=== PATIENT | female | born 1980 | race Two or more races ===

== ENCOUNTER 2023-04-28 07:24 | Outpatient (OUT) | payer OTHER, SELFPAY ==
--- NOTE | 2023-04-28 07:26 | MM_ITS ---
Patient Name: MAX DE LEÓN MR#: [id number] : 1980 Exam Date: 04/28/2023 Ordering Doctor: DR William Coelho . RADIOLOGY REPORT PROCEDURE: MM TOMOSYNTHESIS SCREENING BI COMPARISON: MG MAMM SCREEN 3D DARYL CAD, 01/21/2021. MG MAMM SCREEN 3D DARYL CAD, 02/01/2022. INDICATIONS: Screening Calculator Name NCI Breast Cancer Risk Assessment Tool 5 Year Breast Cancer Risk 0.50% Lifetime Breast Cancer Risk 6.80% Personal Breast Cancer No Personal Ovarian Cancer No Treatments None Family Cancers None LOCATION: [facility] BREAST COMPOSITION: Scattered areas fibroglandular density. FINDINGS: DIAGNOSTIC CATEGORY 2--BENIGN FINDING. NO CHANGE FROM COMPARISON. Scattered benign-appearing calcifications are present. Scattered benign-appearing lymph nodes are present. RIGHT BREAST: No significant suspicious finding. LEFT BREAST: No significant suspicious finding. RECOMMENDATIONS: ROUTINE MAMMOGRAM AND CLINICAL EVALUATION IN 12 MONTHS. PLEASE NOTE: A NORMAL MAMMOGRAM DOES NOT EXCLUDE THE POSSIBILITY OF BREAST CANCER. A CLINICALLY SUSPICIOUS PALPABLE LUMP SHOULD BE BIOPSIED. Dictated by: Manoj Rojo MD on 04/28/2023 at 11:12 Approved by: Manoj Rojo MD on 04/28/2023 at 11:13
== END 2023-04-28 07:25 | disposition home or self-care (01) ==
LOC: MAMMO 07:24
PROVIDERS: PCP Family Medicine; Visit Provider Obstetrics & Gynecology
DX: Z12.31 Encounter for screening mammogram for malignant neoplasm of breast (principal)
CPT/HCPCS: 77063; 77067

== ENCOUNTER 2023-07-27 20:13 | Outpatient (REF) | payer OTHER, SELFPAY ==
--- OUTSIDE RECORDS SUMMARY | 2023-07-27 20:20 | XMS_ITS | CCD ---
Author Organization [facility] Care Team Providers Care Signal Timer Name Role Phone BRIAN HERNANDEZ Primary Care Physician [phone] JASPER, DR OCHOA Admitting Unavailable JASPER, DR OCHOA Attending Unavailable DAVID, DR ENRIQUEZ Primary Care Unavailable JASPER, DR OCHOA Admitting Unavailable JASPER, DR OCHOA Attending Unavailable DAVID, DR ENRIQUEZ Primary Care Unavailable JASPER, DR OCHOA Consulting Unavailable DAVID, DR ENRIQUEZ Admitting Unavailable DAVID, DR ENRIQUEZ Attending Unavailable DAVID, DR ENRIQUEZ Primary Care Unavailable DAVID, DR ENRIQUEZ Consulting Unavailable JASPER, DR OCHOA Admitting Unavailable JASPER, DR OCHOA Attending Unavailable DAVID, DR ENRIQUEZ Primary Care Unavailable JASPER, DR OCHOA Consulting Unavailable JASPER, DR OCHOA Admitting Unavailable JASPER, DR OCHOA Attending Unavailable DAVID, DR ENRIQUEZ Primary Care Unavailable [facility], DR MARGIE Mcgee Consulting Unavailable JASPER, DR OCHOA Consulting Unavailable JASPER, DR OCHOA Admitting Unavailable JASPER, DR OCHOA Attending Unavailable DAVID, DR ENRIQUEZ Primary Care Unavailable JASPER, DR OCHOA Consulting Unavailable JASPER, DR OCHOA Admitting Unavailable JASPER, DR OCHOA Attending Unavailable DAVID, DR ENRIQUEZ Primary Care Unavailable JASPER, DR OCHOA Admitting Unavailable JASPER, DR OCHOA Attending Unavailable DAVID, DR ENRIQUEZ Primary Care Unavailable JASPER, DR OCHOA Consulting Unavailable MICHEAL QUEEN Consulting Unavailable KINDRA LORENZO Consulting Unavailable JASVIR De Leon Attending Provider Ifrah De Leon Attending Unavailable Ifrah De Leon Admitting Unavailable Diana Lazaro Attending Unavailable Diana Lazaro Admitting Unavailable Brian Hernandez Primary Care Unavailable Ifrah De Leon Unavailable BRIAN HERNANDEZ Primary Care Unavailable DIANA LAZARO Attending Unavailable DIANA LAZARO Admitting Unavailable DIANA LAZARO Attending Unavailable DIANA LAZARO Admitting Unavailable DIANA LAZARO Attending Unavailable DIANA LAZARO Attending Unavailable Mian CHRISTOPHER Attending Unavailable FRANK CARRASCO Attending Unavailable ARAMIS BERMUDEZ Attending Unavailable VANNESA ST Attending Unavailable BRIAN HERNANDEZ Attending Unavailable Allergies Allergy Classification Reported Allergen(s) Allergy Type Date of Onset Reaction(s) Facility (1 source) No Known Medication Allergies; Translations: [No Known Medication Allergies] Propensity to adverse reactions (disorder) [facility] Repository Medications Current Medications Medication Drug Class(es) Dates Sig (Normalized) Sig (Original) Albuterol (2 sources) beta2-Adrenergic Agonist Start: 11-03-2022 albuterol Start Date: 11/03/22 Status: Ordered cephalexin 500 mg oral capsule (3 sources) Cephalosporin Antibacterial Start: 11-03-2022 End: 11-10-2022 take 1 capsule by mouth twice daily Keflex 500 mg Cap 500 mg = 1 cap(s), Oral, BID, X 7 day(s), # 14 cap(s), Refills(s) 0, Pharmacy: [facility] #[id number], 163, cm, 11/03/22 15:33:00 EDT, Height/Length Dosing, 101.2, kg, 11/03/22 15:33:00 EDT, Weight Dosing Start Date: 11/03/22 Stop Date: 11/10/22 Status: Ordered take 1 capsule by [facility] every eight hours Cephalexin 500 MG 1 capsule Orally three times a day 03/24/2022 Active ciprofloxacin 250 mg oral tablet (2 sources) Quinolone Antimicrobial Start: 01-20-2022 End: 01-27-2022 take 1 tablet by mouth twice daily Cipro 250 mg Tab 250 mg = 1 tab(s), Oral, BID, X 7 day(s), # 14 tab(s), Refills(s) 0, Pharmacy: [facility] #[id number], 163, cm, 01/20/22 13:31:00 EDT, Height/Length Dosing, 100.3, kg, 01/20/22 13:31:00 EDT, Weight Dosing Start Date: 01/20/22 Stop Date: 01/27/22 Status: Ordered Cranberry preparation (2 sources) Non-Standardized Food Allergenic Extract, Non-Standardized Plant Allergenic Extract Start: 11-03-2022 Azo cranberry Start Date: 11/03/22 Status: Ordered Nexium (9 sources) Proton Pump Inhibitor Start: 08-17-2021 Nexium Oral, Daily, Refills(s) 0 Start Date: 08/17/21 Status: Ordered 30 actuat fluticasone furoate 0.1 mg/actuat / umeclidinium 0.0625 mg/actuat / vilanterol 0.025 mg/actuat dry powder inhaler (2 sources) Anticholinergic, Corticosteroid, beta2-Adrenergic Agonist Trelegy Ellipta 100-62.5-25 MCG/ACT Inhalation for 90 Days Active Folic Acid (2 sources) Start: 11-03-2022 folic acid Daily Start Date: 11/03/22 Status: Ordered Claritin (9 sources) Start: 08-17-2021 Claritin Daily, Refills(s) 0 Start Date: 08/17/21 Status: Ordered Singulair (11 sources) Leukotriene Receptor Antagonist Start: 08-17-2021 Singulair Daily, Refills(s) 0 Start Date: 08/17/21 Status: Ordered Montelukast Sodi um 10 MG Oral for 90 Days Active 24 hr oxybutynin chloride 10 mg extended release oral tablet (13 sources) Cholinergic Muscarinic Antagonist Start: 10-25-2021 End: 10-20-2022 take 1 tablet by mouth once daily oxybutynin 10 mg ER Tab 10 mg = 1 tab(s), Oral, Daily, X 90 day(s), # 90 tab(s), Refills(s) 3, Pharmacy: [facility], 163, cm, 08/17/21 10:59:00 EDT, Height/Length Dosing, 100.3, kg, 08/17/21 10:59:00 EDT, Weight Dosing Start Date: 10/25/21 Stop Date: 10/20/22 Status: Ordered Start: 09-16-2021 take 1 tablet by ángela th once daily oxybutynin 10 mg ER Tab 10 mg = 1 tab(s), Oral, Daily, # 30 tab(s), Refills(s) 0, Pharmacy: [address], 163, cm, 08/17/21 10:59:00 EDT, Height/Length Dosing, 100.3, kg, 08/17/21 10:59:00 EDT, Weight Dosing Start Date: 09/16/21 Status: Ordered Start: 08-17-2021 End: 09-16-2021 take 1 tablet by mouth once daily oxybutynin 5 mg ER Tab 5 mg = 1 tab(s), Oral, Daily, X 30 day(s), # 30 tab(s), Refills(s) 0, Pharmacy: [address], 163, cm, 08/17/21 10:59:00 EDT, Height/Length Dosing, 100.3, kg, 08/17/21 10:59:00 EDT, Weight Dosing Start Date: 08/17/21 Stop Date: 09/16/21 Status: Ordered Oxybutynin Chlor lizzie ER 10 MG Oral for 90 Days Active Probiotic + Colostrum (2 sources) Start: 11-03-2022 Probiotic + Co lostrum Oral, Daily Start Date: 11/03/22 Status: Ordered Trelegy Ellipta (9 sources) Start: 08-17-2021 Trelegy Ellipt a Inhalation, Daily, Refills(s) 0 Start Date: 08/17/21 Status: Ordered vitamin B12 (2 sources) Vitamin B12 Start: 11-03-[address] art Date: 11/03/22 Status: Ordered Completed/Discontinued Medications Medication Drug Class(es) Dates Sig (Normalized) Sig (Original) sulfamethoxazole 400 mg / trimethoprim 80 mg oral tablet (2 sources) Dihydrofolate Reductase Inhibitor Antibacterial, Sulfonamide Antimicrobial Start: 11-03-2022 Bactrim 400 mg-80 mg Tab 80 mg, Oral, As Directed, 30 tab(s), Refill(s) 3, Take 1 tab after sexual intercourse to prevent infections., [facility] #[id number], 163, cm, 11/03/22 15:33:00 EDT, Height/Length Dosing, 101.2, kg, 11/03/22 15:33:00 EDT, Weight Dosing Start Date: 11/03/22 Status: Ordered Problems Active Problems Problem Classification Problem Date Documented Date Episodic/Chronic Abdominal pain (5 sources) Pelvic and perineal pain; Translations: [PELVIC AND PERINEAL PAIN] Onset: 03-16-2021 Episodic Asthma (10 sources) Asthma; Translations: [Unspecified asthma, uncomplicated] Onset: 03-16-2021 08-17-2021 Chronic Deficiency and other anemia (1 source) Iron deficiency anemia secondary to blood loss (chronic); Translations: [IRON DEFIC ANEMIA SEC BLD LOSS CHRN] Onset: 03-16-2021 Chronic Deficiency and other anemia (9 sources) Anemia 08-17-2021 Episodic Genitourinary symptoms and ill-defined conditions (14 sources) Mixed incontinence; Translations: [Incontinence] Onset: 08-17-2021 Chronic Genitourinary symptoms and ill-defined conditions (16 sources) Sensation as if bladder still full; Translations: [Feeling of incomplete bladder emptying] Onset: 01-20-2022 Episodic Immunizations and screening for infectious disease (1 source) Encounter for screening for human papillomavirus (HPV); Translations: [ENC SCREENING HUMAN PAPILLOMAVIRUS] Onset: 01-16-2022 Episodic Menstrual disorders (5 sources) Excessive and frequent menstruation with regular cycle; Translations: [Dysmenorrhea, unspecified] Onset: 03-08-2021 Chronic Other diseases of bladder and urethra (5 sources) Detrusor overactivity; Translations: [Overactive bladder] Onset: 08-17-2021 Chronic Other diseases of bladder and urethra (9 sources) Overactive bladder 08-17-2021 Chronic Other screening for suspected conditions (not mental disorders or infectious disease) (5 sources) Encounter for screening mammogram for malignant neoplasm of breast; Translations: [Encounter for screening for malignant neoplasm of cervix] Onset: 01-13-2022 Episodic Skin and subcutaneous tissue infections (1 source) Cellulitis of right finger Episodic Unclassified (7 sources) Finding of sensation of bladder 01-20-2022 Unclassified (1 source) CONTACT W/AND (SUSP) EXPOS COVID-19; Translations: [CONTACT W/AND (SUSP) EXPOS COVID-19] Onset: 03-09-2021 Urinary tract infections (12 sources) Urinary tract infectious disease; Translations: [Urinary tract infection, site not specified] Onset: 08-17-2021 Episodic Urinary tract infections (1 source) Urinary tract infections; Translations: [N39.0 - Urinary tract infection, site not specified] Onset: 08-19-2021 Past or Other Problems Problem Classification Problem Date Documented Da te Episodic/Chronic Deficiency and other anemia (4 sources) Iron deficiency anemia, unspecified; Translations: [IRON DEFICIENCY ANEMIA UNSPECIFIED] Onset: 08-13-2021 Episodic Other female genital disorders (1 source) Hypertrophy of uterus; Translations: [HYPERTROPHY OF UTERUS] Onset: 03-16-2021 Episodic Results Test Name Value Interpretation Reference Range Facility Ambulatory Visit Summaryon 0 06-07-2023 Ambulatory Visit Summary CANDICE DE LEÓN :1980 Visit Date:06/07/2023 Ambulatory Visit Instructions Your Diagnosis UTI symptoms Your Care Team Attending Physician - DIANA LAZARO PA-C Primary Care Physician - DAVID MURPHY, BRIAN Anderson This Is Your Medications List albuterol bifidobacterium-lacto bacillus (Probiotic + Colostrum) cranberry (Azo cranberry) cyanocobalamin (Vitamin B12) esomeprazole (Nexium) fluticasone/umeclidin ium/vilanterol (Trelegy Ellipta) folic acid loratadine (Claritin) montelukast (Singulair) sulfamethoxazole-trim ethoprim (Bactrim 400 mg-80 mg Tab) Procedures Performed Cholecystectomy, Colonoscopy, Partial hysterectomy. Medications What How Much When Instructions Unchanged albuterol Unchanged bifidobacterium-lacto bacillus (Probiotic + Colostrum) By Mouth Every day Unchanged cranberry (Azo cranberry) Unchanged cyanocobalamin (Vitamin B12) Unchanged esomeprazole (Nexium) By Mouth Every day Unchanged fluticasone/ umeclidinium/ vilanterol (Trelegy Ellipta) Inhalation Every day Unchanged folic acid Every day Unchanged loratadine (Claritin) Every day Unchanged montelukast (Singulair) Every day Unchanged sulfamethoxazole-trim ethoprim (Bactrim 400 mg-80 mg Tab) 80 Milligram By Mouth As Directed Take 1 tab after sexual intercourse to prevent infections. Allergies No Known Medication Allergies Problems Ongoing - Any problem that you are currently receiving treatment for. Anemia Asthma Feeling of incomplete bladder emptying Mixed incontinence OAB (overactive bladder) Recurrent UTI UTI symptoms Patient Survey You may receive a survey via text or e-mail asking about your office visit. Please share your experience with us by completing your survey. We appreciate your feedback and thank you for choosing us for your care. [facility] C Urineon 11-07-2022 Bacteria identified Cx Nom (U) Microbiology PROCEDURE: Urine Culture [R1] SOURCE: U Random BODY SITE: COLLECTED DATE/TIME: 11/03/2022 16:03 EDT RECEIVED DATE/TIME: 11/04/2022 12:12 EDT START DATE/TIME: 11/04/2022 12:12 EDT FREE TEXT SOURCE: DIANA LAZARO PA-C, PA-C, DIANA Aleman FINAL REPORTS Final Report [] Verified Date/Time: 11/07/2022 11:23 EDT 10,000 cfu/ml Morganella morganii 5,000 cfu/ml Mixed skin contaminants SUSCEPTIBILITY RESULTS LEGEND: S=Susceptible, N/R=Not Reported, Blank=Data not available, or drug not advisable or tested, I=Intermediate, ESBL=Extended spectrum beta-lactamase, R=Resistant, TFG=Thymidine-depende nt strain, AMBROSE=Beta-lactamase positive, SARAH=mcg/m;(mg/L), S*=Predicted susceptible interp, R*=Predicted resistant interp Mormor Antibiotic SARAH Dilutn SARAH Interp Amikacin <=16 S Ampicillin >16 R Ampicillin/ >16/8 R Sulbactam Aztreonam <=4 S Cefazolin >16 R Cefepime <=2 S Cefoxitin <=8 S Ceftazidime 8 S Ceftazidime/ <=8 S Avibactam Ceftriaxone <=1 S Ciprofloxacin <=1 S Ertapenem <=0.5 S Gentamicin <=4 S Levofloxacin <=2 S Meropenem <=1 S Nitrofurantoin 64 R* Piperacillin/ <=16 S Tazobactam Tetracycline >8 R Tigecycline <=2 R* Tobramycin <=4 S Trimethoprim/ <=2/38 S Sulfa Performing Locations R1: This test was performed at: [facility], [address] [place] [address], [phone] , , Normal [facility] Comment on above: Performed By: #### [id number] #### [facility] [address] [place] [id number] Ambulatory Visit Summaryon 0 11-03-2022 Ambulatory Visit Summary CANDICE DE LEÓN :1980 Visit Date:11/03/2022 Ambulatory Visit Instructions Your Diagnosis Recurrent UTI UTI symptoms OAB (overactive bladder) Mixed incontinence Feeling of incomplete bladder emptying Tests Performed Urnls Dip Stick Auto w/o Microscopy POC 67512 Your Care Team Attending Physician - DIANA LAZARO PA-C Primary Care Physician - BRIAN HERNANDEZ MD This Is Your Medications List albuterol bifidobacterium-lacto bacillus (Probiotic + Colostrum) cranberry (Azo cranberry) cyanocobalamin (Vitamin B12) esomeprazole (Nexium) fluticasone/umeclidin ium/vilanterol (Trelegy Ellipta) folic acid loratadine (Claritin) montelukast (Singulair) Procedures Performed Cholecystectomy, Colonoscopy, Partial hysterectomy. Discharge Vitals Heart Rate (Peripheral) 65 Blood Pressure 142/87 Height 163 cm Height 64 in Weight 101.2 kg Weight 222.64 lb BMI 38.09 What to do next You Need to Schedule the Following Appointments Follow Up with DIANA LAZARO PA-C, URL When: Where: [address] [place] [address] You Need to Complete the Following Urine Culture, Urine Random, Routine collect, Collected, 11/03/22, Order for future visit, Nurse collect, Recurrent UTI Invalid Interpretation Code OAB (overactive bladder) [facility] Patient Educationon 11-04-19 Patient Education Obstetrics and Gynecology Urinary Tract Infection, Adult A urinary tract infection (UTI) is an infection of any part of the urinary tract. The urinary tract includes: ? The kidneys. ? The ureters. ? The bladder. ? The urethra. These organs make, store, and get rid of pee (urine) in the body. What are the causes? This infection is caused by germs (bacteria) in your genital area. These germs grow and cause swelling (inflammation) of your urinary tract. What increases the risk? The following factors may make you more likely to develop this condition: ? Using a small, thin tube (catheter) to drain pee. ? Not being able to control when you pee or poop (incontinence). ? Being female. If you are female, these things can increase the risk: ? Using these methods to prevent : ? A medicine that kills sperm (spermicide). ? A device that blocks sperm (diaphragm). ? Having low levels of a female hormone (estrogen). ? Being . You are more likely to develop this condition if: ? You have genes that add to your risk. ? You are sexually active. ? You take antibiotic medicines. ? You have trouble peeing because of: ? A prostate that is bigger than normal, if you are male. ? A blockage in the part of your body that drains pee from the bladder. ? A kidney stone. ? A nerve condition that affects your bladder. ? Not getting enough to drink. ? Not peeing often enough. ? You have other conditions, such as: ? Diabetes. ? A weak disease-fighting system (immune system). ? Sickle cell disease. ? Gout. ? Injury of the spine. What are the signs or symptoms? Symptoms of this condition include: ? Needing to pee right away. ? Peeing small amounts often. ? Pain or burning when peeing. ? Blood in the pee. ? Pee that smells bad or not like normal. ? Trouble peeing. ? Pee that is cloudy. ? Fluid coming from the vagina, if you are female. ? Pain in the belly or lower back. Other symptoms include: ? Vomiting. ? Not feeling hungry. ? Feeling mixed up (confused). This may be the first symptom in older adults. ? Being tired and grouchy (irritable). ? A fever. ? Watery poop (diarrhea). How is this treated? ? Taking antibiotic medicine. ? Taking other medicines. ? Drinking enough water. In some cases, you may need to see a specialist. Follow these instructions at home: Medicines ? Take grew-ofo-aczytvo and prescription medicines only as told by your doctor. ? If you were prescribed an antibiotic medicine, take it as told by your doctor. Do not stop taking it even if you start to feel better. General instructions ? Make sure you: ? Pee until your bladder is empty. ? Do not hold pee for a long time. ? Empty your bladder after sex. ? Wipe from front to back after peeing or pooping if you are a female. Use each tissue one time when you wipe. ? Drink enough fluid to keep your pee pale yellow. ? Keep all follow-up visits. Contact a doctor if: ? You do not get better after 1?2 days. ? Your symptoms go away and then come back. Get help right away if: ? You have very bad back pain. ? You have very bad pain in your lower belly. ? You have a fever. ? You have chills. ? You feeling like you will vomit or you vomit. Summary ? A urinary tract infection (UTI) is an infection of any part of the urinary tract. ? This condition is caused by germs in your genital area. ? There are many risk factors for a UTI. ? Treatment includes antibiotic medicines. ? Drink enough fluid to keep your pee pale yellow. This information is not intended to replace advice given to you by your health care provider. Make sure you discuss any questions you have with your health care provider. Document Revised: 10/16/2020 Document Reviewed: 10/16/2020 [employer] Patient Education ? 2022 [employer] [facility]y [facility] Urology Office/Clinic Noteon 11-03-2022 Urology Office/Clinic Note Chief Complaint 6 month follow up [facility] Staff Candice is a 42 y.o. female here for 6 month follow up. Previous Dx: feeling of incomplete bladder emptying, mixed incontinence, OAB, recurrent UTI, UTI symptoms. No urological procedures. Pt is currently taking Oxybutynin 10mg ER QD. Previous PVR 05/04/22 was 29cc. Pt states she started AZO tablets 10/31/22. Pt states she stopped taking Oxybutynin because nocturia improvement, then she started taking Oxybutynin again due to nocturia increase. Pt states she takes Oxybutynin when she remembers to take it. PVR today 0ml. Dysuria: discomfort Incomplete bladder emptying: Pt states she sits for 10 minutes to make sure she empties her bladder Hematuria: denies visible blood Frequency: 10x a day Urgency: denies Nocturia: 1-2x a night Stream: denies hesitancy, strong stream Leaking: yes Post void dripping: yes Wearing pads/ Depends: wears pad daily, changes 2x a day Urge incontinence: yes Stress incontinence: yes Incontinence without Sensory Awareness: denies Abdominal pain: denies Flank pain: only when she feels she has a UTI Sexual complaints: Pt states she feels irritation and her bladder feels uncomfortable after sex History of Present Illness staff HPI reviewed and agree. Review of Systems PHQ Score Initial Depression Screen Score: 0 no fever, chills, malaise, myalgia. no rash/lesions. no chest pain, palpitations, or SOB. no abdominal pain, nausea, vomiting. no unilateral calf swelling, redness, pain Physical Exam Vitals & Measurements HR: 65(Peripheral) BP: 142/87 HT: 64 in HT: 163 cm WT: 101.2 kg WT: 222.64 lb BMI: 38.09 General: nontoxic, NAD Mouth: moist mucosa Lungs: normal respiratory effort Cardio: regular rate, good distal perfusion Abdomen: nondistended, no suprapubic distention or tenderness, no CVA tenderness Neurologic: Grossly normal Skin: No rashes or suspicious lesions Assessment/Plan 1. Recurrent UTI (N39.0: Urinary tract infection, site not specified) Has had UTIs increasing in frequency over the past few years. Now every few months. Seems to happen more frequently after having intercourse. Discussed starting post-coital abx. Risks/benefits discussed. Pt would like to try this. -Bactrim 400mg-80mg PRN 2. UTI symptoms (R39.9: Unspecified symptoms and signs involving the genitourinary system) UA today shows trace-intact blood and pos nitrates. Pt c/o dysuria, frequency, burning for about a week. Pt states she started AZO tablets 10/31/22. -Will send Keflex 500mg BID x7days. call if sx don't resolve or if they do but then return. 3. OAB (overactive bladder) (N32.81: Overactive bladder) Pt continues taking Oxybutynin 10 mg ER QD. [place] med was working well. Stopped for over a week, had nocturia 1-2x/night, then restarted. Has now been back on Oxybutynin, takes when she remembers. Advised to take Oxybuynin regularly. -cont Oxybutynin 4. Mixed incontinence (N39.46: Mixed incontinence) -cont Oxybutynin 5. Feeling of incomplete bladder emptying (R39.14: Feeling of incomplete bladder emptying) PVR 0(29)cc prefers PRN f/u. understands that will need to see her at least once per year since we are prescribing medications. she said if she doesn't have a UTI by then she will call to schedule a regular follow-up. All questions/concerns were discussed. Pt to call the office if she encounters any issues prior. Pt acknowledges understanding. Follow-up With When Contact Information TEJAS ZUNIGA, DIANA Aleman, URL [address] [place] [address] Additional Instructions: PRN Patient Education Urinary Tract Infection, Adult, Vzro-dx-Dzoc Winnie Schofield, personally scribed for Diana Lazaro PA-C on 11/03/2022 16:08:18. . Documentation recorded by the marilee Barragan accurately reflects the services(s) I performed and decisions made by me. Authenticated by Diana Lazaro PA-C on 11/03/2022 16:22:03. Problem List/Past Medical History Ongoing Anemia Asthma Feeling of incomplete bladder emptying Mixed incontinence OAB (overactive bladder) Recurrent UTI UTI symptoms Historical No qualifying data Procedure/Surgical History Cholecystectomy, Colonoscopy, Partial hysterectomy. Medications albuterol Azo cranberry Claritin, Daily folic acid, Daily Nexium, Oral, Daily Probiotic + Colostrum, Oral, Daily Singulair, Daily Trelegy Ellipta, Inhalation, Daily Vitamin B12 Allergies No Known Medication Allergies Social History Tobacco Never (less than 100 in lifetime) Tobacco Use:. Never Smokeless Tobacco Use:., 11/03/2022 Family History Diabetes: Mother. Immunizations Vaccine Date Status Comments influenza virus vaccine, inactivated 01/20/2022 Recorded SARS-CoV-2 (COVID-19) mRNA-1273 vaccine 02/08/2021 Recorded SARS-CoV-2 (COVID-19) mRNA-1273 vaccine 01/2021 Recorded influenza virus vaccine, inactivated 1 (more content not included)... [facility] Comment on above: Result Comment: Elec tronically Signed By: DIANA LAZARO PA-C\.br\Date and Time Signed: 11/03/22 16:22 EDT\.br\Electronically Co-Signed By: Winnie Barragan\.br\Date and Time Co-Signed: 11/03/22 16:08 EDT C Urineon 10-06-2022 Bacteria identified Cx Nom (U) Microbiology PROCEDURE: Urine Culture [R1] SOURCE: U Random BODY SITE: COLLECTED DATE/TIME: 10/04/2022 08:41 EDT RECEIVED DATE/TIME: 10/04/2022 14:39 EDT START DATE/TIME: 10/04/2022 14:39 EDT FREE TEXT SOURCE: DIANA LAZARO PA-C, PA-C, JENNIFER E FINAL REPORTS Final Report [] Verified Date/Time: 10/06/2022 09:18 EDT 2,000 cfu/ml Mixed skin contaminants Performing Locations R1: This test was performed at: [facility], [address] [place] [address], [id number] , [place], [facility] Comment on above: Performed By: #### [id number] #### [facility] [address] [place] [id number] Ambulatory Visit Summaryon 0 10-03-2022 Ambulatory Visit Summary CANDICE DE LEÓN :1980 Visit Date:10/03/2022 Ambulatory Visit Instructions Your Care Team Attending Physician - ASHWIN MURPHY, Mian Darnell Primary Care Physician - DAVID MURPHY, BRIAN Anderson This Is Your Medications List esomeprazole (Nexium) fluticasone/umeclidin ium/vilanterol (Trelegy Ellipta) loratadine (Claritin) montelukast (Singulair) oxybutynin (oxybutynin 10 mg ER Tab) Procedures Performed Cholecystectomy, Colonoscopy, Partial hysterectomy. What to do next Scheduled Follow-Up Appointments 2022 3:15 PM EDT With: TEJAS ZUNIGA, DIANA Aleman Where: [facility] Urinalysis - AUTOMATEDon Appearance (U) cloudy [employer] Other Bilirubin Ql (U) Negative [employer] Other Color (U) yellow [employer] Other Glucose Ql (U) Negative [employer] Other Hemoglobin Ql (U) trace-intact [employer] Other Ketones Ql (U) Negative [employer] Other Leukocyte esterase Test strip Ql (U) Negative [employer] Other Nitrite Ql (U) Negative [employer] Other pH (U) 5.5 [pH] [employer] Other Protein Ql (U) Negative [employer] Other Specific gravity (U) [Rel density] >1.030 [employer] Other Urobilinogen (U) [Mass/Vol] 0.2 mg/dL [employer] Other Urinalysis - AUTOMATED [employer] [facility] [employer] Other Urine Cultureon 03-07-2022 Bacteria identified Cx Nom (U) Reason for Exam Dysuria Urine <9,000 colonies/ml mixed bacterial skin contaminants 2 Days PERFORMED BY: [place] [address] PATHOLOGIST COMMISSARY HELPER WILLAM HERNANDEZ M.D. [facility] Comment on above: Performed By: #### C UU #### [address] Bacteria identified Cx Nom (U) [employer] Other MG MAMM SCREEN 3D DARYL CADon 02-01-2022 MG MAMM SCREEN 3D DARYL CAD Patient: CANDICE DE LEÓN Exam Date: 02/01/2022 : 1980 Gender:F Ordering : DR GABRIELA COELHO . Admission #: [id number] Family : Order #: [id number] CLICK HERE TO VIEW EXAM RADIOLOGY REPORT PROCEDURE: MAMMOGRAM SCREENING 3D BILATERAL CAD COMPARISON: MG MAMM SCREEN 3D DARYL CAD, 01/21/2021. INDICATIONS: Screening mammography Calculator Name NCI Breast Cancer Risk Assessment Tool 5 Year Breast Cancer Risk 0.40% Lifetime Breast Cancer Risk 6.90% Personal Breast Cancer No Personal Ovarian Cancer No Treatments None Family Cancers None LOCATION: [facility] BREAST COMPOSITION: Scattered areas fibroglandular density. FINDINGS: DIAGNOSTIC CATEGORY 2--BENIGN FINDING. NO CHANGE FROM COMPARISON. Scattered benign-appearing nodules are present. Scattered benign-appearing calcifications are present. Scattered benign-appearing lymph nodes are present. RIGHT BREAST: No significant suspicious finding. LEFT BREAST: No significant suspicious finding. RECOMMENDATIONS: ROUTINE MAMMOGRAM AND CLINICAL EVALUATION IN 12 MONTHS. PLEASE NOTE: A NORMAL MAMMOGRAM DOES NOT EXCLUDE THE POSSIBILITY OF BREAST CANCER. A CLINICALLY SUSPICIOUS PALPABLE LUMP SHOULD BE BIOPSIED. Dictated by: Margie Deluna MD on 02/01/2022 at 13:53 Approved by: Margie Deluna MD on 02/01/2022 at 13:54 Normal [facility] US PELVIS AND TRANSVAGon US PELVIS AND TRANSVAG EXAMINATION: US PELVIS AND TRANSVAG HISTORY: Pelvic and perineal pain COMPARISON: 01/21/2021 FINDINGS: Transabdominal and transvaginal images The uterus is normal in size, contour and myometrial echotexture measuring 7.9 x 5.0 x 3.8 cm. Anteflexed. The endometrium measures 4 mm, normal. Areas of anechoic echogenicity in the cervix, nabothian cysts. The right ovary is normal in appearance measuring 2.3 x 1.6 x 1.5 cm. Normal color and Doppler flow The left ovary is normal in appearance measuring 2.2 x 1.4 x 1.4 cm. Normal color and Doppler flow IMPRESSION: Normal exam Electronically authenticated by: MARGIE DELUNA Date: 2022-02-01 11:27 Normal [facility] PAP ACOG PANEL 2: 30 to 65on 01-21-2022 . . Normal [facility] Comment on above: Result Comment: Perf ormed at: WB Performed By: #### 4 [id number] #### [facility] [address] [place] [address] Dr. Raul Cullen Age Gdln ACOG Testing 30-65 Normal [facility] Comment on above: Performed By: #### 4 [id number] #### [facility] [address] [place] [address] Dr. Raul Cullen DIAGNOSIS: Comment Normal [facility] Comment on above: Result Comment: NEGA TIVE FOR INTRAEPITHELIAL LESION OR MALIGNANCY. Performed at: WB Performed By: #### 4 [id number] #### [facility] [address] [place] [address] Dr. Raul Cullen HPV Aptima Negative Normal Negative [facility] Comment on above: Result Comment: This nucleic acid amplification test detects fourteen high-risk HPV types (16,18,31,33,35,39,45,51,52,56,58,59,66,68) without differentiation. Performed at: =G Performed By: #### 4 [id number] #### [facility] [address] [place] [address] Dr. Raul Cullen HPV Genotype Reflex Comment Normal [facility] Comment on above: Result Comment: Crit eria not met, HPV Genotype not performed. Performed at: WB Performed By: #### 4 [id number] #### [facility] [address] [place] [address] Dr. Raul Cullen Methodology: Comment Normal [facility] Comment on above: Result Comment: This liquid based ThinPrep(R) pap test was screened with the use of an image guided system. Performed at: WB Performed By: #### 4 [id number] #### [facility] [address] [place] [address] Dr. Raul Cullen Note: Comment Normal [facility] Comment on above: Result Comment: The Pap smear is a screening test designed to aid in the detection of premalignant and malignant conditions of the uterine cervix. It is not a diagnostic procedure and should not be used as the sole means of detecting cervical cancer. Both false-positive and false-negative reports do occur. . Performed at: WB Performed By: #### 4 [id number] #### [facility] [address] [place] [address] Dr. Raul Cullen Performed by: Comment Normal [facility] Comment on above: Result Comment: Cecy Terry, Bilingual Kindergarten Teacher Performed at: WB Performed By: #### 4 [id number] #### [facility] [address] [place] [address] Dr. Raul Cullen Specimen adequacy: Comment Normal [facility] Comment on above: Result Comment: Sati sfactory for evaluation. Endocervical and/or squamous metaplastic cells (endocervical component) are present. Performed at: WB Performed By: #### 4 [id number] #### [facility] [address] [place] [address] Dr. Raul Cullen [facility] Standardon 12-23-2021 eGFR Non AA >60 Invalid Interpretation Code [facility] Comment on above: Performed By: #### 1 [id number], [id number], [id number], 3643299, 3346664, 2657987, 6432627 #### [facility] (DEFAULT) [address] [place] [address] eGFR AA >60 Invalid Interpretation Code [facility] Comment on above: Result Comment: Manager Sports girish Kidney disease could be indicated at eGFRs of less than 60 ml/min/1.73m2. Kidney Failure is indicated at less than 15 ml/min/1.73m2 Performed By: #### 1 [id number], 1579675, [id number], 8803641, 7129510, 4339980, 1600864 #### [facility] (DEFAULT) [address] [place] [address] 94629 Albumin [Mass/Vol] 4.4 g/dL Normal 3.5-5.0 [facility] Comment on above: Performed By: #### 1 [id number], 0722722, [id number], 3566208, 7212265, 4041649, 1506152 #### [facility] (DEFAULT) [address] [place] [address] 44278 Albumin/Globulin [Mass ratio] 1.2 {ratio} Low 1.4-2.6 [facility] Comment on above: Performed By: #### 1 [id number], 6741298, [id number], 7854825, 0848712, 9416811, 3357422 #### [facility] (DEFAULT) [address] [place] [address] 59236 Alk Phos 69 IU/L Normal 32-91 [facility] Comment on above: Performed By: #### 1 [id number], 9381768, 5016744110, 8084522, 1164989, 3895866, 4912223 #### [facility] (DEFAULT) [address] [place] [address] 42014 ALT [Catalytic activity/Vol] 72.0 U/L High 14.0-54.0 [facility] Comment on above: Performed By: #### 1 [id number], 5841962, 2586207700, 7837341, 6678439, 8098733, 0702186 #### [facility] (DEFAULT) [address] [place] [address] 46536 Anion gap [Moles/Vol] 12.0 mmol/L Normal 5.0-19.0 [facility] Comment on above: Performed By: #### 1 [id number], 0736046, 3762095920, 6416545, 6229713, 2898044, 0708962 #### [facility] (DEFAULT) [address] [place] [address] 92524 AST [Catalytic activity/Vol] 50 U/L High 15-41 [facility] Comment on above: Performed By: #### 1 [id number], 8353445, 2350818646, 0692197, 5500742, 0764138, 4843737 #### [facility] (DEFAULT) [address] [place] [address] 14845 Bili Total 0.8 mg/dL Normal 0.3-1.2 [facility] Comment on above: Performed By: #### 1 [id number], 8523546, 0404353837, 4563823, 3573913, 4163179, 1347319 #### [facility] (DEFAULT) [address] [place] [address] 22154 Calcium [Mass/Vol] 9.7 mg/dL Normal 8.9-10.3 [facility] Comment on above: Performed By: #### 1 [id number], 0591178, 1235901862, 2872205, 9269802, 0119260, 3002878 #### [facility] (DEFAULT) [address] [place] [address] 65914 Chloride [Moles/Vol] 98 mmol/L Low 101-111 [facility] Comment on above: Performed By: #### 1 [id number], 0070223, 3381609248, 8790331, 6726144, 1260064, 6974011 #### [facility] (DEFAULT) [address] [place] [address] 25161 CO2 [Moles/Vol] 29 mmol/L Normal 21-32 [facility] Comment on above: Performed By: #### 1 [id number], 2866803, 0408198141, 1770797, 8683531, 8768189, 7602545 #### [facility] (DEFAULT) [address] [place] [address] 46020 Creatinine [Mass/Vol] 0.87 mg/dL Normal 0.60-1.30 [facility] Comment on above: Performed By: #### 1 [id number], 6548681, 4899119052, 1992340, 5865206, 2141996, 0092290 #### [facility] (DEFAULT) [address] [place] [address] 03697 Globulin (S) [Mass/Vol] 3.6 g/dL Normal 1.5-4.3 [facility] Comment on above: Performed By: #### 1 [id number], 7453692, 8460127267, 6298349, 1174910, 3616709, 1187495 #### [facility] (DEFAULT) [address] [place] [address] 64239 Glucose [Mass/Vol] 94.0 mg/dL Normal 74.0-118.0 [facility] Comment on above: Performed By: #### 1 379850504, 9026736, 4584209257, 3644704, 7537117, 1843776, 2151564 #### [facility] (DEFAULT) [address] [place] [address] 30256 Osmolality 270 mOsm/L Invalid Interpretation Code [facility] Comment on above: Performed By: #### 1 [id number], 5190171, 8150346468, 8707247, 6967075, 7539585, 9878500 #### [facility] (DEFAULT) [address] [place] [address] 00437 Potassium [Moles/Vol] 4.1 mmol/L Normal 3.6-5.1 [facility] Comment on above: Performed By: #### 1 327561813, 5085242, 7596358686, 5947370, 1829603, 4924364, 6183076 #### [facility] (DEFAULT) [address] [place] [address] 73701 Protein [Mass/Vol] 8.0 g/dL Normal 6.5-8.1 [facility] Comment on above: Performed By: #### 1 [id number], 0637152, 6944564089, 9388714, 5056467, 0129728, 2843479 #### [facility] (DEFAULT) [address] [place] [address] 66534 Sodium [Moles/Vol] 135.0 mmol/L Low 136.0-144.0 [facility] Comment on above: Performed By: #### 1 624337572, 5260457, 4065587300, 9573397, 2057431, 4044997, 1409072 #### [facility] (DEFAULT) [address] [place] [address] Urea nitrogen [Mass/Vol] 13 mg/dL Normal 8-26 [facility] Comment on above: Performed By: #### 1 591263685, 0334086, 9507625152, 3599997, 4754784, 0345115, 0408692 #### [facility] (DEFAULT) [address] [place] [address] Urea nitrogen/Creatini ne [Mass ratio] 15.0 mg/mg Normal 4.6-16.2 [facility] Comment on above: Performed By: #### 1 [id number], 2054813, 0657601054, 8683929, 6639290, 1329890, 5012484 #### [facility] (DEFAULT) [address] [place] [address] GGTon 12-23-2021 Gamma glutamyl transferase [Catalytic activity/Vol] 29.0 U/L Normal 7.0-50.0 [facility] Comment on above: Performed By: #### 1 090097087, 5335909, 4249662625, 0902629, 2304678, 6971168, 2313064 #### [facility] (DEFAULT) [address] [place] [address] 33676 Iron Levelon 12-23-2021 Iron [Mass/Vol] 124.0 ug/dL Normal 28.0-170.0 [facility] Comment on above: Performed By: #### 1 559357675, 9005759, 0738127946, 6380872, 7787769, 8473902, 5900372 #### [facility] (DEFAULT) [address] [place] [address] 70741 LDHon 12-23-2021 LDH 173.0 IU/L Normal 98.0-192.0 [facility] Comment on above: Performed By: #### 1 136356247, 7005414, 1389097468, 4975202, 5328740, 9395876, 2660440 #### [facility] (DEFAULT) [address] [place] [address] 24128 Lipid Panel Standardon 12-23 Cholesterol [Mass/Vol] 202.0 mg/dL High 66.0-200.0 [facility] Comment on above: Result Comment: Eva rable - Less than 200 mg/dL Borderline high risk - 200-239 mg/dL High risk - 240 mg/dL and over. Performed By: #### 1 691975896, 1014111, 4580684343, 1009646, 1082528, 8990078, 6236982 #### [facility] (DEFAULT) [address] [place] [address] 80785 Cholesterol in HDL [Mass/Vol] 40 mg/dL Normal 40-71 [facility] Comment on above: Result Comment: High risk - <40 mg/dL. Performed By: #### 1 [id number], 4574655, 0601228752, 6212458, 0704913, 1336599, 1901710 #### [facility] (DEFAULT) [address] [place] [address] 16621 Cholesterol in LDL [Mass/Vol] 131 mg/dL High 1-100 [facility] Comment on above: Result Comment: Opti mal - Less than 100 mg/dL Borderline high risk - 130-159 mg/dL High risk - 160-189 mg/dL. Performed By: #### 1 119198796, 7036415, 6231315658, 6604307, 6769892, 1667674, 4617031 #### [facility] (DEFAULT) [address] [place] [address] 35626 Cholesterol.total /Cholesterol in HDL [Mass ratio] 5.1 {ratio} High 0.0-4.5 [facility] Comment on above: Performed By: #### 1 [id number], 9804577, 9146141958, 7768367, 7375984, 4593962, 6618508 #### [facility] (DEFAULT) [address] [place] [address] 59658 Triglyceride [Mass/Vol] 156.0 mg/dL High 0.0-150.0 [facility] Comment on above: Performed By: #### 1 [id number], 6765142, 1493881288, 7072563, 5969521, 7868009, 7600855 #### [facility] (DEFAULT) [address] [place] [address] VLDL. 31 mg/dL Normal 5-40 [facility] Comment on above: Performed By: #### 1 [id number], 6237496, 4797229564, 8543764, 7841254, 0375052, 9574938 #### [facility] (DEFAULT) [address] [place] [address] 24978 Phoson 12-23-2021 Phosphate [Mass/Vol] 4.0 mg/dL Normal 2.5-4.6 [facility] Comment on above: Performed By: #### 1 425777101, 8407782, 1330771744, 2140122, 9702518, 3460698, 1068780 #### [facility] (DEFAULT) [address] [place] [address] 06327 Uric Acidon 12-23-2021 Urate [Mass/Vol] 6.5 mg/dL Normal 2.6-8.0 [facility] Comment on above: Performed By: #### 1 [id number], 9699840, 9804027640, 1970234, 3394975, 9680865, 9978825 #### [facility] (DEFAULT) [address] [place] [address] 62044 US renal BIon 08-19-2021 US renal BI [facility] [place] [address] Ultrasound Report Signed Patient: Candice De León MR#: [id number] 5 : 1980 Acct:[id number] Age/Sex: 41 / F ADM Date: 08/19/21 Loc: Room: Type: [facility] Attending Dr: Diana Lazaro PA-C Ordering Provider: Diana Lazaro PA-C Date of Service: 08/19/21 US/US renal BI: RECURRING UTI Copies to: Diana Lazaro PA-C Bilateral renal ultrasound HISTORY: Recurrent UTIs. COMPARISON:None RIGHT kidney measures 10.9 x 4.7 x 5.6 cm. LEFT kidney measures 10.5 x 5.7 x 5.2 cm. No hydronephrosis identified. No shadowing renal calculus is seen. No renal lesion identified. The urinary bladder prevoid volume is 134 cc and the postvoid volume is 9 cc. Patent ureters noted. US/US renal BI IMPRESSION: No hydronephrosis. Impression dictated by: Xu Abdul M.D.08/19/2021 10:35 AM Dictation Location: RADIO-PC-11 Tech: Lisa Cisse Transcribed By: PAWEL 08/19/21 1035 Dictated By: Xu Abdul DO 08/19/21 1034 Signed By: 08/19/21 1035 [facility] XR KUBon 08-19-2021 XR KUB [facility] [place] [address] XRay Report Signed Patient: Candice De León MR#: [id number] 5 : 1980 Acct:[id number] Age/Sex: 41 / F ADM Date: 08/19/21 Loc: Room: Type: [facility] Attending Dr: Diana Lazaro PA-C Ordering Provider: Diana Lazaro PA-C Date of Service: 08/19/21 XR/XR KUB: RECURRING UTI Copies to: Diana Lazaro PA-C Single view of abdomen COMPARISON: None HISTORY: Recurrent UTI Nondistended air-filled small bowel loops identified. The pelvic vascular calcifications identified. No abdominal calcification identified. No soft tissue mass seen. Bony structures are intact. XR/XR KUB IMPRESSION: No significant findings. Impression dictated by: Xu Abdul M.D.08/19/2021 10:42 AM Dictation Location: [facility]IO-PC-11 Transcribed By: [facility] 08/19/21 1042 Dictated By: Xu Abdul DO 08/19/21 104 Signed By: 08/19/21 104 [facility] CBC AUTO DIFFon 08-13-2021 BASO # 0.1 103/ul Normal 0.0-0.1 [facility] Comment on above: Performed By: #### C BC #### [facility] [address] [address] [address] Raul Cullen Basophils/100 WBC (Bld) 0.6 % Normal 0.2-2.0 [facility] Comment on above: Performed By: #### C BC #### [facility] [address] [address] [address] Raul Cullen EO # 0.2 103/ul Normal 0.0-0.7 [facility] Comment on above: Performed By: #### C BC #### [facility] [address] [address] [address] Raul Cullen Eosinophils/100 WBC (Bld) 1.8 % Normal 0.9-7.0 [facility] Comment on above: Performed By: #### C BC #### [facility] [address] [place] [address] Dr. Raul Cullen Erythrocyte distribution width (RBC) [Ratio] 14.9 % Normal 11.0-15.0 [facility] Comment on above: Performed By: #### C BC #### [facility] [address] [place] [address] Dr. Raul Cullen Hematocrit (Bld) [Volume fraction] 45.6 % Normal 36.0-48.0 [facility] Comment on above: Performed By: #### C BC #### [facility] [address] [address] [address] Raul Cullen Hemoglobin (Bld) [Mass/Vol] 14.2 g/dL Normal 12.0-16.0 [facility] Comment on above: Performed By: #### C BC #### [facility] [address] [address] [address] Raul Cullen IG # 0.04 10e3/ul Critically high 0.00-0.03 [facility] Comment on above: Performed By: #### C BC #### [facility] [address] [address] [address] Raul Cullen IG % 0.4 % Normal 0.0-0.5 [facility] Comment on above: Performed By: #### C BC #### [facility] [address] [place] [address] Dr. Raul Cullen LYMPH # 3.1 103/ul Normal 1.2-3.8 [facility] Comment on above: Performed By: #### C BC #### [facility] [address] [place] [address] Dr. Raul Cullen Lymphocytes/100 WBC (Bld) 33.4 % Normal 20.5-60.0 [facility] Comment on above: Performed By: #### C BC #### [facility] [address] [place] [address] Dr. Raul Cullen MANUAL DIFF REQ NO Normal [facility] Comment on above: Performed By: #### C BC #### [facility] [address] [place] [address] Dr. Raul Cullen MCH (RBC) [Entitic mass] 31.1 pg Normal 26.7-34.0 [facility] Comment on above: Performed By: #### C BC #### [facility] [address] [place] [address] Dr. Raul Cullen MCHC (RBC) [Mass/Vol] 31.1 g/dL Normal 29.9-35.2 [facility] Comment on above: Performed By: #### C BC #### [facility] [address] [place] [address] Dr. Raul Cullen MCV (RBC) [Entitic vol] 99.8 fL Critically high 81.0-99.0 [facility] Comment on above: Performed By: #### C BC #### [facility] [address] [place] [address] Dr. Raul Cullen MONO # 0.5 103/ul Normal 0.3-0.8 [facility] Comment on above: Performed By: #### C BC #### [facility] [address] [place] [address] Dr. Raul Cullen Monocytes/100 WBC (Bld) 5.5 % Normal 1.7-12.0 [facility] Comment on above: Performed By: #### C BC #### [facility] [address] [place] [address] Dr. Raul Cullen NEUT # 5.4 103/ul Normal 1.4-6.5 [facility] Comment on above: Performed By: #### C BC #### [facility] [address] [place] [address] Dr. Raul Cullen Neutrophils/100 WBC (Bld) 58.3 % Normal 43.0-75.0 [facility] Comment on above: Performed By: #### C BC #### [facility] [address] [place] [address] Dr. Raul Cullen Platelet mean volume (Bld) [Entitic vol] 8.7 fL Critically low 9.5-13.5 [facility] Comment on above: Performed By: #### C BC #### [facility] [address] [place] [address] Dr. Raul Cullen PLT 316 103/ul Normal 150-450 [facility] Comment on above: Performed By: #### C BC #### [facility] [address] [place] [address] Dr. Raul Cullen RBC 4.57 106/ul Normal 4.20-5.40 [facility] Comment on above: Performed By: #### C BC #### [facility] [address] [place] [address] Dr. Raul Cullen WBC 9.3 103/ul Normal 4.0-11.0 [facility] Comment on above: Performed By: #### C BC #### [facility] [address] [place] [address] Dr. Raul Cullen IRON AND TIBCon 08-13-2021 % SATURATION 26.0 % Normal [facility] Comment on above: Performed By: #### F ETIBC #### [facility] [address] [place] [address] Dr. Raul Cullen Iron [Mass/Vol] 82.0 ug/dL Normal 50.0-170.0 [facility] Comment on above: Performed By: #### F ETIBC #### [facility] [address] [place] [address] Dr. Raul Cullen TIBC DIRECT 315.0 ug/dL Normal 250.0-450.0 [facility] Comment on above: Performed By: #### F ETIBC #### [facility] [address] [place] [address] Dr. Raul Cullen Q - CULTURE,URINE,ROUTINEon 07-13-2021 CULTURE, URINE, ROUTINE SEE NOTE Normal [facility] Home Visit Field Care Manager Comment on above: Order Comment: [facility] Testing performed at: [employer], Press About Us [facility], [address] [facility], [address] [place], [address], Ore Miner: Hermilo Choudhury MD [facility] Collection Date/Time: [id number] [facility] Results Received Date/Time: [id number] [facility] Reported Date/Time: [id number] Result Comment: CULT URE, URINE, ROUTINE Micro Number: [id number] Test Status: Final Specimen Source: Urine Specimen Quality: Adequate Result: Mixed genital naomi isolated. These superficial bacteria are not indicative of a urinary tract infection. No further organism identification is warranted on this specimen. If clinically indicated, recollect clean-catch, mid-stream urine and transfer immediately to Urine Culture Transport Tube. Performed By: #### 6 [id number] #### [facility] Default [address] [place] [id number] CBC AUTO DIFFon 04-26-2021 BASO # 0.0 103/ul Normal 0.0-0.1 [facility] Comment on above: Performed By: #### C BC #### [facility] [address] [place] [address] Dr. Raul Cullen Basophils/100 WBC (Bld) 0.4 % Normal 0.2-2.0 [facility] Comment on above: Performed By: #### C BC #### [facility] [address] [place] [address] Dr. Raul Cullen EO # 0.3 103/ul Normal 0.0-0.7 [facility] Comment on above: Performed By: #### C BC #### [facility] [address] [place] [address] Dr. Raul Cullen Eosinophils/100 WBC (Bld) 2.4 % Normal 0.9-7.0 [facility] Comment on above: Performed By: #### C BC #### [facility] [address] [place] [address] Dr. Raul Cullen Erythrocyte distribution width (RBC) [Ratio] 20.3 % Critically high 11.0-15.0 [facility] Comment on above: Result Comment: anis o 3+ Performed By: #### C BC #### [facility] [address] [place] [address] Dr. Raul Cullen Hematocrit (Bld) [Volume fraction] 31.4 % Critically low 36.0-48.0 [facility] Comment on above: Performed By: #### C BC #### [facility] [address] [place] [address] Dr. Raul Cullen Hemoglobin (Bld) [Mass/Vol] 8.3 g/dL Critically low 12.0-16.0 [facility] Comment on above: Performed By: #### C BC #### [facility] [address] [place] [address] Dr. Raul Cullen IG # 0.05 10e3/ul Critically high 0.00-0.03 [facility] Comment on above: Performed By: #### C BC #### [facility] [address] [place] [address] Dr. Raul Cullen IG % 0.5 % Normal 0.0-0.5 [facility] Comment on above: Performed By: #### C BC #### [facility] [address] [place] [address] Dr. Raul Cullen LYMPH # 3.4 103/ul Normal 1.2-3.8 [facility] Comment on above: Performed By: #### C BC #### [facility] [address] [place] [address] Dr. Raul Cullen Lymphocytes/100 WBC (Bld) 32.8 % Normal 20.5-60.0 [facility] Comment on above: Performed By: #### C BC #### [facility] [address] [place] [address] Dr. Raul Cullen MANUAL DIFF REQ NO Normal [facility] Comment on above: Performed By: #### C BC #### [facility] [address] [place] [address] Dr. Raul Cullen MCH (RBC) [Entitic mass] 19.4 pg Critically low 26.7-34.0 [facility] Comment on above: Performed By: #### C BC #### [facility] [address] [place] [address] Dr. Raul Cullen MCHC (RBC) [Mass/Vol] 26.4 g/dL Critically low 29.9-35.2 [facility] Comment on above: Result Comment: hypo chromia 3+ Performed By: #### C BC #### [facility] [address] [place] [address] Dr. Raul Cullen MCV (RBC) [Entitic vol] 73.5 fL Critically low 81.0-99.0 [facility] Comment on above: Performed By: #### C BC #### [facility] [address] [place] [address] Dr. Raul Cullen MONO # 0.7 103/ul Normal 0.3-0.8 [facility] Comment on above: Performed By: #### C BC #### [facility] [address] [place] [address] Dr. Raul Cullen Monocytes/100 WBC (Bld) 7.0 % Normal 1.7-12.0 [facility] Comment on above: Performed By: #### C BC #### [facility] [address] [place] [address] Dr. Raul Cullen NEUT # 6.0 103/ul Normal 1.4-6.5 [facility] Comment on above: Performed By: #### C BC #### [facility] [address] [place] [address] Dr. Raul Cullen Neutrophils/100 WBC (Bld) 56.9 % Normal 43.0-75.0 [facility] Comment on above: Performed By: #### C BC #### [facility] [address] [place] [address] Dr. Raul Cullen Platelet mean volume (Bld) [Entitic vol] 8.3 fL Critically low 9.5-13.5 [facility] Comment on above: Performed By: #### C BC #### [facility] [address] [place] [address] Dr. Raul Cullen PLT 452 103/ul Critically high 150-450 [facility] Comment on above: Performed By: #### C BC #### [facility] [address] [place] [address] Dr. Raul Cullen RBC 4.27 106/ul Normal 4.20-5.40 [facility] Comment on above: Performed By: #### C BC #### [facility] [address] [place] [address] Dr. Raul Cullen WBC 10.5 103/ul Normal 4.0-11.0 [facility] Comment on above: Performed By: #### C BC #### [facility] [address] [place] [address] Dr. Raul Cullen CBC AUTO DIFFon 03-08-2021 BASO # 0.1 103/ul Normal 0.0-0.1 [facility] Comment on above: Performed By: #### C BC #### [facility] [address] [place] [address] Dr. Raul Cullen Basophils/100 WBC (Bld) 0.6 % Normal 0.2-2.0 [facility] Comment on above: Performed By: #### C BC #### [facility] [address] [place] [address] Dr. Raul Cullen EO # 0.2 103/ul Normal 0.0-0.7 [facility] Comment on above: Performed By: #### C BC #### [facility] [address] [place] [address] Dr. Raul Cullen Eosinophils/100 WBC (Bld) 2.6 % Normal 0.9-7.0 [facility] Comment on above: Performed By: #### C BC #### [facility] [address] [place] [address] Dr. Raul Cullen Erythrocyte distribution width (RBC) [Ratio] 18.9 % Critically high 11.0-15.0 [facility] Comment on above: Performed By: #### C BC #### [facility] [address] [place] [address] Dr. Raul Cullen Hematocrit (Bld) [Volume fraction] 29.4 % Critically low 36.0-48.0 [facility] Comment on above: Performed By: #### C BC #### [facility] [address] [place] [address] Dr. Raul Cullen Hemoglobin (Bld) [Mass/Vol] 7.5 g/dL Critically low 12.0-16.0 [facility] Comment on above: Performed By: #### C BC #### [facility] [address] [place] [address] Dr. Raul Cullen IG # 0.06 10e3/ul Critically high 0.00-0.03 [facility] Comment on above: Performed By: #### C BC #### [facility] [address] [place] [address] Dr. Raul Cullen IG % 0.7 % Critically high 0.0-0.5 [facility] Comment on above: Performed By: #### C BC #### [facility] [address] [place] [address] Dr. Raul Cullen LYMPH # 2.8 103/ul Normal 1.2-3.8 [facility] Comment on above: Performed By: #### C BC #### [facility] [address] [place] [address] Dr. Raul Cullen Lymphocytes/100 WBC (Bld) 31.9 % Normal 20.5-60.0 [facility] Comment on above: Performed By: #### C BC #### [facility] [address] [place] [address] Dr. Raul Cullen MANUAL DIFF REQ NO Normal [facility] Comment on above: Performed By: #### C BC #### [facility] [address] [place] [address] Dr. Raul Cullen MCH (RBC) [Entitic mass] 18.3 pg Critically low 26.7-34.0 [facility] Comment on above: Result Comment: 3+ H ypochromia 1+ Microcytosis 1+ Anisocytosis Performed By: #### C BC #### [facility] [address] [place] [address] Dr. Raul Cullen MCHC (RBC) [Mass/Vol] 25.5 g/dL Critically low 29.9-35.2 [facility] Comment on above: Performed By: #### C BC #### [facility] [address] [address] [address] Raul Cullen MCV (RBC) [Entitic vol] 71.7 fL Critically low 81.0-99.0 [facility] Comment on above: Performed By: #### C BC #### [facility] [address] [place] [address] Dr. Raul Cullen MONO # 0.7 103/ul Normal 0.3-0.8 [facility] Comment on above: Performed By: #### C BC #### [facility] [address] [place] [address] Dr. Raul Cullen Monocytes/100 WBC (Bld) 8.4 % Normal 1.7-12.0 [facility] Comment on above: Performed By: #### C BC #### [facility] [address] [place] [address] Dr. Raul Cullen NEUT # 4.9 103/ul Normal 1.4-6.5 [facility] Comment on above: Performed By: #### C BC #### [facility] [address] [place] [address] Dr. Raul Cullen Neutrophils/100 WBC (Bld) 55.8 % Normal 43.0-75.0 [facility] Comment on above: Performed By: #### C BC #### [facility] [address] [place] [address] Dr. Raul Cullen Platelet mean volume (Bld) [Entitic vol] 7.9 fL Critically low 9.5-13.5 [facility] Comment on above: Performed By: #### C BC #### [facility] [address] [address] [address] Raul Cullen PLT 501 103/ul Critically high 150-450 [facility] Comment on above: Performed By: #### C BC #### [facility] [address] [address] [address] Raul Cullen RBC 4.10 106/ul Critically low 4.20-5.40 [facility] Comment on above: Performed By: #### C BC #### [facility] [address] [address] [address] Raul Cullen WBC 8.8 103/ul Normal 4.0-11.0 [facility] Comment on above: Performed By: #### C BC #### [facility] [address] [place] [address] Dr. Raul Cullen PREG QUANT HCGon 03-08-2021 HCG QUANT <1 Normal [facility] Comment on above: Performed By: #### P REGQNT #### [facility] [address] [place] [address] Dr. Raul Cullen HCG RANGE SEE BELOW Normal [facility] Comment on above: Result Comment: 5-50 0-1 WEEK 40-300 1-2 WEEKS 100-1,000 2-3 WEEKS 500-6,000 3-4 WEEKS 5,000-200,000 1-2 MONTHS 10,000-100,000 2-3 MONTHS 3,000-50,000 2ND TRIMESTER 1,000-50,000 3RD TRIMESTER Performed By: #### P REGQNT #### [facility] [address] [place] [address] Dr. Raul Cullen Covid-19 PCR (CVDTBH)on 02-17 SARS-CoV-2 (COVID-19) RNA NIDIA+probe Ql (Unsp spec) Not detected Normal NOT DETECTED [facility] Comment on above: Result Comment: This test is not yet approved or cleared by the [place] FDA. When there are no FDA-approved or cleared tests available, and other criteria are met, FDA can make tests available under an emergency access mechanism called an Emergency Use Authorization (EUA). The EUA for this test is supported by the Rate Clerk of Health and Human Service's (HHS's) declaration that circumstances exist to justify the emergency use of in vitro diagnostics for the detection and/or diagnosis of the virus that causes COVID-19. This EUA will remain in effect (meaning this test can be used) for the duration of the COVID-19 declaration justifying emergency of IVDs, unless it is terminated or revoked by FDA (after which the test may no longer be used). When diagnostic testing is negative, the possibility of a false negative should be considered in the context of a patient's recent exposures and the presence of clinical signs and symptoms consistent with SARS-CoV-2. Performed By: #### C [facility] #### [facility] [address] [place] [address] Dr. Raul Cullen Vital Signs Date Time Vital Sign Value Performing Clinician Facility 11-03-2022 15:27-0400 Diastolic blood pressure 87 mm[Hg] DIANA TEJAS [facility] 11-03-2022 15:27-0400 Heart rate 65 /min DIANA TEJAS [facility] 11-03-2022 15:27-0400 Systolic blood pressure 142 mm[Hg] DIANA TEJAS [facility] 05-04-2022 14:12-0500 Blood Pressure Location DIANA TEJAS [facility] 05-04-2022 14:12-0500 Diastolic blood pressure 72 mm[Hg] DIANA TEJAS [facility] 05-04-2022 14:12-0500 Heart rate 68 /min DIANA TEJAS [facility] 05-04-2022 14:12-0500 Respiratory rate 16 /min DIANA TEJAS [facility] 05-04-2022 14:12-0500 Systolic blood pressure 134 mm[Hg] DIANA LAZARO [facility] 03-27-2022 10:15-0500 Body height 162.56 cm Ifrah Haley Other [employer] Other 03-27-2022 10:15-0500 Body mass index (BMI) [Ratio] 36.73 kg/m2 Ifrah Haley Other [employer] Other 03-27-2022 10:15-0500 Body temperature 98.4 [degF] Ifrah Haley Other [employer] Other 03-27-2022 10:15-0500 Body weight 97.07 kg Ifrah Haley Other [employer] Other 03-27-2022 10:15-0500 Diastolic blood pressure 86 mm[Hg] Ifrah Haley Other [employer] Other 03-27-2022 10:15-0500 Respiratory rate 16 /min Ifrah Haley Other [employer] Other 03-27-2022 10:15-0500 SaO2% (BldA) [Mass fraction] 97 % Ifrah Haley Other [employer] Other 03-27-2022 10:15-0500 Systolic blood pressure 134 mm[Hg] Ifrah Haley Other [employer] Other 03-07-2022 14:35-0500 Body height 162.56 cm Ifrah Haley Other [employer] Other 03-07-2022 14:35-0500 Body mass index (BMI) [Ratio] 36.39 kg/m2 Ifrah De Leon Other [employer] Other 03-07-2022 14:35-0500 Body temperature 98 [degF] Ifrah De Leon Other [employer] Other 03-07-2022 14:35-0500 Body weight 96.16 kg Ifrah De Leon Other [employer] Other 03-07-2022 14:35-0500 Diastolic blood pressure 79 mm[Hg] Ifrah De Leon Other [employer] Other 03-07-2022 14:35-0500 Respiratory rate 16 /min Ifrah De Leon Other [employer] Other 03-07-2022 14:35-0500 SaO2% (BldA) [Mass fraction] 100 % Ifrah De Leon Other [employer] Other 03-07-2022 14:35-0500 Systolic blood pressure 125 mm[Hg] Ifrah De Leon Other [employer] Other 01-20-2022 13:29-0400 Blood Pressure Location DIANA MASONRY [facility] 01-20-2022 13:29-0400 Diastolic blood pressure 67 mm[Hg] DIANA TEJAS [facility] 01-20-2022 13:29-0400 Heart rate 78 /min DIANA TEJAS [facility] 01-20-2022 13:29-0400 Respiratory rate 16 /min DIANA TEJAS [facility] 01-20-2022 13:29-0400 Systolic blood pressure 131 mm[Hg] DIANA TEJAS [facility] 11-04-2021 13:22-0400 Blood Pressure Location DIANA TEJAS [facility] 11-04-2021 13:22-0400 Diastolic blood pressure 89 mm[Hg] DIANA TEJAS [facility] 11-04-2021 13:22-0400 Heart rate 81 /min DIANA TEJAS [facility] 11-04-2021 13:22-0400 Respiratory rate 16 /min DIANA TEJAS [facility] 11-04-2021 13:22-0400 Systolic blood pressure 137 mm[Hg] DIANA TEJAS [facility] 08-17-2021 10:57-0400 Blood Pressure Location DIANA TEJAS [facility] 08-17-2021 10:57-0400 Diastolic blood pressure 100 mm[Hg] DIANA TEJAS [facility] 08-17-2021 10:57-0400 Heart rate 83 /min DIANA TEJAS [facility] 08-17-2021 10:57-0400 Systolic blood pressure 149 mm[Hg] DIANA LAZARO [facility] [employer] Encounters Encounter Date Encounter Type Care Provider Facility Start: 07-20-2023 End: 07-20-2023 ambulatory BRIAN HERNANDEZ Not Available Start: 06-08-2023 End: 06-08-2023 ambulatory ARAMIS AIDAN Not Available Start: 06-07-2023 End: 06-08-2023 ambulatory DIANA LAZARO Facility:[facility] Start: 06-07-2023 End: 06-07-2023 Patient encounter procedure DIANA Aleman TEJAS [facility] [place] Start: 04-14-2023 End: 04-14-2023 ambulatory FRANK CARRASCO Not Available Start: 02-22-2023 End: 02-22-2023 ambulatory VANNESA TS Not Available Start: 11-03-2022 End: 11-04-2022 ambulatory DIANA Love LAZARO Facility:[facility] Start: 11-03-2022 End: 11-03-2022 Patient encounter procedure DIANA MASONRY [facility] Start: 10-04-2022 End: 10-05-2022 ambulatory DIANA E TEJAS Facility:[facility] Start: 10-03-2022 End: 10-04-2022 ambulatory Mian CHRISTOPHER Facility:[facility] Start: 10-03-2022 End: 10-03-2022 Patient encounter procedure Mian CHRISTOPHER [facility] [employer] Start: 05-04-2022 End: 05-04-2022 Lab Drop off DIANA Love LAZARO [facility] Start: 05-04-2022 End: 05-04-2022 Patient encounter procedure DIANA Aleman TEJAS [facility] Anna Start: 03-27-2022 End: 03-27-2022 ambulatory Ifrah Haley Other [employer] Other Start: 03-27-2022 Office outpatient vi sit 15 minutes Ifrah Haley [facility] Start: 03-07-2022 End: 03-07-2022 ambulatory Ifrah Haley Facility:[facility] Start: 03-07-2022 Office outpatient ne w 30 minutes Ifrah Haley [facility] Start: 03-07-2022 End: 03-07-2022 ambulatory 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 Ifrah Haley Work Phone: [facility] Work Phone: Start: 03-07-2022 End: 03-07-2022 Departed Referred 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 Ifrah Haley Work Phone: [facility] [place] Start: 02-01-2022 End: 02-02-[address] GABRIELA COELHO Facility:[facility] Start: 01-20-2022 End: 01-20-2022 Lab Drop off DIANA E TEJAS [facility] Start: 01-20-2022 End: 01-20-2022 Patient encounter procedure DIANA LAZARO [facility] Start: 01-13-2022 End: 01-13-[address] GABRIELA COELHO Facility:[facility] Start: 12-23-2021 End: 12-24-2021 ambulatory BRIAN HERNANDEZ Facility:[facility] Start: 11-04-2021 End: 11-04-2021 Patient encounter procedure DIANA LAZARO [facility] Start: 08-19-2021 End: 08-19-2021 ambulatory Diana Lazaro Facility:[facility] Start: 08-17-2021 End: 08-17-2021 Patient encounter procedure DIANA LAZARO [facility] Start: 08-13-2021 End: 08-14-[address] BRIAN HERNANDEZ Facility:[facility] Start: 04-26-2021 End: 04-27-[address] GABRIELA COELHO Facility:[facility] Start: 03-19-[address] GABRIELA COELHO Facility :[facility] Start: 03-09-2021 Encounter for preprocedural laboratory examination DR GABRIELA COELHO [facility] Start: 03-08-2021 End: 03-08-[address] GABRIELA COELHO Facility:[facility] Start: 03-04-2021 End: 03-05-[address] GABRIELA COELHO Facility:[facility] Start: 03-04-2021 End: 03-05-2021 Encounter for preprocedural laboratory examination DR GABRILEA COELHO Facility:[facility] Start: 03-01-2021 Encounter for other preprocedural examination DR GABRIELA COELHO [facility] Start: 02-24-2021 End: 02-25-[address] GABRIELA COELHO Facility:[facility] Start: 02-24-2021 End: 02-25-2021 Encounter for other preprocedural examination DR GABRIELA COELHO Facility:[facility] Procedures Date Procedure Procedure Detail Performing Clinician Cholecystectomy DIANA LYNN Colonoscopy DIANA LAZARO Partial hysterectomy SIOBHAN LAZARO Plan of Treatment Date Care Activity Detail Author Bacteria identified in Urine by Culture [facility] Immunizations Immunization Date Immunization Notes Care Provider L[place] messina 01-20-2022 influenza virus vaccine, unspecified formulation DIANA TEJAS [facility] 02-08-2021 SARS-CoV-2 (COVID-19 ) mRNA-1273 vaccine DIANA TEJAS [facility] 01-18-2021 SARS-CoV-2 (COVID-19 ) mRNA-1273 vaccine DIANA TEJAS [facility] 01-14-2021 influenza virus vaccine, unspecified formulation DIANA TEJAS [facility] 06-12-2020 SARS-CoV-2 (COVID-19 ) mRNA-1273 vaccine DIANA TEJAS [facility] Comment on above: Result Comment: 2022: [id number] 05-18-2020 SARS-CoV-2 (COVID-19 ) mRNA-1273 vaccine DIAAN TEJAS [facility] 05-15-2020 SARS-CoV-2 (COVID-19 ) mRNA-1273 vaccine DIANA TEJAS [facility] Comment on above: Result Comment: 2022: [id number] 04-20-2020 SARS-CoV-2 (COVID-19 ) mRNA-1273 vaccine DIANA TEJAS [facility] 04-15-2019 influenza virus vaccine, unspecified formulation DIANA TEJAS [facility] 01-30-2018 influenza virus vaccine, unspecified formulation DIANA TEJAS [facility] 12-15-2016 influenza virus vaccine, unspecified formulation DIANA TEJAS [facility] 12-06-2016 influenza virus vaccine, unspecified formulation DIANA TEJAS [facility] 12-28-2015 influenza virus vaccine, unspecified formulation DIANA TEJAS [facility] 02-18-2015 influenza virus vaccine, unspecified formulation DIANA TEJAS [facility] Payers Date Payer Category Payer Unknown [id number] 1980 Unknown [id number] [id number] 1980 Unknown [id number] 0.1.566310.3.579.2.593 1980 Unknown [id number] 2.16.84 0.1.896457.3.579.2.593 1980 Unknown [id number] 2.16.84 0.1.832713.3.579.2.593 1980 Unknown [id number] 2.16.84 0.1.373410.3.579.2.593 1980 Unknown [id number] 2.16.84 0.1.855404.3.579.2.593 1980 Unknown [id number] 2.16.84 0.1.958151.3.579.2.593 1980 Unknown [id number] 2.16.84 0.1.438547.3.579.2.593 1980 Unknown [id number] 2.16.8 40.1.366420.3.579.2.727 1980 Unknown [id number] 2.16.8 40.1.672769.3.579.2.727 1980 Unknown [id number] 2.16.8 40.1.894871.3.579.2.727 1980 Unknown [id number] 2.16.8 40.1.175396.3.579.2.727 1980 Unknown [id number] 2.16.8 40.1.719280.3.579.2.727 1980 Unknown [id number] 2.16.84 0.1.123538.3.579.2.1259 1980 Unknown [id number] 2.16.84 0.1.305868.3.579.2.1259 1980 Unknown [id number] 2.16.84 0.1.612138.3.579.2.1259 1980 Unknown [id number] 2.16.840 .1.066473.3.579.2.1259 1959 Self-pay 1959 Unknown [id number] Unknown [id number] 2.16.8 40.1.986727.3.579.2.531 Unknown [id number] 2.16.8 40.1.849840.3.579.2.531 Social History Date Type Detail Facility Start: 08-17-2021 End: 11-03-2022 Tobacco smoking status Never smoked tobacco (finding) [facility] Tobacco smoking status Never [facility] [place] [facility] Sex Assigned At Female [facility] [place] [facility] Start: 1980 Sex [facility] At [facility] Functional Status Date Assessment Result Facility 11-03-2022 Functional Status N/A [facility] [place] [facility] 05-04-2022 Functional Status N/A [facility] [place] 01-20-2022 Functional Status N/A [facility] 11-04-2021 N/A [facility] Clinical Notes 03-08-2021 to 11-03-2022 Note Date & Type Note Facility 11-03-2022 Hospital Discharg e instructions Patient Education 11/03/2022 16:03:08 Urinary Tract Infection, Adult, Wocn-gx-Ltmx Urinary Tract Infection, Adult A urinary tract infection (UTI) is an infection of any part of the urinary tract. The urinary tract includes: The kidneys. The ureters. The bladder. The urethra. These organs make, store, and get rid of pee (urine) in the body. What are the causes? This infection is caused by germs (bacteria) in your genital area. These germs grow and cause swelling (inflammation) of your urinary tract. What increases the risk? The following factors may make you more likely to develop this condition: Using a small, thin tube (catheter) to drain pee. Not being able to control when you pee or poop (incontinence). Being female. If you are female, these things can increase the risk: ?Using these methods to prevent : ?A medicine that kills sperm (spermicide). ?A device that blocks sperm (diaphragm). ?Having low levels of a female hormone (estrogen). ?Being . You are more likely to develop this condition if: You have genes that add to your risk. You are sexually active. You take antibiotic medicines. You have trouble peeing because of: ?A prostate that is bigger than normal, if you are male. ?A blockage in the part of your body that drains pee from the bladder. ?A kidney stone. ?A nerve condition that affects your bladder. ?Not getting enough to drink. ?Not peeing often enough. You have other conditions, such as: ?Diabetes. ?A weak disease-fighting system (immune system). ?Sickle cell disease. ?Gout. ?Injury of the spine. What are the signs or symptoms? Symptoms of this condition include: Needing to pee right away. Peeing small amounts often. Pain or burning when peeing. Blood in the pee. Pee that smells bad or not like normal. Trouble peeing. Pee that is cloudy. Fluid coming from the vagina, if you are female. Pain in the belly or lower back. Other symptoms include: Vomiting. Not feeling hungry. Feeling mixed up (confused). This may be the first symptom in older adults. Being tired and grouchy (irritable). A fever. Watery poop (diarrhea). How is this treated? Taking antibiotic medicine. Taking other medicines. Drinking enough water. In some cases, you may need to see a specialist. Follow these instructions at home: Medicines Take ubdx-zqp-xvhevgg and prescription medicines only as told by your doctor. If you were prescribed an antibiotic medicine, take it as told by your doctor. Do not stop taking it even if you start to feel better. General instructions Make sure you: ?Pee until your bladder is empty. ?Do not hold pee for a long time. ?Empty your bladder after sex. ?Wipe from front to back after peeing or pooping if you are a female. Use each tissue one time when you wipe. Drink enough fluid to keep your pee pale yellow. Keep all follow-up visits. Contact a doctor if: You do not get better after 1 2 days. Your symptoms go away and then come back. Get help right away if: You have very bad back pain. You have very bad pain in your lower belly. You have a fever. You have chills. You feeling like you will vomit or you vomit. Summary A urinary tract infection (UTI) is an infection of any part of the urinary tract. This condition is caused by germs in your genital area. There are many risk factors for a UTI. Treatment includes antibiotic medicines. Drink enough fluid to keep your pee pale yellow. This information is not intended to replace advice given to you by your health care provider. Make sure you discuss any questions you have with your health care provider. Document Revised: 10/16/2020 Document Reviewed: 10/16/2020 [employer] Patient Education 2022 [employer]. Follow Up Care 11/04/2021 13:30:04 With:TEJAS ZUNIGA, DIANA Aleman, URL Address: [address] [place] [address] When: Unknown Comments:JOY [facility] 05-04-2022 Hospital Discharg e instructions Patient Education 05/04/2022 12:39:32 Overactive Bladder, Adult Overactive Bladder, Adult Overactive bladder refers to a condition in which a person has a sudden need to pass urine. The person may leak urine if he or she cannot get to the bathroom fast enough (urinary incontinence). A person with this condition may also wake up several times in the night to go to the bathroom. Overactive bladder is associated with poor nerve signals between your bladder and your brain. Your bladder may get the signal to empty before it is full. You may also have very sensitive muscles that make your bladder squeeze too soon. These symptoms might interfere with daily work or social activities. What are the causes? This condition may be associated with or caused by: Urinary tract infection. Infection of nearby tissues, such as the prostate. Prostate enlargement. Surgery on the uterus or urethra. Bladder stones, inflammation, or tumors. Drinking too much caffeine or alcohol. Certain medicines, especially medicines that get rid of extra fluid in the body (diuretics). Muscle or nerve weakness, especially from: ?A spinal cord injury. ?Stroke. ?Multiple sclerosis. ?Parkinson's disease. Diabetes. Constipation. What increases the risk? You may be at greater risk for overactive bladder if you: Are an older adult. Smoke. Are going through menopause. Have prostate problems. Have a neurological disease, such as stroke, dementia, Parkinson's disease, or multiple sclerosis (MS). Eat or drink things that irritate the bladder. These include alcohol, spicy food, and caffeine. Are overweight or obese. What are the signs or symptoms? Symptoms of this condition include: Sudden, strong urge to urinate. Leaking urine. Urinating 8 or more times a day. Waking up to urinate 2 or more times a night. How is this diagnosed? Your health care provider may suspect overactive bladder based on your symptoms. He or she will diagnose this condition by: A physical exam and medical history. Blood or urine tests. You might need bladder or urine tests to help determine what is causing your overactive bladder. You might also need to see a health care provider who specializes in urinary tract problems (urologist). How is this treated? Treatment for overactive bladder depends on the cause of your condition and whether it is mild or severe. You can also make lifestyle changes at home. Options include: Bladder training. This may include: ?Learning to control the urge to urinate by following a schedule that directs you to urinate at regular intervals (timed voiding). ?Doing Kegel exercises to strengthen your pelvic floor muscles, which support your bladder. Toning these muscles can help you control urination, even if your bladder muscles are overactive. Special devices. This may include: ?Biofeedback, which uses sensors to help you become aware of your body's signals. ?Electrical stimulation, which uses electrodes placed inside the body (implanted) or outside the body. These electrodes send gentle pulses of electricity to strengthen the nerves or muscles that control the bladder. ?Women may use a plastic device that fits into the vagina and supports the bladder (pessary). Medicines. ?Antibiotics to treat bladder infection. ?Antispasmodics to stop the bladder from releasing urine at the wrong time. ?Tricyclic antidepressants to relax bladder muscles. ?Injections of botulinum toxin type A directly into the bladder tissue to relax bladder muscles. Lifestyle changes. This may include: ?Weight loss. Talk to your health care provider about weight loss methods that would work best for you. ?Diet changes. This may include reducing how much alcohol and caffeine you consume, or drinking fluids at different times of the day. ?Not smoking. Do not use any products that contain nicotine or tobacco, such as cigarettes and e-cigarettes. If you need help quitting, ask your health care provider. Surgery. ?A device may be implanted to help manage the nerve signals that control urination. ?An electrode may be implanted to stimulate electrical signals in the bladder. ?A procedure may be done to change the shape of the bladder. This is done only in very severe cases. Follow these instructions at home: Lifestyle Make any diet or lifestyle changes that are recommended by your health care provider. These may include: ?Drinking less fluid or drinking fluids at different times of the day. ?Cutting down on caffeine or alcohol. ?Doing Kegel exercises. ?Losing weight if needed. ?Eating a healthy and balanced diet to prevent constipation. This may include: ?Eating foods that are high in fiber, such as fresh fruits and vegetables, whole grains, and beans. ?Limiting foods that are high in fat and processed sugars, such as fried and sweet foods. General instructions Take qxut-tty-zqacran and prescription medicines only as told by your health care provider. If you were prescribed an antibiotic medicine, take it as told by your health care provider. Do not stop taking the antibiotic even if you start to feel better. Use any implants or pessary as told by your health care provider. If needed, wear pads to absorb urine leakage. Keep a journal or log to track how much and when you drink and when you feel the need to urinate. This will help your health care provider monitor your condition. Keep all follow-up visits as told by your health care provider. This is important. Contact a health care provider if: You have a fever. Your symptoms do not get better with treatment. Your pain and discomfort get worse. You have more frequent urges to urinate. Get help right away if: You are not able to control your bladder. Summary Overactive bladder refers to a condition in which a person has a sudden need to pass urine. Several conditions may lead to an overactive bladder. Treatment for overactive bladder depends on the cause and severity of your condition. Follow your health care provider's instructions about lifestyle changes, doing Kegel exercises, keeping a journal, and taking medicines. This information is not intended to replace advice given to you by your health care provider. Make sure you discuss any questions you have with your health care provider. Document Released: 12/31/2009 Document Revised: 06/27/2019 Document Reviewed: 03/22/2018 [employer] Patient Education 2020 [employer]. Follow Up Care 05/03/2022 13:11:10 With:TEJAS ZUNIGA, DIANA Aleman, URL Address: [address] [address] When: Unknown [facility] 03-27-2022 Evaluation note Encounter Date Diagnosis Assessment Notes Mar, Paronychia of finger of right hand (ICD-10 - L03.011) Paronychia home care material was printed Continue the antibiotic as prescribed. Soak your finger in warm soapy water 2-3 times a day. Apply antibiotic ointment and a Band-Aid to the finger daily. Take Tylenol or Motrin as needed for pain. Follow-up with your family physician if no improvement in 2 to 3 days. [facility] Other 12-19-2022 Evaluation note* Encounter Date Diagnosis Assessment Notes Treatment Notes Treatment Clinical Notes Feb, Dysuria (ICD-10 - R30.0) Dysuria: adult home care material was printed Drink plenty fluids, get plenty of rest. Stop the Bactrim antibiotic. Take the Macrobid and Pyridium as prescribed until gone. Follow-up with your family physician if no improvement in 2 to 3 days. [facility] Other 11-03-2022 Hospital Discharge instructions Patient Education 01/20/2022 14:06:18 Kegel Exercises Kegel Exercises Kegel exercises can help strengthen your pelvic floor muscles. The pelvic floor is a group of muscles that support your rectum, small intestine, and bladder. In females, pelvic floor muscles also help support the womb (uterus). These muscles help you control the flow of urine and stool. Kegel exercises are painless and simple, and they do not require any equipment. Your provider may suggest Kegel exercises to: Improve bladder and bowel control. Improve sexual response. Improve weak pelvic floor muscles after surgery to remove the uterus (hysterectomy) or (females). Improve weak pelvic floor muscles after prostate gland removal or surgery (males). Kegel exercises involve squeezing your pelvic floor muscles, which are the same muscles you squeezewhen you try to stop the flow of urine or keep from passing gas. The exercises can be done while sitting, standing, or lying down, but it is best to vary your position. Exercises How to do Kegel exercises: 1.Squeeze your pelvic floor muscles tight. You should feel a tight lift in your rectal area. If youare a female, you should also feel a tightness in your vaginal area. Keep your stomach, buttocks, and legs relaxed. 2.Hold the muscles tight for up to 10 seconds. 3.Breathe normally. 4.Relax your muscles. 5.Repeat as told by your health care provider. Repeat this exercise daily as told by your health care provider. Continue to do this exercise for at least 4 6 weeks, or for as long as told by your health care provider. You may be referred to a physical therapist who can help you learn more about how to do Kegel exercises. Depending on your condition, your health care provider may recommend: Varying how long you squeeze your muscles. Doing several sets of exercises every day. Doing exercises for several weeks. Making Kegel exercises a part of your regular exercise routine. This information is not intended to replace advice given to you by your health care provider. Make sure you discuss any questions you have with your health care provider. Document Released: 02/20/2013 Document Revised: 10/24/2018 Document Reviewed: 10/24/2018 [employer] Patient Education 2020 [employer]. Follow Up Care 01/20/2022 10:45:04 With:TEJAS ZUNIGA, DIANA Aleman, URL Address: [address] [place] [address] When: Unknown [facility] 08-18-2022 Hospital Discharge instructions Patient Education 11/04/2021 13:32:41 Overactive Bladder, Adult Overactive Bladder, Adult Overactive bladder refers to a condition in which a person has a sudden need to pass urine. The person may leak urine if he or she cannot get to the bathroom fast enough (urinary incontinence). A person with this condition may also wake up several times in the night to go to the bathroom. Overactive bladder is associated with poor nerve signals between your bladder and your brain. Your bladder may get the signal to empty before it is full. You may also have very sensitive muscles thatmake your bladder squeeze too soon. These symptoms might interfere with daily work or social activities. What are the causes? This condition may be associated with or caused by: Urinary tract infection. Infection of nearby tissues, such as the prostate. Prostate enlargement. Surgery on the uterus or urethra. Bladder stones, inflammation, or tumors. Drinking too much caffeine or alcohol. Certain medicines, especially medicines that get rid of extra fluid in the body (diuretics). Muscle or nerve weakness, especially from: ?A spinal cord injury. ?Stroke. ?Multiple sclerosis. ?Parkinson's disease. Diabetes. Constipation. What increases the risk? You may be at greater risk for overactive bladder if you: Are an older adult. Smoke. Are going through menopause. Have prostate problems. Have a neurological disease, such as stroke, dementia, Parkinson's disease, or multiple sclerosis (MS). Eat or drink things that irritate the bladder. These include alcohol, spicy food, and caffeine. Are overweight or obese. What are the signs or symptoms? Symptoms of this condition include: Sudden, strong urge to urinate. Leaking urine. Urinating 8 or more times a day. Waking up to urinate 2 or more times a night. How is this diagnosed? Your health care provider may suspect overactive bladder based on your symptoms. He or she will diagnose this condition by: A physical exam and medical history. Blood or urine tests. You might need bladder or urine tests to help determine what is causing your overactive bladder. You might also need to see a health care provider who specializes in urinary tract problems (urologist). How is this treated? Treatment for overactive bladder depends on the cause of your condition and whether it is mild or severe. You can also make lifestyle changes at home. Options include: Bladder training. This may include: ?Learning to control the urge to urinate by following a schedule that directs you to urinate at regular intervals (timed voiding). ?Doing Kegel exercises to strengthen your pelvic floor muscles, which support your bladder. Toning these muscles can help you control urination, even if your bladder muscles are overactive. Special devices. This may include: ?Biofeedback, which uses sensors to help you become aware of your body's signals. ?Electrical stimulation, which uses electrodes placed inside the body (implanted) or outside the body. These electrodes send gentle pulses of electricity to strengthen the nerves or muscles that control the bladder. ?Women may use a plastic device that fits into the vagina and supports the bladder (pessary). Medicines. ?Antibiotics to treat bladder infection. ?Antispasmodics to stop the bladder from releasing urine at the wrong time. ?Tricyclic antidepressants to relax bladder muscles. ?Injections of botulinum toxin type A directly into the bladder tissue to relax bladder muscles. Lifestyle changes. This may include: ?Weight loss. Talk to your health care provider about weight loss methods that would work best for you. ?Diet changes. This may include reducing how much alcohol and caffeine you consume, or drinking fluids at different times of the day. ?Not smoking. Do not use any products that contain nicotine or tobacco, such as cigarettes and e-cigarettes. If you need help quitting, ask your health care provider. Surgery. ?A device may be implanted to help manage the nerve signals that control urination. ?An electrode may be implanted to stimulate electrical signals in the bladder. ?A procedure may be done to change the shape of the bladder. This is done only in very severe cases. Follow these instructions at home: Lifestyle Make any diet or lifestyle changes that are recommended by your health care provider. These may include: ?Drinking less fluid or drinking fluids at different times of the day. ?Cutting down on caffeine or alcohol. ?Doing Kegel exercises. ?Losing weight if needed. ?Eating a healthy and balanced diet to prevent constipation. This may include: ?Eating foods that are high in fiber, such as fresh fruits and vegetables, whole grains, and beans. ?Limiting foods that are high in fat and processed sugars, such as fried and sweet foods. General instructions Take iusk-tlv-llpiqsc and prescription medicines only as told by your health care provider. If you were prescribed an antibiotic medicine, take it as told by your health care provider. Do notstop taking the antibiotic even if you start to feel better. Use any implants or pessary as told by your health care provider. If needed, wear pads to absorb urine leakage. Keep a journal or log to track how much and when you drink and when you feel the need to urinate. This will help your health care provider monitor your condition. Keep all follow-up visits as told by your health care provider. This is important. Contact a health care provider if: You have a fever. Your symptoms do not get better with treatment. Your pain and discomfort get worse. You have more frequent urges to urinate. Get help right away if: You are not able to control your bladder. Summary Overactive bladder refers to a condition in which a person has a sudden need to pass urine. Several conditions may lead to an overactive bladder. Treatment for overactive bladder depends on the cause and severity of your condition. Follow your health care provider's instructions about lifestyle changes, doing Kegel exercises, keeping a journal, and taking medicines. This information is not intended to replace advice given to you by your health care provider. Make sure you discuss any questions you have with your health care provider. Document Released: 12/31/2009 Document Revised: 06/27/2019 Document Reviewed: 03/22/2018 [employer] Patient Education 2020 [employer] Follow Up Care 08/17/2021 11:39:26 With:TEJAS ZUNIGA DIANA Love, URL Address: [address] [place] [address] When:1 year [facility] [place] 05-31-2022 Hospital Discharge instructions Patient Education 08/17/2021 12:47:04 Overactive Bladder, Adult Overactive Bladder, Adult Overactive bladder refers to a condition in which a person has a sudden need to pass urine. The person may leak urine if he or she cannot get to the bathroom fast enough (urinary incontinence). A person with this condition may also wake up several times in the night to go to the bathroom. Overactive bladder is associated with poor nerve signals between your bladder and your brain. Your bladder may get the signal to empty before it is full. You may also have very sensitive muscles thatmake your bladder squeeze too soon. These symptoms might interfere with daily work or social activities. What are the causes? This condition may be associated with or caused by: Urinary tract infection. Infection of nearby tissues, such as the prostate. Prostate enlargement. Surgery on the uterus or urethra. Bladder stones, inflammation, or tumors. Drinking too much caffeine or alcohol. Certain medicines, especially medicines that get rid of extra fluid in the body (diuretics). Muscle or nerve weakness, especially from: ?A spinal cord injury. ?Stroke. ?Multiple sclerosis. ?Parkinson's disease. Diabetes. Constipation. What increases the risk? You may be at greater risk for overactive bladder if you: Are an older adult. Smoke. Are going through menopause. Have prostate problems. Have a neurological disease, such as stroke, dementia, Parkinson's disease, or multiple sclerosis (MS). Eat or drink things that irritate the bladder. These include alcohol, spicy food, and caffeine. Are overweight or obese. What are the signs or symptoms? Symptoms of this condition include: Sudden, strong urge to urinate. Leaking urine. Urinating 8 or more times a day. Waking up to urinate 2 or more times a night. How is this diagnosed? Your health care provider may suspect overactive bladder based on your symptoms. He or she will diagnose this condition by: A physical exam and medical history. Blood or urine tests. You might need bladder or urine tests to help determine what is causing your overactive bladder. You might also need to see a health care provider who specializes in urinary tract problems (urologist). How is this treated? Treatment for overactive bladder depends on the cause of your condition and whether it is mild or severe. You can also make lifestyle changes at home. Options include: Bladder training. This may include: ?Learning to control the urge to urinate by following a schedule that directs you to urinate at regular intervals (timed voiding). ?Doing Kegel exercises to strengthen your pelvic floor muscles, which support your bladder. Toning these muscles can help you control urination, even if your bladder muscles are overactive. Special devices. This may include: ?Biofeedback, which uses sensors to help you become aware of your body's signals. ?Electrical stimulation, which uses electrodes placed inside the body (implanted) or outside the body. These electrodes send gentle pulses of electricity to strengthen the nerves or muscles that control the bladder. ?Women may use a plastic device that fits into the vagina and supports the bladder (pessary). Medicines. ?Antibiotics to treat bladder infection. ?Antispasmodics to stop the bladder from releasing urine at the wrong time. ?Tricyclic antidepressants to relax bladder muscles. ?Injections of botulinum toxin type A directly into the bladder tissue to relax bladder muscles. Lifestyle changes. This may include: ?Weight loss. Talk to your health care provider about weight loss methods that would work best for you. ?Diet changes. This may include reducing how much alcohol and caffeine you consume, or drinking fluids at different times of the day. ?Not smoking. Do not use any products that contain nicotine or tobacco, such as cigarettes and e-cigarettes. If you need help quitting, ask your health care provider. Surgery. ?A device may be implanted to help manage the nerve signals that control urination. ?An electrode may be implanted to stimulate electrical signals in the bladder. ?A procedure may be done to change the shape of the bladder. This is done only in very severe cases. Follow these instructions at home: Lifestyle Make any diet or lifestyle changes that are recommended by your health care provider. These may include: ?Drinking less fluid or drinking fluids at different times of the day. ?Cutting down on caffeine or alcohol. ?Doing Kegel exercises. ?Losing weight if needed. ?Eating a healthy and balanced diet to prevent constipation. This may include: ?Eating foods that are high in fiber, such as fresh fruits and vegetables, whole grains, and beans. ?Limiting foods that are high in fat and processed sugars, such as fried and sweet foods. General instructions Take [id number] and prescription medicines only as told by your health care provider. If you were prescribed an antibiotic medicine, take it as told by your health care provider. Do notstop taking the antibiotic even if you start to feel better. Use any implants or pessary as told by your health care provider. If needed, wear pads to absorb urine leakage. Keep a journal or log to track how much and when you drink and when you feel the need to urinate. This will help your health care provider monitor your condition. Keep all follow-up visits as told by your health care provider. This is important. Contact a health care provider if: You have a fever. Your symptoms do not get better with treatment. Your pain and discomfort get worse. You have more frequent urges to urinate. Get help right away if: You are not able to control your bladder. Summary Overactive bladder refers to a condition in which a person has a sudden need to pass urine. Several conditions may lead to an overactive bladder. Treatment for overactive bladder depends on the cause and severity of your condition. Follow your health care provider's instructions about lifestyle changes, doing Kegel exercises, keeping a journal, and taking medicines. This information is not intended to replace advice given to you by your health care provider. Make sure you discuss any questions you have with your health care provider. Document Released: 12/31/2009 Document Revised: 06/27/2019 Document Reviewed: 03/22/2018 Elsevier Patient Education 2020 [employer] [facility] Roddy 12-20-2021 NoteThe [place], [place] NAME: CANDICE DE LEÓN Love DATE OF : MEDICAL REC#: [id number] STARTER MECHANIC: [id number] RAI ADMIT DATE: 03/08/2021 09:26:00 FELT CEMENTER DATE: 03/08/2021 11:00 DICTATING PHYSICIAN: GABRIELA COELHO DICTATION DATE: 03/08/2021 11:00 OPERATIVE NOTE OPERATION DATE: 03-08-21 ANESTHETIC:General. EDGER FEEDER: BARBARA Darby PREOPERATIVE DIAGNOSIS: 1. Menorrhagia. 2. Chronic blood loss anemia. 3. Slightly enlarged uterus. POSTOPERATIVE DIAGNOSIS:Same. PROCEDURE NAME:Loly endometrial ablation, laparoscopic bilateral salpingectomy. URINE OUTPUT:Yellow and clear. BLOOD LOSS:5 mL. FINDINGS: Both ostia seen, normal appearing ovaries, uterus and tubes. SPECIMEN:Bilateral tubes were sent out to Pathology. PROCEDURE: The patient was taken back to the OR where she was prepped and draped in the normal sterile fashion after being placed in the dorsal lithotomy position, after being placed under general anesthesia without difficulty. The anterior lip was grasped with a single tooth tenaculum. The patient was then gently sounds. The patient was gently sounded using Hegar dilators and the hysteroscope was passed through the cervix into the uterus where both ostia were seen. No gross evidence of polyps, fibroids or malignancy. A weighted speculum was placed in the patient's vagina, the anterior tip of the cervix was identified and grasped with a single tooth tenaculum. The patient was gently sounded to roughly 10 cm. The cervical length was noted to be 5 cm. The Loly ablation apparatus was set to approximately 5 in length. This was placed in through the cervix and into the uterus. After the seal was tested, at that time the total ablation of 120 seconds was performed with the Loly without difficulty. A wet sponge stick was placed into the patient's vagina. Attention was then turned to the patient's abdomen, where a scalpel was used to make a small infraumbilical incision. The S retractors were then used to dissect the underlying layers until the fascia could be seen. The fascia was then grasped with Alyce clamps and tented up. A knife was then used to make a small incision to the fascia. The muscle was identified, at that time two sutures of #0 Vicryl on a GI needle was then used and placed through the fascia. The peritoneum was then identified and entered bluntly. The 10-4 Suzanne was then placed into the patient's abdomen. This was confirmed with direct visualization of the bowel, using the laparoscope. The patient's abdomen was then insufflated using approximately 4 liters of CO2 gas. Survey of the patient's abdomen demonstrated ovaries were normal in appearance as well as both tubes and uterus. A second left lateral port, which was 7-8 and 5mm in size, was then placed laterally after incision was made in the skin under direct visualization. The patient's tube on the patient's right side was identified. Instead of using Filshie clips the LigaSure apparatus was used to come across the uteroovarian ligament and the mesosalpinx and this was done on the contralateral side. The tubes were removed in in their entirety. The lateral ports were then moved under direct visualization with excellent hemostasis. All instruments were removed from the patient's abdomen. The fascia was closed using the #0 Vicryl on GI needle. The skin was closed using 4-0 Vicryl subcuticularly. All instruments were removed from the patient's vagina as well. The patient was taken out of the dorsal lithotomy position and placed in the supine position and taken to recovery in stable condition. Sponge, lap and needle counts were correct x2. Electronically Authenticated and Edited by: Gabriela Coelho DO on 03/08/2021 12:16 PM [facility] Signed and Approved by: DR GABRIELA COELHO . 03[facility]08[facility]:16[facility]ments Appointment Date:10/14/2021 08:30:00 AM Scheduled Provider:DIANA LAZARO PA-C Location:[facility] Appointment Type:URO Office Visit [facility] Evaluation + Plan note Future Appointments Appointment Date:11/03/2022 01:00:00 PM Scheduled Provider:DIANA LAZARO PA-C Location:[facility] Appointment Type:URO Office Visit [facility] Evaluation + Plan note Future Appointments Appointment Date:11/03/2022 01:00:00 PM Scheduled Provider:DIANA LAZARO PA-C Location:[facility] Appointment Type:URO Office Visit Diagnostic Tests Pending * [facility] Future Appointments Appointment Date:11/03/2022 01:00:00 PM Scheduled Provider:DIANA LAZARO PA-C Location:[facility] Appointment Type:URO Office Visit Diagnostic Tests Pending * Urine Culture [facility] Future Appointments Appointment Date:11/03/2022 03:15:00 PM Scheduled Provider:DIANA LAZARO PA-C Location:[facility] Appointment Type:URO Office Visit [facility] Evaluation noteNo assessment information available [facility] Work Phone: History general Narrative - Reported* Type Description Date Medical History asthma Surgical History cholecystectomy Surgical History ablasion Surgical History salpingectomy Hospitalization History see above [employer] Other Hospital course Narrative No data available for this section [facility] Hospital Discharge instructions No data available for this section [facility] No data available for this section [facility] Summary Purpose Family History No Family History Records FoundNo Family History Records FoundNo Family History Records FoundNo Family History Records Found No data available for this section No Family History Records FoundNo Family History Records Found Advance Directives No Advanced Directives Records Found Advance Directive Response Recorded Date/ Time Advance Directives No August 17 3:50pm Chief Complaint and Reason for Visit Chief Complaint Dysuria Additional Source Comments INFORMATION SOURCE (unrecogn ized section and content) DATE CREATED AUTHOR 07/18/2021 [facility] Specialist DATE CREATED AUTHOR AUTHOR'S ORGANIZ ATION 02/23/2022 [facility] DATE CREATED AUTHOR AUTHOR'S ORGANIZ ATION 03/11/2022 [facility] DATE CREATED AUTHOR AUTHOR'S ORGANIZ ATION 06/25/2022 [facility] DATE CREATED AUTHOR AUTHOR'S ORGANIZ ATION 06/08/2023 [facility] DATE CREATED AUTHOR AUTHOR'S ORGANIZ ATION 07/22/2023 [facility] Specialists EPIC Care Team (unrecognized sect ion and content) Team Status: Inactive Member Role Status Dates JASVIR Rivera Attending Provider Active Goals (unrecognized section and content) Goals may be documented in a n alternate section REASON FOR VISIT (unrecogniz ed section and content) DYSURIARIGHT HAND 3RD DIGIT POSS NAIL INFECTION FOR RECORDS PERTAINING TO PATIENTS WHO ARE OR HAVE BEEN ENROLLED IN A CHEMICAL DEPENDENCY/SUBSTANCEABUSE PROGRAM, SOME INFORMATION MAY BE OMITTED. This clinical summary was aggregated from multiple sources. Caution should be exercised in using it in the provision of clinical care. This summary normalizes information from multiple sources, and as a consequence, information in this document may materially change the coding, format and clinical context of patient data. In addition, data may be omitted in some cases. CLINICAL DECISIONS SHOULD BE BASED ON THE PRIMARY CLINICAL RECORDS. [facility]. provides no warranty or guarantee of the accuracy or completeness of information in this document.
[2023-08-02 11:10] LABS: Age Gdln ACOG Testing Note (.); HPV Aptima Negative (Negative); IGP, Aptima HPV, rfx 16/18,45 Note (.)
== END 2023-07-27 20:14 | disposition home or self-care (01) ==
LOC: LAB 20:13
PROVIDERS: PCP Family Medicine; Visit Provider Obstetrics & Gynecology
DX: Z01.419 Encounter for gynecological examination (general) (routine) without abnormal findings (principal)
CPT/HCPCS: 87624; G0145

== ENCOUNTER 2023-11-21 10:35 | Outpatient (OUT) | payer OTHER, SELFPAY ==
[2023-11-21 10:53] LABS: Basophils Absolute Auto 0.1 10^3/uL (0.0-0.1); Basophils Percent Auto 0.9 % (0.2-2.0); Eosinophils Absolute Auto 0.3 10^3/uL (0.0-0.7); Eosinophils Percent Auto 4.3 % (0.9-7.0); Hematocrit 43.1 % (36.0-48.0); Hemoglobin 14.1 g/dL (12.0-16.0); Immature Granulocytes Abs Auto 0.03 10^3/uL (0.00-0.03); Immature Granulocytes Pct Auto 0.4 % (0.0-0.5); Lymphocytes Absolute Auto 2.8 10^3/uL (1.2-3.8); Mean Corpuscular HGB Conc 32.7 g/dL (29.9-35.2); Mean Corpuscular Hemoglobin 32.8 pg (26.7-34.0); Mean Corpuscular Volume 100.2 fL (81.0-99.0); Monocytes Absolute Auto 0.5 10^3/uL (0.3-0.8); Monocytes Percent Auto 7.1 % (1.7-12.0); Neutrophils Absolute Auto 3.8 10^3/uL (1.4-6.5); Neutrophils Percent Auto 50.3 % (43.0-75.0); Platelet Count 266 10^3/uL (150-450); Red Cell Distribution Width 12.3 % (11.0-15.0); White Blood Count 7.5 10^3/uL (4.0-11.0)
--- OUTSIDE RECORDS SUMMARY | 2023-11-21 10:53 | XMS_ITS | CCD ---
Author Organization [facility]iniSys[facility] Care Team Providers Care Supervisor Speech Name Role Phone BRIAN HERNANDEZ Primary Care Physician JASPER, DR OCHOA Admitting Unavailable JASPER, DR [...] Unavailable DAVID, DR ENRIQUEZ Primary Care Unavailable BRADY, DR MARGIE Mcgee Consulting Unavailable JASPER, DR [...] CARRASCO Attending Unavailable ARAMIS BERMUDEZ Attending Unavailable BRIAN HERNANDEZ Attending Unavailable GABRIELA COELHO Attending Unavailable BRIAN HERNANDEZ Referring Unavailable BRIAN HERNANDEZ Attending Unavailable VANNESA ST Attending Unavailable BRIAN HERNANDEZ Attending Unavailable Allergies Allergy Classification Reported Allergen(s) Allergy Type Date of Onset Reaction(s) Facility (1 source) No Known Medication Allergies; Translations: [No Known Medication Allergies] Propensity to adverse reactions (disorder) [facility] Repository Medications Current Medications Medication Drug Class(es) [...] day(s), # 14 cap(s), Refills(s) 0, Pharmacy: [facility] #[id number], 163, cm, 11/03/22 15:33:00 EDT, Height/Length Dosing, 101.2, kg, 11/03/22 15:33:00 EDT, Weight Dosing Start Date: 11/03/22 Stop Date: 11/10/22 Status: Ordered take 1 capsule by [facility] every eight hours Cephalexin 500 MG 1 capsule Orally three times a day 03/24/2022 Active ciprofloxacin 250 mg oral tablet (2 sources) Quinolone Antimicrobial Start: 01-20-2022 End: 01-27-2022 take 1 tablet by mouth twice daily Cipro 250 mg Tab 250 mg = 1 tab(s), Oral, BID, X 7 day(s), # 14 tab(s), Refills(s) 0, Pharmacy: [facility] #[id number], 163, cm, 01/20/22 13:31:00 EDT, Height/Length Dosing, [...] day(s), # 90 tab(s), Refills(s) 3, Pharmacy: [facility], 163, cm, 08/17/21 10:59:00 EDT, Height/Length Dosing, 100.3, kg, 08/17/21 10:59:00 EDT, Weight Dosing Start Date: 10/25/21 Stop Date: 10/20/22 Status: Ordered Start: 09-16-2021 take 1 tablet by ángela th once daily oxybutynin 10 mg ER Tab 10 mg = 1 tab(s), Oral, Daily, # 30 tab(s), Refills(s) 0, Pharmacy: [address], 163, cm, 08/17/21 10:59:00 EDT, Height/Length Dosing, 100.3, kg, 08/17/21 10:59:00 EDT, Weight Dosing Start Date: 09/16/21 Status: Ordered Start: 08-17-2021 End: 09-16-2021 take 1 tablet by mouth once daily oxybutynin 5 mg ER Tab 5 mg = 1 tab(s), Oral, Daily, X 30 day(s), # 30 tab(s), Refills(s) 0, Pharmacy: [address], 163, cm, 08/17/21 10:59:00 EDT, Height/Length [...] tab after sexual intercourse to prevent infections., [facility] #[id number], 163, cm, 11/03/22 15:33:00 EDT, Height/Length Dosing, [...] Test Name Value Interpretation Reference Range Facility CT ABDOMEN PELVIS W AND WO I V CONTRASTon 08-03-2023 CT ABDOMEN PELVIS W AND WO IV CONTRAST Examination: CT ABDOMEN PELVIS W AND WO IV CONTRAST Indication: LLQ pain suspect diverticulitis, known Diverticulosis Technique: Multiple serial axial images from the base and through the pelvis with post sagittal coronal reconstruction both without and subsequently following intravenous ministration 100 cc of Isovue-300 was performed Comparison: No comparison is available. Findings: On the noncontrast study the right kidney shows no significant perinephric stranding. No nephrolithiasis. No hydronephrosis. The left kidney shows no significant perinephric stranding. No nephrolithiasis or hydronephrosis. Subsequent following intravenous administration of contrast there are prompt bilateral symmetric nephrograms. The kidneys are of normal position and contour. No focal parenchymal abnormalities. The visualized base of the lungs show no focal parenchymal abnormalities no pleural effusions.. Liver shows no focal parenchymal abnormality no intrahepatic biliary dilatation. The gallbladder is surgically absent. The spleen there is a few scattered calcified granulomas suggesting prior granulomatous disease. The spleen is otherwise unremarkable. The pancreas, adrenals, are unremarkable Large and small bowel show no sign of obstruction. The appendix is visualized. No periappendiceal stranding. There is diverticulosis but no diverticulitis. Small umbilical hernia containing mesenteric fat The bladder is decompressed. The wall does not appear thickened. No bladder calculi. Small left cystic adnexal mass measuring 1.5 cm. Likely ovarian. No free air. No free fluid. The visualized abdominal aorta is of normal size and caliber. No significant retroperitoneal adenopathy. Visualized osseous structures are grossly unremarkable. IMPRESSION: UNREMARKABLE CT SCAN OF THE ABDOMEN AND PELVIS DESCRIBED ABOVE All CT scans at this facility use dose modulation, iterative reconstruction, and/or weight based dosing when appropriate to reduce radiation dose to as low as reasonably achievable. ELECTRONICALLY SIGNED BY: Xu Gauthier MD Normal Not Available Ambulatory Visit Summaryon 0 06-07-2023 Ambulatory Visit Summary CANDICE DE LEÓN :1980 Visit Date:06/07/2023 Ambulatory Visit Instructions Your Diagnosis UTI symptoms Your Care Team Attending Physician - TEJAS ZUNIGA, DIANA Aleman Primary Care Physician - BRIAN HERNANDEZ MD [...] you for choosing us for your care. Normal [facility] C Urineon 11-07-2022 Bacteria identified Cx Nom (U) Microbiology PROCEDURE: Urine Culture [R1] SOURCE: U Random BODY SITE: COLLECTED DATE/TIME: 11/03/2022 16:03 EDT RECEIVED DATE/TIME: 11/04/2022 12:12 EDT START DATE/TIME: 11/04/2022 12:12 EDT FREE TEXT SOURCE: TEJAS ZUNIGA, DIANA LAZARO PA-C, DIANA Aleman FINAL REPORTS Final Report [...] Locations R1: This test was performed at: [facility], [address] [place] [address], [phone]- , , Normal [facility] Comment on above: Performed By: #### 2 [id number] #### [facility] [address] [place] [address] Ambulatory Visit Summaryon 0 11-03-2022 Ambulatory Visit Summary CANDICE DE LEÓN :1980 Visit Date:11/03/2022 Ambulatory Visit Instructions Your Diagnosis Recurrent UTI UTI symptoms OAB (overactive bladder) Mixed incontinence Feeling of incomplete bladder emptying Tests Performed Urnls Dip Stick Auto w/o Microscopy POC 86416 Your Care Team Attending Physician - DIANA [...] LAZARO PA-C, URL When: Where: [address] [place] [address] You Need to Complete the Following Urine Culture, Urine Random, Routine collect, Collected, 11/03/22, Order for future visit, Nurse collect, Recurrent UTI Invalid Interpretation Code OAB (overactive bladder) [facility] Patient Educationon 11-04-19 Patient Education Obstetrics and [...] these instructions at home: Medicines ? Take hsfm-gqk-znckinm and prescription medicines only as told by [...] provider. Document Revised: 10/16/2020 Document Reviewed: 10/16/2020 [employer] Patient Education ? 2022 [employer] [facility] Urology Office/Clinic Noteon 11-03-2022 Urology Office/Clinic Note Chief Complaint 6 month follow up HPI Staff Candice is a 42 y.o. female here for 6 month follow up. Previous Dx: feeling of incomplete bladder emptying, mixed incontinence, OAB, recurrent UTI, UTI symptoms. No urological procedures. Pt is currently taking Oxybutynin 10mg ER QD. Previous PVR 02/15/23 was 29cc. Pt states she started AZO [...] continues taking Oxybutynin 10 mg ER QD. [place] med was working well. Stopped for over [...] acknowledges understanding. Follow-up With When Contact Information DIANA LAZARO PA-C, URL [address] [place] [address] Additional Instructions: PRN Patient Education Urinary Tract Infection, Adult, [id number] Winnie Schofield, personally scribed for Diana Lazaro [...] vaccine, inactivated 1 (more content not included)... [facility] Comment on above: Result Comment: Elec tronically [...] Locations R1: This test was performed at: [facility], [address] [place] [address], [phone]- , , [facility] Comment on above: Performed By: #### 2 [id number] #### [facility] [address] [place] [address] Ambulatory Visit Summaryon 0 10-03-2022 Ambulatory Visit Summary SARTHAKCANDICE :1980 Visit Date:10/03/2022 Ambulatory Visit Instructions Your Care Team Attending Physician - ASHWIN MURPHY, Mian Darnell Primary Care Physician - DAVID MURPHY, BRIAN Anderson This Is Your Medications List esomeprazole (Nexium) fluticasone/umeclidin ium/vilanterol (Trelegy Ellipta) loratadine (Claritin) montelukast (Singulair) oxybutynin (oxybutynin 10 mg ER Tab) Procedures Performed Cholecystectomy, Colonoscopy, Partial hysterectomy. What to do next Scheduled Follow-Up Appointments 2022 3:15 PM EDT With: DIANA LAZARO PA-C Where: [facility] Urinalysis - AUTOMATEDon Appearance (U) cloudy [facility] Other Bilirubin Ql (U) Negative [employer] Other Color (U) yellow [employer] Other Glucose Ql (U) Negative [facility] Other Hemoglobin Ql (U) trace-intact [employer] Other Ketones Ql (U) Negative [facility] Other Leukocyte esterase Test strip Ql (U) Negative [employer] Other Nitrite Ql (U) Negative [facility] Other pH (U) 5.5 [pH] [employer] Other Protein Ql (U) Negative [facility] Other Specific gravity (U) [Rel density] >1.030 [employer] Other Urobilinogen (U) [Mass/Vol] 0.2 mg/dL [employer] Other Urinalysis - AUTOMATED [employer] Other Urine Cultureon 03-07-2022 Bacteria identified Cx Nom (U) Reason for Exam Dysuria Urine <9,000 colonies/ml mixed bacterial skin contaminants 2 Days PERFORMED BY: [place] [address] PATHOLOGIST SUPERVISOR PAPER COATING WILLAM HERNANDEZ M.D. Normal [facility] Comment on above: Performed By: #### C UU #### [address] Bacteria identified Cx Nom (U) [employer] Other MG MAMM SCREEN 3D DARYL CADon 02-01-2022 MG MAMM SCREEN 3D DARYL CAD Patient: CANDICE DE LEÓN Exam Date: 02/01/2022 : 1980 Gender:F Ordering : DR GABRIELA COELHO . Admission #: [id number] Family : Order #: [id number] CLICK HERE TO VIEW EXAM RADIOLOGY REPORT PROCEDURE: MAMMOGRAM SCREENING 3D BILATERAL CAD COMPARISON: MG MAMM SCREEN 3D DARYL CAD, 01/21/2021. INDICATIONS: Screening mammography Calculator Name NCI Breast Cancer Risk Assessment Tool 5 Year Breast Cancer Risk 0.40% Lifetime Breast Cancer Risk 6.90% Personal Breast Cancer No Personal Ovarian Cancer No Treatments None Family Cancers None LOCATION: [facility] BREAST COMPOSITION: Scattered areas fibroglandular density. FINDINGS: [...] MD on 02/01/2022 at 13:54 Normal [facility] US PELVIS AND TRANSVAGon US PELVIS [...] by: MARGIE DELUNA Date: 2022-02-01 11:[address] [facility] PAP ACOG PANEL 2: 30 to 65on 01-21-[address] [facility] Comment on above: Result Comment: Perf ormed at: WB Performed By: #### 4 [id number] #### [facility] [address] [address] [address] Raul Cullen Age Gdln ACOG Testing 30-65 [facility] Comment on above: Performed By: #### 4 [id number] #### [facility] [address] [address] [address] Raul Cullen DIAGNOSIS: Comment Normal [facility] Comment on above: Result Comment: NEGA TIVE FOR INTRAEPITHELIAL LESION OR MALIGNANCY. Performed at: WB Performed By: #### 4 [id number] #### [facility] [address] [address] [address] Raul Cullen HPV Aptima Negative Normal Negative [facility] Comment on above: Result Comment: This nucleic acid amplification test detects fourteen high-risk HPV types (16,18,31,33,35,39,45,51,52,56,58,59,66,68) without differentiation. Performed at: =G Performed By: #### 4 [id number] #### [facility] [address] [address] [address] Raul Cullen HPV Genotype Reflex Comment Normal [facility] Comment on above: Result Comment: Crit eria not met, HPV Genotype not performed. Performed at: WB Performed By: #### 4 [id number] #### [facility] [address] [address] [address] Raul Cullen Methodology: Comment Normal [facility] Comment on above: Result Comment: This liquid based ThinPrep(R) pap test was screened with the use of an image guided system. Performed at: WB Performed By: #### 4 [id number] #### [facility] [address] [place] [address] Dr. Raul Cullen Note: Comment [facility] Comment on above: Result Comment: The Pap smear is a screening test designed to aid in the detection of premalignant and malignant conditions of the uterine cervix. It is not a diagnostic procedure and should not be used as the sole means of detecting cervical cancer. Both false-positive and false-negative reports do occur. . Performed at: WB Performed By: #### 4 [id number] #### [facility] [address] [place] [address] Dr. Raul Cullen Performed by: Comment Normal [facility] Comment on above: Result Comment: Cecy Terry, Engraver Apprentice Decorative Performed at: WB Performed By: #### 4 [id number] #### [facility] [address] [place] [address] Dr. Raul Cullen Specimen adequacy: Comment [facility] Comment on above: Result Comment: Sati sfactory for evaluation. Endocervical and/or squamous metaplastic cells (endocervical component) are present. Performed at: WB Performed By: #### 4 [id number] #### [facility] [address] [place] [address] Dr. Raul Cullen [facility] Standard 12-23-2021 eGFR Non AA >60 Invalid Interpretation Code [facility] Comment on above: Performed By: #### 1 [id number], [id number], [id number], 2474313, 1127934, 0134791, 2046823 #### [facility] (DEFAULT) [address] [place] [address] eGFR AA >60 Invalid Interpretation Code [facility] Comment on above: Result Comment: Program Schedule Clerk girish Kidney disease could be indicated at eGFRs of less than 60 ml/min/1.73m2. Kidney Failure is indicated at less than 15 ml/min/1.73m2 Performed By: #### 1 [id number], 0453707, [id number], 6293828, 3954581, 9463655, 5467614 #### [facility] (DEFAULT) [address] [place] [address] Albumin [Mass/Vol] 4.4 g/dL Normal 3.5-5.0 [facility] Comment on above: Performed By: #### 1 [id number], 7548738, 8734920166, 8324981, 6785585, 4146753, 9374206 #### [facility] (DEFAULT) [address] [place] [address] Albumin/Globulin [Mass ratio] 1.2 {ratio} Low 1.4-2.6 [facility] Comment on above: Performed By: #### 1 [id number], 3200407, 0550040562, 3209105, 4650161, 9143988, 7652587 #### [facility] (DEFAULT) [address] [place] [address] Alk Phos 69 IU/L Normal 32-91 [facility] Comment on above: Performed By: #### 1 [id number], 7809754, 2959025421, 7124996, 1211282, 1781404, 2907078 #### [facility] (DEFAULT) [address] [place] [address] 15598 ALT [Catalytic activity/Vol] 72.0 U/L High 14.0-54.0 [facility] Comment on above: Performed By: #### 1 [id number], 9067079, 5419056336, 2930055, 9824392, 1371791, 0382237 #### [facility] (DEFAULT) [address] [place] [address] Anion gap [Moles/Vol] 12.0 mmol/L Normal 5.0-19.0 [facility] Comment on above: Performed By: #### 1 [id number], 6600412, 7466399815, 4099759, 6979494, 0769384, 7561210 #### [facility] (DEFAULT) [address] [place] [address] AST [Catalytic activity/Vol] 50 U/L High 15-41 [facility] Comment on above: Performed By: #### 1 [id number], 9353577, 6182757324, 1851301, 3228075, 7251249, 4223684 #### [facility] (DEFAULT) [address] [place] [address] Bili Total 0.8 mg/dL Normal 0.3-1.2 [facility] Comment on above: Performed By: #### 1 184196809, 2556483, 4073863368, 4428598, 5094350, 0704883, 3081907 #### [facility] (DEFAULT) [address] [place] [address] Calcium [Mass/Vol] 9.7 mg/dL Normal 8.9-10.3 [facility] Comment on above: Performed By: #### 1 [id number], 8922078, 5854775696, 9305617, 2302388, 2577830, 5115503 #### [facility] (DEFAULT) [address] [place] [address]95 Chloride [Moles/Vol] 98 mmol/L Low 101-111 [facility] Comment on above: Performed By: #### 1 [id number], 1456430, 4152139997, 6712825, 3759870, 2557648, 5488600 #### [facility] (DEFAULT) [address] [place] [address] 79118 CO2 [Moles/Vol] 29 mmol/L Normal 21-32 [facility] Comment on above: Performed By: #### 1 [id number], 1619773, 4120544880, 2945927, 1724148, 0539479, 6280098 #### [facility] (DEFAULT) [address] [place] [address]96 Creatinine [Mass/Vol] 0.87 mg/dL Normal 0.60-1.30 [facility] Comment on above: Performed By: #### 1 080486749, 5989740, 4580517825, 3092969, 5287923, 1925262, 4236650 #### [facility] ([facility]) [address] [place] [address] Globulin (S) [Mass/Vol] 3.6 g/dL Normal 1.5-4.3 [facility] Comment on above: Performed By: #### 1 [id number], 4619806, 6040455249, 8797639, 3433567, 0622757, 8170322 #### [facility] (DEFAULT) [address] [place] [address]60 Glucose [Mass/Vol] 94.0 mg/dL Normal 74.0-118.0 [facility] Comment on above: Performed By: #### 1 117825331, 7245708, 4167036875, 5879695, 4903197, 5165643, 5682807 #### [facility] ([facility]) [address] [place] [address] Osmolality 270 mOsm/L Invalid Interpretation Code [facility] Comment on above: Performed By: #### 1 [id number], 9938983, 3818023928, 4326596, 5380951, 8225611, 5397871 #### [facility] (DEFAULT) [address] [place] [address]226 Potassium [Moles/Vol] 4.1 mmol/L Normal 3.6-5.1 [facility] Comment on above: Performed By: #### 1 512175386, 6158030, 4827397986, 5562671, 8186942, 1163365, 0459364 #### [facility] (DEFAULT) [address] [place] [address] 13524 Protein [Mass/Vol] 8.0 g/dL Normal 6.5-8.1 [facility] Comment on above: Performed By: #### 1 570994527, 9815012, 6203069177, 8920503, 0214515, 2727526, 1621735 #### [facility] (DEFAULT) [address] [place] [address] 31179 Sodium [Moles/Vol] 135.0 mmol/L Low 136.0-144.0 [facility] Comment on above: Performed By: #### 1 191886656, 2037312, 3064296754, 1784473, 9003654, 0815506, 2177465 #### [facility] (DEFAULT) [address] [place] [address] Urea nitrogen [Mass/Vol] 13 mg/dL Normal 8-26 [facility] Comment on above: Performed By: #### 1 065192095, 4712728, 9425802725, 2939350, 1792377, 9398495, 7694838 #### [facility] (DEFAULT) [address] [place] [address] Urea nitrogen/Creatini ne [Mass ratio] 15.0 mg/mg Normal 4.6-16.2 [facility] Comment on above: Performed By: #### 1 [id number], 1741511, 7865642218, 0761601, 3710812, 3950251, 9570787 #### [facility] (DEFAULT) [address] [place] [address] GGTon 12-23-2021 Gamma glutamyl transferase [Catalytic activity/Vol] 29.0 U/L Normal 7.0-50.0 [facility] Comment on above: Performed By: #### 1 [id number], 8882298, 3432275729, 1140428, 1625523, 6945491, 4907794 #### [facility] (DEFAULT) [address] [place] [address] Iron Levelon 12-23-2021 Iron [Mass/Vol] 124.0 ug/dL Normal 28.0-170.0 [facility] Comment on above: Performed By: #### 1 840425658, 3675352, 9138467829, 0155144, 6163150, 5459475, 8601242 #### [facility] (DEFAULT) [address] [place] [address] LDHon 12-23-2021 LDH 173.0 IU/L Normal 98.0-192.0 [facility] Comment on above: Performed By: #### 1 704232541, 5356506, 5349119815, 9309045, 8594883, 2080236, 2007546 #### [facility] (DEFAULT) [address] [place] [address] 47053 Lipid Panel Standardon 12-23 Cholesterol [Mass/Vol] 202.0 mg/dL High 66.0-200.0 [facility] Comment on above: Result Comment: Eva rable - Less than 200 mg/dL Borderline high risk - 200-239 mg/dL High risk - 240 mg/dL and over. Performed By: #### 1 [id number], 1052589, 5297658482, 0204956, 2081278, 4547842, 4989603 #### [facility] (DEFAULT) [address] [place] [address]4505 Cholesterol in HDL [Mass/Vol] 40 mg/dL Normal 40-71 [facility] Comment on above: Result Comment: High risk - <40 mg/dL. Performed By: #### 1 019000478, 1778396, 4946888473, 4417739, 9956752, 8004039, 0986153 #### [facility] (DEFAULT) [address] [place] [address]997 Cholesterol in LDL [Mass/Vol] 131 mg/dL High 1-100 [facility] Comment on above: Result Comment: Opti mal - Less than 100 mg/dL Borderline high risk - 130-159 mg/dL High risk - 160-189 mg/dL. Performed By: #### 1 646699076, 3886413, 5803871114, 5004214, 0685756, 7848197, 1495695 #### [facility] (DEFAULT) [address] [place] [address]646 Cholesterol.total /Cholesterol in HDL [Mass ratio] 5.1 {ratio} High 0.0-4.5 [facility] Comment on above: Performed By: #### 1 845805375, 9356816, 7229655456, 4303411, 2665732, 0593201, 9168154 #### [facility] (DEFAULT) [address] [place] [address]113 Triglyceride [Mass/Vol] 156.0 mg/dL High 0.0-150.0 [facility] Comment on above: Performed By: #### 1 394526174, 7892051, 0645362688, 0633022, 0651416, 2810952, 7812782 #### [facility] (DEFAULT) [address] [place] [address] 62121 VLDL. 31 mg/dL Normal 5-40 [facility] Comment on above: Performed By: #### 1 815449456, 5142536, 4478020490, 1670756, 7894647, 3761439, 4984952 #### [facility] (DEFAULT) [address] [place] [address]28 Phoson 12-23-2021 Phosphate [Mass/Vol] 4.0 mg/dL Normal 2.5-4.6 [facility] Comment on above: Performed By: #### 1 408977285, 1738846, 6048270398, 3018004, 2475323, 3542880, 7539488 #### [facility] (DEFAULT) [address] [place] [address] Uric Acidon 12-23-2021 Urate [Mass/Vol] 6.5 mg/dL Normal 2.6-8.0 [facility] Comment on above: Performed By: #### 1 [id number], 3480320, 3457382013, 1291745, 7244237, 3373837, 9347676 #### [facility] (DEFAULT) [address] [place] [address]0554 US renal BIon 08-19-2021 US renal BI [place] [address] Ultrasound Report Signed Patient: Candice De León MR#: [id number] 5 : 1980 Acct:[id number] Age/Sex: 41 / F ADM Date: 08/19/21 Loc: Room: Type: [facility] Attending Dr: Diana Lazaro PA-C Ordering [...] Xu Abdul M.D.08/19/2021 10:35 AM Dictation Location: [place] [address] Tech: Lisa Cisse Transcribed By: [facility] 08/19/21 1035 Dictated By: Xu Abdul DO 08/19/21 1034 Signed By: 08/19/21 1035 [facility] XR KUBon 08-19-2021 XR KUB [place] [address] XRay Report Signed Patient: Candice De León MR#: [id number] 5 : 1980 Acct:[id number] Age/Sex: 41 / F ADM Date: 08/19/21 Loc: Room: Type: [facility] Attending Dr: Diana Lazaro PA-C Ordering [...] Xu Abdul M.D.08/19/2021 10:42 AM Dictation Location: [facility]- Transcribed By: [facility] 08/19/21 1042 Dictated By: Xu Abdul DO 08/19/21 1042 Signed By: 08/19/21 1042 [facility] CBC AUTO DIFFon 08-13-2021 BASO # 0.1 103/ul Normal 0.0-0.1 [facility] Comment on above: Performed By: #### C BC #### [facility] [address] [address] [address] Raul Cullen Basophils/100 WBC (Bld) 0.6 % Normal 0.2-2.0 [facility] Comment on above: Performed By: #### C BC #### [facility] [address] [place] [address] Dr. Raul Cullen EO # 0.2 103/ul Normal 0.0-0.7 [facility] Comment on above: Performed By: #### C BC #### [facility] [address] [place] [address] Dr. Raul Cullen Eosinophils/100 WBC (Bld) 1.8 % Normal 0.9-7.0 [facility] Comment on above: Performed By: #### C BC #### [facility] [address] [place] [address] Dr. Raul Cullen Erythrocyte distribution width (RBC) [Ratio] 14.9 % Normal 11.0-15.0 [facility] Comment on above: Performed By: #### C BC #### [facility] [address] [place] [address] Dr. Raul Cullen Hematocrit (Bld) [Volume fraction] 45.6 % Normal 36.0-48.0 [facility] Comment on above: Performed By: #### C BC #### [facility] [address] [place] [address] Dr. Raul Cullen Hemoglobin (Bld) [Mass/Vol] 14.2 g/dL Normal 12.0-16.0 [facility] Comment on above: Performed By: #### C BC #### [facility] [address] [place] [address] Dr. Raul Cullen IG # 0.04 10e3/ul Critically high 0.00-0.03 [facility] Comment on above: Performed By: #### C BC #### [facility] [address] [place] [address] Dr. Raul Cullen IG % 0.4 % Normal 0.0-0.5 [facility] Comment on above: Performed By: #### C BC #### [facility] [address] [place] [address] Dr. Raul Cullen LYMPH # 3.1 103/ul Normal 1.2-3.8 [facility] Comment on above: Performed By: #### C BC #### [facility] [address] [place] [address] Dr. Raul Cullen Lymphocytes/100 WBC (Bld) 33.4 % Normal 20.5-60.0 [facility] Comment on above: Performed By: #### C BC #### [facility] [address] [place] [address] Dr. Raul Cullen MANUAL DIFF REQ NO Normal [facility] Comment on above: Performed By: #### C BC #### [facility] [address] [place] [address] Dr. Raul Cullen MCH (RBC) [Entitic mass] 31.1 pg Normal 26.7-34.0 [facility] Comment on above: Performed By: #### C BC #### [facility] [address] [place] [address] Dr. Raul Cullen MCHC (RBC) [Mass/Vol] 31.1 g/dL Normal 29.9-35.2 [facility] Comment on above: Performed By: #### C BC #### [facility] [address] [place] [address] Dr. Raul Cullen MCV (RBC) [Entitic vol] 99.8 fL Critically high 81.0-99.0 [facility] Comment on above: Performed By: #### C BC #### [facility] [address] [place] [address] Dr. Raul Cullen MONO # 0.5 103/ul Normal 0.3-0.8 [facility] Comment on above: Performed By: #### C BC #### [facility] [address] [place] [address] Dr. Raul Cullen Monocytes/100 WBC (Bld) 5.5 % Normal 1.7-12.0 [facility] Comment on above: Performed By: #### C BC #### [facility] [address] [place] [address] Dr. Raul Cullen NEUT # 5.4 103/ul Normal 1.4-6.5 [facility] Comment on above: Performed By: #### C BC #### [facility] [address] [place] [address] Dr. Raul Cullen Neutrophils/100 WBC (Bld) 58.3 % Normal 43.0-75.0 [facility] Comment on above: Performed By: #### C BC #### [facility] [address] [place] [address] Dr. Raul Cullen Platelet mean volume (Bld) [Entitic vol] 8.7 fL Critically low 9.5-13.5 [facility] Comment on above: Performed By: #### C BC #### [facility] [address] [place] [address] Dr. Raul Cullen PLT 316 103/ul Normal 150-450 [facility] Comment on above: Performed By: #### C BC #### [facility] [address] [place] [address] Dr. Raul Cullen RBC 4.57 106/ul Normal 4.20-5.40 [facility] Comment on above: Performed By: #### C BC #### [facility] [address] [place] [address] Dr. Raul Cullen WBC 9.3 103/ul Normal 4.0-11.0 [facility] Comment on above: Performed By: #### C BC #### [facility] [address] [place] [address] Dr. Raul Cullen IRON AND TIBCon 08-13-2021 % SATURATION 26.0 % Normal [facility] Comment on above: Performed By: #### F ETIBC #### [facility] [address] [place] [address] Dr. Raul Cullen Iron [Mass/Vol] 82.0 ug/dL Normal 50.0-170.0 [facility] Comment on above: Performed By: #### F ETIBC #### [facility] [address] [place] [address] Dr. Raul Cullen TIBC DIRECT 315.0 ug/dL Normal 250.0-450.[address] [facility] Comment on above: Performed By: #### F ETIBC #### [facility] [address] [place] [address] Dr. Raul Cullen Q - CULTURE,URINE,ROUTINEon 07-13-2021 CULTURE, URINE, ROUTINE SEE NOTE Normal [facility] [employer] Operator Comment on above: Order Comment: [facility] Testing performed at: QPT, [facility], [address] [facility], [address] [facility] [facility], [place], [address], Turnstile Collector: Hermilo Choudhury MD [facility] Collection Date/Time: [id number] [facility] Results Received Date/Time: [facility] Reported Date/Time: [id number] Result Comment: CULT URE, URINE, ROUTINE Micro Number: [id number] Test Status: Final Specimen Source: Urine Specimen Quality: Adequate Result: Mixed genital naomi isolated. These superficial bacteria are not indicative of a urinary tract infection. No further organism identification is warranted on this specimen. If clinically indicated, recollect clean-catch, mid-stream urine and transfer immediately to Urine Culture Transport Tube. Performed By: #### 6 [id number] #### [facility] Default [address] [place] [id number] CBC AUTO DIFFon 04-26-2021 BASO # 0.0 103/ul Normal 0.0-0.1 [facility] Comment on above: Performed By: #### C BC #### [facility] [address] [place] [address] Dr. Raul Cullen Basophils/100 WBC (Bld) 0.4 % Normal 0.2-2.0 [facility] Comment on above: Performed By: #### C BC #### [facility] [address] [place] [address] Dr. Raul Cullen EO # 0.3 103/ul Normal 0.0-0.7 [facility] Comment on above: Performed By: #### C BC #### [facility] [address] [place] [address] Dr. Raul Cullen Eosinophils/100 WBC (Bld) 2.4 % Normal 0.9-7.0 [facility] Comment on above: Performed By: #### C BC #### [facility] [address] [place] [address] Dr. Raul Cullen Erythrocyte distribution width (RBC) [Ratio] 20.3 % Critically high 11.0-15.0 [facility] Comment on above: Result Comment: anis o 3+ Performed By: #### C BC #### [facility] [address] [place] [address] Dr. Raul Cullen Hematocrit (Bld) [Volume fraction] 31.4 % Critically low 36.0-48.0 [facility] Comment on above: Performed By: #### C BC #### [facility] [address] [place] [address] Dr. Raul Cullen Hemoglobin (Bld) [Mass/Vol] 8.3 g/dL Critically low 12.0-16.0 [facility] Comment on above: Performed By: #### C BC #### [facility] [address] [place] [address] Dr. Raul Cullen IG # 0.05 10e3/ul Critically high 0.00-0.03 [facility] Comment on above: Performed By: #### C BC #### [facility] [address] [place] [address] Dr. Raul Cullen IG % 0.5 % Normal 0.0-0.5 [facility] Comment on above: Performed By: #### C BC #### [facility] [address] [place] [address] Dr. Raul Cullen LYMPH # 3.4 103/ul Normal 1.2-3.8 [facility] Comment on above: Performed By: #### C BC #### [facility] [address] [place] [address] Dr. Raul Cullen Lymphocytes/100 WBC (Bld) 32.8 % Normal 20.5-60.0 [facility] Comment on above: Performed By: #### C BC #### [facility] [address] [place] [address] Dr. Raul Cullen MANUAL DIFF REQ NO Normal [facility] Comment on above: Performed By: #### C BC #### [facility] [address] [place] [address] Dr. Raul Cullen MCH (RBC) [Entitic mass] 19.4 pg Critically low 26.7-34.0 [facility] Comment on above: Performed By: #### C BC #### [facility] [address] [place] [address] Dr. Raul Cullen MCHC (RBC) [Mass/Vol] 26.4 g/dL Critically low 29.9-35.2 [facility] Comment on above: Result Comment: hypo chromia 3+ Performed By: #### C BC #### [facility] [address] [place] [address] Dr. Raul Cullen MCV (RBC) [Entitic vol] 73.5 fL Critically low 81.0-99.0 [facility] Comment on above: Performed By: #### C BC #### [facility] [address] [place] [address] Dr. Raul Cullen MONO # 0.7 103/ul Normal 0.3-0.8 [facility] Comment on above: Performed By: #### C BC #### [facility] [address] [place] [address] Dr. Raul Cullen Monocytes/100 WBC (Bld) 7.0 % Normal 1.7-12.0 [facility] Comment on above: Performed By: #### C BC #### [facility] [address] [place] [address] Dr. Raul Cullen NEUT # 6.0 103/ul Normal 1.4-6.5 [facility] Comment on above: Performed By: #### C BC #### [facility] [address] [place] [address] Dr. Raul Cullen Neutrophils/100 WBC (Bld) 56.9 % Normal 43.0-75.0 [facility] Comment on above: Performed By: #### C BC #### [facility] [address] [place] [address] Dr. Raul Cullen Platelet mean volume (Bld) [Entitic vol] 8.3 fL Critically low 9.5-13.5 [facility] Comment on above: Performed By: #### C BC #### [facility] [address] [place] [address] Dr. Raul Cullen PLT 452 103/ul Critically high 150-450 [facility] Comment on above: Performed By: #### C BC #### [facility] [address] [place] [address] Dr. Raul Cullen RBC 4.27 106/ul Normal 4.20-5.40 [facility] Comment on above: Performed By: #### C BC #### [facility] [address] [place] [address] Dr. Raul Cullen WBC 10.5 103/ul Normal 4.0-11.0 [facility] Comment on above: Performed By: #### C BC #### [facility] [address] [place] [address] Dr. Raul Cullen CBC AUTO DIFFon 03-08-2021 BASO # 0.1 103/ul Normal 0.0-0.1 [facility] Comment on above: Performed By: #### C BC #### [facility] [address] [place] [address] Dr. Raul Cullen Basophils/100 WBC (Bld) 0.6 % Normal 0.2-2.0 [facility] Comment on above: Performed By: #### C BC #### [facility] [address] [place] [address] Dr. Raul Cullen EO # 0.2 103/ul Normal 0.0-0.7 [facility] Comment on above: Performed By: #### C BC #### [facility] [address] [place] [address] Dr. Raul Cullen Eosinophils/100 WBC (Bld) 2.6 % Normal 0.9-7.0 [facility] Comment on above: Performed By: #### C BC #### [facility] [address] [place] [address] Dr. Raul Cullen Erythrocyte distribution width (RBC) [Ratio] 18.9 % Critically high 11.0-15.0 [facility] Comment on above: Performed By: #### C BC #### [facility] [address] [place] [address] Dr. Raul Cullen Hematocrit (Bld) [Volume fraction] 29.4 % Critically low 36.0-48.0 [facility] Comment on above: Performed By: #### C BC #### [facility] [address] [place] [address] Dr. Raul Cullen Hemoglobin (Bld) [Mass/Vol] 7.5 g/dL Critically low 12.0-16.0 [facility] Comment on above: Performed By: #### C BC #### [facility] [address] [place] [address] Dr. Raul Cullen IG # 0.06 10e3/ul Critically high 0.00-0.03 [facility] Comment on above: Performed By: #### C BC #### [facility] [address] [place] [address] Dr. Raul Cullen IG % 0.7 % Critically high 0.0-0.5 [facility] Comment on above: Performed By: #### C BC #### [facility] [address] [place] [address] Dr. Raul Cullen LYMPH # 2.8 103/ul Normal 1.2-3.8 [facility] Comment on above: Performed By: #### C BC #### [facility] [address] [place] [address] Dr. Raul Cullen Lymphocytes/100 WBC (Bld) 31.9 % Normal 20.5-60.0 [facility] Comment on above: Performed By: #### C BC #### [facility] [address] [place] [address] Dr. Raul Cullen MANUAL DIFF REQ NO Normal [facility] Comment on above: Performed By: #### C BC #### [facility] [address] [place] [address] Dr. Raul Cullen MCH (RBC) [Entitic mass] 18.3 pg Critically low 26.7-34.0 [facility] Comment on above: Result Comment: 3+ H ypochromia 1+ Microcytosis 1+ Anisocytosis Performed By: #### C BC #### [facility] [address] [address] [address] Raul Cullen MCHC (RBC) [Mass/Vol] 25.5 g/dL Critically low 29.9-35.2 [facility] Comment on above: Performed By: #### C BC #### [facility] [address] [address] [address] Raul Cullen MCV (RBC) [Entitic vol] 71.7 fL Critically low 81.0-99.0 [facility] Comment on above: Performed By: #### C BC #### [facility] [address] [address] [address] Raul Cullen MONO # 0.7 103/ul Normal 0.3-0.8 [facility] Comment on above: Performed By: #### C BC #### [facility] [address] [address] [address] aRul Cullen Monocytes/100 WBC (Bld) 8.4 % Normal 1.7-12.0 [facility] Comment on above: Performed By: #### C BC #### [facility] [address] [address] [address] Raul Cullen NEUT # 4.9 103/ul Normal 1.4-6.5 [facility] Comment on above: Performed By: #### C BC #### [facility] [address] [address] [address] Raul Cullen Neutrophils/100 WBC (Bld) 55.8 % Normal 43.0-75.0 [facility] Comment on above: Performed By: #### C BC #### [facility] [address] [address] [address] Raul Cullen Platelet mean volume (Bld) [Entitic vol] 7.9 fL Critically low 9.5-13.5 [facility] Comment on above: Performed By: #### C BC #### [facility] [address] [address] [address] Raul Cullen PLT 501 103/ul Critically high 150-450 [facility] Comment on above: Performed By: #### C BC #### [facility] [address] [address] [address] Raul Cullen RBC 4.10 106/ul Critically low 4.20-5.40 [facility] Comment on above: Performed By: #### C BC #### [facility] [address] [address] [address] Raul Cullen WBC 8.8 103/ul Normal 4.0-11.0 [facility] Comment on above: Performed By: #### C BC #### [facility] [address] [address] [address] Raul Cullen PREG QUANT HCGon 03-08-2021 HCG QUANT <1 Normal [facility] Comment on above: Performed By: #### P REGQNT #### [facility] [address] [place] [address] Dr. Raul Cullen HCG RANGE SEE BELOW Normal [facility] Comment on above: Result Comment: 5-50 0-1 WEEK 40-300 1-2 WEEKS 100-1,000 2-3 WEEKS 500-6,000 3-4 WEEKS 5,000-200,000 1-2 MONTHS 10,000-100,000 2-3 MONTHS 3,000-50,000 2ND TRIMESTER 1,000-50,000 3RD TRIMESTER Performed By: #### P REGQNT #### [facility] [address] [place] [address] Dr. Raul Cullen [facility]on 02-17 SARS-CoV-2 (COVID-19) RNA NIDIA+probe Ql (Unsp spec) Not detected Normal NOT DETECTED [facility] Comment on above: Result Comment: This test is not yet approved or cleared by the [place] FDA. When there are no FDA-approved or cleared tests available, and other criteria are met, FDA can make tests available under an emergency access mechanism called an Emergency Use Authorization (EUA). The EUA for this test is supported by the [place] of Health and Human Service's (HHS's) declaration [...] consistent with SARS-CoV-2. Performed By: #### C [facility] #### [facility] [address] [place] [address] Dr. Raul Cullen Vital Signs Date Time Vital Sign Value Performing Clinician Facility 11-03-2022 15:27-0400 Diastolic blood pressure 87 mm[Hg] DIANA TEJAS [facility] 11-03-2022 15:27-0400 Heart rate 65 /min DIANA TEJAS [facility] 11-03-2022 15:27-0400 Systolic blood pressure 142 mm[Hg] DIANA TEJAS [facility] 05-04-2022 14:12-0500 Blood Pressure Location DIANA TEJAS [facility] 05-04-2022 14:12-0500 Diastolic blood pressure 72 mm[Hg] DIANA TEJAS [facility] 05-04-2022 14:12-0500 Heart rate 68 /min DIANA TEJAS [facility] 05-04-2022 14:12-0500 Respiratory rate 16 /min DIANA TEJAS [facility] 05-04-2022 14:12-0500 Systolic blood pressure 134 mm[Hg] DIANA TEJAS [facility] 03-27-2022 10:15-0500 Body height 162.56 cm Ifrah Haley Other [facility] Other 03-27-2022 10:15-0500 Body mass index (BMI) [Ratio] 36.73 kg/m2 Ifrah Haley Other [facility] Other 03-27-2022 10:15-0500 Body temperature 98.4 [degF] Ifrah Haley Other [facility] Other 03-27-2022 10:15-0500 Body weight 97.07 kg Ifrah Haley Other [facility] Other 03-27-2022 10:15-0500 Diastolic blood pressure 86 mm[Hg] Ifrah Haley Other [facility] Other 03-27-2022 10:15-0500 Respiratory rate 16 /min Ifrah Haley Other [facility] Other 03-27-2022 10:15-0500 SaO2% (BldA) [Mass fraction] 97 % Ifrah Haley Other [facility] Other 03-27-2022 10:15-0500 Systolic blood pressure 134 mm[Hg] Ifrah Haley Other [facility] Other 03-07-2022 14:35-0500 Body height 162.56 cm Ifrah Haley Other [facility] Other 03-07-2022 14:35-0500 Body mass index (BMI) [Ratio] 36.39 kg/m2 Ifrah Haley Other [facility] Other 03-07-2022 14:35-0500 Body temperature 98 [degF] Ifrah De Leon Other [facility] Other 03-07-2022 14:35-0500 Body weight 96.16 kg Ifrah De Leon Other [facility] Other 03-07-2022 14:35-0500 Diastolic blood pressure 79 mm[Hg] Ifrah De Leon Other [facility] Other 03-07-2022 14:35-0500 Respiratory rate 16 /min Ifrah De Leon Other [facility] Other 03-07-2022 14:35-0500 SaO2% (BldA) [Mass fraction] 100 % Ifrah De Leon Other [facility] Other 03-07-2022 14:35-0500 Systolic blood pressure 125 mm[Hg] Ifrah De Leon Other [facility] Other 01-20-2022 13:29-0400 Blood Pressure Location DIANA LAZARO [facility] 01-20-2022 13:29-0400 Diastolic blood pressure 67 mm[Hg] DIANA TEJAS [facility] 01-20-2022 13:29-0400 Heart rate 78 /min DIANA TEJAS [facility] 01-20-2022 13:29-0400 Respiratory rate 16 /min DIANA TEJAS [facility] 01-20-2022 13:29-0400 Systolic blood pressure 131 mm[Hg] DIANA TEJAS [facility] 11-04-2021 13:22-0400 Blood Pressure Location DIANA TEJAS [facility] [place] 11-04-2021 13:22-0400 Diastolic blood pressure 89 mm[Hg] DIANA TEJAS [facility] [place] 11-04-2021 13:22-0400 Heart rate 81 /min DIANA TEJAS [facility] [place] 11-04-2021 13:22-0400 Respiratory rate 16 /min DIANA TEJAS [facility] 11-04-2021 13:22-0400 Systolic blood pressure 137 mm[Hg] DIANA TEJAS [facility] [place] 08-17-2021 10:57-0400 Blood Pressure Location DIANA TEJAS [facility] [place] 08-17-2021 10:57-0400 Diastolic blood pressure 100 mm[Hg] DIANA TEJAS [facility] [place] 08-17-2021 10:57-0400 Heart rate 83 /min DIANA TEJAS [facility] [place] 08-17-2021 10:57-0400 Systolic blood pressure 149 mm[Hg] DIANA TEJAS [facility] Encounters Encounter Date Encounter Type Care Provider Facility Start: 11-13-2023 End: 11-13-2023 ambulatory RUGEN M DAVID Not Available Start: 08-07-2023 End: 08-07-2023 ambulatory RUGEN M DAVID Not Available Start: 08-03-2023 End: 08-03-2023 ambulatory RUGEN M DAVID Not Available Start: 07-27-2023 End: 07-27-2023 ambulatory GABRIELA JASPER Not Available Start: 07-20-2023 End: 07-20-2023 ambulatory RUGEN M DAVID Not Available Start: 06-08-2023 End: 06-08-2023 ambulatory ARAMIS BERMUDEZ Not Available Start: 06-07-2023 End: 06-08-2023 ambulatory DIANA LAZARO Facility:[facility] Start: 06-07-2023 End: 06-07-2023 Patient encounter procedure DIANA LAZARO [facility] [place] Start: 04-14-2023 End: 04-14-2023 ambulatory FRANK Garza CARRASCO Not Available Start: 02-22-2023 End: 02-22-2023 ambulatory VANNESA DICKSONKECIA Not Available Start: 11-03-2022 End: 11-04-2022 ambulatory DIANA LAZARO [place] [place]: 11-03-2022 End: 11-03-2022 Patient encounter procedure DIANA LAZARO [facility] [place] Start: 10-04-2022 End: 10-05-2022 ambulatory DIANA LAZARO [place] Start: 10-03-2022 End: 10-04-2022 ambulatory Mian CHRISTOPHER Facility:[facility] Start: 10-03-2022 End: 10-03-2022 Patient encounter procedure Mian CHRISTOPHER [facility] [place] Start: 05-04-2022 End: 05-04-2022 Lab Drop off DIANA LAZARO [facility] Start: 05-04-2022 End: 05-04-2022 Patient encounter procedure DIANA MASONRY [facility] [place] Start: 03-27-2022 End: 03-27-2022 ambulatory Ifrah Haley Other [employer] Other Start: 03-27-2022 Office outpatient vi sit 15 minutes Ifrah Haley [facility] Start: 03-07-2022 End: 03-07-2022 ambulatory Ifrah Haley Facility:[facility] Start: 03-07-2022 Office outpatient ne w 30 minutes Ifrah Haley [facility] Start: 03-07-2022 End: 03-07-2022 ambulatory ECOLOGICAL RISK ASSESSOR-C Ifrah Haley Work Phone: [facility] Work Phone: Start: 03-07-2022 End: 03-07-2022 Departed Referred ECOLOGICAL RISK ASSESSOR-C Ifrah Haley Work Phone: [facility] [place] Start: 02-01-2022 End: 02-02-[address] GABRIELA COELHO Facility: Start: 01-20-2022 End: 01-20-2022 Lab Drop off DIANA MASONRY [facility] Start: 01-20-2022 End: 01-20-2022 Patient encounter procedure DIANA LAZARO [facility] Start: 01-13-2022 End: 01-13-[address] GABRIELA COELHO Facility:[facility] Start: 12-23-2021 End: 12-24-2021 ambulatory BRIAN HERNANDEZ Facility:[facility] Start: 11-04-2021 End: 11-04-2021 Patient encounter procedure DIANA LAZARO [facility] Start: 08-19-2021 End: 08-19-2021 ambulatory Diana Lazaro Facility:[facility] Start: 08-17-2021 End: 08-17-2021 Patient encounter procedure DIANA LAZARO [facility] Start: 08-13-2021 End: 08-14-[address] BRIAN HERNANDEZ Facility:[facility] Start: 04-26-2021 End: 04-27-[address] GABRIELA COELHO Facility:[facility] Start: 03-19-[address] GABRIELA COELHO Facility :[facility] Start: 03-09-2021 Encounter for preprocedural laboratory examination DR GABRIELA COELHO [facility] Start: 03-08-2021 End: 03-08-[address] GABRIELA COELHO Facility:[facility] Start: 03-04-2021 End: 03-05-[address] GABRIELA COELHO Facility:[facility] Start: 03-04-2021 End: 03-05-2021 Encounter for preprocedural laboratory examination DR GABRIELA COELHO Facility:[facility] Start: 03-01-2021 Encounter for other preprocedural examination DR GABRIELA COELHO [facility] Start: 02-24-2021 End: 02-25-[address] GABRIELA COELHO Facility:[facility] Start: 02-24-2021 End: 02-25-2021 Encounter for other preprocedural examination DR GABRIELA COELHO Facility:[facility] Procedures Date Procedure Procedure Detail Performing Clinician Cholecystectomy DIANA LYNN Colonoscopy DIANA LAZRAO Partial hysterectomy SIOBHAN LAZARO Plan of Treatment Date Care Activity Detail Author Bacteria identified in Urine by Culture [facility] Immunizations Immunization Date Immunization Notes Care Provider Lima messina 01-20-2022 influenza virus vaccine, unspecified formulation DIANA TEJAS [facility] 02-08-2021 SARS-CoV-2 (COVID-19 ) mRNA-1273 vaccine DIANA TEJAS [facility] 01-18-2021 SARS-CoV-2 (COVID-19 ) mRNA-1273 vaccine DIANA TJEAS [facility] 01-14-2021 influenza virus vaccine, unspecified formulation DIANA TEJAS [facility] 06-12-2020 SARS-CoV-2 (COVID-19 ) mRNA-1273 vaccine DIANA TEJAS [facility] Comment on above: Result Comment: 2022: [id number] 05-18-2020 SARS-CoV-2 (COVID-19 ) mRNA-1273 vaccine DIANA TEJAS [facility] 05-15-2020 SARS-CoV-2 (COVID-19 ) mRNA-1273 vaccine DIANA TEJAS [facility] Comment on above: Result Comment: 2022: [id number] 04-20-2020 SARS-CoV-2 (COVID-19 ) mRNA-1273 vaccine DIANA TEJAS [facility] 04-15-2019 influenza virus vaccine, unspecified formulation DIANA TEJAS [facility] 01-30-2018 influenza virus vaccine, unspecified formulation DIANA TEJAS [facility] 12-15-2016 influenza virus vaccine, unspecified formulation DIANA TEJAS [facility] 12-06-2016 influenza virus vaccine, unspecified formulation DIANA TEJAS [facility] 12-28-2015 influenza virus vaccine, unspecified formulation DIANA TEJAS [facility] 02-18-2015 influenza virus vaccine, unspecified formulation DIANA TEJAS [facility] Payers Date Payer Category Payer Unknown [id number] 1980 Unknown [id number] 2.16.84 0.1.482133.3.579.2.593 1980 Unknown [id number] 2.16.84 0.1.569460.3.579.2.593 1980 Unknown [id number] 2.16.84 0.1.757673.3.579.2.593 1980 Unknown [id number] 2.16.84 0.1.362446.3.579.2.593 1980 Unknown [id number] 2.16.84 0.1.713835.3.579.2.593 1980 Unknown [id number] 2.16.84 0.1.178821.3.579.2.593 1980 Unknown [id number] 2.16.84 0.1.328005.3.579.2.593 1980 Unknown [id number] 2.16.84 0.1.687911.3.579.2.593 1980 Unknown [id number] 2.16.8 40.1.171343.3.579.2.727 1980 Unknown [id number] 2.16.8 40.1.897093.3.579.2.727 1980 Unknown [id number] 2.16.8 40.1.259851.3.579.2.727 1980 Unknown [id number] 2.16.8 40.1.557409.3.579.2.727 1980 Unknown [id number] 2.16.8 40.1.115003.3.579.2.727 1980 Unknown [id number] 2.16.84 0.1.121762.3.579.2.9 1980 Unknown [id number] 2.16.84 0.1.085592.3.579.2.9 1980 Unknown [id number] 2.16.84 0.1.492004.3.579.2.1259 1980 Unknown [id number] 2.16.84 0.1.453531.3.579.2.9 1980 Unknown [id number] 2.16.84 0.1.180464.3.579.2.9 1980 Unknown [id number] 2.16.84 0.1.451867.3.579.2.1258 1980 Unknown [id number] 2.16.84 0.1.780178.3.579.2.9 1980 Unknown [id number] 2.16.840 .1.168734.3.579.2.9 1959 Self-pay 1959 Unknown [id number] Unknown [id number] 2.16.8 40.1.889569.3.579.2.531 Unknown [id number] 2.16.8 40.1.898844.3.579.2.531 Social History Date Type Detail Facility Start: 08-17-2021 End: 11-03-2022 Tobacco smoking status Never smoked tobacco (finding) [facility] [employer] Tobacco smoking status Never [facility] [employer] Sex Assigned At Female [facility] [employer] Start: 1980 Sex Assigned At Female F [facility] Functional Status Date Assessment Result Facility 11-03-2022 Functional Status N/A [facility] 05-04-2022 Functional Status N/A [facility] 01-20-2022 Functional Status N/A [facility] 11-04-2021 N/A [facility] [employer] Clinical Notes 03-08-2021 to 11-03-2022 Note Date & Type Note Facility 11-03-2022 Hospital Discharg e instructions Patient Education 11/03/2022 16:03:08 Urinary Tract Infection, Adult, Nfgc-vg-Jyzj Urinary Tract Infection, Adult A urinary tract [...] Follow these instructions at home: Medicines Take xpec-iya-soelkzb and prescription medicines only as told by [...] provider. Document Revised: 10/16/2020 Document Reviewed: 10/16/2020 [employer] Patient Education 2022 [employer] Follow Up Care 11/04/2021 13:30:04 With:DIANA LAZARO PA-C, URL Address: [address] [facility] [address] When: Unknown Comments:YOSSIN [facility] 05-04-2022 Hospital Discharg e instructions [...] fried and sweet foods. General instructions Take ktzq-ryv-nfhikbq and prescription medicines only as told by [...] 12/31/2009 Document Revised: 06/27/2019 Document Reviewed: 03/22/2018 [employer] Patient Education 2020 [employer] Follow Up Care 05/03/2022 13:11:10 With:TEJAS ZUNIGA DIANA Love, URL Address: [address] [address] When: Unknown [facility] 03-27-2022 Evaluation note Encounter Date Diagnosis Assessment [...] no improvement in 2 to 3 days. [employer] Other 12-19-2022 Evaluation note* Encounter Date Diagnosis Assessment Notes Treatment Notes Treatment Clinical Notes Feb, Dysuria (ICD-10 - R30.0) Dysuria: adult home care material was printed Drink plenty fluids, get plenty of rest. Stop the Bactrim antibiotic. Take the Macrobid and Pyridium as prescribed until gone. Follow-up with your family physician if no improvement in 2 to 3 days. [employer] Other 11-03-2022 Hospital Discharge instructions Patient Education [...] 02/20/2013 Document Revised: 10/24/2018 Document Reviewed: 10/24/2018 [employer] Patient Education 2020 [employer] Follow Up Care 01/20/2022 10:45:04 With:DIANA LAZARO PA-C, URL Address: [address] [place] [address] When: Unknown [facility] 08-18-2022 Hospital Discharge instructions Patient Education 11/04/2021 [...] fried and sweet foods. General instructions Take gusn-rfn-cahutrx and prescription medicines only as told by [...] 12/31/2009 Document Revised: 06/27/2019 Document Reviewed: 03/22/2018 [employer] Patient Education 2020 [employer] Follow Up Care 08/17/2021 11:39:26 With:DIANA LAZARO PA-C, URL Address: [address] [place] [address] When:1 year [facility] 05-31-2022 Hospital Discharge instructions Patient [...] fried and sweet foods. General instructions Take hxrx-zgk-cykezfi and prescription medicines only as told by [...] 12/31/2009 Document Revised: 06/27/2019 Document Reviewed: 03/22/2018 [employer] Patient Education 2019 [employer] [facility] 12-20-2021 NoteThe [place], [place] NAME: CANDICE DE LEÓN DATE OF : MEDICAL REC#: [id number] GELATIN DYNAMITE PACKING OPERATOR: [id number] ADMIT DATE: 03/08/2021 09:26:00 TELEPHONE OPERATOR DATE: 03/08/2021 11:00 DICTATING PHYSICIAN: GABRIELA COELHO DICTATION DATE: 03/08/2021 11:00 OPERATIVE NOTE OPERATION DATE: 03-08-21 ANESTHETIC:General. PULLING UNIT FLOORHAND: BARBARA Darby PREOPERATIVE DIAGNOSIS: 1. Menorrhagia. 2. [...] Gabriela Coelho DO on 03/08/2021 12:16 PM [facility] Signed and Approved by: DR GABRIELA COELHO . [facility] App[facility]ments Appointment Date:10/14/2021 08:30:00 AM Scheduled Provider:DIANA LAZARO PA-C Location:[facility] Appointment Type:URO Office Visit [facility] Evaluation + Plan note Future Appointments Appointment Date:11/03/2022 01:00:00 PM Scheduled Provider:DIANA LAZARO PA-C Location:[facility] Appointment Type:URO Office Visit [facility] Evaluation + Plan note Future Appointments Appointment Date:11/03/2022 01:00:00 PM Scheduled Provider:DIANA LAZARO PA-C Location:[facility] Appointment Type:URO Office Visit Diagnostic Tests Pending * [facility] Future Appointments Appointment Date:11/03/2022 01:00:00 PM Scheduled Provider:DIANA LAZARO PA-C Location:[facility] Appointment Type:URO Office Visit Diagnostic Tests Pending * [facility] Future Appointments Appointment Date:11/03/2022 03:15:00 PM Scheduled Provider:DIANA LAZARO PA-C Location:[facility] Appointment Type:URO Office Visit [facility] Evaluation noteNo assessment information available [facility] Work Phone: History general Narrative - Reported* Type Description Date Medical History asthma Surgical History cholecystectomy Surgical History ablasion Surgical History salpingectomy Hospitalization History see above [employer] Other Hospital course Narrative No data available for this section [facility] Hospital Discharge instructions No data available for this section [facility] No data available for this section [facility] Summary Purpose Family History No Family [...] section and content) DATE CREATED AUTHOR 07/18/2021 [facility] dical Specialist DATE CREATED AUTHOR AUTHOR'S ORGANIZ ATION 02/23/2022 [facility] DATE CREATED AUTHOR AUTHOR'S ORGANIZ ATION 03/11/2022 [facility] DATE CREATED AUTHOR AUTHOR'S ORGANIZ ATION 06/25/2022 [facility] DATE CREATED AUTHOR AUTHOR'S ORGANIZ ATION 06/08/2023 [facility] [facility] DATE CREATED AUTHOR AUTHOR'S ORGANIZ ATION 11/15/2023 [facility] dical Specialists EPIC Care Team (unrecognized sect ion and content) Team Status: Inactive Member Role Status Dates MICHELLE RiveraC Attending Provider Active Goals (unrecognized section and [...] BE BASED ON THE PRIMARY CLINICAL RECORDS. [facility] [employer] [facility]. provides no warranty or guarantee of the accuracy or completeness of information in this document.
[2023-11-21 11:20] LABS: Alanine Aminotransferase 106 U/L (14-59); Albumin Level 3.7 g/dL (3.4-5.0); Alkaline Phosphatase 69 U/L (46-116); Aspartate Amino Transferase 54 U/L (15-37); BUN Creatinine Ratio 14.9; Bilirubin Total 0.6 mg/dL (0.2-1.0); Calcium 9.3 mg/dL (8.5-10.1); Chloride 103 mmol/L (98-107); Estimated GFR (African America >60 (>=60); Estimated GFR (Non-African Ame >60 (>=60); Globulin 3.8 g/dL; Glucose 100 mg/dL (74-106); Potassium 4.5 mmol/L (3.5-5.1); Sodium 140 mmol/L (136-145); Total Protein 7.5 g/dL (6.4-8.2)
[2023-11-21 11:32] LABS: Anion Gap 13.4; Carbon Dioxide 28.1 mmol/L (21.0-32.0)
== END 2023-11-21 10:36 | disposition home or self-care (01) ==
LOC: CARD 10:36
PROVIDERS: PCP Family Medicine; Visit Provider Family Medicine
DX: J45.50 Severe persistent asthma, uncomplicated (principal); R00.2 Palpitations
CPT/HCPCS: 36415; 80053; 85025; 93246

== ENCOUNTER 2024-08-19 15:17 | Outpatient (REF) | payer OTHER, SELFPAY ==
--- OUTSIDE RECORDS SUMMARY | 2024-08-19 08:40 | XMS_ITS | Encounter Summary ---
Author Organization [facility] Address [address] [place] [address] Care Team Providers Care Security Administrator Name Role Phone Brian Meraz MD Primary Care Provider [phone] Reason for Visit * Reason Comments Gynecologic Exam Encounter Details Date Type Department Care Team (Late st Contact Info) Description 08/19/2024 8:40 AM EDT Office Visit [facility] [address] [place] [address] William Coelho, DO [address] [facility] [address] [place], [place] [id number] Well woman exam with routine gynecological exam Social History Tobacco Use Types Packs/Day Years Used Date Smoking Tobacco: Former Cigarettes Smokeless Tobacco: Never Alcohol Use Standard Drinks/Week Comments Not Currently 0 (1 standard drink = 0.6 oz pur e alcohol) AUDIT-C Answer Date Recorded Q1: How often do you have a drink containing alc ohol? 2-4 times a month 09/05/2022 Q2: How many drinks containi ng alcohol do you have on a typical day when you are drinking? 1 or 2 09/05/2022 Q3: How often do you have si x or more drinks on one occasion? Never 09/05/2022 PHQ-2 Answer Date Recorded Patient Health Questionnaire-2 Score 0 05/21/2024 Comments No Sex and Gender Information Value Date Recorded Sex Assigned at Not on file Legal Sex Female 7:05 PM EDT Gender Identity Not on file Sexual Orientation Not on file documented as of this encounter Last Filed Vital Signs Vital Sign Reading Time Taken Comments Blood Pressure 126/74 08/19/2024 8:41 AM EDT Pulse - - Temperature - - Respiratory Rate - - Oxygen Saturation - - Inhaled Oxygen Concentration - - Weight 104 kg (230 lb) 08/19/2024 8:41 AM EDT Height - - Body Mass Index 37.12 07/30/2024 4:34 PM EDT documented in this encounter Progress Notes * Apryl Robertson MA - 08/19/2024 8:40 AM EDT Reason for Appointment: Patient ID: Candice Prakash is a 44 y.o. female who presents for Gynecologic Exam Patient presents today for Annual Exam. MEDICATIONS Current Outpatient Medications Medication Instructions albuterol HFA 90 mcg/act inhaler 2 puffs, Inhalation, Every 6 hours PRN cyanocobalamin (Vitamin B-12) 100 MCG tablet 1 tablet, Oral, Daily esomeprazole (NexIUM) [address] capsule 1 capsule, Oral, Every 24 hours Eutlojbamdt-Gljvqhovi-Tydqyv (Trelegy Ellipta) 100-62.5-25 MCG/ACT aerosol powder 1 puff, Inhalation, Every 24 hours folic acid (Folvite) 1 MG tablet 1 tablet, Oral, Daily loratadine-pseudoephedrine ER (Claritin-D 12-hour) 5-120 MG 12 hr tablet 1 tablet, Oral, 2 times daily, Do not crush, chew, or split. montelukast (SINGULAIR) 10 mg, Oral, Nightly oxybutynin XL (Ditropan-XL) 10 MG 24 hr tablet TAKE 1 TABLET (10 MG) BY MOUTH DAILY AT THE SAME TIME EACH DAY Wegovy 1 mg, Subcutaneous, Weekly ALLERGIES No Known Allergies PROBLEMS Active Ambulatory Problems Diagnosis Date Noted Asthmatic bronchitis (CMS/HCC) 09/04/2022 Elevated liver function tests 09/04/2022 Fear of flying (CMS/HCC) 09/04/2022 Iron deficiency anemia 09/04/2022 Loss of taste 09/04/2022 Menorrhagia with regular cycle 09/04/2022 Mixed hyperlipidemia (CMS/HCC) 09/04/2022 Morbid (severe) obesity due to excess calories (CMS/HCC) 09/04/2022 Seasonal allergic rhinitis 09/04/2022 Hx of oral surgery 2010 Uncomplicated severe persistent asthma (CMS/HCC) 07/04/2017 Marital relationship problem 11/24/2022 Adjustment disorder with anxious mood ([facility]) 11/29/2022 Abrasion of skin of left lower leg 12/02/2020 Constipation 12/28/2015 Gastroesophageal reflux disease 01/13/2020 Insomnia 06/21/2019 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[facility]) 12/28/2016 Mild intermittent asthma 05/02/2016 Mild persistent asthma with exacerbation ([facility]) 08/16/2018 Sinusitis 02/06/2018 Diverticulitis of large intestine with perforation and abscess without bleeding 07/20/2023 Elevated blood pressure reading in office without diagnosis of hypertension 07/20/2023 Other chest pain 07/20/2023 Colitis 08/07/2023 Palpitations 11/13/2023 Obesity (BMI 30-39.9) 04/25/2024 Family history of diabetes mellitus 04/25/2024 Other fatigue 04/25/2024 Resolved Ambulatory Problems Diagnosis Date Noted No Resolved Ambulatory Problems Past Medical History: Diagnosis Date Anemia Asthma Cystitis Emphysema of lung ([facility]) IBS (irritable bowel syndrome) Menorrhagia Pelvic pain Pneumonia due to COVID-19 virus 01/21/2020 Urinary frequency HISTORY PAST MEDICAL HISTORY SOCIAL HISTORY Past Medical History: Diagnosis Date Anemia Asthma Cystitis Emphysema of lung ([facility]) IBS (irritable bowel syndrome) Menorrhagia Pelvic pain Pneumonia due to COVID-19 virus 01/21/2020 Urinary frequency Social History Tobacco Use Smoking status: Former Types: Cigarettes Smokeless tobacco: Never Vaping Use Vaping status: Never Used Substance Use Topics Alcohol use: Not Currently Drug use: Never FAMILY HISTORY Family History Problem Relation Name Age of Onset Diabetes Mother Diverticulosis Father Diabetes Maternal Grandmother Hypertension Maternal Grandfather Diabetes Paternal Grandmother SURGICAL HISTORY Past Surgical History: Procedure Laterality Date CHOLECYSTECTOMY 2006 COLONOSCOPY 01/11/2018 COLONOSCOPY 04/05/2024 Diverticulosis, Internal Hemorrhoids CT ANGIOGRAM HEART CORONARY 01/21/2020 CT ANGIOGRAM TAVR 01/21/2020 ENDOMETRIAL ABLATION 02/2021 and tubal ESOPHAGOGASTRODUODENOSCOPY 01/24/2007 HEMORRHOID SURGERY repair , possibe fissure TONGUE SURGERY 2011 removal left anterior tongue lesion REVIEW OF SYSTEMS Review of Systems: Review of Systems Constitutional: Negative. HENT: Negative. Eyes: Negative. Respiratory: Negative. Cardiovascular: Negative. Gastrointestinal: Negative. Genitourinary: Negative. Musculoskeletal: Negative. Skin: Negative. Neurological: Negative. Psychiatric/Behavioral: Negative. All other systems reviewed and are negative. Hematological: Negative. Endocrine: Negative. Allergic/Immunologic: Negative. OBJECTIVE Objective: Physical Exam Constitutional: Appearance: Normal appearance. She is well-developed. Genitourinary: Vulva normal. Breasts: Breasts are soft. Right: Normal. Left: Normal. Cardiovascular: Rate and Rhythm: Normal rate and regular rhythm. Pulmonary: Effort: Pulmonary effort is normal. Breath sounds: Normal breath sounds. Abdominal: General: Bowel sounds are normal. There is no distension. Palpations: Abdomen is soft. Tenderness: There is no abdominal tenderness. There is no guarding or rebound. Musculoskeletal: General: No swelling. Normal range of motion. Right lower leg: No edema. Left lower leg: No edema. Neurological: Mental Status: She is alert and oriented to person, place, and time. Skin: General: Skin is warm and dry. Psychiatric: Mood and Affect: Mood normal. Behavior: Behavior normal. Vitals and nursing note reviewed. Exam conducted with a test desk trouble locator present. Vitals: Estimated body mass index is 37.12 kg/m?? as calculated from the following: Height as of 07/30/24: 5' 6 . Weight as of this encounter: 230 lb. BP: 126/74 No LMP recorded (lmp unknown). Patient has had an ablation. ASSESSMENT & PLAN ICD-10-CM 1. Well woman exam with routine gynecological exam Z01.419 THIN PREP TIS PAP AND HR HPV DNA POCT urinalysis dipstick manually resulted Annual: Patient presents today for an annual exam. Patient states she is doing well and has no complaints. Pap was obtained without difficulty and patient was given mammogram order by her PCP to have scheduled/obtained. Orders Placed This Encounter Procedures POCT urinalysis dipstick manually resulted Follow Up: Patient is to return in one year for annual unless needed otherwise. Patient with intermittent pelvic pain declines ultrasound at this time but if does not improve will return for ultrasound. Documented by Leticia Tim NP on behalf of: William Coelho DO documented in this encounter Plan of Treatment Upcoming Encounters Date Type Department Care Team (Late st Contact Info) Description 09/03/2024 4:30 PM EDT Office Visit [facility] [address] [facility] [address] [place] [phone] Brian Meraz MD 112 [facility] [address] [place] [address] 08/28/2025 8:30 AM EDT Office Visit [facility] [address] [place] [address] William Coelho, [address] [facility] [address] [place], [place] [id number] Scheduled Orders Name Type Priority Associated Diagnoses Orde r Schedule THIN PREP TIS PAP AND HR HPV DNA Pathology and Cytology Routine Well woman exam with routine gynecological exam Ordered: 08/19/2024 documented as of this encounter Procedures Procedure Name Priority Date/Time Associated Diagnosis Comments POCT URINALYSIS DIPSTICK Routine 08/19/2024 8:44 AM EDT Well woman exam with routine gynecological exam documented in this encounter Results * (ABNORMAL) POCT urinalysis dipstick manually resulted (08/19/2024 8:44 AM EDT) Color, UA Yellow Clarity, UA Clear Glucose, UA Negative Negative - 2000(110) ++++ mg/dL Bilirubin, UA Positive Negative - 4(70) +++ mg/dL Comment:smalll Ketones, UA Positive Negative - 160(16) ++++ mg/dL Comment:trace Spec Grav, UA 1.030 1 - 1.03 Blood, UA Positive Negative - 50 Bart/mcL Comment:small pH, UA 5.5 5 - 9 Protein, UA Positive Negative - 2000(20) ++++ mg/dL Comment:30 Urobilinogen, UA 0.2 0.2 - 12 mg/dL Leukocytes, UA Trace Negative - 500+++ Kyra/mcL Nitrite, UA Negative Negative - Positive Urine 08/19/2024 8:44 AM EDT William Coelho DO POINT OF CARE TEST ENTER/EDIT OR DERABLES Final Result documented in this encounter Visit Diagnoses Diagnosis Well woman exam with routine gynecological exam Routine gynecological examination documented in this encounter Care Teams Security Administrator Relationship Specialty Start Date End Date Brian Meraz MD [address] [address] PCP - General Family Medicine 09/05/22 documented as of this encounter
--- OUTSIDE RECORDS SUMMARY | 2024-08-19 15:23 | XMS_ITS | Encounter Summary ---
Author Organization [facility] Address [address] [place] [address] Care Team Providers Care Java Portal Developer Name Role Phone Brian Meraz MD Primary Care Provider [phone] Encounter Details Date Type Department Care Team (Late Contact Info) Description 12/05/2023 Abstract [facility] [address] [facility] [address] [place] [address] Brian Meraz MD [address] [facility] [address] [place] [address] Social History Tobacco Use Types Packs/Day Years [...] more drinks on one occasion? Never 09/05/2022 Comments Unknown Sex and Gender Information Value Date Recorded Sex Assigned at Not on file Legal Sex Female 7:05 PM EDT Gender Identity Not on file Sexual Orientation Not on file documented as of this encounter Plan of Treatment Upcoming Encounters Date Type Department Care Team (Late Contact Info) Description 09/03/2024 4:30 PM EDT Office Visit [facility] [address] [facility] [address] [place] [address] Brian Meraz MD [address] [facility] 110 [place] [address] 08/28/2025 8:30 AM EDT Office Visit [facility] [address] [facility] [place] [address] William Coelho, DO [address] [facility] [place] [address] documented as of this encounter Visit Diagnoses Not on filedocumented in this encounter Care Teams Java Portal Developer Relationship Specialty Start Date End Date Brian Meraz MD 112 [facility] 110 [place] [address] PCP - General Family Medicine 09/05/22 documented as of this encounter
--- OUTSIDE RECORDS SUMMARY | 2024-08-19 15:23 | XMS_ITS | Encounter Summary ---
Author Organization [facility] tem Address [id number] [address] [place] [address] Care Team Providers Care Ophthalmic Asst Name Role Phone Brian Meraz MD Primary Care Provider [phone] Encounter Details Date Type Department Care Team (Late st Contact Info) Description 12/15/2020 Telephone [facility] [address] [place] [phone] Minna Anthony, CONNIE Social History Tobacco Use Types Packs/Day Years Used Date Smoking Tobacco: Never Smokeless Tobacco: Never Alcohol Use Standard Drinks/Week Comments Yes 0 (1 standard drink = 0.6 oz pur e alcohol) occassional Childcare Answer Date Recorded Childcare Unknown 08/29/2018 Employment Answer Date Recorded Employment Unknown 08/29/2018 Purpose - Life Answer Date Recorded Purpose and direction in life Unknown Comments No Sex and Gender Information Value Date Recorded Sex Assigned at Not on file Legal Sex Female 11:38 AM EDT Gender Identity Not on file Sexual Orientation Not on file COVID-19 Exposure Response Date Recorded In the last month, have you been in contact with someone who was confirmed or suspected to have Coronavirus / COVID-19? No / Unsure 12/09/2020 9:09 AM EDT documented as of this encounter Plan of Treatment Not on file documented as of this encounter Visit Diagnoses Not on filedocumented in this encounter Care Teams Ophthalmic Asst Relationship Specialty Start Date End [place] [address] [place] [address] PCP - General 12/28/16 documented as of this encounter
--- OUTSIDE RECORDS SUMMARY | 2024-08-19 15:23 | XMS_ITS | Encounter Summary ---
Author Organization [facility] Address [address] [place] [address] Care Team Providers Care Contact Printer Dry Film Name Role Phone Brian Meraz MD Primary Care Provider [phone] Encounter Details Date Type Department Care Team (Late Contact Info) Description 03/04/2024 Abstract [facility] [address] [facility] [address] [place] [address] Brian Meraz MD [address] [facility] 110 [place] [address] Social History Tobacco Use Types Packs/Day Years [...] 09/03/2024 4:30 PM EDT Office Visit [facility] [address] [facility] 110 [place] [address] Brian Meraz MD [address] [facility] 110 [place] [address] 08/28/2025 8:30 AM EDT Office Visit [facility] [address] [facility] [place] [address] William Coelho, DO [address] [facility] [place] [address] documented as of this encounter Visit Diagnoses Not on filedocumented in this encounter Care Teams Contact Printer Dry Film Relationship Specialty Start Date End Date Brian Meraz MD 112 [facility] 110 [place] [address] PCP - General Family Medicine 09/05/22 documented as of this encounter
--- OUTSIDE RECORDS SUMMARY | 2024-08-19 15:23 | XMS_ITS | Clinical Summary ---
Author Organization [employer] tem Address [id number] [address] [place] [address] Care Team Providers Care Die Presser Name Role Phone Brian Meraz MD Primary Care Provider [phone] Allergies No known active allergies Medications esomeprazole (NexIUM) 20 mg capsule Take 20 mg by mouth as needed. Active mometasone-formo terol (DULERA) 100-5 mcg/actuation inhaler Inhale 2 puffs 2 (two) times a day. Active albuterol (PROVENTIL HFA;VENTOLIN HFA) 90 mcg/actuation inhaler Inhale 2 puffs every 6 (six) hours as needed for wheezing. Active ibuprofen (ADVIL,MOTRIN) 600 mg tablet Take 1 tablet (600 mg total) by mouth every 6 (six) hours as needed for pain. 30 tablet 0 Active Additional Information Patient not taking.Reported on 05/19/2021 montelukast (SINGULAIR) 10 mg tablet Take 10 mg by mouth nightly. Active HYDROcodone-acet aminophen (NORCO) 5-325 mg per tablet Take 1 tablet by mouth every 6 (six) hours as needed for pain. Active silver sulfADIAZINE (SILVADENE, SSD) 1 % creamIndications :Abrasion of skin of left lower leg Apply 1 application topically daily. 50 g 1 1 Active Additional Information Patient not taking.Reported on 05/12/2021 amoxicillin-pot clavulanate (AUGMENTIN) 875-125 mg per tablet 1 tablet 2 Active benzonatate (TESSALON PERLES) 100 mg capsule Take 1 capsule (100 mg total) by mouth 3 (three) times a day as needed for cough. 21 capsule 3 Active ipratropium-albu teroL (DUONEB) 0.5 mg-3 mg(2.5 mg base)/3 mL nebulizerIndicat ions:Mild intermittent asthma with acute exacerbation Inhale 3 mL by nebulization every 6 (six) hours as needed for wheezing or shortness of breath. 360 mL 3 Active Active Problems Problem Noted Date Diagnosed Date Iron deficiency anemia, unspecified 05/03/2021 Abrasion of skin of left lower leg 12/02/2020 Immunizations Immunization Administration Dates Next Due COVID-19, mRNA, LNP-S, PF, 100mcg/0.5mL Dose ,05/15/2020 Family History Medical History Relation Name Comments Diverticulitis Father Diabetes Mother Relation Name Status Comments Father Alive Mother Alive Social History Tobacco Use Types Packs/Day Years Used Date Smoking Tobacco: Never Smokeless Tobacco: Never Tobacco Cessation:Counseling Given: Not Answered Alcohol Use Standard Drinks/Week Comments Yes 0 (1 standard drink = 0.6 oz pur e alcohol) occassional Childcare Answer Date Recorded Childcare Unknown 08/29/2018 Employment Answer Date Recorded Employment Unknown 08/29/2018 Hunger Screening Answer Date Recorded Within the past 12 months we worried whether our food would run out before we got money to buy more. Never True 07/10/2022 Within the past 12 months th e food we bought just didn't last and we didn't have money to get more. Never True 07/10/2022 Purpose - Life Answer Date Recorded Purpose and direction in life Unknown Comments No Sex and Gender Information Value Date Recorded Sex Assigned at Not on file Legal Sex Female 11:38 AM EDT Gender Identity Not on file Sexual Orientation Not on file Last Filed Vital Signs Vital Sign Reading Time Taken Comments Blood Pressure 139/74 07/10/2022 2:01 PM EDT Pulse 90 07/10/2022 2:29 PM EDT Temperature 37 C (98.6 F) 07/10/2022 2:01 PM EDT Respiratory Rate 16 07/10/2022 2:29 PM EDT Oxygen Saturation 99% 07/10/2022 2:29 PM EDT Inhaled Oxygen Concentration - - Weight 95.3 kg (210 lb) 07/10/2022 2:01 PM EDT Height 162.6 cm (5' 4 ) 07/10/2022 2:01 PM EDT Body Mass Index 36.05 07/10/2022 2:01 PM EDT Plan of Treatment Health Maintenance Due Date Last Done Comments Depression Screening 1992 DTaP,Tdap and Td Vaccines (1 - Tdap) 1999 Pap Smear 2001 Adult BMI Screening 07/11/2023 07/10/2022 Tobacco Screening 07/11/2023 COVID-19 Vaccine (4 - 2023-2 5 season) 2023 02/08/2021, 06/12/2020, 05/15/2020 Influenza Vaccine 11/18/2024 01/20/2022, , 01/14/2021, Additional history exists Medical Devices Not on file Insurance [employer] Care Teams Die Presser Relationship Specialty Start Date End Date [place] [address] [place] [address] PCP - General 12/28/16
--- OUTSIDE RECORDS SUMMARY | 2024-08-19 15:23 | XMS_ITS | Encounter Summary ---
Author Organization [facility] Address [address] [place] [address] Care Team Providers Care Director Of Email Marketing Name Role Phone Brian Meraz MD Primary Care Provider [phone] Brian Meraz MD Unavailable Encounter Details Date Type Department Care Team (Late Contact Info) Description 09/08/2022 Abstract [facility] 112 [facility] 110 [place] [phone] Brian Meraz MD 112 [facility] 110 [place] [address] Social History Tobacco Use Types Packs/Day Years Used Date Smoking Tobacco: Never Smokeless Tobacco: Never AUDIT-C Answer Date Recorded Q1: How often [...] 09/03/2024 4:30 PM EDT Office Visit [facility] 112 [facility] 110 [place] [address] Brian Meraz MD 112 [facility] 110 [place] [address] 08/28/2025 8:30 AM EDT Office Visit [facility] [address] [facility] [place] [address] William Coelho, DO [address] [facility] [place] [address] documented as of this encounter Visit Diagnoses Not on filedocumented in this encounter Care Teams Director Of Email Marketing Relationship Specialty Start Date End Date Brian Meraz MD [address] [facility] 110 [place] [address] PCP - General Family Medicine 09/05/22 Brian Meraz MD [address] [place] [address] [place] [address] PCP - Medical [employer] 08/18/22 05/27/23 documented as of this encounter
--- OUTSIDE RECORDS SUMMARY | 2024-08-19 15:23 | XMS_ITS | Encounter Summary ---
Author Organization [facility] Address [address] [place] [address] Care Team Providers Care Teletype Telegrapher Name Role Phone Brian Meraz MD Primary Care Provider [phone] Encounter Details Date Type Department Care Team (Late Contact Info) Description 04/05/2024 Abstract [facility] [address] [facility] 110 [place] [address] Brian Meraz MD [address] [facility] 110 [place] [address] Social History Tobacco Use Types Packs/Day Years [...] 09/03/2024 4:30 PM EDT Office Visit [facility] [address] [facility] 110 [place] [address] Brian Meraz MD [address] [facility] 110 [place] [address] 08/28/2025 8:30 AM EDT Office Visit [facility] [address] [facility] [place] [address] William Coelho, DO [address] [facility] [place] [address] documented as of this encounter Visit Diagnoses Not on filedocumented in this encounter Care Teams Teletype Telegrapher Relationship Specialty Start Date End Date Brian Meraz MD 112 [facility] 110 [place] [address] PCP - General Family Medicine 09/05/22 documented as of this encounter
--- OUTSIDE RECORDS SUMMARY | 2024-08-19 15:23 | XMS_ITS | Encounter Summary ---
Author Organization [facility] tem Address [id number] [address] [place] [address] Care Team Providers Care Cork Floor Installer Name Role Phone Brian Meraz MD Primary Care Provider Encounter Details Date Type Department Care Team (Late st Contact Info) Description 12/21/2020 Telephone [facility] [address] [place] [phone] Minna Anthony, CONNIE Social History Tobacco Use [...] on filedocumented in this encounter Care Teams Cork Floor Installer Relationship Specialty Start Date End [place] [address] [place] [address] PCP - General 12/28/16 documented as of this encounter
--- OUTSIDE RECORDS SUMMARY | 2024-08-19 15:23 | XMS_ITS | Encounter Summary ---
Author Organization [facility] Address [address] [place] [address] Care Team Providers Care Surgical Garment Inspector Name Role Phone Brian Meraz MD Primary Care Provider [phone] Encounter Details Date Type Department Care Team (Late Contact Info) Description 12/05/2023 Abstract [facility] [address] [facility] 110 [place] [address] Brian Meraz MD [address] [facility] 110 [place] [address] Social History Tobacco Use Types Packs/Day Years [...] 09/03/2024 4:30 PM EDT Office Visit [facility] [address] [facility] 110 [place] [address] Brian Meraz MD [address] [facility] 110 [place] [address] 08/28/2025 8:30 AM EDT Office Visit [facility] [address] [facility] [place] [place] [address] William Coelho, DO [address] [facility] [place] [address] documented as of this encounter Visit Diagnoses Not on filedocumented in this encounter Care Teams Surgical Garment Inspector Relationship Specialty Start Date End Date Brian Meraz MD 112 [facility] 110 [place] [address] PCP - General Family Medicine 09/05/22 documented as of this encounter
--- OUTSIDE RECORDS SUMMARY | 2024-08-19 15:23 | XMS_ITS | Encounter Summary ---
Author Organization [facility] Address [address] [place] [address] Care Team Providers Care Founder And Chief Technical Officer Name Role Phone Brian Meraz MD Primary Care Provider [phone] Encounter Details Date Type Department Care Team (Late Contact Info) Description 04/05/2024 Orders Only [facility] [address] [facility] [address] [place] [address] Unallocated, Noms Provider, [address] [place] [id number] Social History Tobacco Use Types Packs/Day Years [...] EDT Office Visit [facility] [address] [facility] [address] [place] [address] Brian Meraz MD [address] [facility] [address] [place] [address] 08/28/2025 8:30 AM EDT Office Visit [facility] [address] [facility] [place] [address] LaquitaWilliam reilly, DO [address] [facility] [place] [address] documented as of this encounter Procedures Procedure Name Priority Date/Time Associated Diagnosis Comments HCG, QL, URINE Routine 04/05/2024 12:08 PM EST documented in this encounter Results * , urine (04/05/2024 12:08 PM EST) Urine Urine specimen obtained by clean catch procedure / Unknown us Noms Provider Unallocated LAB URINE ORDERABLE S Final Result documented in this encounter Visit Diagnoses Not on filedocumented in this encounter Care Teams Founder And Chief Technical Officer Relationship Specialty Start Date End Date Brian Meraz MD [address] [facility] [address] [place] [address] PCP - General Family Medicine 09/05/22 documented as of this encounter
--- OUTSIDE RECORDS SUMMARY | 2024-08-19 15:23 | XMS_ITS | Encounter Summary ---
Author Organization [facility] Address [address] [place] [address] Care Team Providers Care Design Technology Professor Name Role Phone Brian Meraz MD Primary Care Provider [phone] Brian Meraz MD Unavailable Encounter Details Date Type Department Care Team (Late st Contact Info) Description 11/07/2022 Orders Only [facility] [address] [place] [address] [place] [address] A, Unknown Practice [address] [place], [place] [address] Social History Tobacco Use Types Packs/Day Years [...] 09/03/2024 4:30 PM EDT Office Visit [facility] [address] [facility] [address] [place] [address] Brian Meraz MD [address] [facility] 110 [place] [address] 08/28/2025 8:30 AM EDT Office Visit [facility] [address] [facility] [place] [phone] William Coelho, DO [address] [facility] [address] [place], [place] [id number] documented as of this encounter Procedures Procedure Name Priority Date/Time Associated Diagnosis Comments SCANNED LABS Routine 11/03/2022 9:11 AM EDT documented in this encounter Results * SCANNED LABS (11/03/2022 9:11 AM EDT) us Unknown Practice A LAB CHG PERFORMABLES Final Re sult documented in this encounter Visit Diagnoses Not on filedocumented in this encounter Care Teams Design Technology Professor Relationship Specialty Start Date End Date Brian Meraz MD [address] [facility] [address] [place] [address] PCP - General Family Medicine 09/05/22 Brian Meraz MD [address] [facility] [address] [place] [address] PCP - Medical [place] [employer] 08/18/22 05/27/23 documented as of this encounter
--- OUTSIDE RECORDS SUMMARY | 2024-08-19 15:23 | XMS_ITS | Encounter Summary ---
Author Organization [facility] Address [address] [place] [address] Care Team Providers Care Technical Designer Name Role Phone Brian Hernandez MD Primary Care Provider [phone] Encounter Details Date Type Department Care Team (Late Contact Info) Description 12/01/2023 Clinisync Result Encounter N[facility] External Department Unsolicited Brian Hernandez MD 112 [facility] 110 [place] [address] Social History Tobacco Use Types Packs/Day Years [...] EDT Office Visit [facility] [address] [facility] 110 [place] [phone] Brian Hernandez MD 112 [facility] 110 [place] [address] 08/28/2025 8:30 AM EDT Office Visit [facility] [address] [facility] [place] [address] William Coelho, DO [address] [facility] [place] [address] documented as of this encounter Procedures Procedure Name Priority Date/Time Associated Diagnosis Comments HOLTER MONITOR 8 TO 15 DAYS 12/01/2023 11:21 AM EDT documented in this encounter Results * Holter monitor 8 to 15 days (12/01/2023 11:21 AM EDT) Anatomical Region Laterality Modality Other 12/01/2023 11:2 1 AM EDT Narrative 12/01/2023 6:38 PM EDT [facility] [place] [id number] Cardiology Report Signed Patient: MAX PRAKASH MR#: [id number] : 1980 Acct:[id number] Age/Sex: 43 / F ADM Date: 11/21/23 Loc: CARD Attending Dr: BRIAN HERNANDEZ Ordering Physician: BRIAN HERNANDEZ Date of Service: 11/21/23 Procedure(s): CA holter monitor 7-15 days Accession Number(s): [id number] cc: BRIAN HERNANDEZ [facility] Test Date: 2023-12-01 Pat Name: MAX PRAKASH Department: Room: - Gender: Female Cloth Measurer: : 1980 Requested By: BRIAN HERNANDEZ Order Number: [id number] Reading MD: DANE BOB Interpretive Statements Predominant rhythm is sinus w/ average rate of 87 bpm Tachycadia - max rate of 144 bpm (sinus tachy) - 18% total burden Bradycardia - min rate of 44 bpm Ventricular ectopy - 3 PVC Patient triggered events: 6 - associated w/ symptoms of palpitation and lightheadedness - assoicated w/ sinus tachycardia Impression: Predominant rhythm is sinus w/ average rate of 87 bpm Fastest rate of 144 bpm (sinus tachy) and slowest rate of 44 bpm 3 PVC Longest episode of sinus tachy is 1h 9min 54sec withrates between 115-141 bpm Longest episode of sinus sterling is 11min 49sec with rates between 50-59 bpm No atrial fibrillation No pauses or blocks Electronically Signed On 12-01-2023 18:37:54 EDT by DANE BOB Dictated By: Dane Bob D.O. Signed By: 12/01/23183712/01/231837 DD/ 112 TD/TT: [employer] Consultant: Procedure Note Radiology, Radiologist, MD - 12/01/2023 [place] [address] Cardiology Report Signed Patient: MAX PRAKASH EMR#: [id number] : 1980Acct:[id number] Age/Sex: 43 / FADM Date: 11/21/23 Loc: CARD Attending Dr: BRIAN HERNANDEZ Ordering Physician: BRIAN HERNANDEZ Date of Service: 11/21/23 Procedure(s): CA holter monitor 7-15 days Accession Number(s): [id number] cc: BRIAN HERNANDEZ [facility] Test Date: 2023-12-01 Pat Name: MAX PRAKASH Department: Room: - Gender: Female Cloth Measurer: : 1980 Requested By: BRIAN HERNANDEZ Order Number: [id number] Reading MD: DANE BOB Interpretive Statements Predominant rhythm is sinus w/ average rate of 87 bpm Tachycadia - max rate of 144 bpm (sinus tachy) - 18% total burden Bradycardia - min rate of 44 bpm Ventricular ectopy - 3 PVC Patient triggered events: 6 - associated w/ symptoms of palpitation and lightheadedness - assoicated w/ sinus tachycardia Impression: Predominant rhythm is sinus w/ average rate of 87 bpm Fastest rate of 144 bpm (sinus tachy) and slowest rate of 44 bpm 3 PVC Longest episode of sinus tachy is 1h 9min 54sec withrates between 115-141bpm Longest episode of sinus sterling is 11min 49sec with rates between 50-59 bpm No atrial fibrillation No pauses or blocks Electronically Signed On 12-01-2023 18:37:54 EDT by DANE BOB Dictated By: Dane Bob D.O. Signed By:12/01/23183712/01/231837 DD/ 112 TD/TT: [employer] Consultant: Brian Hernandez MD [facility] PROCEDURES F inal Result documented in this encounter Visit Diagnoses Not on filedocumented in this encounter Care Teams Technical Designer Relationship Specialty Start Date End Date Brian Hernandez MD [address] [place] [address] PCP - General Family Medicine 09/05/22 documented as of this encounter
--- OUTSIDE RECORDS SUMMARY | 2024-08-19 15:23 | XMS_ITS | Encounter Summary ---
Author Organization [facility] [employer] [employer] [facility] tem Address [id number] [address] [place] [address] Care Team Providers Care Car Audio Installer Name Role Phone Brian Meraz MD Primary Care Provider [phone] Encounter Details Date Type Department Care Team (Late st Contact Info) Description 12/07/2020 Telephone [facility] [address] [place] [phone] Minna Anthony, CONNIE Social History Tobacco Use [...] on filedocumented in this encounter Care Teams Car Audio Installer Relationship Specialty Start Date End Date Brian [place] [address] [place] [address] PCP - General 12/28/16 documented as of this encounter
--- OUTSIDE RECORDS SUMMARY | 2024-08-19 15:23 | XMS_ITS | Encounter Summary ---
Author Organization [facility] Address [address] [place] [address] Care Team Providers Care Closing Manager Name Role Phone Brian Meraz MD Primary Care Provider [phone] Encounter Details Date Type Department Care Team (Late Contact Info) Description 12/11/2023 Abstract [facility] [address] [facility] 110 [place] [address] Brian Meraz MD [address] [facility] 110 [place] [address] Social History Tobacco Use Types Packs/Day Years [...] 09/03/2024 4:30 PM EDT Office Visit [facility] [address] [facility] 110 [place] [address] Brian Meraz MD [address] [facility] [address] [place] [address] 08/28/2025 8:30 AM EDT Office Visit [facility] [address] [facility] [place] [address] William Coelho, DO 102 [facility] [place] [address] documented as of this encounter Visit Diagnoses Not on filedocumented in this encounter Care Teams Closing Manager Relationship Specialty Start Date End Date Brian Meraz MD 112 [facility] 110 [place] [address] PCP - General Family Medicine 09/05/22 documented as of this encounter
--- OUTSIDE RECORDS SUMMARY | 2024-08-19 15:23 | XMS_ITS | Encounter Summary ---
Author Organization [facility] Address [address] [place] [address] Care Team Providers Care Rotary Rig Engine Operator Name Role Phone Brian Meraz MD Primary Care Provider [phone] Encounter Details Date Type Department Care Team (Late Contact Info) Description 11/15/2023 Abstract [facility] [address] [facility] [address] [place] [address] Brian Meraz MD [address] [facility] 110 [place] [address] Social History Tobacco Use Types Packs/Day Years [...] 09/03/2024 4:30 PM EDT Office Visit [facility] [address] [facility] 110 [place] [address] Brian Meraz MD [address] [facility] 110 [place] [address] 08/28/2025 8:30 AM EDT Office Visit [facility] OB 102 [facility] [place] [address] William Coelho, DO [address] [facility] [place] [address] documented as of this encounter Visit Diagnoses Not on filedocumented in this encounter Care Teams Rotary Rig Engine Operator Relationship Specialty Start Date End Date Brian Meraz MD 112 [facility] 110 [place] [address] PCP - General Family Medicine 09/05/22 documented as of this encounter
--- OUTSIDE RECORDS SUMMARY | 2024-08-19 15:23 | XMS_ITS | Encounter Summary ---
Author Organization [facility] Address [address] [place] [address] Care Team Providers Care Carpet Tile Layer Name Role Phone Brian Meraz MD Primary Care Provider [phone] Brian Meraz MD Unavailable Encounter Details Date Type Department Care Team (Late st Contact Info) Description 09/15/2022 Abstract [facility] [address] [facility] 110 [place] [phone] Brian Meraz MD 112 [facility] 110 [place] [address] Social History Tobacco Use Types Packs/Day Years [...] 09/03/2024 4:30 PM EDT Office Visit [facility] [address] [facility] 110 [place] [address] Brian Meraz MD 112 [place] [facility] 110 [place] [address] 08/28/2025 8:30 AM EDT Office Visit [facility] BCP OB [address] [place] [address] William Coelho, [address] [facility] [place] [address] documented as of this encounter Visit Diagnoses Not on filedocumented in this encounter Care Teams Carpet Tile Layer Relationship Specialty Start Date End Date Brian Meraz MD 112 [facility] 110 [place] [address] PCP - General Family Medicine 09/05/22 Brian Meraz MD [address] [place] [address] [place] [address] PCP - Medical [place] [employer] 08/18/22 05/27/23 documented as of this encounter
--- OUTSIDE RECORDS SUMMARY | 2024-08-19 15:23 | XMS_ITS | Encounter Summary ---
Author Organization [facility] Address [address] [place] [address] Care Team Providers Care General Farmworker Name Role Phone Brian Meraz MD Primary Care Provider [phone] Brian Meraz MD Unavailable Encounter Details Date Type Department Care Team (Late st Contact Info) Description 01/27/2023 Abstract [facility] [address] [facility] 110 [place] [address] Brian Meraz MD 112 [facility] 110 [place] [address] Social History Tobacco Use Types Packs/Day Years [...] EDT Office Visit [facility] [address] [facility] 110 [place] [address] Brian Meraz MD 112 [place] [facility] 110 [place] [address] 08/28/2025 8:30 AM EDT Office Visit [facility] BCP OB [address] [facility] [address] William Coelho, 102 [facility] [place] [address] documented as of this encounter Visit Diagnoses Not on filedocumented in this encounter Care Teams General Farmworker Relationship Specialty Start Date End Date Brian Meraz MD 112 [facility] 110 [place] [address] PCP - General Family Medicine 09/05/22 Brian Meraz MD [address] [place] [address] [address] [place] [address] PCP - Medical [place] [employer] 08/18/22 05/27/23 documented as of this encounter
--- OUTSIDE RECORDS SUMMARY | 2024-08-19 15:23 | XMS_ITS | Encounter Summary ---
Author Organization [facility] Address [address] [place] [address] Care Team Providers Care Producer Assistant Name Role Phone Brian Meraz MD Primary Care Provider [phone] Encounter Details Date Type Department Care Team (Late Contact Info) Description 08/04/2023 Orders Only [facility] BCP OB [address] [place] [address] Mayte Tobias LPN [address] [place] [id number] Social History Tobacco Use Types Packs/Day Years [...] EDT Office Visit [facility] [address] [facility] [address] [place] [address] Brian Meraz MD [address] [facility] 110 [place], [place] [address] 08/28/2025 8:30 AM EDT Office Visit [facility] BCP OB [address] [facility] [place] [address] William Coelho DO [address] [place] [address] [place] [address] documented as of this encounter Procedures Procedure Name Priority Date/Time Associated Diagnosis Comments PAP SMEAR Routine 07/27/2023 12:00 AM EDT documented in this encounter Results * Pap Smear (07/27/2023 12:00 AM EDT) Swab Cervical swab / Unknown us [facility] Bcp Ob Laquita Nurse LAB CYTOLOGY ORDERABLES Final Result Performing Organization Address City/State/[facility] Co de Phone Number EXTERNAL LAB documented in this encounter Visit Diagnoses Not on filedocumented in this encounter Care Teams Producer Assistant Relationship Specialty Start Date End Date Brian Meraz MD [address] [facility] 110 [place] [address] PCP - General Family Medicine 09/05/22 documented as of this encounter
--- OUTSIDE RECORDS SUMMARY | 2024-08-19 15:23 | XMS_ITS | Encounter Summary ---
Author Organization [employer] tem Address [id number] [address] [place] [address] Care Team Providers Care Spray Operator Name Role Phone Brian Meraz MD Primary Care Provider [phone] Encounter Details Date Type Department Care Team (Late st Contact Info) Description 05/06/2021 Abstract Brittany Car[facility] On[facility] [address] [place] [address] Lisa Nielson Social History Tobacco Use Types Packs/Day Years [...] on filedocumented in this encounter Care Teams Spray Operator Relationship Specialty Start Date [place] [address] PCP - General 12/28/16 documented as of this encounter
--- OUTSIDE RECORDS SUMMARY | 2024-08-19 15:23 | XMS_ITS | Encounter Summary ---
Author Organization [facility] Address [address] [place] [address] Care Team Providers Care Pneumatic Tube Operator Name Role Phone Brian Meraz MD Primary Care Provider [phone] Brian Meraz MD Unavailable Encounter Details Date Type Department Care Team (Late st Contact Info) Description 10/06/2022 Orders Only [facility] [address] [place] [address] [place] [address] A, Unknown Practice [address] [place], [place] [address] Social History Tobacco Use Types Packs/Day Years [...] Visit [facility] [address] [place] [address] [place] [address] Brian Meraz MD [address] [facility] 110 [place] [address] 08/28/2025 8:30 AM EDT Office Visit [facility] BCP OB [address] [facility] [place] [address] William Coelho, DO [address] [facility] [address] [place], [place] [address] documented as of this encounter Procedures Procedure Name Priority Date/Time Associated Diagnosis Comments SCANNED LABS Routine 10/04/2022 1:36 PM EDT SCANNED LABS Routine 10/04/2022 8:28 AM EDT documented in this encounter Results * SCANNED LABS (10/04/2022 1:36 PM EDT) us Unknown Practice A LAB CHG PERFORMABLES Final Re sult * SCANNED LABS (10/04/2022 8:28 AM EDT) us Unknown Practice A LAB CHG PERFORMABLES Final Re sult documented in this encounter Visit Diagnoses Not on filedocumented in this encounter Care Teams Pneumatic Tube Operator Relationship Specialty Start Date End Date Brian Meraz MD [address] [facility] [address] [place] [address] PCP - General Family Medicine 09/05/22 Brian Meraz MD [address] [facility] [address] [place] [address] PCP - Medical [place] [employer] 08/18/22 05/27/23 documented as of this encounter
--- OUTSIDE RECORDS SUMMARY | 2024-08-19 15:23 | XMS_ITS | Encounter Summary ---
Author Organization [facility] Address [address] [place] [address] Care Team Providers Care Manager Global Name Role Phone Brian Hernandez MD Primary Care Provider [phone] Brian Hernandez MD Unavailable Encounter Details Date Type Department Care Team (Late Contact Info) Description 04/28/2023 Clinisync Result Encounter N[facility] External Department Unsolicited Provider, Generic External Data Social History Tobacco Use Types Packs/Day Years [...] 09/03/2024 4:30 PM EDT Office Visit [facility] [address] [email or web address] 110 [place] [address] Brian Hernandez MD 112 [place] [facility] 110 [place], [place] [address] 08/28/2025 8:30 AM EDT Office Visit [facility] B[facility] OB [address] [facility] [place] [address] William Coelho, DO [address] [facility] [place] [address] documented as of this encounter Procedures Procedure Name Priority Date/Time Associated Diagnosis Comments MM TOMOSYNTHESIS SCREENING BI 04/28/2023 11:14 AM EST documented in this encounter Results * MM TOMOSYNTHESIS SCREENING BI (04/28/2023 11:14 AM EST) Anatomical Region Laterality Modality Other 04/28/2023 11:1 4 AM EST Narrative 04/28/2023 11:14 AM EST The [address] [address] Mammography Report Signed Patient: Max Prakash MR#: [id number] : 1980 Acct:[id number] Age/Sex: 43 / F ADM Date: 04/28/23 Loc: MAMMO Attending Dr: William Coelho D.O. Ordering Physician: William Coelho D.O. Results: Date of Service: 04/28/23 Follow Up: Procedure(s): MM tomosynthesis screening BI Accession Number(s): [id number] cc: BRIAN HERNANDEZ ; William Coelho D.O. Patient Name: MAX PRAKASH MR#: [id number] : 1980 Exam Date: 04/28/2023 Ordering Doctor: DR William Coelho . RADIOLOGY REPORT PROCEDURE: MM TOMOSYNTHESIS SCREENING BI COMPARISON: MG MAMM SCREEN 3D DARYL CAD, 01/21/2021. MG MAMM SCREEN 3D DARYL CAD, 02/01/2022. INDICATIONS: Screening Calculator Name NCI Breast Cancer Risk Assessment Tool 5 Year Breast Cancer Risk 0.50% Lifetime Breast Cancer Risk 6.80% Personal Breast Cancer No Personal Ovarian Cancer No Treatments None Family Cancers None LOCATION: The [facility] BREAST COMPOSITION: Scattered areas fibroglandular density. FINDINGS: DIAGNOSTIC CATEGORY 2--BENIGN FINDING. NO CHANGE FROM COMPARISON. Scattered benign-appearing calcifications are present. Scattered benign-appearing lymph nodes are present. RIGHT BREAST: No significant suspicious finding. LEFT BREAST: No significant suspicious finding. RECOMMENDATIONS: ROUTINE MAMMOGRAM AND CLINICAL EVALUATION IN 12 MONTHS. PLEASE NOTE: A NORMAL MAMMOGRAM DOES NOT EXCLUDE THE POSSIBILITY OF BREAST CANCER. A CLINICALLY SUSPICIOUS PALPABLE LUMP SHOULD BE BIOPSIED. Dictated by: Manoj Rojo MD on 04/28/2023 at 11:12 Approved by: Manoj Rojo MD on 04/28/2023 at 11:13 Dictated By: Manoj Rojo M.D. Signed By: 04/28/23 1114 DD/ 1114 TD/TT: Heat Treating Furnace Tender: Procedure Note Radiology, Radiologist, - 04/28/2023 [place] [address] Mammography Report Signed Patient: Max Prakash EMR#: [id number] : 1980Acct:[id number] Age/Sex: 43 / FADM Date: 04/28/23 Loc: MAMMO Attending Dr: William Coelho D.O. Ordering Physician: William Coelho D.O.Results: Date of Service: 04/28/23Follow Up: Procedure(s): MM tomosynthesis screening BI Accession Number(s): [id number] cc: BRIAN HERNANDEZ ; William Coelho D.O. Patient Name: MAX PRAKASH MR#: [id number] : 1980 Exam Date: 04/28/2023 Ordering Doctor: DR William Coelho . RADIOLOGY REPORT PROCEDURE: MM TOMOSYNTHESIS SCREENING BI COMPARISON: MG MAMM SCREEN 3D DARYL CAD, 01/21/2021. MG MAMM SCREEN 3DBIL CAD, 02/01/2022. INDICATIONS: Screening Calculator Name NCI Breast Cancer Risk Assessment Tool 5 Year Breast Cancer Risk 0.50% Lifetime Breast Cancer Risk 6.80% Personal Breast Cancer No Personal Ovarian Cancer No Treatments None Family Cancers None LOCATION: The [facility] BREAST COMPOSITION: Scattered areas fibroglandular density. FINDINGS: DIAGNOSTIC CATEGORY 2--BENIGN FINDING. NO CHANGE FROM COMPARISON.Scattered benign-appearing calcifications are present. Scattered benign-appearinglymph nodes are present. RIGHT BREAST: No significant suspicious finding. LEFT BREAST: No significant suspicious finding. RECOMMENDATIONS: ROUTINE MAMMOGRAM AND CLINICAL EVALUATION IN 12 MONTHS. PLEASE NOTE: A NORMAL MAMMOGRAM DOES NOT EXCLUDE THE POSSIBILITY OFBREAST CANCER. A CLINICALLY SUSPICIOUS PALPABLE LUMP SHOULD BE BIOPSIED. Dictated by: Manoj Rojo MD on 04/28/2023 at 11:12 Approved by: Manoj Rojo MD on 04/28/2023 at 11:13 Dictated By: Manoj Rojo M.D. Signed By:04/28/23 1114 DD/ 1114 TD/TT: Heat Treating Furnace Tender: Generic External Data Provider [facility] Final Result documented in this encounter Visit Diagnoses Not on filedocumented in this encounter Care Teams Manager Global Relationship Specialty Start Date End Date Brian Hernandez MD 112 [facility] 110 [place] [address] PCP - General Family Medicine 09/05/22 Brian Hernandez MD 112 [facility] 110 [place] [address] PCP - Medical [place] [employer] 08/18/22 05/27/23 documented as of this encounter
--- OUTSIDE RECORDS SUMMARY | 2024-08-19 15:23 | XMS_ITS | Encounter Summary ---
Author Organization [facility] Address [address] [place] [address] Care Team Providers Care Dean Of Instruction Name Role Phone Brian Meraz MD Primary Care Provider [phone] Encounter Details Date Type Department Care Team (Late Contact Info) Description 04/05/2024 Abstract [facility] [address] [facility] 110 [place] [address] Brian Meraz MD [address] [facility] 110 [place] [address] Social History Tobacco Use Types Packs/Day Years [...] 09/03/2024 4:30 PM EDT Office Visit [facility] [address] [facility] 110 [place] [address] Brian Meraz MD [address] [facility] 110 [place] [address] 08/28/2025 8:30 AM EDT Office Visit [facility] BCP OB [address] [facility] [place] [address] William Coelho, DO [address] [facility] [place] [address] documented as of this encounter Visit Diagnoses Not on filedocumented in this encounter Care Teams Dean Of Instruction Relationship Specialty Start Date End Date Brian Meraz MD 112 [facility] 110 [place] [address] PCP - General Family Medicine 09/05/22 documented as of this encounter
--- OUTSIDE RECORDS SUMMARY | 2024-08-19 15:23 | XMS_ITS | Encounter Summary ---
Author Organization [facility] Address [address] [place] [address] Care Team Providers Care Warehouse Driver Name Role Phone Brian Meraz MD Primary Care Provider [phone] Encounter Details Date Type Department Care Team (Late Contact Info) Description 03/21/2024 Abstract [facility] CI [address] [facility] 110 [place] [address] Brian Meraz MD [address] [facility] 110 [place] [address] Social History Tobacco Use Types Packs/Day Years [...] 09/03/2024 4:30 PM EDT Office Visit [facility] [address] [facility] 110 [place] [address] Brian Meraz MD [address] [facility] 110 [place] [address] 08/28/2025 8:30 AM EDT Office Visit [facility] B[facility] OB [address] [facility] [place] [address] William Coelho, DO [address] [facility] [place] [address] documented as of this encounter Visit Diagnoses Not on filedocumented in this encounter Care Teams Warehouse Driver Relationship Specialty Start Date End Date Brian Meraz MD 112 [facility] 110 [place] [address] PCP - General Family Medicine 09/05/22 documented as of this encounter
--- OUTSIDE RECORDS SUMMARY | 2024-08-19 15:23 | XMS_ITS | Encounter Summary ---
Author Organization [facility] tem Address [id number] [address] [place] [address] Care Team Providers Care Section Forest Fire Warden Name Role Phone Brian Meraz MD Primary Care Provider [phone] Encounter Details Date Type Department Care Team (Late st Contact Info) Description 12/29/2020 Telephone [facility] [address] [place] [address] Minna Anthony, CONNIE Social History Tobacco Use [...] have Coronavirus / COVID-19? No / Unsure 12/30/2020 10:17 AM EDT documented as of this encounter Plan of Treatment Not on file documented as of this encounter Visit Diagnoses Not on filedocumented in this encounter Care Teams Section Forest Fire Warden Relationship Specialty Start Date End Date [place] [address] [place] [address] PCP - General 12/28/16 documented as of this encounter
--- OUTSIDE RECORDS SUMMARY | 2024-08-19 15:23 | XMS_ITS | Encounter Summary ---
Author Organization [facility] Address [address] [place] [address] Care Team Providers Care Corporate Travel Manager Name Role Phone Brian Meraz MD Primary Care Provider [phone] Encounter Details Date Type Department Care Team (Late Contact Info) Description 04/05/2024 Abstract [facility] [address] [facility] 110 [place] [address] Brian Meraz MD [address] [facility] 110 [place] [address] Social History Tobacco Use Types Packs/Day Years [...] Office Visit [facility] [address] [facility] 110 [place] [address] Brian Meraz MD [address] [facility] 110 [place] [address] 08/28/2025 8:30 AM EDT Office Visit [facility] BCP OB [address] [facility] [place] [address] William Coelho, DO [address] [facility] [place] [address] documented as of this encounter Visit Diagnoses Not on filedocumented in this encounter Care Teams Corporate Travel Manager Relationship Specialty Start Date End Date Brian Meraz MD 112 [facility] 110 [place] [address] PCP - General Family Medicine 09/05/22 documented as of this encounter
--- OUTSIDE RECORDS SUMMARY | 2024-08-19 15:23 | XMS_ITS | Encounter Summary ---
Author Organization [facility] Address [address] [place] [address] Care Team Providers Care Digital Media Analyst Name Role Phone Brian Meraz MD Primary Care Provider [phone] Brian Meraz MD Unavailable Encounter Details Date Type Department Care Team (Late st Contact Info) Description 11/08/2022 Orders Only [facility] [address] [facility] [address] [place] [address] A, Unknown Practice [address] [place], [place] [address] Social History Tobacco Use Types Packs/Day Years [...] 09/03/2024 4:30 PM EDT Office Visit [facility] [address] [place] [address] [place] [address] Brian Meraz MD [address] [facility] 110 [place] [address] 08/28/2025 8:30 AM EDT Office Visit [facility] OB [address] [facility] [place] [address] William Coelho, DO [address] [facility] [address] [place], [place] [address] documented as of this encounter Procedures Procedure Name Priority Date/Time Associated Diagnosis Comments SCANNED LABS Routine 11/03/2022 7:56 AM EDT documented in this encounter Results * SCANNED LABS (11/03/2022 7:56 AM EDT) us Unknown Practice A LAB CHG PERFORMABLES Final Re sult documented in this encounter Visit Diagnoses Not on filedocumented in this encounter Care Teams Digital Media Analyst Relationship Specialty Start Date End Date Brian Meraz MD [address] [facility] [address] [place] [address] PCP - General Family Medicine 09/05/22 Brian Meraz MD [address] [facility] [address] [place] [address] PCP - Medical [place] [employer] 08/18/22 05/27/23 documented as of this encounter
--- OUTSIDE RECORDS SUMMARY | 2024-08-19 15:24 | XMS_ITS | Encounter Summary ---
Author Organization [facility] Address [address] [place] [address] Care Team Providers Care Finishing Trimmer Name Role Phone Brian Meraz MD Primary Care Provider [phone] Reason for Visit * Reason Onset Date Comments Med Refill 08/07/2024 Encounter Details Date Type Department Care Team (Late st Contact Info) Description 08/07/2024 Refill [facility] [address] [place] [address] [place] [address] Dulce Maria Lopez [place] Morbid (severe) obesity due to excess calories (CMS/HCC) Social History Tobacco Use Types Packs/Day Years [...] Patient Health Questionnaire-2 Score 0 05/21/2024 Comments Unknown Sex and Gender Information Value [...] CI FM [address] [place] [address] [place] [address] Brian Meraz MD 112 [facility] 110 [place] [address] 08/28/2025 8:30 AM EDT Office Visit [facility] B[facility] OB [address] [facility] [place] [address] William Coelho, DO [address] [facility] [address] [place], [place] [address] documented as of this encounter Visit Diagnoses Diagnosis Morbid (severe) obesity due to excess calories (CMS/HCC) documented in this encounter Care Teams Finishing Trimmer Relationship Specialty Start Date End Date Brian Meraz MD [address] [address] [place] [address] PCP - General Family Medicine 09/05/22 documented as of this encounter
--- OUTSIDE RECORDS SUMMARY | 2024-08-19 15:24 | XMS_ITS | Encounter Summary ---
Author Organization [facility] Address [address] [place] [address] Care Team Providers Care Doctor'S Assistant Name Role Phone Brian Meraz MD Primary Care Provider [phone] Encounter Details Date Type Department Care Team (Late Contact Info) Description 08/19/2024 Bamboo flowsheet N[facility] [address] [place] [address] William Coelho, DO [address] [place], [facility] Social History Tobacco Use Types Packs/Day Years [...] EDT Office Visit [facility] FM 112 [facility] 110 [place] [address] Brian Meraz MD 112 [facility] 110 [place] [address] 08/28/2025 8:30 AM EDT Office Visit [facility] B[facility] OB [address] [facility] [place] [address] William Coelho DO [address] [facility] [address] [place], [place] [address] documented as of this encounter Visit Diagnoses Not on filedocumented in this encounter Care Teams Doctor'S Assistant Relationship Specialty Start Date End Date Brian Meraz MD [address] [address] [place] [address] PCP - General Family Medicine 09/05/22 documented as of this encounter
--- OUTSIDE RECORDS SUMMARY | 2024-08-19 15:24 | XMS_ITS | Encounter Summary ---
Author Organization [facility] Address [address] [place] [address] Care Team Providers Care Manager Philosophy Name Role Phone Brian Meraz MD Primary Care Provider [phone] Encounter Details Date Type Department Care Team (Late Contact Info) Description 04/29/2024 Abstract [facility] CI [address] [facility] 110 [place] [address] Brian Meraz MD [address] [facility] 110 [place] [address] Social History Tobacco Use Types Packs/Day Years [...] 09/03/2024 4:30 PM EDT Office Visit [facility] [address] [facility] 110 [place] [address] Brian Meraz MD [address] [facility] 110 [place] [address] 08/28/2025 8:30 AM EDT Office Visit [facility] OB [address] [facility] [place] [address] William Coelho, DO [address] [facility] [place] [address] documented as of this encounter Visit Diagnoses Not on filedocumented in this encounter Care Teams Manager Philosophy Relationship Specialty Start Date End Date Brian Meraz MD 112 [facility] 110 [place] [address] PCP - General Family Medicine 09/05/22 documented as of this encounter
--- OUTSIDE RECORDS SUMMARY | 2024-08-19 15:24 | XMS_ITS | Clinical Summary ---
Author Organization [facility] Address [address] [place] [address] Care Team Providers Care Custody Assistant Name Role Phone Brian Hernandez MD Primary Care Provider [phone] Allergies No known active allergies Medications esomeprazole (NexIUM) [address] capsule Take 1 capsule by mouth 1 (one) time each day at the same time. Active loratadine-pseud oephedrine ER (Claritin-D 12-hour) 5-120 MG 12 hr tablet Take 1 tablet by mouth in the morning and 1 tablet before bedtime. Do not crush, chew, or split. . Active cyanocobalamin (Vitamin B-12) 100 MCG tablet Take 1 tablet by mouth in the morning. Active folic acid (Folvite) 1 MG tablet Take 1 tablet by mouth in the morning. Active albuterol HFA 90 mcg/act inhalerIndicatio ns:Wheezing,Mild persistent asthmatic bronchitis without complication (CMS/HCC) Inhale 2 puffs every 6 (six) hours if needed for wheezing or shortness of breath. 18 g 5 3 Active Fluticasone-Umec lidin-Vilant (Trelegy Ellipta) 100-62.5-25 MCG/ACT aerosol powderIndication s:Uncomplicated severe persistent asthma (CMS/HCC) Inhale 1 puff 1 (one) time each day at the same time 1 each 4 Active montelukast (Singulair) 10 MG tabletIndication s:Mild intermittent asthma without complication (CMS/HCC) TAKE 1 TABLET BY MOUTH EVERYDAY AT BEDTIME 90 tablet 1 5 Active oxybutynin XL (Ditropan-XL) 10 MG 24 hr tabletIndication s:Frequency of urination TAKE 1 TABLET (10 MG) BY MOUTH DAILY AT THE SAME TIME EACH DAY 90 tablet 1 5 Active Semaglutide-Weig ht Management (Wegovy) 1 MG/0.5ML solution auto-injectorInd ications:Morbid (severe) obesity due to excess calories (CMS/HCC) Inject 1 mg under the skin 1 (one) time per week 3 mL 1 5 Active Semaglutide-Weig ht Management 0.5 MG/0.5ML solution auto-injectorInd ications:Morbid (severe) obesity due to excess calories (CMS/HCC) Inject 0.5 mg under the skin 1 (one) time per week 2 mL 5 025 Hydrocort-Pramox ine, Perianal, (Proctofoam HC) 1-1 % foamIndications: Bleeding hemorrhoids Apply 1 application topically in the morning and 1 application in the evening and 1 application before bedtime. Do all this for 10 days. 10 g 1 5 025 Active Problems Problem Noted Date Diagnosed Date Obesity (BMI 30-39.9) 04/25/2024 Assessment & Plan (04/25/2024 3:51 PM EST): Needs life style modification. Exercise Routinely Low Calorie Diet F/U in 4 weeks 3500 calorie deficit = 1lb weight loss Small portions TIming of meals Reduce Carbohydrate Intake High Protein Diet Family history of diabetes mellitus 04/25/2024 Other fatigue 04/25/2024 Assessment & Plan (04/25/2024 3:51 PM EST): Consider Sleep Apnea test Palpitations 11/13/2023 Assessment & Plan (11/13/2023 2:12 PM EDT): Avoid Caffeine Check Holter/Event Monitor Discussed with patient sxs and sxs of CO D/W patient Valsava Maneuver and Cold Colitis 08/07/2023 Assessment & Plan (08/07/2023 3:54 PM EDT): May need colonoscopy if Steroids in effective Has wormy string stools, possible inflammation No improvement with Antibiotic Dr. Miller did last colonoscopy CT scan possible left ovarian cyst Diverticulitis of large inte renita with perforation and abscess without bleeding 07/20/2023 Assessment & Plan (07/20/2023 4:26 PM EDT): Add Probiotic to help replenish the good bacteria that are destroyed by the Antibiotics Florastor Florajen Align or try Activia in Yogurt Probiotics reduce the risk of antibiotic induced diarrhea If severe pain go ER to rule out rupture Avoid alcohol No Fast twitch muscle exercises Elevated blood pressure read ing in office without diagnosis of hypertension 07/20/2023 Assessment & Plan (08/07/2023 3:57 PM EDT): Monitor for 3 months Assessment & Plan (07/20/2023 4:24 PM EDT): Our specific goals, for your hypertension, is to keep your blood pressure less than 140/90, and the importance of weight control. We made recommendations on how to control your blood pressure, and minimize your risk of these copmplications. We also discussed your current barriers to a healthy living and importance of healthy diet and exercise. Prior to your visit today we have reviewed your chart and formed a plan to assist with providing you the best possible care. We reviewed the possible complications of hypertension including, stroke, heart failure and kidney impairment. In addition, we discussed your medications, the importance of taking them as prescribed. DASH diet handouts Other chest pain 07/20/2023 Assessment & Plan (07/20/2023 4:25 PM EDT): Consider stress test No current exertional chest pain Adjustment disorder with anxious mood 11/29/2022 Marital relationship problem 11/24/2022 Asthmatic bronchitis 09/04/2022 Elevated liver function tests 09/04/2022 Fear of flying 09/04/2022 Iron deficiency anemia 09/04/2022 Loss of taste 09/04/2022 Menorrhagia with regular cycle 09/04/2022 Mixed hyperlipidemia 09/04/2022 Morbid (severe) obesity due to excess calories 0 09/04/2022 Assessment & Plan (08/07/2023 3:58 PM EDT): GLP injections Assessment & Plan (07/20/2023 4:24 PM EDT): Weight loss and exercise Seasonal allergic rhinitis 09/04/2022 Abrasion of skin of left lower leg 12/02/2020 Gastroesophageal reflux disease 01/13/2020 Insomnia 06/21/2019 Mild persistent asthma with exacerbation 019 Sinusitis 02/06/2018 Uncomplicated severe persistent asthma 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 Mild intermittent asthma 05/02/2016 Constipation 12/28/2015 Hx of oral surgery 03/20/2010 Overview (09/04/2022): removal left anterior tongue lesion Encounters Date Type Department Care Team Description 08/19/2024 8:40 AM EDT Office Visit [facility] [address] [place] [address] William Coelho DO Well woman exam with routine gynecological exam 08/19/2024 Bamboo flowsheet [facility] [address] [place] [address] William Coelho DO 08/07/2024 Refill [facility] [address] [place] [address] Dulce Maria Lopez MA Morbid (severe) obesity due to excess calories (CMS/[facility]) 07/30/2024 4:30 PM EDT Office Visit [facility] [address] [place] [address] Mi Rich PA Bleeding hemorrhoids (Primary Dx); Drug-induced constipation 07/30/2024 Bamboo flowsheet [facility] [address] [place] [address] Mi Rich PA 07/30/2024 Travel 07/15/2024 Refill [facility] [address] [place] [address] Brian Hernandez MD Morbid (severe) obesity due to excess calories (CMS/HCC) 06/17/2024 Refill [facility] [address] [facility] [address] [place] [address] Brian Hernandez MD Morbid (severe) obesity due to excess calories (CMS/HCC) 05/27/2024 Telephone [facility] [address] [facility] [address] [place] [address] Brian Hernandez MD 05/23/2024 Refill [facility] [address] [facility] [address] [place] [address] Brian Hernandez MD Frequency of urination 05/21/2024 4:00 PM EST Office Visit [facility] [address] [facility] [address] [place] [address] Brian Hernandez MD Morbid (severe) obesity due to excess calories (CMS/HCC) (Primary Dx); Frequency of urination 05/21/2024 Travel from Last 3 Months Immunizations Immunization Administration Dates Next Due Influenza, Recombinant, inje ctable, preservative free 01/26/2024 Influenza, injectable, MDCK, preservative free, quadrivalent 01/20/2022,04/15/2019,01/30/2018 Influenza, injectable, quadrivalent 01/14/2021,1 Influenza, seasonal, injectable 01/26/2023,12/06 Influenza, seasonal, injecta ble, preservative free 02/18/2015 Influenza, seasonal, intrade rmal, preservative free 12/15/2016 Family History Medical History Relation Name Comments Diverticulosis Father Hypertension Maternal Grandfather Diabetes Maternal Grandmother Diabetes Mother Diabetes Paternal Grandmother Relation Name Status Comments Brother Alive Father Alive Maternal Grandfather Maternal Grandmother Mother Alive Paternal Grandfather Paternal Grandmother Alive Sister Alive Social History Tobacco Use Types Packs/Day Years Used Date Smoking Tobacco: Former Cigarettes Smokeless Tobacco: Never Tobacco Cessation:Counseling Given: Not Answered Alcohol Use Standard Drinks/Week Comments Not Currently [...] Pressure 126/74 08/19/2024 8:41 AM EDT Pulse 94 07/30/2024 4:34 PM EDT Temperature 37.5 C (99.5 F) 02/22/2023 4:42 PM EST Respiratory Rate 16 07/30/2024 4:34 PM EDT Oxygen Saturation 95% 07/30/2024 4:34 PM EDT Inhaled Oxygen Concentration - - Weight 104 kg (230 lb) 08/19/2024 8:41 AM EDT Height 167.6 cm (5' 6 ) 07/30/2024 4:34 PM EDT Body Mass Index 37.12 07/30/2024 4:34 PM EDT Plan of Treatment Upcoming Encounters Date Type Department Care Team (Late st Contact Info) Description 09/03/2024 4:30 PM EDT Office Visit [facility] [address] [facility] [address] [place] [address] Brian Hernandez MD [address] [email or web address] [address] [place] [address] 08/28/2025 8:30 AM EDT Office Visit [facility] [address] [place] [address] William Coelho, DO [address] [place] [address] Health Maintenance Due Date Last Done Comments Mammogram 04/28/2024 04/28/2023, 0 11/2023, 02/01/2022, Additional history exists Pap Smear 07/26/2026 07/27/2023, 01/13/2022 Cervical Cancer Screening 01/13/2027 HPV/Cotest 01/13/2027 01/11/2021 Influenza Vaccine Completed 01/26/2024, , 01/20/2022, Additional history exists Procedures Procedure Name Priority Date/Time Associated Diagnosis Comments POCT URINALYSIS DIPSTICK Routine 08/19/2024 8:44 AM EDT Well woman exam with routine gynecological exam PAP SMEAR Routine 07/27/2023 12:00 AM EDT MM TOMOSYNTHESIS SCREENING BI 04/28/2023 11:14 AM EST THINPREP AND HPV Routine 01/11/2021 12:0 0 PM EDT from Last 3 Months or Most Recently Relevant to Health Maintenance Results * (ABNORMAL) POCT urinalysis dipstick manually [...] CARE TEST ENTER/EDIT OR DERABLES Final Result * Pap Smear (07/27/2023 12:00 AM EDT) Swab Cervical swab / Unknown us [facility] Nurse LAB CYTOLOGY ORDERABLES Final Result EXTERNAL LAB * MM TOMOSYNTHESIS SCREENING BI (04/28/2023 11:14 AM EST) Anatomical Region Laterality Modality Other 04/28/2023 11:1 4 AM EST Narrative 04/28/2023 11:14 [place] [address] Mammography Report Signed Patient: Candice Prakash MR#: [id number] : 1980 Acct:[id number] Age/Sex: 43 / F ADM Date: 04/28/23 Loc: MAMMO Attending Dr: William Coelho D.O. Ordering Physician: William Coelho D.O. Results: Date of Service: 04/28/23 Follow Up: Procedure(s): MM tomosynthesis screening BI Accession Number(s): [id number] cc: BRIAN HERNANDEZ ; William Coelho D.O. Patient Name: CANDICE PRAKASH MR#: [id number] : 1980 Exam Date: 04/28/2023 Ordering Doctor: [...] Treatments None Family Cancers None LOCATION: [facility] BREAST COMPOSITION: Scattered areas fibroglandular density. [...] Rojo M.D. Signed By: 04/28/23 1114 DD/ TD/TT: Grease Maker: Procedure Note Radiology, Radiologist, MD - 04/28/2023 [place] [address] Mammography Report Signed Patient: Candice Prakash EMR#: [id number] : 1980Acct:[id number] Age/Sex: 43 / FADM Date: 04/28/23 Loc: MAMMO Attending Dr: William Coelho D.O. Ordering Physician: Wliliam Coelho D.O.Results: Date of Service: 04/28/23Follow Up: Procedure(s): MM tomosynthesis screening BI Accession Number(s): [id number] cc: BRIAN HERNANDEZ ; William Coelho D.O. Patient Name: CANDICE PRAKASH MR#: [id number] : 1980 Exam Date: 04/28/2023 Ordering Doctor: [...] Treatments None Family Cancers None LOCATION: [facility] BREAST COMPOSITION: Scattered areas fibroglandular density. [...] M.D. Signed By:04/28/23 1114 DD/ 1114 TD/TT: Grease Maker: us Generic External Data Provider [facility] Final Result * THINPREP AND HPV (01/11/2021 12:00 PM EDT) PAP RESULTS Negative [facility] HPV Negative [facility] 01/11/2021 12:0 0 PM EDT us Brian Hernandez MD [facility] Final Result [facility] from Last 3 Months or Most Recently Relevant to Health Maintenance Insurance [facility] Care Teams Custody Assistant Relationship Specialty Start Date End Date Brian Hernandez MD [address] [place] [address] PCP - General Family Medicine 09/05/22
--- OUTSIDE RECORDS SUMMARY | 2024-08-19 15:24 | XMS_ITS | Encounter Summary ---
Author Organization [facility] Address [address] [place] [address] Care Team Providers Care Lease Purchase Driver Name Role Phone Brian Hernandez MD Primary Care Provider [phone] Brian Hernandez MD Unavailable Encounter Details Date Type Department Care Team (Late st Contact Info) Description 04/28/2023 Clinisync Result Encounter [facility] External Department Unsolicited William Coelho, DO [address] [facility] [place] [address] Social History Tobacco Use Types Packs/Day Years [...] [facility] [address] [place] [address] Brian Hernandez MD [address] [facility] [address] [place] [address] 08/28/2025 8:30 AM EDT Office Visit [facility] [address] [facility] [place] [address] William Coelho, DO [address] [facility] [address] [place], [place] [id number] documented as of this encounter Procedures Procedure Name Priority Date/Time Associated Diagnosis Comments MM TOMOSYNTHESIS SCREENING BI 04/28/2023 11:14 AM EST documented in this encounter Results * MM TOMOSYNTHESIS SCREENING BI (04/28/2023 11:14 AM EST) Anatomical Region Laterality Modality Other 04/28/2023 11:1 4 AM EST Narrative 04/28/2023 11:14 AM EST [address] [address] Mammography Report Signed Patient: Max Prakash MR#: [id number] : 1980 Acct:[id number] Age/Sex: 43 / F ADM Date: 04/28/23 Loc: MAMMO Attending Dr: William Coelho D.O. Ordering Physician: William Coelho D.O. Results: Date of Service: 04/28/23 Follow Up: Procedure(s): MM tomosynthesis screening BI Accession Number(s): [id number] cc: BRIAN HERNANDEZ ; William Coelho D.O. Patient Name: MAX PRAKASH MR#: [id number] : 1980 Exam Date: 04/28/2023 Ordering Doctor: [...] Treatments None Family Cancers None LOCATION: [facility] BREAST COMPOSITION: Scattered areas fibroglandular density. FINDINGS: [...] Signed By: 04/28/23 1114 DD/ 1114 TD/TT: Buggy Ladle Tender: Procedure Note Radiology, Radiologist, MD - 05/24/2023 [place] [address] Mammography Report Signed Patient: Max Prakash EMR#: [id number] : 1980Acct:[id number] Age/Sex: 43 / FADM Date: 04/28/23 Loc: MAMMO Attending Dr: William Coelho D.O. Ordering Physician: William Coelho D.O.Results: Date of Service: 04/28/23Follow Up: Procedure(s): MM tomosynthesis screening BI Accession Number(s): [id number] cc: BRIAN HERNANDEZ ; William Coelho D.O. Patient Name: MAX PRAKASH MR#: [id number] : 1980 Exam Date: 04/28/2023 Ordering Doctor: [...] Treatments None Family Cancers None LOCATION: [facility] BREAST COMPOSITION: Scattered areas fibroglandular density. FINDINGS: [...] M.D. Signed By:04/28/23 1114 DD/ 1114 TD/TT: Buggy Ladle Tender: us William Laquita DO [facility] Final Result documented in this encounter Visit Diagnoses Not on filedocumented in this encounter Care Teams Lease Purchase Driver Relationship Specialty Start Date End Date Brian Hernandez MD [address] [address] PCP - General Family Medicine 09/05/22 Brian Hernandez MD [address] [address] PCP - Medical [place] [employer] 08/18/22 05/27/23 documented as of this encounter
--- OUTSIDE RECORDS SUMMARY | 2024-08-19 18:06 | XMS_ITS | CCD ---
Author Organization [facility] CliniSyhi Care Team Providers Care Certified Dietary Manager Name Role Phone MINA HERNANDEZ Primary Care Physician [phone] LAQUITA, DR OCHOA Admitting Unavailable LAQUITA, DR OCHOA Attending Unavailable DAVID, DR ENRIQUEZ Primary Care Unavailable LAQUITA, DR OCHOA Admitting Unavailable LAQUITA, DR OCHOA Attending Unavailable DAVID, DR ENRIQUEZ Primary Care Unavailable LAQUITA, DR OCHOA Consulting Unavailable DAVID, DR ENRIQUEZ Admitting Unavailable DAVID, DR ENRIQUEZ Attending Unavailable DAVID, DR ENRIQUEZ Primary Care Unavailable DAVID, DR ENRIQUEZ Consulting Unavailable LAQUITA, DR OCHOA Admitting Unavailable LAQUITA, DR OCHOA Attending Unavailable DAVID, DR ENRIQUEZ Primary Care Unavailable LAQUITA, DR OCHOA Consulting Unavailable LAQUITA, DR OCHOA Admitting Unavailable LAQUITA, DR OCHOA Attending Unavailable DAVID, DR ENRIQUEZ Primary Care Unavailable PERDIDO, DR MARGIE Mcgee Consulting Unavailable LAQUITA, DR OCHOA Consulting Unavailable LAQUITA, DR OCHOA Admitting Unavailable LAQUITA, DR OCHOA Attending Unavailable DAVID, DR ENRIQUEZ Primary Care Unavailable LAQUITA, DR OCHOA Consulting Unavailable LAQUITA, DR OCHOA Admitting Unavailable LAQUITA, DR OCHOA Attending Unavailable DAVID, DR ENRIQUEZ Primary Care Unavailable LAQUITA, DR OCHOA Admitting Unavailable LAQUITA, DR OCHOA Attending Unavailable DAVID, DR ENRIQUEZ Primary Care Unavailable LAQUITA, DR OCHOA Consulting Unavailable MICHEAL QUEEN Consulting Unavailable KINDRA LORENZO Consulting Unavailable JASVIR De Leon Attending Provider Ifrah De Leon Unavailable MINA HERNANDEZ Primary Care Unavailable DIANA LAZARO Attending Unavailable DIANA LAZARO Admitting Unavailable DIANA LAZARO Attending Unavailable DIANA LAZARO Admitting Unavailable DIANA LAZARO Attending Unavailable DIANA LAZARO Attending Unavailable Mian CHRISTOPHER Attending Unavailable MD Mina Hernandez Primary Care Provider [phone] MD Padma Torres Attending Provider Mina Hernandez MD Primary Care Provider Mina Hernandez MD Primary Care Provider Padma Torres MD Attending Provider [phone] [place], Rugen Justin Primary Care Unavailable Asaad, Imad Attending Unavailable Asaad, Imad Admitting Unavailable Asaad, Imad Admitting Unavailable [place], Tieshaghassan M Primary Care Unavailable Asaad, Imad Attending Unavailable Asaad, Imad Admitting Unavailable David, Rugghassan M Primary Care Unavailable Asaad, Imad Attending Unavailable Asaad, Imad Admitting Unavailable [place], Tieshaghassan M Primary Care Unavailable Asaad, Imad Attending Unavailable Asaad, Imad Admitting Unavailable [place], Tieshaen M Primary Care Unavailable Asaad, Imad Attending Unavailable [place], Rugghassan M Primary Care Unavailable Asaad, Imad Admitting Unavailable Asaad, Imad Attending Unavailable David, Tieshaghassan M Primary Care Unavailable Asaad, Imad Attending Unavailable Asaad, Imad Admitting Unavailable DAVID, MINA M Attending Unavailable MINA HERNANDEZ M Attending Unavailable DAVID, MINA M Attending Unavailable MI ST Attending Unavailable WILLIAM COELHO Attending Unavailable Allergies Allergy Classification Reported Allergen(s) Allergy Type Date of Onset Reaction(s) Facility (1 source) No Known Medication Allergies; Translations: [No Known Medication Allergies] Propensity to adverse reactions (disorder) [facility] Repository Medications Current Medications Medication Drug Class(es) Dates Sig (Normalized) Sig (Original) [id number] 200 actuat albuterol 0.09 mg/actuat metered dose inhaler (20 sources) beta2-Adrenergic Agonist Start: 12-11-2023 take 1 puff(s) by inhalation every six hours as needed for wheezing Albuterol Sulfate 90 mcg/actuation HFA aerosol inhaler Active 2 PUFF INHALATION Every 6 hours as needed for shortness of breath or wheezing December 10, 2023 11:00pm Start: 11-07-2022 take 2 puff(s) by in halation every six hours for wheezing albuterol HFA 90 mcg/act inhaler Indications: Wheezing , Mild persistent asthmatic bronchitis without complication (CMS/HCC) Inhale 2 puffs every 6 (six) hours if needed for wheezing or shortness of breath. 18 g 5 11/07/2022 Active Start: 11-03-2022 albuterol Star t Date: 11/03/22 Status: Ordered cephalexin 500 mg oral capsule (3 sources) Cephalosporin Antibacterial Start: 11-03-2022 End: 11-10-2022 take 1 capsule by mouth twice daily Keflex 500 mg Cap 500 mg = 1 cap(s), Oral, BID, X 7 day(s), # 14 cap(s), Refills(s) 0, Pharmacy: [facility] #[id number], 163, cm, 11/03/22 15:33:00 EDT, Height/Length Dosing, 101.2, kg, 11/03/22 15:33:00 EDT, Weight Dosing Start Date: 11/03/22 Stop Date: 11/10/22 Status: Ordered take 1 capsule by [facility] every eight hours Cephalexin 500 MG 1 capsule Orally three times a day 03/24/2022 Active ciprofloxacin 250 mg oral tablet (2 sources) Quinolone Antimicrobial Start: 01-20-2022 End: 01-27-2022 take 1 tablet by mouth twice daily Cipro 250 mg Tab 250 mg = 1 tab(s), Oral, BID, X 7 day(s), # 14 tab(s), Refills(s) 0, Pharmacy: [email or web address] #[id number], 163, cm, 01/20/22 13:31:00 EDT, Height/Length Dosing, 100.3, kg, 01/20/22 13:31:00 EDT, Weight Dosing Start Date: 01/20/22 Stop Date: 01/27/22 Status: Ordered Cranberry preparation (2 sources) Non-Standardized Food Allergenic Extract, Non-Standardized Plant Allergenic Extract Start: 11-03-2022 Azo cranberry Start Date: 11/03/22 Status: Ordered esomeprazole 40 mg delayed release oral capsule (20 sources) Proton Pump Inhibitor Start: 12-11-2023 take 1 capsule by mouth once daily Esomeprazole Magnesium (Nexium) 40 mg capsule,delayed release(DR/EC) Active 40 MG PO Daily December 10, 2023 11:00pm Start: 08-17-2021 Nexium Oral, D aily, Refills(s) 0 Start Date: 08/17/21 Status: Ordered take 1 capsule by [facility] once daily esomeprazole (NexIUM) [address] capsule Take 1 capsule by mouth 1 (one) time each day at the same time. Active Iojbbvsjrca-Suwoioszb-Anlsld er (20 sources) Anticholinergic, Corticosteroid, beta2-Adrenergic Agonist Start: 12-11-2023 Zkkkjjlzpsv-Sabqkeygl-Aqpbba er (Trelegy Ellipta) 100-62.5-25 mcg blister with device Active 1 INH INHALATION Daily December 10, 2023 11:00pm Start: 12-11-2023 Fluticasone-Um eclidin-Vilanter (Trelegy Ellipta) 100-62.5-25 mcg blister with device Active 1 INH INHALATION Daily December 11, 2023 12:00am Start: 05-08-2023 End: 11-13-2023 take 1 puff(s) by inhalation once daily Tztxznameti-Gjcayeyvl-Crgopc (Trelegy Ellipta) 100-62.5-25 MCG/ACT aerosol powder Indications: Uncomplicated severe persistent asthma (CMS/HCC) Inhale 1 puff 1 (one) time each day at the same time each 11/13/2023 Active Trelegy Ellipta 100-62.5-25 MCG/ACT Inhalation for 90 Days Active folic acid 1 mg oral tablet (20 sources) Start: 12-11-2023 take 1 tablet by mouth once daily Folic Acid 1 mg tablet Active 1 MG PO Daily December 10, 2023 11:00pm Start: 11-03-2022 folic acid Alma ly Start Date: 11/03/22 Status: Ordered Claritin (9 sources) Start: 08-17-2021 Claritin Daily, Refills(s) 0 Start Date: 08/17/21 Status: Ordered 12 hr loratadine 5 mg / pseudoephedrine sulfate 120 mg extended release oral tablet (15 sources) alpha-Adrenergic Agonist take 1 tablet by mouth once in the morning, then take 1 tablet by mouth every twelve hours at bedtime loratadine-pseudoe phedrine ER (Claritin-D 12-hour) 5-120 MG 12 hr tablet Take 1 tablet by mouth in the morning and 1 tablet before bedtime. Do not crush, chew, or split. . Active mecobalamin 1 mg chewable tablet (6 sources) Start: 12-11-2023 take 1 tablet by mouth once daily Mecobalamin (Vitamin B12) 1,000 mcg tablet,chewable Active 1000 MCG PO Daily December 10, 2023 11:00pm montelukast 10 mg oral tablet (20 sources) Leukotriene Receptor Antagonist Start: 03-04-2024 take 1 tablet by mouth once daily at bedtime montelukast (Singulair) 10 MG tablet Indications: Mild intermittent asthma without complication (CMS/HCC) TAKE 1 TABLET BY MOUTH EVERYDAY AT BEDTIME 90 tablet 1 04/05/2024 Active Start: 02-22-2023 take 1 tablet by ángela th at bedtime montelukast (Singulair) 10 MG tablet Indications: Mild intermittent asthma without complication (CMS/HCC) Take 1 tablet (10 mg) by mouth at bedtime 100 tablet 3 02/22/2023 Active Start: 08-17-2021 Singulair Renaldo y, Refills(s) 0 Start Date: 08/17/21 Status: Ordered Montelukast Sodi um 10 MG Oral for 90 Days Active 24 hr oxybutynin chloride 10 mg extended release oral tablet (20 sources) Cholinergic Muscarinic Antagonist Start: 05-21-2024 End: 08-29-2024 take 1 tablet by mouth once daily oxybutynin XL (Ditropan-XL) 10 MG 24 hr tablet Indications: Frequency of urination TAKE 1 TABLET (10 MG) BY MOUTH DAILY AT THE SAME TIME EACH DAY 90 tablet 1 05/23/2024 Active Start: 12-11-2023 take 1 tablet by ángela th once daily at bedtime as needed for muscle spasms Oxybutynin Chloride 5 mg tablet Active 5 MG PO Daily at bedtime as needed for bladder spasms December 10, 2023 11:00pm Start: 10-25-2021 End: 10-20-2022 take 1 tablet by mouth once daily oxybutynin 10 mg ER Tab 10 mg = 1 tab(s), Oral, Daily, X 90 day(s), # 90 tab(s), Refills(s) 3, Pharmacy: [email or web address], 163, cm, 08/17/21 10:59:00 EDT, Height/Length Dosing, 100.3, kg, 08/17/21 10:59:00 EDT, Weight Dosing Start Date: 10/25/21 Stop Date: 10/20/22 Status: Ordered Start: 09-16-2021 take 1 tablet by ángela once daily oxybutynin 10 mg ER Tab 10 mg = 1 tab(s), Oral, Daily, # 30 tab(s), Refills(s) 0, Pharmacy: [facility], 163, cm, 08/17/21 10:59:00 EDT, Height/Length Dosing, 100.3, kg, 08/17/21 10:59:00 EDT, Weight Dosing Start Date: 09/16/21 Status: Ordered Start: 08-17-2021 End: 09-16-2021 take 1 tablet by mouth once daily oxybutynin 5 mg ER Tab 5 mg = 1 tab(s), Oral, Daily, X 30 day(s), # 30 tab(s), Refills(s) 0, Pharmacy: [email or web address] [place] [address], 163, cm, 08/17/21 10:59:00 EDT, Height/Length Dosing, 100.3, kg, 08/17/21 10:59:00 EDT, Weight Dosing Start Date: 08/17/21 Stop Date: 09/16/21 Status: Ordered End: 05-21-2024 take 1 tablet by mouth once daily oxybutynin XL (Ditropan-XL) 10 MG 24 hr tablet Take 1 tablet by mouth 1 (one) time each day at the same time. 05/21/2024 Discontinued (Reorder) Probiotic + Colostrum (2 sources) Start: 11-03-2022 Probiotic + Co lostrum Oral, Daily Start Date: 11/03/22 Status: Ordered Semaglutide-Weight Management (Wegovy) 1 MG/0.5ML solution auto-injector (3 sources) Start: 08-07-2024 inject 1 mg by subcutaneous injection every week Semaglutide-Weight Management (Wegovy) 1 MG/0.5ML solution auto-injector Indications: Morbid (severe) obesity due to excess calories (CMS/HCC) Inject 1 mg under the skin 1 (one) time per week 3 mL 1 08/07/2024 Active Semaglutide-Weight Management 0.5 MG/0.5ML solution auto-injector (5 sources) Start: 07-15-2024 End: 08-14-2024 inject 0.5 mg by subcutaneous injection every week Semaglutide-Weight Management 0.5 MG/0.5ML solution auto-injector Indications: Morbid (severe) obesity due to excess calories (CMS/HCC) Inject 0.5 mg under the skin 1 (one) time per week 2 mL 07/15/2024 08/14/2024 Active Start: 05-21-2024 End: 06-20-2024 inject 0.5 mg by subcutaneous injection every week Semaglutide-Weight Management 0.5 MG/0.5ML solution auto-injector Indications: Morbid (severe) obesity due to excess calories (CMS/HCC) Inject 0.5 mg under the skin 1 (one) time per week 2 mL 05/21/2024 06/20/2024 Active Trelegy Ellipta (9 sources) Start: 08-17-2021 Trelegy Ellipt a Inhalation, Daily, Refills(s) 0 Start Date: 08/17/21 Status: Ordered vitamin B12 (17 sources) Vitamin B12 Start: 11-03-[address] art Date: 11/03/22 Status: Ordered take 1 tablet by mouth in the mo rning cyanocobalamin (Vitamin B-12) 100 MCG tablet Take 1 tablet by mouth in the morning. Active Completed/Discontinued Medications Medication Drug Class(es) Dates Sig (Normalized) Sig (Original) methylPREDNISolone 4 mg oral tablet (1 source) Corticosteroid Start: 4 End: 5 take 1 tablet by mouth once Methylprednisolone (Medrol (Rod)) 4 mg tablets,dose pack Discontinued 0 PO per package directions March 19, 2024 12:00am March 26, 2024 10:46am PO PER PKG DIR Semaglutide-Weight Management (Wegovy) 0.25 MG/0.5ML solution auto-injector (4 sources) Start: 5 End: inject 0.25 mg by subcutaneous injection every week Semaglutide-Weight Management (Wegovy) 0.25 MG/0.5ML solution auto-injector Indications: Obesity (BMI 30-39.9) , Family history of diabetes mellitus Inject 0.25 mg under the skin 1 (one) time per week 2 mL 04/25/2024 05/21/2024 Discontinued Start: 04-25-2024 End: 05-25-2024 inject 0.25 mg by subcutaneous injection every week Semaglutide-Weight Management (Wegovy) 0.25 MG/0.5ML solution auto-injector Indications: Obesity (BMI 30-39.9) , Family history of diabetes mellitus Inject 0.25 mg under the skin 1 (one) time per week 2 mL 04/25/2024 05/25/2024 Active sulfamethoxazole 400 mg / trimethoprim 80 mg oral tablet (2 sources) Dihydrofolate Reductase Inhibitor Antibacterial, Sulfonamide Antimicrobial Start: 11-03-2022 Bactrim 400 mg-80 mg Tab 80 mg, Oral, As Directed, 30 tab(s), Refill(s) 3, Take 1 tab after sexual intercourse to prevent infections., [facility] #[id number], 163, cm, 11/03/22 15:33:00 EDT, Height/Length Dosing, 101.2, kg, 11/03/22 15:33:00 EDT, Weight Dosing Start Date: 11/03/22 Status: Ordered Problems Active Problems Problem Classification Problem Date Documented Da te Episodic/Chronic Adjustment disorders (15 sources) Adjustment disorder with anxious mood; Translations: [Adjustment disorder with anxiety] Onset: 3 11-29-2022 Chronic Anxiety disorders (15 sources) Fear of flying; Translations: [Fear of flying] Onset: 3 09-04-2022 Chronic Asthma (20 sources) Asthma; Translations: [Unspecified asthma, uncomplicated] Onset: 7 08-17-2021 Chronic Chronic obstructive pulmonary disease and bronchiectasis (2 sources) Bronchitis; Translations: [Bronchitis, not specified as acute or chronic] 03-19-2024 Episodic Deficiency and other anemia (1 source) Iron deficiency anemia secondary to blood loss (chronic); Translations: [IRON DEFIC ANEMIA SEC BLD LOSS CHRN] Onset: 1 Chronic Deficiency and other anemia (9 sources) Anemia 08-17-2021 Episodic Disorders of lipid metabolism (15 sources) Mixed hyperlipidemia; Translations: [Mixed hyperlipidemia] Onset: 3 09-04-2022 Chronic Diverticulosis and diverticulitis (15 sources) Diverticulitis of large intestine; Translations: [Diverticulitis of large intestine with perforation and abscess without bleeding] Onset: 4 07-20-2023 Chronic Esophageal disorders (15 sources) Gastroesophageal reflux disease; Translations: [Gastro-esophageal reflux disease without esophagitis] Onset: 0 02-22-2023 Chronic Genitourinary symptoms and ill-defined conditions (14 sources) Mixed incontinence; Translations: [Incontinence] Onset: 2 Chronic Genitourinary symptoms and ill-defined conditions (17 sources) Sensation as if bladder still full; Translations: [Feeling of incomplete bladder emptying] Onset: 2 Episodic Hemorrhoids (2 sources) Bleeding hemorrhoids; Translations: [Unspecified hemorrhoids] 07-30-2024 Episodic Immunizations and screening for infectious disease (1 source) Encounter for screening for human papillomavirus (HPV); Translations: [ENC SCREENING HUMAN PAPILLOMAVIRUS] Onset: 2 Episodic Menstrual disorders (20 sources) Excessive and frequent menstruation with regular cycle; Translations: [Dysmenorrhea, unspecified] Onset: 1 Chronic Other diseases of bladder and urethra (5 sources) Detrusor overactivity; Translations: [Overactive bladder] Onset: 2 Chronic Other diseases of bladder and urethra (9 sources) Overactive bladder 08-17-2021 Chronic Other gastrointestinal disorders (6 sources) Diarrhea; Translations: [Diarrhea, unspecified] 12-11-2023 Episodic Other gastrointestinal disorders (7 sources) Diarrhea, unspecified; Translations: [Diarrhea] Onset: 5 12-11-2023 Episodic Other gastrointestinal disorders (2 sources) Drug-induced constipation; Translations: [Drug induced constipation] 07-30-2024 Episodic Other liver diseases (1 source) Steatosis of liver; Translations: [Fatty (change of) liver, not elsewhere classified] 03-04-2024 Chronic Other liver diseases (2 sources) Fatty (change of) liver, not elsewhere classified; Translations: [Other chronic nonalcoholic liver disease] Onset: 4 03-04-2024 Chronic Other liver diseases (1 source) Elevated liver enzymes level; Translations: [Abnormal levels of other serum enzymes] 03-04-2024 Episodic Other liver diseases (2 sources) Abnormal levels of other serum enzymes; Translations: [Other nonspecific abnormal serum enzyme levels] Onset: 4 03-04-2024 Episodic Other nutritional; endocrine; and metabolic disorders (17 sources) Obesity caused by energy imbalance; Translations: [Morbid (severe) obesity due to excess calories] Onset: 3 07-20-2023 Chronic Other nutritional; endocrine; and metabolic disorders (15 sources) Lipoprotein deficiency disorder; Translations: [Lipoprotein deficiency] Onset: 7 02-22-2023 Chronic Other nutritional; endocrine; and metabolic disorders (14 sources) Body mass index 30+ - obesity; Translations: [Obesity, unspecified] Onset: 5 04-25-2024 Chronic Other upper respiratory disease (15 sources) Seasonal allergic rhinitis; Translations: [Other seasonal allergic rhinitis] Onset: 3 09-04-2022 Chronic Other upper respiratory infections (15 sources) Sinusitis; Translations: [Chronic sinusitis, unspecified] Onset: 8 02-22-2023 Chronic Other upper respiratory infections (2 sources) Viral upper respiratory tract infection; Translations: [Acute upper respiratory infection, unspecified] 03-19-2024 Episodic Skin and subcutaneous tissue infections (1 source) Cellulitis of right finger Episodic Unclassified (7 sources) Finding of sensation of bladder 01-20-2022 Unclassified (1 source) CONTACT W/AND (SUSP) EXPOS COVID-19; Translations: [CONTACT W/AND (SUSP) EXPOS COVID-19] Onset: 1 Urinary tract infections (12 sources) Urinary tract infectious disease; Translations: [Urinary tract infection, site not specified] Onset: 2 Episodic Past or Other Problems Problem Classification Problem Date Documented Da te Episodic/Chronic Abdominal pain (18 sources) Pelvic and perineal pain; Translations: [Abdominal pain] Onset: 03-16-2021 Episodic Administrative/social admission (15 sources) Marital problems; Translations: [Problems in relationship with spouse or partner] Onset: 11-24-2022 11-24-2022 Episodic Cardiac dysrhythmias (16 sources) Palpitations; Translations: [Palpitations] Onset: 11-13-2023 11-13-2023 Episodic Deficiency and other anemia (4 sources) Iron deficiency anemia, unspecified; Translations: [IRON DEFICIENCY ANEMIA UNSPECIFIED] Onset: 08-13-2021 Episodic Deficiency and other anemia (15 sources) Iron deficiency anemia; Translations: [Iron deficiency anemia, unspecified] Onset: 09-04-2022 09-04-2022 Episodic Malaise and fatigue (12 sources) Fatigue; Translations: [Other fatigue] Onset: 04-25-2024 04-25-2024 Episodic Noninfectious gastroenteritis (20 sources) Colitis; Translations: [Noninfective gastroenteritis and colitis, unspecified] Onset: 08-07-2023 12-11-2023 Episodic Nonspecific chest pain (15 sources) Chest pain; Translations: [Other chest pain] Onset: 07-20-2023 07-20-2023 Episodic Other circulatory disease (15 sources) Elevated blood-pressure reading without diagnosis of hypertension; Translations: [Elevated blood-pressure reading, without diagnosis of hypertension] Onset: 07-20-2023 07-20-2023 Episodic Other female genital disorders (1 source) Hypertrophy of uterus; Translations: [HYPERTROPHY OF UTERUS] Onset: 03-16-2021 Episodic Other gastrointestinal disorders (15 sources) Constipation; Translations: [Constipation, unspecified] Onset: 12-28-2015 02-22-2023 Episodic Other nervous system disorders (15 sources) Loss of taste; Translations: [Parageusia] Onset: 09-04-2022 09-04-2022 Episodic Other screening for suspected conditions (not mental disorders or infectious disease) (20 sources) Encounter for screening mammogram for malignant neoplasm of breast; Translations: [Encounter for screening for malignant neoplasm of cervix] Onset: 01-13-2022 Episodic Residual codes; unclassified (15 sources) History of surgical procedure on mouth; Translations: [Other specified postprocedural states] Onset: 03-20-2010 09-04-2022 Episodic Residual codes; unclassified (15 sources) Insomnia; Translations: [Insomnia, unspecified] Onset: 06-21-2019 02-22-2023 Episodic Residual codes; unclassified (14 sources) Family history of diabetes mellitus; Translations: [Family history of diabetes mellitus] Onset: 04-25-2024 04-25-2024 Episodic Superficial injury; contusion (15 sources) Abrasion, left lower leg, initial encounter; Translations: [Abrasion or friction burn of hip, thigh, leg, and ankle, without mention of infection] Onset: 12-02-2020 02-22-2023 Episodic Unclassified (6 sources) Cholecystectomy planned; Translations: [Cholecystectomy planned] 12-11-2023 Results Test Name Value Interpretation Reference Range Facility Urinalysis macro (dipstick) panel (U)on 08-19-2024 Bilirubin, UA Positive Negative - 4(70) +++ mg/dL [facility] Comment on above: smalll Blood, UA Positive Negative - 50 Bart/mcL [facility] Comment on above: small Clarity, UA Clear [facility] Color, UA Yellow [facility] Glucose, UA Negative Negative - 2000(110) ++++ mg/dL [facility] Interpretation and review of laboratory results Abnormal [facility] Ketones, UA Positive Negative - 160(16) ++++ mg/dL [facility] Comment on above: trace Leukocytes, UA Trace Negative - 500+++ Kyra/mcL [facility] Nitrite, UA Negative Negative - Positive [facility] pH, UA 5.5 5 - 9 [facility] Protein, UA Positive Negative - 2000(20) ++++ mg/dL [facility] Comment on above: 30 Spec Grav, UA 1.03 1 - 1.03 [facility] Urobilinogen, UA 0.2 0.2 - 12 mg/dL [facility] TSH W/REFLEX TO FT4on 2024 TSH W/REFLEX TO FT4 1.44 mIU/L Normal [facility] Comment on above: Result Comment: Refe rence Range > or = 20 Years 0.40-4.50 Ranges First trimester 0.26-2.66 Second trimester 0.55-2.73 Third trimester 0.43-2.91 Performed By: #### [id number] #### [facility] [place] [address] , [address] [place] [id number] Spray Gun Striper: Hermilo Choudhury MD HCG ( test) Dora vergara Ql (U)Ordered By: Padma Torres on 04-05-2024 HCG ( test) Ql (U) Urine human chorionic gonadotropin (hCG) detection by immunoassay [facility] HCG,Urineon 04-05-2024 Beta HCG ( test) Ql (U) Negative Normal [facility] Comment on above: Result Comment: PERF ORMED BY: [facility] [address] [place] [address] PATHOLOGIST COOLING TOWER TECHNICIAN ESTEFANÍA LANIER M.D. Performed By: #### U HCG #### [address] Mauricio 04-05-2024 L - -------- Specimen: [id number] Received: 04/05/24 Status: AGUSTIN Mcgraw Num: [id number] Spec Type: Surgical Subm Dr: Padma Torres MD Tissues: A Colon Biopsy (RANDOM BX R/O MICRO COLITIS) Procedures: WON, Gross/Jeri L4 -------- Age/ Patient Sex Location Account Attending Physician -------- Candice De León 44/F [id number] Padma Torres MD -------- SPEC NUM: [id number] RECD: 04/05/24 STATUS: AGUSTIN MCGRAW NUM: [id number] OMI: 04/05/24 [facility] DR: Padma Torres MD ENTERED: 04/05/[address]: JESSICA TYPE: Surgical DEPT: S ENTERED BY: [id number] RECV BY: [id number] ORDERED: HE/2, Gross/Micro L4 ORDERED: HE/2, Gross/Micro L4 Pathological Diagnosis Colonic mucosa, random colon, biopsy: Benign colonic mucosa with no evidence of microscopic colitis identified. Clinical Information Abdominal pain diarrhea. Rule out microscopic colitis Gross Description Part A is received in formalin labeled with the patients name, date of , and random colon BX are 2 moreno-fulton, focally erythematous, friable, 0.4 cm each in greatest dimension tissue bits. The specimen is entirely submitted in a single cassette. (1, ns, [id number]) CPT Codes 80535 -------- -------- Specimen: [id number] Received: 04/05/24-1351 Status: AGUSTIN Mcgraw Num: [id number] Spec Type: Surgical Subm Dr: Padma Torres MD Tissues: A Colon Biopsy (RANDOM BX R/O MICRO COLITIS) Procedures: HE/Morris, Gross/Jeri L4 -------- Patient: Candice De León [id number] (Continued) -------- Signed (signature on file) Aziza Segura MD 04/08/24 4968 Normal [facility] COVID Cepheidon 03-19-2024 SARS-CoV-2 (COVID-19) RNA NIDIA+probe Ql (Unsp spec) COVID Cepheid [facility] - Microbiology an d Antimicrobial susceptibilityon 03-19-2024 SARS-CoV-2 (COVID-19) RNA NIDIA+probe Ql (Unsp spec) Negative [facility] No Panel InformationOrdered By: Kari Denis on 03-19-2024 Quick Strep (POC) [facility] No Panel Informationon 03-19 POC Influenza A (PCR) Negative [facility] POC Influenza B (PCR) Negative [facility] Campy coli+jejuni BD MaxOrde red By: Imad Asaad on 03-05-2024 C. coli+jejuni tuf gene NIDIA+probe Ql (Stl) Campy coli+jejuni BD Max Negative [facility] Comment on above: Campylobacter test i ncludes C. jejuni and C. coli. Cryptosporidium parv+homin B D MaxOrdered By: Imad Asaad on 03-05-2024 C. parvum+hominis DNA NIDIA+probe Ql (Stl) Cryptosporidium parv+homin BD Max Negative [facility] Comment on above: Cryptosporidium test includes C. hominis and C. parvum. Entamoeba histolytica BD Max Ordered By: Imad Asaad on 03-05-2024 E. histolytica DNA NIDIA+probe Ql (Stl) Entamoeba histolytica BD Max Negative [facility] Comment on above: Testing performed by RT-PCR Giardia andrews BD MaxOrdered By : Imad Asaad on 03-05-2024 G. lamblia DNA NIDIA+probe Ql (Stl) Giardia andrews BD Max Negative [facility] Ova and Parasite Panelon Cryptosporidium (C.hominis+par Negative Normal Negative [facility] Comment on above: Result Comment: Cryp tosporidium test includes C. hominis and C. parvum. Performed By: #### E NT BACT PANEL, OVP ####[address] Entamoeba histolytica Negative Normal Negative [facility] Comment on above: Result Comment: Test ing performed by RT-PCR PERFORMED BY: [facility] [address] [place] [address] PATHOLOGIST COOLING TOWER TECHNICIAN ESTEFANÍA LANIER M.D. Performed By: #### E NT BACT PANEL, OVP ####[place] [id number] [address] Giardia lamblia Negative Normal Negative [facility] Comment on above: Performed By: #### E NT BACT PANEL, OVP ####[place] [id number] [facility] Salmonellosis BD MaxOrdered By: Imad Asaad on 03-05-2024 Salmonella sp spaO gene NIDIA+probe Ql (Stl) Salmonella sp spaO gene [Presence] in Stool by NIDIA with probe detection Negative [facility] Comment on above: Testing performed by RT-PCR Shigella Tox 1+2 BD MaxOrder ed By: Imrohit Torres on 03-05-2024 E. coli stx1+stx2 genes NIDIA+probe Ql (Stl) Escherichia coli Stx1 and Stx2 toxin stx1+stx2 genes [Presence] in Stool by NIDIA with Negative [facility] Shigellosis BD MaxOrdered By : Imad Brian on 03-05-2024 Shigella species+EIEC invasion plasmid antigen H ipaH gene NIDIA+probe Ql (Stl) Shigella species+EIEC invasion plasmid antigen H ipaH gene [Presence] in Stool by NIDIA Negative [facility] Comment on above: Shigella sp. test in cludes Shigella species and Enteroinvasive E. coli (EIEC). Stool Bacterial Panelon 02-17 Campylobacter Negative Normal Negative [facility] Comment on above: Result Comment: Camp ylobacter test includes C. jejuni and C. coli. Performed By: #### E NT BACT PANEL, OVP ####[address] Salmonella Species Negative Normal Negative [facility] Comment on above: Result Comment: Test ing performed by RT-PCR PERFORMED BY: [facility] [address] [place] [address] PATHOLOGIST COOLING TOWER TECHNICIAN ESTEFANÍA LANIER M.D. Performed By: #### E NT BACT PANEL, OVP ####[address] Shiga Toxin (E coli O157+oth) Negative Normal Negative [facility] Comment on above: Performed By: #### E NT BACT PANEL, OVP ####[place] [id number] [facility] Shigella Species Negative Normal Negative [facility] Comment on above: Result Comment: Shig lizette sp. test includes Shigella species and Enteroinvasive E. coli (EIEC). Performed By: #### E NT BACT PANEL, OVP ####[facility] [id number] [place] [id number] [facility] Hep C Ab wRfx to Qnt PCRon 1 05-05-2023 Hepatitis C Virus Antibody Non-Reactive Normal Non Reactive [facility] Comment on above: Performed By: #### H AABT, HCV RX PCR, HBCAB, HBSAG, HBSAB ####[facility] , Interpretation Hepatitis C Comment Normal . [facility] Comment on above: Result Comment: Not infected with HCV unless early or acute infection is suspected (which may be delayed in an immunocompromised individual), or other evidence exists to indicate HCV infection. Performed By: #### H AABT, HCV RX PCR, HBCAB, HBSAG, HBSAB ####[facility] , Hepatitis A Antibody Totalon 03-04-2024 Hepatitis A Antibody Total Negative Normal Negative [facility] Comment on above: Result Comment: Comm ent: The HAV total antibody assay detects both IgG and IgM but does not differentiate between them. A negative result suggests susceptibility to infection. A positive result could be due to vaccination, previously resolved infection or active infection. Testing for HAV IgM should be performed if active HAV infection is suspected. [facility] offers profiles that will automatically reflex positive HAV total antibody results to IgM (e.g., panel #[id number] HAV Antibody w/ Rfx). Performed at: [address] [id number] Supervisor Inspection And Testing: Jose Turcios PhD, Phone: [phone] Performed By: #### H AABT, HCV RX PCR, HBCAB, HBSAG, HBSAB ####[facility] , Hepatitis A virus Ab [Presen ce] in Serum by ImmunoassayOrdered By: Imad Asaad on 03-04-2024 HAV Ab IA Ql (S) Hepatitis A virus Ab [Presence] in Serum by Immunoassay Negative [facility] Comment on above: Comment: The HAV tot al antibody assay detects both IgG andIgM but does not differentiate between them. A negativeresult suggests susceptibility to infection. A positiveresult could be due to vaccination, previously resolvedinfection or active infection. Testing for HAV IgM shouldbe performed if active HAV infection is suspected. [facility] that will automatically reflex positive HAVtotal antibody results to IgM (e.g., panel #[id number] HAVAntibody w/ Rfx).Performed at: [facility] [id number] Director: Jose Turcios PhD, Phone: [phone] Hepatitis B Core Antibodyon 03-04-2024 Hepatitis B Core Antibody Negative Normal Negative [facility] Comment on above: Performed By: #### H AABT, HCV RX PCR, HBCAB, HBSAG, HBSAB ####[facility] , Hepatitis B Surface Antibody on 03-04-2024 Hepatitis B Surface Antibody Equivocal Normal . [facility] Comment on above: Result Comment: Non Reactive: Not immune to HBV infection. Equivocal: Unable to determine if anti-HBs is present at levels consistent with immunity. Reactive: Anti-HBs concentration detected at greater than 10 mIU/mL. Individual is considered to be immune to infection with HBV. Verified by repeat analysis Performed at: [facility] [address] [id number] Supervisor Inspection And Testing: Jose Turcios PhD, Phone: [phone] Performed By: #### H AABT, HCV RX PCR, HBCAB, HBSAG, HBSAB ####[facility] , Hepatitis B Surface Antigeno n 03-04-2024 HBsAg Screen Negative Normal Negative [facility] Comment on above: Result Comment: PERF ORMED BY: [facility] [address] [place] [address] PATHOLOGIST COOLING TOWER TECHNICIAN ESTEFANÍA LANIER M.D. Performed By: #### H AABT, HCV RX PCR, HBCAB, HBSAG, HBSAB ####[facility] , Hepatitis B virus core antib alexa assayOrdered By: Padma Torres on 03-04-2024 Hepatitis B Core Total Antibody Negative Negative [facility] Hepatitis C virus IgG Ab [Pr esence] in Serum or Plasma by ImmunoassayOrdered By: Imad Hollisad on 03-04-2024 HCV IgG IA Ql Hepatitis C virus Ig G Ab [Presence] in Serum or Plasma by Immunoassay Non Reactive [facility] No Panel InformationOrdered By: Padma Torres on 03-04-2024 Hepatitis C Interpretation Comment . [facility] Comment on above: Not infected with HC V unless early or acute infection issuspected (which may be delayed in an immunocompromisedindividual), or other evidence exists to indicate HCVinfection. Serum hepatitis B virus surf ja antibody detectionOrdered By: Padma Torres on 03-04-2024 HBV surface Ab Ql (S) Hepatitis B virus surface Ab [Presence] in Serum . [facility] Comment on above: Non Reactive: Not im mune to HBV infection. Equivocal: Unable to determine if anti-HBs is present at levels consistent with immunity. Reactive: Anti-HBs concentration detected at greater than 10 mIU/mL. Individual is considered to be immune to infection with HBV.Verified by repeat analysisPerformed at: [facility] [id number] Director: Jose Turcios PhD, Phone: [phone] Serum or plasma hepatitis B virus surface antigen detection by immunoassayOrdered By: Padma Torres on 03-04-2024 HBV surface Ag IA Ql Hepatitis B virus surface Ag [Presence] in Serum or Plasma by Immunoassay Negative [facility] CT abdomen pelvis w conon CT abdomen pelvis w con [facility] [place] [address] CT Scan Report Signed Patient: Candice De León MR#: [id number] 5 : 1980 Acct:[id number] Age/Sex: 43 / F ADM Date: 12/25/23 Loc: CT Room: Type: [facility] Attending Dr: Padma Torres MD Copies to: Padma Torres MD Ordering Provider: Padma Torres MD Date of Service: 12/25/23 CT/CT abdomen pelvis w con: R19.7 - Diarrhea, unspecified CT abdomen pelvis w con 12/25/2023 6:21 PM SIGNS AND SYMPTOMS: Abdominal pain, diarrhea, colitis TECHNIQUE: Multidetector ct axial images of the abdomen and pelvis were obtained with IV contrast. Multiplanar reformats were performed and reviewed to further define anatomy and possible pathology. CT was performed with one or more of the following dose reduction techniques: Automated exposure control, adjustment of the mA and/or kV according to patient size, or use of iterative reconstruction technique. COMPARISON: None. FINDINGS: Lower Chest: Within normal limits. ABDOMEN: Liver: The liver is hypoattenuating suggesting hepatic steatosis. Bile Ducts: Normal caliber. Gallbladder: Previously removed Pancreas: Within normal limits. Spleen: Calcified granulomas are present in the spleen. Adrenals: Within normal limits. Kidneys: Within normal limits. Pelvis: Reproductive Organs: No pelvic masses. Ureters: Within normal limits. Bladder: Within normal limits. Bowel: Uncomplicated colonic diverticula are noted. There is no evidence of bowel obstruction. There is a normal appendix in the right lower quadrant. Mesenteric Lymph Nodes: No enlarged mesenteric lymph nodes. Peritoneum: No ascites or free air, no fluid collection. Vessels: within normal limits Retroperitoneum: Within normal limits. Abdominal Wall: There is a fat-containing periumbilical hernia. Bones: Degenerative changes are noted in the thoracic spine. Degenerative changes are noted in the sacroiliac joints. CT/CT abdomen pelvis w con IMPRESSION: Findings suggest hepatic steatosis. Uncomplicated colonic diverticula are noted. No bowel obstruction or obstructive uropathy. Impression dictated by: Conor Schulte M.D.12/25/2023 10:37 PM Dictation Location: [place] [address] Transcribed By: [facility] 12/25/232236 Dictated By: Conor Schulte II, MD 12/25/232229 Signed By: 12/25/232236 Normal [facility] Calprotectin [Mass/mass] in StoolOrdered By: Padma Torres on 12-16-2023 Calprotectin (Stl) [Mass/Mass] 105 ug/g 0-120 [facility] Comment on above: Concentration Interp retation Follow-Up< 5 - 50 ug/g Normal None>50 -120 ug/g Borderline Re-evaluate in 4-6 weeks >120 ug/g Abnormal Repeat as clinically indicatedPerformed at: - [facility] [address] [id number] Director: Kathleen Ayon MD, Phone: [phone] Calprotectin, Fecalon 2023 Calprotectin, Fecal 105 Normal 0-120 [facility] Comment on above: Result Comment: Conc entration Interpretation Follow-Up < 5 - 50 ug/g Normal None >50 -120 ug/g Borderline Re-evaluate in 4-6 weeks >120 ug/g Abnormal Repeat as clinically indicated Performed at: - [facility] [address] [id number] Supervisor Inspection And Testing: Kathleen Ayon MD, Phone: [phone] PERFORMED BY: [place] [address] PATHOLOGIST COOLING TOWER TECHNICIAN WILLAM HERNANDEZ M.D. Performed By: #### E LASTASE STOOL, CALPROTECT ####[facility] ,#### CDT ####[facility] [address] [place] [address] Clostridioides difficile tox in B tcdB gene [Presence] in Stool by NIDIA with probe deteOrdered By: Padma Torres on 12-16-2023 C. difficile toxin B tcdB gene NIDIA+probe Ql (Stl) Negative Negative [facility] Comment on above: Testing performed by RT-PCR Clostridium Difficileon 11-19 Clostridium Difficile Negative Normal Negative [facility] Comment on above: Result Comment: Test ing performed by RT-PCR PERFORMED BY: [place] [address] PATHOLOGIST COOLING TOWER TECHNICIAN WILLAM HERNANDEZ M.D. Performed By: #### E LASTASE STOOL, CALPROTECT #### [facility] , #### CDT #### [facility] [address] [place] [address] Elastase.pancreatic [Mass/ma ss] in StoolOrdered By: Padma Torres on 12-16-2023 Elastase.pancreatic (Stl) [Mass/Mass] >[address] >200 [facility] Comment on above: Result Units: ug Jessica st./g Severe Pancreatic Insufficiency: <100 Moderate Pancreatic Insufficiency: 100 - 200 Normal: >200Performed at: - [facility] [address] [id number] Director: Kathleen Ayon MD, Phone: [phone] Pancreatic Elastase, Stoolon 12-16-2023 Pancreatic Elastase, Stool >800 Normal >200 [facility] Comment on above: Result Comment: Resu lt Units: ug Elast./g Severe Pancreatic Insufficiency: <100 Moderate Pancreatic Insufficiency: 100 - 200 Normal: >200 Performed at: [address] [id number] Supervisor Inspection And Testing: Kathleen Ayon MD, Phone: [phone] PERFORMED BY: [place] [address] PATHOLOGIST COOLING TOWER TECHNICIAN WILLAM HERNANDEZ M.D. Performed By: #### E LASTASE STOOL, CALPROTECT ####[facility] ,#### CDT ####[facility] [address] [place] [address] Alanine aminotransferase [En zymatic activity/volume] in Serum or PlasmaOrdered By: Imad Asaad on 12-11-2023 ALT [Catalytic activity/Vol] 65 U/L High 7-52 [facility] Comment on above: Performed By: #### E SR, CMP, TSH3, CRP #### [facility] [address] [place] [address] #### HIV SCREEN, CELIAC #### [facility] , Albumin [Mass/volume] in Ser um or Plasma by Bromocresol green (BCG) dye binding methoOrdered By: Imad Asaad on 12-11-2023 Albumin BCG dye [Mass/Vol] 4.0 g/dL 3.5-5.7 [facility] Alkaline phosphatase [Enzyma tic activity/volume] in Serum or PlasmaOrdered By: Imad Asaad on 12-11-2023 ALP [Catalytic activity/Vol] 66 U/L Normal 34-104 [facility] Comment on above: Performed By: #### E SR, CMP, TSH3, CRP #### [facility] [address] [place] [address] [place] #### HIV SCREEN, CELIAC #### [facility] , Aspartate aminotransferase [ Enzymatic activity/volume] in Serum or PlasmaOrdered By: Imad Asaad on 12-11-2023 AST [Catalytic activity/Vol] 42 U/L High 13-39 [facility] Comment on above: Performed By: #### E SR, CMP, TSH3, CRP #### [place] [address] [place] #### HIV SCREEN, CELIAC #### [facility] , Bilirubin.total [Mass/volume ] in Serum or PlasmaOrdered By: Imad Asaad on 12-11-2023 Bilirubin [Mass/Vol] 0.6 mg/dL Normal 0.3-1.0 [facility] Comment on above: Performed By: #### E SR, CMP, TSH3, CRP #### [address] #### HIV SCREEN, CELIAC #### [facility] , C reactive protein [Mass/vol ume] in Serum or PlasmaOrdered By: Imad Asaad on 12-11-2023 CRP [Mass/Vol] 2.6 mg/dL High 0.0-0.5 [facility] C-Reactive Proteinon 024 C-Reactive Protein 2.6 mg/dL High 0.0-0.5 [facility] Comment on above: Performed By: #### E SR, CMP, TSH3, CRP #### [facility] [address] [place] [address] [place] #### HIV SCREEN, CELIAC #### [facility] , Calcium [Mass/volume] in Ser um or PlasmaOrdered By: Imad Asaad on 12-11-2023 Calcium [Mass/Vol] 9.2 mg/dL Normal 8.6-10.3 [facility] Comment on above: Performed By: #### E SR, CMP, TSH3, CRP #### [place] [address] [place] #### HIV SCREEN, CELIAC #### [facility] , Carbon dioxide, total [Moles /volume] in Serum or PlasmaOrdered By: Padma Torres on 12-11-2023 CO2 [Moles/Vol] 30.9 mmol/L Normal 21.0-31.0 [facility] Comment on above: Performed By: #### E SR, CMP, TSH3, CRP #### [address] #### HIV SCREEN, CELIAC #### [facility] , Celiacon 12-11-2023 Deamidated Gliadin Abs, IgA 6 Normal 0-19 [facility] Comment on above: Result Comment: Nega tive 0 - 19 Weak Positive 20 - 30 Moderate to Strong Positive >30 Performed By: #### E SR, CMP, TSH3, CRP #### [address] #### HIV SCREEN, CELIAC #### [facility] , Deamidated Gliadin Abs, IgG 4 Normal 0-19 [facility] Comment on above: Result Comment: Nega tive 0 - 19 Weak Positive 20 - 30 Moderate to Strong Positive >30 Performed By: #### E SR, CMP, TSH3, CRP #### [address] #### HIV SCREEN, CELIAC #### [facility] , Endomysial Antibody IgA Negative Normal Negative [facility] Comment on above: Performed By: #### E SR, CMP, TSH3, CRP #### [address] #### HIV SCREEN, CELIAC #### [facility] , Immunoglobulin A, Qn, Serum 187 mg/dL Normal 87-352 [facility] Comment on above: Result Comment: Perf ormed at: - [facility] [address] [id number] Supervisor Inspection And Testing: Jose Turcios PhD, Phone: [phone] Performed By: #### E SR, CMP, TSH3, CRP #### [place] [id number] [place] #### HIV SCREEN, CELIAC #### [facility] , T-Transglutaminase (tTG) IgA <2 Normal 0-3 [facility] Comment on above: Result Comment: Nega tive 0 - 3 Weak Positive 4 - 10 Positive >10 Tissue Transglutaminase (tTG) has been identified as the endomysial antigen. Studies have demonstr- ated that endomysial IgA antibodies have over 99% specificity for gluten sensitive enteropathy. Performed By: #### E SR, CMP, TSH3, CRP #### [place] [address] [place] #### HIV SCREEN, CELIAC #### [facility] , T-Transglutaminase (tTG) IgG 5 Normal 0-5 [facility] Comment on above: Result Comment: Nega tive 0 - 5 Weak Positive 6 - 9 Positive >9 Performed By: #### E SR, CMP, TSH3, CRP #### [facility] [address] [place] [address] #### HIV SCREEN, CELIAC #### [facility] , Chloride [Moles/volume] in S radha or PlasmaOrdered By: Padma Torres on 12-11-2023 Chloride [Moles/Vol] 104 mmol/L Normal 98-107 [facility] Comment on above: Performed By: #### E SR, CMP, TSH3, CRP #### [facility] [address] [place] [address] [place] #### HIV SCREEN, CELIAC #### [facility] , Comprehensive Metabolic Pane mauricio 12-11-2023 Albumin [Mass/Vol] 4.0 g/dL Normal 3.5-5.7 [facility] Comment on above: Performed By: #### E SR, CMP, TSH3, CRP #### [facility] [address] [place] [address] [place] #### HIV SCREEN, CELIAC #### [facility] , GFR/1.73 sq M.predicted MDRD (S/P/Bld) [Vol rate/Area] mL/min/{1.73_m2} Normal [facility] Comment on above: Performed By: #### E SR, CMP, TSH3, CRP #### [address] #### HIV SCREEN, CELIAC #### [facility] , Creatinine [Mass/volume] in Serum or PlasmaOrdered By: Imad Asaad on 12-11-2023 Creatinine [Mass/Vol] 0.70 mg/dL Normal 0.60-1.20 [facility] Comment on above: Performed By: #### E SR, CMP, TSH3, CRP #### [facility] [address] [place] [address] #### HIV SCREEN, CELIAC #### [facility] , Erythrocyte Sedimentation Ra kristy 12-11-2023 ESR (Bld) [Velocity] 17 mm/h Normal 0-19 [facility] Comment on above: Result Comment: PERF ORMED BY: [place] [address] PATHOLOGIST COOLING TOWER TECHNICIAN WILLAM HERNANDEZ M.D. Performed By: #### E SR, CMP, TSH3, CRP #### [address] #### HIV SCREEN, CELIAC #### [facility] , Erythrocyte sedimentation ra te by Photometric methodOrdered By: Imad Asaad on 12-11-2023 ESR Photometric method (Bld) [Velocity] 17 mm/hr 0-19 [facility] Glucose [Mass/volume] in Ser um or PlasmaOrdered By: Imad Asaad on 12-11-2023 Glucose [Mass/Vol] 104 mg/dL High 70-100 [facility] Comment on above: ADA recommended refe rence rangeRandom Glucose Reference Range is dependent on time and content of last meal. Glucose of more than 200 mg/dL in a nonstressed, ambulatory subject supports the diagnosis of Diabetes Mellitus. Result Comment: [place] om Glucose Reference Range is dependent on time and content of last meal. Glucose of more than 200 mg/dL in a nonstressed, ambulatory subject supports the diagnosis of Diabetes Mellitus. ADA recommended reference range Performed By: #### E SR, CMP, TSH3, CRP #### [facility] [address] [place] [address] [place] #### HIV SCREEN, CELIAC #### [facility] , HIV 1/O/2 Antigen/Antibodyon 12-11-2023 HIV Screen 4th Generation Non-Reactive Normal Non Reactive [facility] Comment on above: Result Comment: HIV- 1/HIV-2 antibodies and HIV-1 p24 antigen were NOT detected. There is no laboratory evidence of HIV infection. HIV Negative Performed at: [facility] [place] [id number] [place], [place] [id number] Supervisor Inspection And Testing: Jose Turcios PhD, Phone: [phone] PERFORMED BY: [place] [address] PATHOLOGIST COOLING TOWER TECHNICIAN WILLAM HERNANDEZ M.D. Performed By: #### E SR, CMP, TSH3, CRP #### [facility] [address] [place] [address] #### HIV SCREEN, CELIAC #### [facility] , HIV 1 and HIV-2 antibody ass ay with HIV-1 p24 antigen detectionOrdered By: Imad Asaad on 12-11-2023 HIV 1+2 Ab+HIV1 p24 Ag IA Ql Non-Reactive Non Reactive [facility] Comment on above: HIV-1/HIV-2 antibodi es and HIV-1 p24 antigen were NOTdetected. There is no laboratory evidence of HIV infection.HIV NegativePerformed at: [employer] [facility] [address] [id number] Director: Jose Turcios PhD, Phone: [phone] IgA [Mass/volume] in Serum o r PlasmaOrdered By: Imad Asaad on 12-11-2023 IgA [Mass/Vol] 187 mg/dL 87-352 [facility] Comment on above: Performed at: [facility] [address] [id number] Director: Jose Turcios PhD, Phone: [phone] No Panel InformationOrdered By: Padma Torres on 12-11-2023 Endomysial IgA Antibody Negative Negative [facility] Estimated GFR (CKD-EPI) > 60.0 mL/Min [facility] Creatinine Clearance (Chem N/A [facility] Potassium [Moles/volume] in Serum or PlasmaOrdered By: Imrohit Torres on 12-11-2023 Potassium [Moles/Vol] 4.5 mmol/L Normal 3.5-5.1 [facility] Comment on above: Performed By: #### E SR, CMP, TSH3, CRP #### [facility] [address] [place] [address] #### HIV SCREEN, CELIAC #### [facility] , Protein [Mass/volume] in Ser um or PlasmaOrdered By: Padma Torres on 12-11-2023 Protein [Mass/Vol] 6.9 g/dL Normal 6.4-8.9 [facility] Comment on above: Performed By: #### E SR, CMP, TSH3, CRP #### [facility] [address] [place] [address] [place] #### HIV SCREEN, CELIAC #### [facility] , Serum gliadin peptide IgA an tibody assay (units/volume)Ordered By: Imrohit Torres on 12-11-2023 Gliadin peptide IgA Qn (S) 6 units 0-19 [facility] Comment on above: Negative 0 - 19 Weak Positive 20 - 30 Moderate to Strong Positive >30 Serum gliadin peptide IgG an tibody assay (units/volume)Ordered By: [facility] on 12-11-2023 Gliadin peptide IgG Qn (S) 4 units 0-19 [facility] Comment on above: Negative 0 - 19 Weak Positive 20 - 30 Moderate to Strong Positive >30 Serum globulin measurement b y calculation (mass/volume)Ordered By: Imrohit Torres on 12-11-2023 Globulin (S) [Mass/Vol] 2.9 g/dL Normal [facility] Comment on above: Performed By: #### E SR, CMP, TSH3, CRP #### [facility] [address] [place] [address] [place] #### HIV SCREEN, CELIAC #### [facility] , Serum or plasma albumin/glob ulin mass ratioOrdered By: Imad Asaad on 12-11-2023 Albumin/Globulin [Mass ratio] 1.4 {ratio} Normal [facility] Comment on above: Performed By: #### E SR, CMP, TSH3, CRP #### [facility] [address] [place] [address] [place] #### HIV SCREEN, CELIAC #### [facility] , Serum or plasma anion gap de terminationOrdered By: Imad Asaad on 12-11-2023 Anion gap [Moles/Vol] 8.6 mmol/L Normal 6.0-15.0 [facility] Comment on above: Performed By: #### E SR, CMP, TSH3, CRP #### [facility] [address] [place] [address] [place] #### HIV SCREEN, CELIAC #### [facility] , Serum tissue transglutaminas e (tTG) IgA antibody assay (units/volume)Ordered By: Imad Asaad on 12-11-2023 tTG IgA Qn (S) <2 U/mL 0-3 [facility] Comment on above: Negative 0 - 3 Weak Positive 4 - 10 Positive >10 Tissue Transglutaminase (tTG) has been identified as the endomysial antigen. Studies have demonstr- ated that endomysial IgA antibodies have over 99% specificity for gluten sensitive enteropathy. Serum tissue transglutaminas e (tTG) IgG antibody assay (units/volume)Ordered By: Imad Asaad on 12-11-2023 tTG IgG Qn (S) 5 U/mL 0-5 [facility] Comment on above: Negative 0 - 5 Weak Positive 6 - 9 Positive >9 Sodium [Moles/volume] in Ser um or PlasmaOrdered By: Imad Asaad on 12-11-2023 Sodium [Moles/Vol] 139 mmol/L Normal 136-145 [facility] Comment on above: Performed By: #### E SR, CMP, TSH3, CRP #### [facility] [address] [place] [address] #### HIV SCREEN, CELIAC #### [facility] , Thyrotropin [Units/volume] i n Serum or PlasmaOrdered By: Imad Asaad on 12-11-2023 TSH Qn 2.10 m[IU]/L Normal 0.45-5.33 [facility] Comment on above: Result Comment: PERF ORMED BY: [place] [address] PATHOLOGIST COOLING [employer]OWER TECHNICIAN WILLAM HERNANDEZ M.D. Performed By: #### E SR, CMP, TSH3, CRP #### [facility] [address] [place] [address] #### HIV SCREEN, CELIAC #### [facility] , Urea nitrogen [Mass/volume] in Serum or PlasmaOrdered By: Imad Asaad on 12-11-2023 Urea nitrogen [Mass/Vol] 13 mg/dL Normal 7-25 [facility] Comment on above: Performed By: #### E SR, CMP, TSH3, CRP #### [facility] [address] [place] [address] #### HIV SCREEN, CELIAC #### [facility] , ALL CBC WITH AUTO DIFFon BASOPHILS ABSOLUTE AUTO 0.1 N [facility] Basophils/100 WBC (Bld) 0.9 % 0.2 - 2.0 % [facility] Eosinophils/100 WBC (Bld) 4.3 % 0.9 - 7.0 % [facility] Erythrocyte distribution width (RBC) [Ratio] 12.3 % 11.0 - 15.0 % [facility] Hematocrit (Bld) [Volume fraction] 43.1 % 36.0 - 48.0 % [facility] Hemoglobin (Bld) [Mass/Vol] 14.1 g/dL 12.0 - 16.0 g/dL [facility] IMMATURE GRANULOCYTES ABS AUTO 0.03 [facility] Immature granulocytes/100 WBC (Bld) 0.4 % 0.0 - 0.5 % [facility] Interpretation and review of laboratory results Abnormal [facility] LYMPHOCYTES ABSOLUTE AUTO 2.8 [facility] Lymphocytes/100 WBC (Bld) 37.0 % 20.5 - 60.0 % [facility] MCH (RBC) [Entitic mass] 32.8 pg 26.7 - 34.0 pg [facility] MCHC (RBC) [Mass/Vol] 32.7 g/dL 29.9 - 35.2 g/dL [facility] MCV (RBC) [Entitic vol] 100.2 fL High 81.0 - 99.0 fL [facility] MONOCYTES ABSOLUTE AUTO 0.5 N [facility] Monocytes/100 WBC (Bld) 7.1 % 1.7 - 12.0 % [facility] NEUTROPHILS ABSOLUTE AUTO 3.8 [facility] Neutrophils/100 WBC (Bld) 50.3 % 43.0 - 75.0 % [facility] Platelet mean volume (Bld) [Entitic vol] 9.0 fL Low 9.5 - 13.5 fL [facility] TBH EO # 0.3 [facility] TBH PLT 266 [facility] TB RBC 4.30 [facility] TB WBC 7.5 [facility] Ambulatory Visit Summaryon 0 06-07-2023 Ambulatory Visit Summary CANDICE DE LEÓN :1980 Visit Date:06/07/2023 Ambulatory Visit Instructions Your Diagnosis UTI symptoms Your Care Team Attending Physician - DIANA LAZARO PA-C Primary Care Physician - DAVID MURPHY, MINA Anderson This Is Your Medications List albuterol [...] for choosing us for your care. Normal [facility] C Urineon 11-07-2022 Bacteria identified Cx Nom [...] Locations R1: This test was performed at: [facility], [address] [place] [address], [facility]- , , [facility] Comment on above: Performed By: #### 2 [id number] #### [facility] [address] [place] [address] Ambulatory Visit Summaryon 0 11-03-2022 Ambulatory Visit Summary CANDICE DE LEÓN :1980 Visit Date:11/03/2022 Ambulatory Visit Instructions Your Diagnosis Recurrent UTI UTI symptoms OAB (overactive bladder) Mixed incontinence Feeling of incomplete bladder emptying Tests Performed Urnls Dip Stick Auto w/o Microscopy POC 50220 Your Care Team Attending Physician - TEJAS ZUNIGA, DIANA Aleman Primary Care Physician - DAVID MURPHY, RUGEN M This Is Your Medications List albuterol bifidobacterium-lacto [...] DIANA LAZARO PA-C, URL When: Where: [address] [facility] [facility] [place] [address] You Need to Complete the Following Urine Culture, Urine Random, Routine collect, Collected, 11/03/22, Order for future visit, Nurse collect, Recurrent UTI Invalid Interpretation Code OAB (overactive bladder) [facility] Patient Educationon 11-04-19 Patient Education Obstetrics and [...] these instructions at home: Medicines ? Take [id number] and prescription medicines only as told by [...] provider. Document Revised: 10/16/2020 Document Reviewed: 10/16/2020 Evi Patient Education ? 2022 [employer] Normal [facility] Urology Office/Clinic Noteon 11-03-2022 Urology Office/Clinic Note [...] continues taking Oxybutynin 10 mg ER QD. Dora med was working well. Stopped for over [...] Contact Information TEJAS ZUNIGA, DIANA Aleman, URL [address] [place] [address] Additional Instructions: PRN Patient Education Urinary Tract Infection, Adult, Uyjj-ay-Oscc I, Winnie Barragan, personally scribed for Diana Lazaro PA-C on 11/03/2022 16:08:18. . Documentation recorded by the scriblove Barragan accurately reflects the services(s) I performed [...] vaccine, inactivated 1 (more content not included)... Normal [facility] Comment on above: Result Comment: Elec tronically [...] Locations R1: This [facility] was performed at: [facility], [address] [place] [address], [address]- , , [facility] Comment on above: Performed By: #### 2 [id number] #### [facility] [address] [place] [address] Ambulatory Visit Summaryon 0 10-03-2022 Ambulatory Visit Summary CANDICE DE LEÓN :1980 Visit Date:10/03/2022 Ambulatory Visit Instructions Your Care Team Attending Physician - ASHWIN MURPHY, Mian Darnell Primary Care Physician - DAVID MURPHY, MINA Anderson This Is Your Medications List esomeprazole (Nexium) fluticasone/umeclidin ium/vilanterol (Trelegy Ellipta) loratadine (Claritin) montelukast (Singulair) oxybutynin (oxybutynin 10 mg ER Tab) Procedures Performed Cholecystectomy, Colonoscopy, Partial hysterectomy. What to do next Scheduled Follow-Up Appointments 2022 3:15 PM EDT With: DIANA LAZARO PA-C Where: [facility] Urinalysis - AUTOMATEDon Appearance (U) cloudy [employer] Other Bilirubin Ql (U) Negative Code [employer] Other Color (U) yellow [employer] Other Glucose Ql (U) Negative [employer] Other Hemoglobin Ql (U) trace-intact [employer] Other Ketones Ql (U) Negative [employer] Other Leukocyte esterase Test strip Ql (U) Negative [employer] Other Nitrite Ql (U) Negative [employer] Other pH (U) 5.5 [pH] [employer] Other Protein Ql (U) Negative [employer] Other Specific gravity (U) [Rel density] >1.030 [employer] Other Urobilinogen (U) [Mass/Vol] 0.2 mg/dL [employer] Other Urinalysis - AUTOMATED No rt [employer] Other Urine Cultureon 03-07-2022 Bacteria identified Cx Nom (U) [employer] Other MG MAMM SCREEN 3D DARYL CADon 02-01-2022 MG MAMM SCREEN 3D DARYL CAD Patient: CANDICE DE LEÓN Exam Date: 02/01/2022 : 1980 Gender:F Ordering : DR WILLIAM COELHO . Admission #: [id number] Family : Order #: [id number] CLICK HERE TO VIEW EXAM RADIOLOGY REPORT PROCEDURE: MAMMOGRAM SCREENING 3D BILATERAL CAD COMPARISON: MG MAMM SCREEN 3D DARYL CAD, 01/21/2021. INDICATIONS: Screening mammography Calculator Name NCI Breast Cancer Risk Assessment Tool 5 Year Breast Cancer Risk 0.40% Lifetime Breast Cancer Risk 6.90% Personal Breast Cancer No Personal Ovarian Cancer No Treatments None Family Cancers None LOCATION: [facility] BREAST COMPOSITION: Scattered areas fibroglandular density. [...] Deluna MD on 02/01/2022 at 13:54 Normal [facility] US PELVIS AND TRANSVAGon US PELVIS AND [...] by: MARGIE DELUNA Date: 2022-02-01 11:27 Normal [facility] PAP ACOG PANEL 2: 30 to 65on 01-21-2022 . . Normal [facility] Comment on above: Result Comment: Perf ormed at: WB Performed By: #### 4 [id number] #### [facility] [address] [place] [address] Dr. Raul Cullen Age Gdln ACOG Testing 30-65 Normal [facility] Comment on above: Performed By: #### 4 [id number] #### [facility] [address] [place] [address] Dr. Raul Cullen DIAGNOSIS: Comment Normal [facility] Comment on above: Result Comment: NEGA TIVE FOR INTRAEPITHELIAL LESION OR MALIGNANCY. Performed at: WB Performed By: #### 4 [id number] #### [facility] [address] [address] [address] Raul Cullen HPV Aptima Negative Normal Negative [facility] Comment on above: Result Comment: This nucleic acid amplification test detects fourteen high-risk HPV types (16,18,31,33,35,39,45,51,52,56,58,59,66,68) without differentiation. Performed at: =G Performed By: #### 4 [id number] #### [facility] [address] [place] [address] Dr. Raul Cullen HPV Genotype Reflex Comment Normal [facility] Comment on above: Result Comment: Crit eria not met, HPV Genotype not performed. Performed at: WB Performed By: #### 4 [id number] #### [facility] [address] [place] [address] Dr. Raul Cullen Methodology: Comment Normal [facility] Comment on above: Result Comment: This liquid based ThinPrep(R) pap test was screened with the use of an image guided system. Performed at: WB Performed By: #### 4 [id number] #### [facility] [address] [place] [address] Dr. Raul Cullen Note: Comment Normal [facility] Comment on above: Result Comment: The Pap smear is a screening test designed to aid in the detection of premalignant and malignant conditions of the uterine cervix. It is not a diagnostic procedure and should not be used as the sole means of detecting cervical cancer. Both false-positive and false-negative reports do occur. . Performed at: WB Performed By: #### 4 [id number] #### [facility] [address] [place] [address] Dr. Raul Cullen Performed by: Comment Normal [facility] Comment on above: Result Comment: Cecy Terry, Land Planner Performed at: WB Performed By: #### 4 [id number] #### [facility] [address] [place] [address] Dr. Raul Cullen Specimen adequacy: Comment Normal [facility] Comment on above: Result Comment: Sati sfactory for evaluation. Endocervical and/or squamous metaplastic cells (endocervical component) are present. Performed at: WB Performed By: #### 4 [id number] #### [facility] [address] [place] [address] Dr. Raul Cullen [facility] Standardon 12-23-2021 eGFR Non AA >60 Invalid Interpretation Code [facility] Comment on above: Performed By: #### 1 [id number], [id number], [id number], 7629026, 6961724, 4358668, 4197662 #### [facility] (DEFAULT) [address] [place] [address] 53958 eGFR AA >60 Invalid Interpretation Code [facility] Comment on above: Result Comment: Sponge Maker girish Kidney disease could be indicated at eGFRs of less than 60 ml/min/1.73m2. Kidney Failure is indicated at less than 15 ml/min/1.73m2 Performed By: #### 1 [id number], 5991423, [id number], 6229435, 3317278, 6175191, 4883532 #### [facility] (DEFAULT) [address] [place] [address] 42505 Albumin [Mass/Vol] 4.4 g/dL Normal 3.5-5.0 [facility] Comment on above: Performed By: #### 1 [id number], 3010079, [id number], 6947101, 7853239, 8210526, 0855761 #### [facility] (DEFAULT) [address] [place] [address]4730 Albumin/Globulin [Mass ratio] 1.2 {ratio} Low 1.4-2.6 [facility] Comment on above: Performed By: #### 1 [id number], 6380502, 9977778632, 2123483, 2570387, 3956258, 4451459 #### [facility] (DEFAULT) [address] [place] [address] 99985 Alk Phos 69 IU/L Normal 32-91 [facility] Comment on above: Performed By: #### 1 [id number], 5021820, [id number], 4938309, 4355496, 1103016, 6231970 #### [facility] (DEFAULT) [address] [place] [address] 84232 ALT [Catalytic activity/Vol] 72.0 U/L High 14.0-54.0 [facility] Comment on above: Performed By: #### 1 [id number], 0450731, 8058863255, 4141590, 6890664, 0616474, 4218207 #### [facility] (DEFAULT) [address] [place] [address] 64068 Anion gap [Moles/Vol] 12.0 mmol/L Normal 5.0-19.0 [facility] Comment on above: Performed By: #### 1 [id number], 4250952, 7837723387, 0792198, 0910343, 0871732, 9080801 #### [facility] (DEFAULT) [address] [place] [address] 70891 AST [Catalytic activity/Vol] 50 U/L High 15-41 [facility] Comment on above: Performed By: #### 1 [id number], 0489198, 3421984496, 2285181, 5855422, 9157785, 1832616 #### [facility] (DEFAULT) [address] [place] [address] 29537 Bili Total 0.8 mg/dL Normal 0.3-1.2 [facility] Comment on above: Performed By: #### 1 [id number], 8352343, 4351988939, 3666541, 8568063, 1444276, 0350820 #### [facility] (DEFAULT) [address] [place] [address] 68966 Calcium [Mass/Vol] 9.7 mg/dL Normal 8.9-10.3 [facility] Comment on above: Performed By: #### 1 [id number], 8375244, 1889468147, 5325483, 6349156, 2912210, 4125421 #### [facility] (DEFAULT) [address] [place] [address] 51493 Chloride [Moles/Vol] 98 mmol/L Low 101-111 [facility] Comment on above: Performed By: #### 1 [id number], 1098960, 8323901020, 7529694, 7279484, 7434069, 4449199 #### [facility] (DEFAULT) [address] [place] [address] 66984 CO2 [Moles/Vol] 29 mmol/L Normal 21-32 [facility] Comment on above: Performed By: #### 1 [id number], 4047993, 4241545702, 3306898, 9284859, 7126160, 4700464 #### [facility] (DEFAULT) [address] [place] [address] 66237 Creatinine [Mass/Vol] 0.87 mg/dL Normal 0.60-1.30 [facility] Comment on above: Performed By: #### 1 [id number], 6416108, 1529677593, 6250264, 6775825, 4235682, 8297078 #### [facility] (DEFAULT) [address] [place] [address] 09830 Globulin (S) [Mass/Vol] 3.6 g/dL Normal 1.5-4.3 [facility] Comment on above: Performed By: #### 1 [id number], 2947634, 3657197124, 8222273, 5520001, 7189479, 2957097 #### [facility] (DEFAULT) [address] [place] [address] 55869 Glucose [Mass/Vol] 94.0 mg/dL Normal 74.0-118.0 [facility] Comment on above: Performed By: #### 1 [id number], 6261406, 1138744055, 7090206, 3983318, 8009409, 4911897 #### [facility] (DEFAULT) [address] [place] [address] 85948 Osmolality 270 mOsm/L Invalid Interpretation Code [facility] Comment on above: Performed By: #### 1 [id number], 0674116, 9396145030, 5712079, 6651351, 4716273, 3013165 #### [facility] (DEFAULT) [address] [place] [address] 43417 Potassium [Moles/Vol] 4.1 mmol/L Normal 3.6-5.1 [facility] Comment on above: Performed By: #### 1 [id number], 7796366, 7922596671, 8738349, 4557197, 3063736, 6506120 #### [facility] (DEFAULT) [address] [place] [address] 95294 Protein [Mass/Vol] 8.0 g/dL Normal 6.5-8.1 [facility] Comment on above: Performed By: #### 1 [id number], 0740131, 2475071855, 5572276, 6791518, 2063151, 3488160 #### [facility] (DEFAULT) [address] [place] [address] 63502 Sodium [Moles/Vol] 135.0 mmol/L Low 136.0-144.0 [facility] Comment on above: Performed By: #### 1 [id number], 2502953, 3040288671, 9326404, 2788017, 2441911, 0609058 #### [facility] (DEFAULT) [address] [place] [address] 85823 Urea nitrogen [Mass/Vol] 13 mg/dL Normal 8-26 [facility] Comment on above: Performed By: #### 1 [id number], 9274441, 9554635017, 1288020, 0496301, 9879417, 1281372 #### [facility] (DEFAULT) [address] [place] [address] Urea nitrogen/Creatinine [Mass ratio] 15.0 mg/mg Normal 4.6-16.2 [facility] Comment on above: Performed By: #### 1 [id number], 5358361, 9675047176, 5337688, 6937578, 5011891, 2066826 #### [facility] (DEFAULT) [address] [place] [address] 93834 GGTon 12-23-2021 Gamma glutamyl transferase [Catalytic activity/Vol] 29.0 U/L Normal 7.0-50.0 [facility] Comment on above: Performed By: #### 1 [id number], 1998606, 9135766919, 9515564, 2164619, 4108004, 1743004 #### [facility] (DEFAULT) [address] [place] [address] 84577 Iron Levelon 12-23-2021 Iron [Mass/Vol] 124.0 ug/dL Normal 28.0-170.0 [facility] Comment on above: Performed By: #### 1 [id number], 1681768, 3277667194, 0940615, 4041333, 4165511, 8091645 #### [facility] (DEFAULT) [address] [place] [address] 50843 LDHon 12-23-2021 LDH 173.0 IU/L Normal 98.0-192.0 [facility] Comment on above: Performed By: #### 1 [id number], 4661319, 2382524274, 1012624, 3138307, 3488484, 6341707 #### [facility] (DEFAULT) [address] [place] [address] 44359 Lipid Panel Standardon 12-23 Cholesterol [Mass/Vol] 202.0 mg/dL High 66.0-200.0 [facility] Comment on above: Result Comment: Eva rable - Less than 200 mg/dL Borderline high risk - 200-239 mg/dL High risk - 240 mg/dL and over. Performed By: #### 1 [id number], 6708918, 6396640819, 4164610, 3046782, 2373287, 1492260 #### [facility] (DEFAULT) [address] [place] [address] 32776 Cholesterol in HDL [Mass/Vol] 40 mg/dL Normal 40-71 [facility] Comment on above: Result Comment: High risk - <40 mg/dL. Performed By: #### 1 [id number], 7168762, 6216293980, 6292195, 4992462, 7611971, 6584240 #### [facility] (DEFAULT) [address] [place] [address] 86635 Cholesterol in LDL [Mass/Vol] 131 mg/dL High 1-100 [facility] Comment on above: Result Comment: Opti mal - Less than 100 mg/dL Borderline high risk - 130-159 mg/dL High risk - 160-189 mg/dL. Performed By: #### 1 194532882, 5520783, 4349770187, 3198271, 4783188, 6898677, 4623565 #### [facility] (DEFAULT) [address] [place] [address] 08007 Cholesterol.total/Nicole sterol in HDL [Mass ratio] 5.1 {ratio} High 0.0-4.5 [facility] Comment on above: Performed By: #### 1 [id number], 1829863, 4362828059, 2669899, 0036083, 7701024, 1167648 #### [facility] (DEFAULT) [address] [place] [address] Triglyceride [Mass/Vol] 156.0 mg/dL High 0.0-150.0 [facility] Comment on above: Performed By: #### 1 080965653, 9919239, 6376433261, 5931407, 1611729, 4411761, 5222676 #### [facility] (DEFAULT) [address] [place] [address] VLDL. 31 mg/dL Normal 5-40 [facility] Comment on above: Performed By: #### 1 [id number], 5762683, 2349783572, 6873141, 5206037, 9691364, 6205390 #### [facility] (DEFAULT) [address] [place] [address] Phoson 12-23-2021 Phosphate [Mass/Vol] 4.0 mg/dL Normal 2.5-4.6 [facility] Comment on above: Performed By: #### 1 [id number], 5430726, 5391388087, 6093642, 4442731, 2810993, 4071598 #### [facility] (DEFAULT) [address] [place] [address] Uric Acidon 12-23-2021 Urate [Mass/Vol] 6.5 mg/dL Normal 2.6-8.0 [facility] Comment on above: Performed By: #### 1 [id number], 1307902, 4767430679, 5359659, 4227102, 6157790, 8723028 #### [facility] (DEFAULT) [address] [place] [address] CBC AUTO DIFFon 08-13-2021 BASO # 0.1 103/ul Normal 0.0-0.1 [facility] Comment on above: Performed By: #### C BC #### [facility] [address] [address] [address] Raul Cullen Basophils/100 WBC (Bld) 0.6 % Normal 0.2-2.0 [facility] Comment on above: Performed By: #### C BC #### [facility] [address] [address] [address] Raul Cullen EO # 0.2 103/ul Normal 0.0-0.7 [facility] Comment on above: Performed By: #### C BC #### [facility] [address] [place] [address] Dr. Raul Cullen Eosinophils/100 WBC (Bld) 1.8 % Normal 0.9-7.0 [facility] Comment on above: Performed By: #### C BC #### [facility] [address] [place] [address] Dr. Raul Cullen Erythrocyte distribution width (RBC) [Ratio] 14.9 % Normal 11.0-15.0 [facility] Comment on above: Performed By: #### C BC #### [facility] [address] [place] [address] Dr. Raul Cullen Hematocrit (Bld) [Volume fraction] 45.6 % Normal 36.0-48.0 [facility] [facility] Comment on above: Performed By: #### C BC #### [facility] [address] [place] [address] Dr. Raul Cullen Hemoglobin (Bld) [Mass/Vol] 14.2 g/dL Normal 12.0-16.0 [facility] Comment on above: Performed By: #### C BC #### [facility] [address] [place] [address] Dr. Raul Cullen IG # 0.04 10e3/ul Critically high 0.00-0.03 [facility] Comment on above: Performed By: #### C BC #### [facility] [address] [place] [address] Dr. Raul uCllen IG % 0.4 % Normal 0.0-0.5 [facility] Comment on above: Performed By: #### C BC #### [facility] [address] [place] [address] Dr. Raul Cullen LYMPH # 3.1 103/ul Normal 1.2-3.8 [facility] Comment on above: Performed By: #### C BC #### [facility] [address] [place] [address] Dr. Raul Cullen Lymphocytes/100 WBC (Bld) 33.4 % Normal 20.5-60.0 [facility] Comment on above: Performed By: #### C BC #### [facility] [address] [place] [address] Dr. Raul Cullen MANUAL DIFF REQ NO Normal [facility] Comment on above: Performed By: #### C BC #### [facility] [address] [place] [address] Dr. Raul Cullen MCH (RBC) [Entitic mass] 31.1 pg Normal 26.7-34.0 [facility] Comment on above: Performed By: #### C BC #### [facility] [address] [place] [address] Dr. Raul Cullen MCHC (RBC) [Mass/Vol] 31.1 g/dL Normal 29.9-35.2 [facility] Comment on above: Performed By: #### C BC #### [facility] [address] [place] [address] Dr. Raul Cullen MCV (RBC) [Entitic vol] 99.8 fL Critically high 81.0-99 .0 [facility] Comment on above: Performed By: #### C BC #### [facility] [address] [place] [address] Dr. Raul Cullen MONO # 0.5 103/ul Normal 0.3-0.8 [facility] Comment on above: Performed By: #### C BC #### [facility] [address] [place] [address] Dr. Raul Cullen Monocytes/100 WBC (Bld) 5.5 % Normal 1.7-12.0 [facility] Comment on above: Performed By: #### C BC #### [facility] [address] [place] [address] Dr. Raul Cullen NEUT # 5.4 103/ul Normal 1.4-6.5 [facility] Comment on above: Performed By: #### C BC #### [facility] [address] [place] [address] Dr. Raul Cullen Neutrophils/100 WBC (Bld) 58.3 % Normal 43.0-75.0 [facility] Comment on above: Performed By: #### C BC #### [facility] [address] [place] [address] Dr. Raul Cullen Platelet mean volume (Bld) [Entitic vol] 8.7 fL Critically low 9.5-13.5 [facility] Comment on above: Performed By: #### C BC #### [facility] [address] [place] [address] Dr. Raul Cullen PLT 316 103/ul Normal 150-450 [facility] Comment on above: Performed By: #### C BC #### [facility] [address] [place] [address] Dr. Raul Cullen RBC 4.57 106/ul Normal 4.20-5.40 [facility] Comment on above: Performed By: #### C BC #### [facility] [address] [place] [address] Dr. Raul Cullen WBC 9.3 103/ul Normal 4.0-11.0 [facility] Comment on above: Performed By: #### C BC #### [facility] [address] [place] [address] Dr. Raul Cullen IRON AND TIBCon 08-13-2021 % SATURATION 26.0 % Normal [facility] Comment on above: Performed By: #### F ETIBC #### [facility] [address] [place] [address] Dr. Raul Cullen Iron [Mass/Vol] 82.0 ug/dL Normal 50.0-170.0 [facility] Comment on above: Performed By: #### F ETIBC #### [facility] [address] [place] [address] Dr. Raul Cullen TIBC DIRECT 315.0 ug/dL Normal 250.0-450.0 [facility] Comment on above: Performed By: #### F ETIBC #### [facility] [address] [place] [address] Dr. Raul Cullen Q - CULTURE,URINE,ROUTINEon 07-13-2021 CULTURE, URINE, ROUTINE SEE NOTE Normal [facility] [place] [employer] Comment on above: Order Comment: [facility] performed at: Q[facility], [facility], [address], [address] [facility], [place], [address], [employer]: Hermilo Choudhury MD [facility] Collection Date/Time: [id number] [facility] Results Received Date/Time: [id number] [facility] Reported Date/Time: [id number] Result Comment: CULT URE, URINE, ROUTINE Micro Number: [id number] Test Status: Final Specimen Source: Urine Specimen Quality: Adequate Result: Mixed genital naomi isolated. These superficial bacteria are not indicative of a urinary tract infection. No further organism identification is warranted on this specimen. If clinically indicated, recollect clean-catch, mid-stream urine and transfer immediately to Urine Culture Transport Tube. Performed By: #### [id number] #### [facility] [address] [place] [address] CBC AUTO DIFFon 04-26-2021 BASO # 0.0 103/ul Normal 0.0-0.1 [facility] Comment on above: Performed By: #### C BC #### [facility] [address] [place] [address] Dr. Raul Cullen Basophils/100 WBC (Bld) 0.4 % Normal 0.2-2.0 [facility] Comment on above: Performed By: #### C BC #### [facility] [address] [place] [address] Dr. Raul Cullen EO # 0.3 103/ul Normal 0.0-0.7 [facility] Comment on above: Performed By: #### C BC #### [facility] [address] [place] [address] Dr. Raul Cullen Eosinophils/100 WBC (Bld) 2.4 % Normal 0.9-7.0 [facility] Comment on above: Performed By: #### C BC #### [facility] [address] [place] [address] Dr. Raul Cullen Erythrocyte distribution width (RBC) [Ratio] 20.3 % Critically high 11.0-15.0 [facility] Comment on above: Result Comment: anis o 3+ Performed By: #### C BC #### [facility] [address] [place] [address] Dr. Raul Cullen Hematocrit (Bld) [Volume fraction] 31.4 % Critically low 36.0-48.0 [facility] Comment on above: Performed By: #### C BC #### [facility] [address] [place] [address] Dr. Raul Cullen Hemoglobin (Bld) [Mass/Vol] 8.3 g/dL Critically low 12.0-16.0 [facility] Comment on above: Performed By: #### C BC #### [facility] [address] [place] [address] Dr. Raul Cullen IG # 0.05 10e3/ul Critically high 0.00-0.03 [facility] Comment on above: Performed By: #### C BC #### [facility] [address] [place] [address] Dr. Raul Cullen IG % 0.5 % Normal 0.0-0.5 [facility] Comment on above: Performed By: #### C BC #### [facility] [address] [place] [address] Dr. Raul Cullen LYMPH # 3.4 103/ul Normal 1.2-3.8 [facility] Comment on above: Performed By: #### C BC #### [facility] [address] [place] [address] Dr. Raul Cullen Lymphocytes/100 WBC (Bld) 32.8 % Normal 20.5-60.0 [facility] Comment on above: Performed By: #### C BC #### [facility] [address] [place] [address] Dr. Raul Cullen MANUAL DIFF REQ NO Normal [facility] Comment on above: Performed By: #### C BC #### [facility] [address] [place] [address] Dr. Raul Cullen MCH (RBC) [Entitic mass] 19.4 pg Critically low 26.7-34.0 [facility] Comment on above: Performed By: #### C BC #### [facility] [address] [place] [address] Dr. Raul Cullen MCHC (RBC) [Mass/Vol] 26.4 g/dL Critically low 29.9-35.2 [facility] Comment on above: Result Comment: hypo chromia 3+ Performed By: #### C BC #### [facility] [address] [place] [address] Dr. Raul Cullen MCV (RBC) [Entitic vol] 73.5 fL Critically low 81.0-99. 0 [facility] Comment on above: Performed By: #### C BC #### [facility] [address] [place] [address] Dr. Raul Cullen MONO # 0.7 103/ul Normal 0.3-0.8 [facility] Comment on above: Performed By: #### C BC #### [facility] [address] [place] [address] Dr. Raul Cullen Monocytes/100 WBC (Bld) 7.0 % Normal 1.7-12.0 [facility] Comment on above: Performed By: #### C BC #### [facility] [address] [place] [address] Dr. Raul Cullen NEUT # 6.0 103/ul Normal 1.4-6.5 [facility] Comment on above: Performed By: #### C BC #### [facility] [address] [place] [address] Dr. Raul Cullen Neutrophils/100 WBC (Bld) 56.9 % Normal 43.0-75.0 [facility] Comment on above: Performed By: #### C BC #### [facility] [address] [place] [address] Dr. Rual Cullen Platelet mean volume (Bld) [Entitic vol] 8.3 fL Critically low 9.5-13.5 [facility] Comment on above: Performed By: #### C BC #### [facility] [address] [place] [address] Dr. Raul Cullen PLT 452 103/ul Critically high 150-450 [facility] Comment on above: Performed By: #### C BC #### [facility] [address] [place] [address] Dr. Raul Cullen RBC 4.27 106/ul Normal 4.20-5.40 [facility] Comment on above: Performed By: #### C BC #### [facility] [address] [place] [address] Dr. Raul Cullen WBC 10.5 103/ul Normal 4.0-11.0 [facility] Comment on above: Performed By: #### C BC #### [facility] [address] [place] [address] Dr. Raul Cullen CBC AUTO DIFFon 03-08-2021 BASO # 0.1 103/ul Normal 0.0-0.1 [facility] Comment on above: Performed By: #### C BC #### [facility] [address] [place] [address] Dr. Raul Cullen Basophils/100 WBC (Bld) 0.6 % Normal 0.2-2.0 [facility] Comment on above: Performed By: #### C BC #### [facility] [address] [place] [address] Dr. Raul Cullen EO # 0.2 103/ul Normal 0.0-0.7 [facility] Comment on above: Performed By: #### C BC #### [facility] [address] [place] [address] Dr. Raul Cullen Eosinophils/100 WBC (Bld) 2.6 % Normal 0.9-7.0 [facility] Comment on above: Performed By: #### C BC #### [facility] [address] [place] [address] Dr. Raul Cullen Erythrocyte distribution width (RBC) [Ratio] 18.9 % Critically high 11.0-15.0 [facility] Comment on above: Performed By: #### C BC #### [facility] [address] [place] [address] Dr. Raul Cullen Hematocrit (Bld) [Volume fraction] 29.4 % Critically low 36.0-48.0 [facility] Comment on above: Performed By: #### C BC #### [facility] [address] [place] [address] Dr. Raul Cullen Hemoglobin (Bld) [Mass/Vol] 7.5 g/dL Critically low 12.0-16.0 [facility] Comment on above: Performed By: #### C BC #### [facility] [address] [place] [address] Dr. Raul Cullen IG # 0.06 10e3/ul Critically high 0.00-0.03 [facility] Comment on above: Performed By: #### C BC #### [facility] [address] [place] [address] Dr. Raul Cullen IG % 0.7 % Critically high 0.0-0.5 [facility] Comment on above: Performed By: #### C BC #### [facility] [address] [place] [address] Dr. Raul Cullen LYMPH # 2.8 103/ul Normal 1.2-3.8 [facility] Comment on above: Performed By: #### C BC #### [facility] [address] [place] [address] Dr. Raul Cullen Lymphocytes/100 WBC (Bld) 31.9 % Normal 20.5-60.0 [facility] Comment on above: Performed By: #### C BC #### [facility] [address] [place] [address] Dr. Raul Cullen MANUAL DIFF REQ NO Normal [facility] Comment on above: Performed By: #### C BC #### [facility] [address] [place] [address] Dr. Raul Cullen MCH (RBC) [Entitic mass] 18.3 pg Critically low 26.7-34.0 [facility] Comment on above: Result Comment: 3+ H ypochromia 1+ Microcytosis 1+ Anisocytosis Performed By: #### C BC #### [facility] [address] [address] [address] Raul Cullen MCHC (RBC) [Mass/Vol] 25.5 g/dL Critically low 29.9-35.2 [facility] Comment on above: Performed By: #### C BC #### [facility] [address] [address] [address] Raul Cullen MCV (RBC) [Entitic vol] 71.7 fL Critically low 81.0-99. 0 [facility] Comment on above: Performed By: #### C BC #### [facility] [address] [address] [address] Raul Cullen MONO # 0.7 103/ul Normal 0.3-0.8 [facility] Comment on above: Performed By: #### C BC #### [facility] [address] [address] [address] Raul Cullen Monocytes/100 WBC (Bld) 8.4 % Normal 1.7-12.0 [facility] Comment on above: Performed By: #### C BC #### [facility] [address] [address] [address] Raul Cullen NEUT # 4.9 103/ul Normal 1.4-6.5 [facility] Comment on above: Performed By: #### C BC #### [facility] [address] [address] [address] Raul Cullen Neutrophils/100 WBC (Bld) 55.8 % Normal 43.0-75.0 [facility] Comment on above: Performed By: #### C BC #### [facility] [address] [address] [address] Raul Cullen Platelet mean volume (Bld) [Entitic vol] 7.9 fL Critically low 9.5-13.5 [facility] Comment on above: Performed By: #### C BC #### [facility] [address] [address] [address] Raul Cullen PLT 501 103/ul Critically high 150-450 [facility] Comment on above: Performed By: #### C BC #### [facility] [address] [address] [address] Raul Cullen RBC 4.10 106/ul Critically low 4.20-5.40 [facility] Comment on above: Performed By: #### C BC #### [facility] [address] [address] [address] Raul Cullen WBC 8.8 103/ul Normal 4.0-11.0 [facility] Comment on above: Performed By: #### C BC #### [facility] [address] [address] [address] Raul Cullen PREG QUANT HCGon 03-08-2021 HCG QUANT <1 Normal [facility] Comment on above: Performed By: #### P REGQNT #### [facility] [address] [place] [address] Dr. Raul Cullen HCG RANGE SEE BELOW Normal [facility] Comment on above: Result Comment: 5-50 0-1 WEEK 40-300 1-2 WEEKS 100-1,000 2-3 WEEKS 500-6,000 3-4 WEEKS 5,000-200,000 1-2 MONTHS 10,000-100,000 2-3 MONTHS 3,000-50,000 2ND TRIMESTER 1,000-50,000 3RD TRIMESTER Performed By: #### P REGQNT #### [facility] [address] [place] [address] Dr. Raul Cullen [facility]17 SARS-CoV-2 (COVID-19) RNA NIDIA+probe Ql (Unsp spec) Not detected Normal NOT DETECTED [facility] Comment on above: Result Comment: This test is not yet approved or cleared by the [place] FDA. When there are no FDA-approved or cleared tests available, and other criteria are met, FDA can make tests available under an emergency access mechanism called an Emergency Use Authorization (EUA). The EUA for this test is supported by the [place] of Health and Human Service's (HHS's) declaration [...] consistent with SARS-CoV-2. Performed By: #### C [facility] #### [facility] [address] [place] [address] Dr. Raul Cullen Vital Signs Date Time Vital Sign Value Performing Clinician Facility 08-19-2024 08:41-0400 Body mass index (BMI) [Ratio] 37.12 kg/m2 William Laquita DO Work Phone: [facility] 08-19-2024 08:41-0400 Body weight 104.33 kg William Laquita DO Work Phone: [facility] 08-19-2024 08:41-0400 Diastolic blood pressure 74 mm[Hg] William Laquita DO Work Phone: [facility] 08-19-2024 08:41-0400 Systolic blood pressure 126 mm[Hg] William Laquita DO Work Phone: [facility] 07-30-2024 16:34-0400 Body height 167.6 cm Mi Hemmer PA Work Phone: [facility] 07-30-2024 16:34-0400 Body mass index (BMI) [Ratio] 37.67 kg/m2 Mi Hemmer PA Work Phone: [facility] 07-30-2024 16:34-0400 Body weight 105.87 kg Mi Hemmer PA Work Phone: [facility] 07-30-2024 16:34-0400 Diastolic blood pressure 82 mm[Hg] Mi Hemmer PA Work Phone: [facility] 07-30-2024 16:34-0400 Heart rate 94 /min Mi Hemmer PA Work Phone: [facility] 07-30-2024 16:34-0400 Respiratory rate 16 /min Mi Hemmer PA Work Phone: [facility] 07-30-2024 16:34-0400 SaO2% (BldA) [Mass fraction] 95 % Mi MONTANO Work Phone: [facility] 07-30-2024 16:34-0400 Systolic blood pressure 124 mm[Hg] Mi MONTANO Work Phone: [facility] 05-21-2024 16:04-0500 Body height 167.6 cm Mina Hernandez MD Work Phone: [facility] 05-21-2024 16:04-0500 Body mass index (BMI) [Ratio] 38.41 kg/m2 Mina Hernandez MD Work Phone: [facility] 05-21-2024 16:04-0500 Body weight 107.96 kg Mina Hernandez MD Work Phone: [facility] 05-21-2024 16:04-0500 Diastolic blood pressure 88 mm[Hg] Mina Hernandez MD Work Phone: [facility] 05-21-2024 16:04-0500 Heart rate 73 /min Mina Hernandez MD Work Phone: [facility] 05-21-2024 16:04-0500 SaO2% (BldA) [Mass fraction] 94 % Mina Hernandez MD Work Phone: [facility] 05-21-2024 16:04-0500 Systolic blood pressure 118 mm[Hg] Mina Hernandez MD Work Phone: [facility] 04-25-2024 15:11-0500 Body height 167.6 cm Mina Hernandez MD Work Phone: [facility] 04-25-2024 15:11-0500 Body mass index (BMI) [Ratio] 38.9 kg/m2 Mina Hernandez MD Work Phone: [facility] 04-25-2024 15:11-0500 Body weight 109.32 kg Mina Hernandez MD Work Phone: [facility] 04-25-2024 15:11-0500 Diastolic blood pressure 88 mm[Hg] Mina Hernandez MD Work Phone: [facility] 04-25-2024 15:11-0500 Heart rate 87 /min Mina Hernandez MD Work Phone: [facility] 04-25-2024 15:11-0500 SaO2% (BldA) [Mass fraction] 98 % Mina Hernandez MD Work Phone: [facility] 04-25-2024 15:11-0500 Systolic blood pressure 128 mm[Hg] Mina Hernandez MD Work Phone: [facility] 04-05-2024 11:55-0500 Diastolic blood pressure 79 mm[Hg] Mina Hernandez MD Work Phone: [facility] 04-05-2024 11:55-0500 Heart rate 78 /min Mina Hernandez MD Work Phone: [facility] 04-05-2024 11:55-0500 Respiratory rate 16 /min Mina Hernandez MD Work Phone: [facility] 04-05-2024 11:55-0500 SaO2% (BldA) [Mass fraction] 97 % Mina Hernandez MD Work Phone: [facility] 04-05-2024 11:55-0500 Systolic blood pressure 123 mm[Hg] Mina Hernandez MD Work Phone: [facility] 04-05-2024 10:13-0500 Body height 162.56 cm Mina Hernandez MD Work Phone: [facility] 04-05-2024 10:13-0500 Body weight 104.77 kg Mina Hernandez MD Work Phone: [facility] 03-19-2024 12:270500 Body height 162.56 cm Mina Hernandez MD Work Phone: [facility] 03-19-2024 12:27-0500 Body mass index (BMI) [Ratio] 40.8 kg/m2 Mina Hernandez MD Work Phone: [facility] 03-19-2024 12:27-0500 Body temperature 97.1 [degF] Mina Hernandez MD Work Phone: [facility] 03-19-2024 12:27-0500 Body weight 108.12 kg Mina Hernandez MD Work Phone: [facility] 03-19-2024 12:27-0500 Diastolic blood pressure 79 mm[Hg] Mina Hernandez MD Work Phone: [facility] 03-19-2024 12:27-0500 Heart rate 74 /min Mina Hernandez MD Work Phone: [facility] 03-19-2024 12:27-0500 Respiratory rate 16 /min Mina Hernandez MD Work Phone: [facility] 03-19-2024 12:27-0500 SaO2% (BldA) [Mass fraction] 97 % Mina Hernandez MD Work Phone: [facility] 03-19-2024 12:27-0500 Systolic blood pressure 131 mm[Hg] Mina Hernandez MD Work Phone: [facility] 03-04-2024 08:59-0500 Body height 162.56 cm Mina Hernandez MD Work Phone: [facility] 03-04-2024 08:59-0500 Body mass index (BMI) [Ratio] 43.2 kg/m2 Mina Hernandez MD Work Phone: [facility] 03-04-2024 08:59-0500 Body weight 114.3 kg Mina Hernandez MD Work Phone: [facility] 03-04-2024 08:59-0500 Diastolic blood pressure 86 mm[Hg] Mina Hernandez MD Work Phone: [facility] 03-04-2024 08:59-0500 Heart rate 99 /min Mina Hernandez MD Work Phone: [facility] 03-04-2024 08:59-0500 Systolic blood pressure 137 mm[Hg] Mina Hernandez MD Work Phone: [facility] 12-11-2023 08:42-0400 Body height 162.56 cm [facility] 12-11-2023 08:42-0400 Body mass index (BMI) [Ratio] 41.7 kg/m2 [facility] 12-11-2023 08:42-0400 Body weight 110.22 kg [facility] 12-11-2023 08:42-0400 Diastolic blood pressure 72 mm[Hg] [facility] 12-11-2023 08:42-0400 Heart rate 68 /min [facility] 12-11-2023 08:42-0400 Systolic blood pressure 148 mm[Hg] [facility] 11-13-2023 14:04-0400 Body height 167.6 cm Mina Hernandez MD Work Phone: [facility] 11-13-2023 14:04-0400 Body mass index (BMI) [Ratio] 38.74 kg/m2 Mina Hernandez MD Work Phone: [facility] 11-13-2023 14:04-0400 Body weight 108.86 kg Mina Hernandez MD Work Phone: [facility] 11-13-2023 14:04-0400 Diastolic blood pressure 88 mm[Hg] Mina Hernandez MD Work Phone: [facility] 11-13-2023 14:04-0400 Heart rate 82 /min Mina Hernandez MD Work Phone: [facility] 11-13-2023 14:04-0400 SaO2% (BldA) [Mass fraction] 96 % Mina Hernandez MD Work Phone: [facility] 11-13-2023 14:04-0400 Systolic blood pressure 122 mm[Hg] Mina Hernandez MD Work Phone: [facility] 11-03-2022 15:27-0400 Diastolic blood pressure 87 mm[Hg] DIANA TEJAS [facility] 11-03-2022 15:27-0400 Heart rate 65 /min DIANA TEJAS [facility] [facility] 11-03-2022 15:27-0400 Systolic blood pressure 142 mm[Hg] DIANA TEJAS [facility] 05-04-2022 14:12-0500 Blood Pressure Location DIANA TEJAS [facility] 05-04-2022 14:12-0500 Diastolic blood pressure 72 mm[Hg] DIANA TEJAS [facility] 05-04-2022 14:12-0500 Heart rate 68 /min DIANA TEJAS [facility] 05-04-2022 14:12-0500 Respiratory rate 16 /min DIANA TEJAS [facility] 05-04-2022 14:12-0500 Systolic blood pressure 134 mm[Hg] DIANA TEJAS [facility] 03-27-2022 10:15-0500 Body height 162.56 cm Ifrah De Leon Other [employer] Other 03-27-2022 10:15-0500 Body mass index (BMI) [Ratio] 36.73 kg/m2 Ifrah De Leon Other [employer] Other 03-27-2022 10:15-0500 Body temperature 98.4 [degF] Ifrah De Leon Other [employer] Other 03-27-2022 10:15-0500 Body weight 97.07 kg Ifrah Haley Other [employer] Other 03-27-2022 10:15-0500 Diastolic blood pressure 86 mm[Hg] Ifrah Haley Other [employer] Other 03-27-2022 10:15-0500 Respiratory rate 16 /min Ifrah Haley Other [employer] Other 03-27-2022 10:15-0500 SaO2% (BldA) [Mass fraction] 97 % Ifrah Haley Other [employer] Other 03-27-2022 10:15-0500 Systolic blood pressure 134 mm[Hg] Ifrah Haley Other [employer] Other 03-07-2022 14:35-0500 Body height 162.56 cm Ifrah Haley Other [employer] Other 03-07-2022 14:35-0500 Body mass index (BMI) [Ratio] 36.39 kg/m2 Ifrah Haley Other [employer] Other 03-07-2022 14:35-0500 Body temperature 98 [degF] Ifrah Haley Other [employer] Other 03-07-2022 14:35-0500 Body weight 96.16 kg Ifrah Haley Other [employer] Other 03-07-2022 14:35-0500 Diastolic blood pressure 79 mm[Hg] Ifrah Haley Other [employer] Other 03-07-2022 14:35-0500 Respiratory rate 16 /min Ifrah De Leon Other [employer] Other 03-07-2022 14:35-0500 SaO2% (BldA) [Mass fraction] 100 % Ifrah De Leon Other [employer] Other 03-07-2022 14:35-0500 Systolic blood pressure 125 mm[Hg] Ifrah De Leon Other [employer] Other 01-20-2022 13:29-0400 Blood Pressure Location DIANA TEJAS [facility] 01-20-2022 13:29-0400 Diastolic blood pressure 67 mm[Hg] DIANA TEJAS [facility] 01-20-2022 13:29-0400 Heart rate 78 /min DIANA TEJAS [facility] 01-20-2022 13:29-0400 Respiratory rate 16 /min DIANA TEJAS [facility] 01-20-2022 13:29-0400 Systolic blood pressure 131 mm[Hg] DIANA TEJAS [facility] 11-04-2021 13:22-0400 Blood Pressure Location DIANA TEJAS [facility] 11-04-2021 13:22-0400 Diastolic blood pressure 89 mm[Hg] DIANA TEJAS [facility] 11-04-2021 13:22-0400 Heart rate 81 /min DIANA TEJAS [facility] 11-04-2021 13:22-0400 Respiratory rate 16 /min DIANA TEJAS [facility] 11-04-2021 13:22-0400 Systolic blood pressure 137 mm[Hg] DIANA TEJAS [facility] 08-17-2021 10:57-0400 Blood Pressure Location DIANAJORGE MASONRY [facility] 08-17-2021 10:57-0400 Diastolic blood pressure 100 mm[Hg] DIANA TEJAS [facility] 08-17-2021 10:57-0400 Heart rate 83 /min DIANA TEJAS [facility] 08-17-2021 10:57-0400 Systolic blood pressure 149 mm[Hg] DIANA TEJAS [facility] Encounters Encounter Date Encounter Type Care Provider Facility Start: 08-19-2024 End: 08-19-2024 Bamboo flowsheet William Laquita DO Work Phone: [facility] Start: 08-19-2024 End: 08-19-2024 Bamboo flowsheet William Laquita DO Work Phone: [facility] Start: 08-19-2024 End: 08-19-2024 Patient encounter procedure William Coelho DO Work Phone: [facility] Start: 08-19-2024 End: 08-19-2024 Periodic preventive med est patient 40-64yrs William Soliso DO Work Phone: [facility] Comment on above: Well woman exam with routine gynecological exam Start: 08-19-2024 End: 08-19-2024 ambulatory WILLIAM SOLISO Not Available Start: 07-30-2024 End: 07-30-2024 Office outpatient visit 15 minutes Mi MONTANO Work Phone: [facility] Comment on above: Bleeding hemorrhoids (Primary Dx); Drug-induced constipation Start: 07-30-2024 End: 07-30-[address] Not Available Start: 07-30-2024 End: 07-30-[address] PA Work Phone: [facility] Start: 07-30-2024 End: 07-30-[address] PA Work Phone: [facility] Start: 05-21-2024 End: 05-21-2024 Office outpatient visit 25 minutes Mina Hernandez MD Work Phone: [facility] Comment on above: Morbid (severe) obes ity due to excess calories (CMS/HCC) (Primary Dx); Frequency of urination Start: 05-21-2024 End: 05-21-2024 ambulatory TIESHAEN M DAVID Not Available Start: 04-25-2024 End: 04-25-2024 Office outpatient visit 25 minutes Mina Hernandez MD Work Phone: [facility] Comment on above: Obesity (BMI 30-39.9 ) (Primary Dx); Encounter for screening mammogram for malignant neoplasm of breast; Family history of diabetes mellitus; Other fatigue Start: 04-25-2024 End: 04-25-2024 ambulatory RUGEN M DAVID Not Available Start: 04-25-2024 End: 04-25-2024 Bamboo flowsheet Mina Hernandez MD Work Phone: [facility] Start: 04-25-2024 End: 04-25-2024 Bamboo flowsheet Mina Hernandez MD Work Phone: [facility] Start: 04-05-2024 Non-patient / Non-visit Mina Hernandez MD Work Phone: [facility] Work Phone: Start: 04-05-2024 End: 04-05-2024 Admission to same day surgery center [facility] Work Phone: Start: 04-05-2024 End: 04-05-2024 ambulatory Mina Hernandez MD Work Phone: [facility] Work Phone: Start: 03-19-2024 End: 03-19-2024 Patient encounter procedure Mina Hernandez MD Work Phone: [facility] [place] Work Phone: Start: 03-05-2024 End: 03-05-2024 Patient encounter procedure Mina Hernandez MD Work Phone: [facility] [place] Work Phone: Start: 03-05-2024 End: 03-05-2024 ambulatory Rugen M [place] Facility:[facility] Start: 03-04-2024 End: 03-04-2024 ambulatory Rugen M [place] Facility:[facility] Start: 03-04-2024 End: 03-04-2024 Patient encounter procedure Mina Hernandez MD Work Phone: [facility] [place] Work Phone: Start: 01-11-2024 Non-patient / Non-visit Mina Hernandez MD Work Phone: [facility] Work Phone: Start: 01-09-2024 End: 01-09-2024 Patient encounter procedure MD Mina Hernandez Work Phone: [facility] Work Phone: Start: 01-09-2024 End: 01-09-2024 ambulatory MD Mina Hernandez Work Phone: [facility] Work Phone: Start: 12-25-2023 End: 12-25-2023 Patient encounter procedure MD Mina Hernandez Work Phone: [facility] [place] Work Phone: Start: 12-25-2023 End: 12-25-2023 ambulatory MD Mina eHrnandez Work Phone: [facility] Work Phone: Start: 12-16-2023 End: 12-16-2023 Patient encounter procedure MD Mina Hernandez Work Phone: [facility] [place] Work Phone: Start: 12-16-2023 End: 12-16-2023 ambulatory MD Mina Hernandez Work Phone: [facility] Work Phone: Start: 12-11-2023 End: 12-11-2023 ambulatory MD Mina Hernandez Work Phone: [facility] Work Phone: Start: 12-11-2023 End: 12-11-2023 Patient encounter procedure [facility] Work Phone: Start: 12-01-2023 Non-patient / Non-visit MD Tiesha Hernandez Work Phone: [facility] Work Phone: Start: 11-21-2023 End: 11-21-2023 Clinisync Result Encounter Mina Hernandez MD Work Phone: [facility] Unsolicited Start: 11-21-2023 End: 11-21-2023 Clinisync Result Encounter Mina Hernandez MD Work Phone: [facility] Unsolicited Start: 11-13-2023 End: 11-13-2023 Bamboo flowsheet Mina Hernandez MD Work Phone: [facility] Start: 11-13-2023 End: 11-13-2023 Bamboo flowsheet Mina Hernandez MD Work Phone: [facility] Start: 11-13-2023 End: 11-13-2023 Office outpatient visit 25 minutes Mina Hernandez MD Work Phone: [facility] Comment on above: Palpitations (Primar y Dx); Uncomplicated severe persistent asthma (CMS/HCC) Start: 11-13-2023 End: 11-13-2023 ambulatory MINA HERNANDEZ Not Available Start: 06-07-2023 End: 06-08-2023 ambulatory DIANA LAZARO Facility:[facility] Start: 06-07-2023 End: 06-07-2023 Patient encounter procedure DIANA LAZARO [facility] Start: 11-03-2022 End: 11-04-2022 ambulatory DIANA LAZARO Facility:[facility] Start: 11-03-2022 End: 11-03-2022 Patient encounter procedure DIANA LAZARO [facility] Start: 10-04-2022 End: 10-05-2022 ambulatory DIANA LAZARO Facility:[facility] Start: 10-03-2022 End: 10-04-2022 ambulatory Mian CHRISTOPHER Facility:[facility] Start: 10-03-2022 End: 10-03-2022 Patient encounter procedure Mian CHRISTOPHER [facility] Start: 05-04-2022 End: 05-04-2022 Lab Drop off DIANA LAZARO [facility] Start: 05-04-2022 End: 05-04-2022 Patient encounter procedure DIANA LAZARO [facility] Start: 03-27-2022 End: 03-27-2022 ambulatory Ifrahjessica De Leon Other [employer] Other Start: 03-27-2022 Office outpatient vi sit 15 minutes Ifrah Haley [facility] [place] Start: 03-07-2022 Office outpatient ne w 30 minutes Ifrah aHley [facility] [place] Start: 03-07-2022 End: 03-07-2022 ambulatory 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 Ifrah Haley Work Phone: [facility] Work Phone: Start: 03-07-2022 End: 03-07-2022 Departed Referred 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 Ifrah Haley Work Phone: [facility] [place] Start: 02-01-2022 End: 02-02-[address] WILLIAM COELHO Facility:[facility] Start: 01-20-2022 End: 01-20-2022 Lab Drop off DIANA LAZARO [facility] Start: 01-20-2022 End: 01-20-2022 Patient encounter procedure DIANA LAZARO [facility] Start: 01-13-2022 End: 01-13-[address] WILLIAM COELHO Facility:[facility] Start: 12-23-2021 End: 12-24-2021 ambulatory MINA HERNANDEZ [facility] Start: 11-04-2021 End: 11-04-2021 Patient encounter procedure IDANA LAZARO [facility] Start: 08-17-2021 End: 08-17-2021 Patient encounter procedure DIANA LAZARO [facility] Start: 08-13-2021 End: 08-14-[address] MINA HERNANDEZ Facility:[facility] Start: 04-26-2021 End: 04-27-[address] WILLIAM COELHO Facility:[facility] Start: 03-19-[address] WILLIAM COELHO Facility :[facility] Start: 03-09-2021 Encounter for preprocedural laboratory examination DR WILLIAM COELHO [facility] Start: 03-08-2021 End: 03-08-[address] WILLIAM COELHO Facility:[facility] Start: 03-04-2021 End: 03-05-[address] WILLIAM COELHO Facility:[facility] Start: 03-04-2021 End: 03-05-2021 Encounter for preprocedural laboratory examination DR WILLIAM COELHO Facility:[facility] Start: 03-01-2021 Encounter for other preprocedural examination DR WILLIAM COELHO [facility] Start: 02-24-2021 End: 02-25-[address] WILLIAM COELHO Facility:[facility] Start: 02-24-2021 End: 02-25-2021 Encounter for other preprocedural examination DR WILLIAM COELHO Facility:[facility] Procedures Date Procedure Procedure Detail Performing Clinician Start: 08-19-2024 Urnls dip stick/tabl et rgnt non-auto w/o micrscp William Coehlo DO Work Phone: Start: 04-05-2024 Colonoscopy Mina Hernandez MD Work Phone: Start: 03-19-2024 Quick Strep (POC) Mina Hernandez MD Work Phone: Start: 01-09-2024 Ultrasound elastogra phy of liver MD Mina Hernandez Work Phone: Start: 12-25-2023 Computed tomography of abdomen and pelvis with contrast MD Mina Hernandez Work Phone: Start: 11-21-2023 ALL CBC WITH AUTO DIFF Mina Hernandez MD Work Phone: Start: 07-27-2023 Microscopic observat ion [Identifier] in Cervix by Cyto stain Mina Hernandez MD Work Phone: Start: 04-28-2023 Mammography Mina Hernandez MD Work Phone: Cholecystectomy DIANA MASON LEAH Colonoscopy DIANA LAZARO Partial hysterectomy SIOBHAN LAZARO Plan of Treatment Date Care Activity Detail Author Start: 01-13-2027 Screening for malign ant neoplasm of cervix [facility] Start: 07-26-2026 Screening for malign ant neoplasm of cervix Pap Smear [facility] Start: 09-03-2024 End: 09-03-2024 Patient encounter procedure 09/03/2024 4:30 PM EDT Office Visit [facility] [address] [place] [address] Mina Hernandez MD [address] [place] [address] [facility] Start: 08-19-2024 End: 08-19-2024 Patient encounter procedure [facility] Comment on above: Arrived Start: 08-15-2024 End: 08-15-2024 Patient encounter procedure 08/15/2024 3:30 PM EDT Office Visit [facility] [address] [place] [address] Mina Hernandez MD [address] [place] [address] [facility] Start: 08-05-2024 End: 08-05-2024 Patient encounter procedure 08/05/2024 8:30 AM EDT Office Visit [facility] [address] [place] [id number] William Coelho DO [address] [place] [address] [facility] Start: 07-30-2024 End: 07-30-2024 Patient encounter procedure 07/30/2024 4:30 PM EDT Office Visit [facility] [address] [place] [address] [place] [address] Arrived [facility] Comment on above: Arrived Start: 04-28-2024 Screening for malign ant neoplasm of breast Mammogram [facility] Start: 04-25-2024 End: 04-25-2024 Patient encounter procedure 04/25/2024 3:00 PM EST Office Visit [facility] [address] [place] [address] Mina Hernandez MD [address] [place] [address] Arrived [facility] Comment on above: Arrived Start: 04-25-2024 End: 06-23-2025 DBT Breast - bilateral screening Bilateral screening mammogram with tomosynthesis Imaging Routine Encounter for screening mammogram for malignant neoplasm of breast Expected: 04/25/2024 (Approximate), Expires: 06/23/2025 [facility] Work Phone: Comment on above: Expected: 04/25/2024 (Approximate), Expires: 06/23/2025 Start: 04-25-2024 End: 04-25-2025 TSH W/REFLEX TO FT4 TSH W/REFLEX TO FT4 Lab Routine Obesity (BMI 30-39.9) Other fatigue Expected: 04/25/2024 (Approximate), Expires: 04/25/2025 [facility] Comment on above: Expected: 04/25/2024 (Approximate), Expires: 04/25/2025 Start: 04-05-2024 [facility] Start: 12-16-2023 [facility] Start: 12-11-2023 [facility] Start: 11-19-2023 Influenza vaccination Influenza Vacc ine (#1) [facility] Start: 11-13-2023 End: 11-12-2025 Cardiac event monitor Cardiac event monitor Cardiac Services Routine Uncomplicated severe persistent asthma (CMS/HCC) Palpitations Expected: 11/13/2023 (Approximate), Expires: 11/12/2025 [facility] Comment on above: Expected: 11/13/2023 (Approximate), Expires: 11/12/2025 Start: 11-13-2023 End: 11-12-2024 CBC panel - Blood by Automated count CBC Lab Routine Palpitations Expected: 11/13/2023 (Approximate), Expires: 11/12/2024 [facility] Work Phone: Comment on above: Expected: 11/13/2023 (Approximate), Expires: 11/12/2024 Start: 11-13-2023 End: 11-12-2024 Comprehensive metabolic 2000 panel - Serum or Plasma Comprehensive metabolic panel Lab Routine Uncomplicated severe persistent asthma (CMS/HCC) Palpitations Expected: 11/13/2023 (Approximate), Expires: 11/12/2024 [facility] Comment on above: Expected: 11/13/2023 (Approximate), Expires: 11/12/2024 Start: 11-13-2023 End: 11-13-2023 Patient encounter procedure 11/13/2023 2:00 PM EDT Office Visit [facility] [address] [facility] [address] [place] [address] Mina Hernandez MD [address] [facility] [address] [place] [address] Arrived [facility] Comment on above: Arrived Bacteria identified in Urine by Culture [facility] Comprehensive metabo lic 2000 panel - Serum or Plasma [facility] CT Abdomen and Pelvi s WO and W contrast IV [facility] Elastase.pancreatic [Mass/mass] in Stool [facility] Elastase.pancreatic [Mass/mass] in Stool [facility] Endomysial antibody IgA level [facility] Gliadin peptide IgA Ab [Units/volume] in Serum [facility] Gliadin peptide IgG Ab [Units/volume] in Serum [facility] HIV 1+2 Ab+HIV1 p24 Ag [Presence] in Serum or Plasma by Immunoassay [facility] IgA [Mass/volume] in Serum or Plasma [facility] Patient Education Hemorrhoids ED Diverticulosis Know your Meds [facility] Work Phone: THIN PREP TIS PAP AN D HR HPV DNA THIN PREP TIS PAP AND HR HPV DNA Pathology and Cytology Routine Well woman exam with routine gynecological exam Ordered: 08/19/2024 [facility] Work Phone: Comment on above: Ordered: 08/19/2024 Tissue transglutamin ase IgA Ab [Units/volume] in Serum [facility] Tissue transglutamin ase IgG Ab [Units/volume] in Serum [facility] Immunizations Immunization Date Immunization Notes Care Provider Fa [facility] 01-26-2024 Seasonal, trivalent, recombinant, injectable influenza vaccine, preservative free Mina Hernandez MD Work Phone: [facility] 01-26-2023 influenza, seasonal, injectable Mina Hernandez MD Work Phone: [facility] 01-26-2023 influenza virus vaccine, unspecified formulation Mina Hernandez MD Work Phone: [facility] 01-20-2022 influenza virus vaccine, unspecified formulation DIANA LAZARO [facility] 01-20-2022 Influenza, injectabl e, Madin Karrie Canine Kidney, preservative free, quadrivalent Mina Hernandez MD Work Phone: [facility] 02-08-2021 SARS-CoV-2 (COVID-19 ) mRNA-1273 vaccine DIANA LAZARO [facility] 01-18-2021 SARS-CoV-2 (COVID-19 ) mRNA-1273 vaccine DIANA TEJAS [facility] 01-14-2021 influenza virus vaccine, unspecified formulation DIANA TEJAS [facility] 01-14-2021 influenza, injectabl e, quadrivalent, contains preservative Mina Hernandez MD Work Phone: [facility] 06-12-2020 SARS-CoV-2 (COVID-19 ) mRNA-1273 vaccine DIANA TEJAS [facility] Comment on above: Result Comment: 2022: [id number] 05-18-2020 SARS-CoV-2 (COVID-19 ) mRNA-1273 vaccine DIANA TEJAS [facility] 05-15-2020 SARS-CoV-2 (COVID-19 ) mRNA-1273 vaccine DIANA TEJAS [facility] Comment on above: Result Comment: 2022: [id number] 04-20-2020 SARS-CoV-2 (COVID-19 ) mRNA-1273 vaccine DIANA TEJAS [facility] 04-15-2019 influenza virus vaccine, unspecified formulation DIANA TEJAS [facility] 04-15-2019 Influenza, injectabl e, Madin Karrie Canine Kidney, preservative free, quadrivalent Mina Hernandez MD Work Phone: [facility] 01-30-2018 influenza virus vaccine, unspecified formulation DIANA TEJAS [facility] 01-30-2018 Influenza, injectabl e, Madin [place] Canine Kidney, preservative free, quadrivalent Mina Hernandez MD Work Phone: [facility] 12-15-2016 influenza virus vaccine, unspecified formulation DIANA LAZARO [facility] 12-15-2016 seasonal influenza, intradermal, preservative free Mina Hernandez MD Work Phone: [facility] 12-06-2016 influenza virus vaccine, unspecified formulation DIANA LAZARO [facility] 12-06-2016 influenza, seasonal, injectable Mina Hernandez MD Work Phone: [facility] 12-28-2015 influenza virus vaccine, unspecified formulation DIANA LAZARO [facility] 12-28-2015 influenza, injectabl e, quadrivalent, contains preservative Mina Hernandez MD Work Phone: [facility] 02-18-2015 influenza virus vaccine, unspecified formulation DIANA LAZARO [facility] 02-18-2015 influenza, seasonal, injectable, preservative free Mina Hernandez MD Work Phone: [facility] Payers Date Payer Category Payer Unknown [id number] 2022 Private Health Insurance [id number] 2022 Unknown [id number] 2022 Unknown [id number] 1980 Unknown [id number] 2.16.84 0.1.769454.3.579.2.593 1980 Unknown [id number] 2.16.84 0.1.318900.3.579.2.593 1980 Unknown [id number] 2.16.84 0.1.095985.3.579.2.593 1980 Unknown [id number] 2.16.84 0.1.894242.3.579.2.593 1980 Unknown [id number] 2.16.84 0.1.762582.3.579.2.593 1980 Unknown [id number] 2.16.84 0.1.725665.3.579.2.593 1980 Unknown [id number] 2.16.84 0.1.240224.3.579.2.593 1980 Unknown [id number] 2.16.84 0.1.008431.3.579.2.593 1980 Unknown [id number] 2.16.8 40.1.828330.3.579.2.727 1980 Unknown [id number] 2.16.8 40.1.393526.3.579.2.727 1980 Unknown [id number] 2.16.8 40.1.674895.3.579.2.727 1980 Unknown [id number] 2.16.8 40.1.103963.3.579.2.727 1980 Unknown [id number] 2.16.8 40.1.469440.3.579.2.727 1980 Unknown [id number] 2.16.84 0.1.817299.3.579.2.1259 1980 Unknown [id number] 2.16.84 0.1.936540.3.579.2.1259 1980 Unknown [id number] 2.16.84 0.1.822592.3.579.2.1259 1980 Unknown [id number] 2.16.84 0.1.215012.3.579.2.1259 1980 Unknown [id number] 2.16.84 0.1.127509.3.579.2.1259 1959 Self-pay 1959 Unknown [id number] Unknown [id number] 2.16.8 40.1.643100.3.579.2.531 Unknown [id number] 2.16.8 40.1.758726.3.579.2.531 Unknown [id number] 2.16.8 40.1.763173.3.579.2.531 Unknown [id number] 2.16.8 40.1.427810.3.579.2.531 Unknown [id number] 2.16.8 40.1.013228.3.579.2.531 Unknown [id number] 2.16.8 40.1.025348.3.579.2.531 Unknown [id number] 2.16.8 40.1.944474.3.579.2.531 Social History Date Type Detail Facility Start: 08-17-2021 End: 04-05-2024 Tobacco smoking status Never smoked tobacco (finding) [facility] Tobacco smoking status Never [facility] Start: 09-05-2022 End: 05-21-2024 Sex Assigned At Female [facility] Start: 1980 Sex Assigned At Female [facility] Start: 09-14-2022 [facility] History of tobacco use Current smoker [facility] History of tobacco use Cigarette Smoker [facility] Start: 09-14-2022 Tobacco use and exposure Smokeless tobacco non-user [facility] Start: 08-07-2023 End: 08-19-2024 Alcoholic beverage intake Ex-drinker (finding) [facility] Start: 09-05-2022 End: 05-21-2024 History of Social function [facility] How often to you hav e a drink containing alcohol? 2-4 times a month [facility] How many standard drinks containing alcohol do you have on a typical day? 1 or 2 [facility] How often do you hav e 6 or more drinks on 1 occasion? Never [facility] Start: 1980 Sex assigned at Not on file [facility] Start: 04-05-2024 Sex Female (finding) [facility] Goals Date Patient Goal Desired Activity /State Functional Status Date Assessment Result Facility 11-03-2022 Functional Status N/A [facility] 05-04-2022 Functional Status N/A [facility] 01-20-2022 Functional Status N/A [facility] 11-04-2021 N/A [facility] Clinical Notes 03-08-2021 to 08-19-2024 Apryl Robertson MA - 08/19/2024 8:40 AM CHARMAINE Lopez - 07/30/2024 4:30 PM Carolyn Hernandez MD - 05/21/2024 4:00 PM Charlotte Hernandez MD - 04/25/2024 3:51 PM EST Note Date & Type Note Facility 08-19-2024 History of Presen t illness Narrative Reason for Appointment: Patient ID: Candice De León is a 44 y.o. female who presents for Gynecologic Exam Patient presents today for Annual Exam. MEDICATIONS Current Outpatient Medications Medication Instructions albuterol HFA 90 mcg/act inhaler 2 puffs, Inhalation, Every 6 hours PRN cyanocobalamin (Vitamin B-12) 100 MCG tablet 1 tablet, Oral, Daily esomeprazole (NexIUM) [address] capsule 1 capsule, Oral, Every 24 hours Zkczuzgjkdw-Vvpiefkkf-Jglqkj (Trelegy Ellipta) 100-62.5-25 MCG/ACT aerosol powder 1 [...] Ambulatory Problems Diagnosis Date Noted Asthmatic bronchitis ([facility]) 09/04/2022 Elevated liver function tests 09/04/2022 Fear of flying ([facility]) 09/04/2022 Iron deficiency anemia 09/04/2022 Loss of taste 09/04/2022 Menorrhagia with regular cycle 09/04/2022 Mixed hyperlipidemia ([facility]) 09/04/2022 Morbid (severe) obesity due to excess calories ([facility]) 09/04/2022 Seasonal allergic rhinitis 09/04/2022 Hx of oral surgery 2010 Uncomplicated severe persistent asthma ([facility]) 07/04/2017 Marital relationship problem 11/24/2022 Adjustment disorder with anxious mood ([facility]) 11/29/2022 Abrasion of skin of left lower leg 12/02/2020 Constipation 12/28/2015 Gastroesophageal reflux disease 01/13/2020 Insomnia 06/21/2019 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[facility]) 12/28/2016 Mild intermittent asthma 05/02/2016 Mild persistent asthma with exacerbation ([facility]) 08/16/2018 Sinusitis 02/06/2018 Diverticulitis of large intestine [...] Date Anemia Asthma Cystitis Emphysema of lung ([facility]) IBS (irritable bowel syndrome) Menorrhagia Pelvic pain Pneumonia due to COVID-19 virus 01/21/2020 Urinary frequency HISTORY PAST MEDICAL HISTORY SOCIAL HISTORY Past Medical History: Diagnosis Date Anemia Asthma Cystitis Emphysema of lung ([facility]) IBS (irritable bowel syndrome) Menorrhagia Pelvic pain [...] nursing note reviewed. Exam conducted with a ticket agent present. Vitals: Estimated body mass index is 37.12 kg/m as calculated from the following: Height as [...] William Coelho DO documented in this encounter [facility] 07-30-2024 History of Presen t illness Narrative Images from the original note were not included. Subjective Patient ID: Candice De León is a 44 y.o. female who presents for hemorrhoids. Candice is present today for evaluation of hemorrhoids. Admits that last week she was walking outside and she knew she had hemorrhoids d/t she could feel them when she wiped and when she was done walking she had blood in her underwear. Then yesterday walked again and had quite a bit of blood in her underwear and there were some clots. She has been using hemorrhoidal wipes, sitz bath. She has been constipated since she has been on the WegoRedKLEVER shots. She did take miralax yesterday. Current Outpatient Medications on File Prior to Visit Medication Sig Dispense Refill albuterol HFA 90 mcg/act inhaler Inhale 2 puffs every 6 (six) hours if needed for wheezing or shortness of breath. 18 g 5 cyanocobalamin (Vitamin B-12) 100 MCG tablet Take 1 tablet by mouth in the morning. esomeprazole (NexIUM) [address] capsule Take 1 capsule by mouth 1 (one) time each day at the same time. Naxouazbetr-Smqkyrcfn-Vhbgvv (Trelegy Ellipta) 100-62.5-25 MCG/ACT aerosol powder Inhale 1 puff 1 (one) time each day at the same time 1 each 11 folic acid (Folvite) 1 MG tablet Take 1 tablet by mouth in the morning. loratadine-pseudoephedrine ER (Claritin-D 12-hour) 5-120 MG 12 hr tablet Take 1 tablet by mouth in the morning and 1 tablet before bedtime. Do not crush, chew, or split. . montelukast (Singulair) 10 MG tablet TAKE 1 TABLET BY MOUTH EVERYDAY AT BEDTIME 90 tablet 1 oxybutynin XL (Ditropan-XL) 10 MG 24 hr tablet TAKE 1 TABLET (10 MG) BY MOUTH DAILY AT THE SAME TIME EACH DAY 90 tablet 1 Semaglutide-Weight Management 0.5 MG/0.5ML solution auto-injector Inject 0.5 mg under the skin 1 (one) time per week 2 mL 0 No current facility-administered medications on file prior to visit. I have reviewed and reconciled the history and medication list with the patient today. No Known Allergies Social History Tobacco Use Smoking status: Former Types: Cigarettes Smokeless tobacco: Never Vaping Use Vaping status: Never Used Substance Use Topics Alcohol use: Not Currently Drug use: Never Family History Problem Relation Name Age of Onset Diabetes Mother Diverticulosis Father Diabetes Maternal Grandmother Hypertension Maternal Grandfather Diabetes Paternal Grandmother Past Medical History: Diagnosis Date Anemia Asthma Cystitis Emphysema of lung (CMS/HCC) IBS (irritable bowel syndrome) Menorrhagia Pelvic pain Pneumonia due to COVID-19 virus 01/21/2020 Urinary frequency Past Surgical History: Procedure Laterality Date CHOLECYSTECTOMY 2006 COLONOSCOPY 01/11/2018 COLONOSCOPY 04/05/2024 Diverticulosis, Internal Hemorrhoids CT ANGIOGRAM HEART CORONARY 01/21/2020 CT ANGIOGRAM TAVR 01/21/2020 ENDOMETRIAL ABLATION 02/2021 and tubal ESOPHAGOGASTRODUODENOSCOPY 01/24/2007 HEMORRHOID SURGERY repair , possibe fissure TONGUE SURGERY 2010 removal left anterior tongue lesion Visit Vitals BP 124/82 Pulse 94 Resp 16 Ht 5' 6 Wt 233 lb 6.4 oz SpO2 95% BMI 37.67 kg/m Smoking Status Former BSA 2.22 m Review of Systems Constitutional: Negative for chills, fatigue and fever. Respiratory: Negative for cough, shortness of breath and wheezing. Cardiovascular: Negative for chest pain, palpitations and leg swelling. Gastrointestinal: Positive for anal bleeding and constipation. Negative for abdominal pain, diarrhea, nausea and vomiting. Skin: Negative for rash. Objective Physical Exam Constitutional: General: She is not in acute distress. Appearance: She is well-developed. She is obese. HENT: Head: Normocephalic and atraumatic. Eyes: General: No scleral icterus. Conjunctiva/sclera: Conjunctivae normal. Cardiovascular: Rate and Rhythm: Normal rate and regular rhythm. Heart sounds: Normal heart sounds. No murmur heard. Pulmonary: Effort: Pulmonary effort is normal. No respiratory distress. Breath sounds: Normal breath sounds. No wheezing, rhonchi or rales. Genitourinary: Rectum: Tenderness and external hemorrhoid present. Skin: General: Skin is warm and dry. Neurological: General: No focal deficit present. Mental Status: She is alert and oriented to person, place, and time. Psychiatric: Mood and Affect: Mood normal. Behavior: Behavior normal. Assessment/Plan Diagnoses and all orders for this visit: Bleeding hemorrhoids Discussed importance of having regular BM's that do not require straining to pass. Discussed treatment options including homeopathic (ie hydrated lubna seeds, smooth move tea, fiber), OTC (stool softeners, miralax), and Rx options for constipation. Can use Sitz baths and witch zari wipes. Encouraged patient to drink plenty of water. Encouraged OTC hemorrhoid cream containing Glycerin, Phenylephrine, Pramoxine, and White Petrolatum. Reviewed how each component can help treat the hemorrhoids. Will also provide pt with prescription Hydrocortisone to use on the area. If no improvement in symptoms over the next 1-2 weeks, can provide patient with a referral for further evaluation and treatment. Drug-induced constipation Advised pt that the Wegovy and the Oxybutynin can both contribute to constipation. Follow up for Appointment As Scheduled. documented in this encounter [facility] 05-21-2024 History of Presen t illness Narrative Images from the original note were not included. Subjective Patient ID: Candice De León is a 44 y.o. female who presents for Weight Check. Pt started weight loss medication on 04/28/24 Starting weight was 241lb Today weight is 238lb Pt has started drinking more water Pt is not to get into the urologist due to work schedule she would like if you could send in a couple of months of Oxybutynin 10mg at night time Poss increase on weight loss medication but will need a [facility]ill on [facility] Current Outpatient Medications on File Prior to Visit Medication Sig Dispense Refill albuterol HFA 90 mcg/act inhaler Inhale 2 puffs every 6 (six) hours if needed for wheezing or shortness of breath. 18 g 5 cyanocobalamin (Vitamin B-12) 100 MCG tablet Take 1 tablet by mouth in the morning. esomeprazole (NexIUM) [address] capsule Take 1 capsule by mouth 1 (one) time each day at the same time. Ywogrxlquxc-Zcnkscajr-Xiedww (Trelegy Ellipta) 100-62.5-25 MCG/ACT aerosol powder Inhale 1 puff 1 (one) time each day at the same time 1 each 11 folic acid (Folvite) 1 MG tablet Take 1 tablet by mouth in the morning. loratadine-pseudoephedrine ER (Claritin-D 12-hour) 5-120 MG 12 hr tablet Take 1 tablet by mouth in the morning and 1 tablet before bedtime. Do not crush, chew, or split. . montelukast (Singulair) 10 MG tablet TAKE 1 TABLET BY MOUTH EVERYDAY AT BEDTIME 90 tablet 1 [DISCONTINUED] oxybutynin XL (Ditropan-XL) 10 MG 24 hr tablet Take 1 tablet by mouth 1 (one) time each day at the same time. [DISCONTINUED] Semaglutide-Weight Management (Wegovy) 0.25 MG/0.5ML solution auto-injector Inject 0.25 mg under the skin 1 (one) time per week 2 mL 0 No current facility-administered medications on file prior to visit. I have reviewed and reconciled the history and medication list with the patient today. No Known Allergies Social History Tobacco Use Smoking status: Former Types: Cigarettes Smokeless tobacco: Never Substance Use Topics Alcohol use: Not Currently Drug use: Never Family History Problem Relation Name Age of Onset Diabetes Mother Diverticulosis Father Diabetes Maternal Grandmother Hypertension Maternal Grandfather Diabetes Paternal Grandmother Past Medical History: Diagnosis Date Anemia Asthma (CMS/HCC) Cystitis Emphysema of lung (CMS/HCC) IBS (irritable bowel syndrome) Menorrhagia Pelvic pain Pneumonia due to COVID-19 virus 01/21/2020 Urinary frequency Past Surgical History: Procedure Laterality Date CHOLECYSTECTOMY 2006 COLONOSCOPY 01/11/2018 COLONOSCOPY 04/05/2024 Diverticulosis, Internal Hemorrhoids CT ANGIOGRAM HEART CORONARY 01/21/2020 CT ANGIOGRAM TAVR 01/21/2020 ENDOMETRIAL ABLATION 02/2021 and tubal ESOPHAGOGASTRODUODENOSCOPY 01/24/2007 HEMORRHOID SURGERY repair , possibe fissure TONGUE SURGERY 2010 removal left anterior tongue lesion Visit Vitals BP 118/88 Pulse 73 Ht 5' 6 Wt 238 lb SpO2 94% BMI 38.41 kg/m Smoking Status Former BSA 2.24 m Review of Systems Gastrointestinal: Positive for constipation and nausea. Objective Physical Exam Constitutional: General: She is not in acute distress. Appearance: Normal appearance. HENT: Head: Normocephalic. Cardiovascular: Rate and Rhythm: Normal rate and regular rhythm. Pulmonary: Effort: Pulmonary effort is normal. No respiratory distress. Breath sounds: Normal breath sounds. Neurological: General: No focal deficit present. Mental Status: She is alert and oriented to person, place, and time. Psychiatric: Mood and Affect: Mood normal. Assessment/Plan Problem List Items Addressed This Visit Morbid (severe) obesity due to excess calories (CMS/HCC) - Primary Relevant Medications Semaglutide-Weight Management 0.5 MG/0.5ML solution auto-injector Other Visit Diagnoses Frequency of urination Relevant Medications oxybutynin XL (Ditropan-XL) 10 MG 24 hr tablet Follow up in about 3 months (around 08/21/2024) for Recheck. documented in this encounter [facility] 04-25-2024 History of Presen t illness Narrative Associated Problem(s): Other fatigue Consider Sleep Apnea test Associated Problem(s): Obesity (BMI 30-39.9) Needs life style modification. Exercise Routinely Low Calorie Diet F/U in 4 weeks 3500 calorie deficit = 1lb weight loss Small portions TIming of meals Reduce Carbohydrate Intake High Protein Diet Images from the original note were not included. Subjective Patient ID: Candice De León is a 44 y.o. female who presents for Weight Loss. Pt is here to discuss sumi loss medication Current Outpatient Medications on File Prior to Visit Medication Sig Dispense Refill albuterol HFA 90 mcg/act inhaler Inhale 2 puffs every 6 (six) hours if needed for wheezing or shortness of breath. 18 g 5 cyanocobalamin (Vitamin B-12) 100 MCG tablet Take 1 tablet by mouth in the morning. esomeprazole (NexIUM) [address] capsule Take 1 capsule by mouth 1 (one) time each day at the same time. Arajeiaxlqq-Vngulotol-Gyouea (Trelegy Ellipta) 100-62.5-25 MCG/ACT aerosol powder Inhale 1 puff 1 (one) time each day at the same time 1 each 11 folic acid (Folvite) 1 MG tablet Take 1 tablet by mouth in the morning. loratadine-pseudoephedrine ER (Claritin-D 12-hour) 5-120 MG 12 hr tablet Take 1 tablet by mouth in the morning and 1 tablet before bedtime. Do not crush, chew, or split. . montelukast (Singulair) 10 MG tablet TAKE 1 TABLET BY MOUTH EVERYDAY AT BEDTIME 90 tablet 1 oxybutynin XL (Ditropan-XL) 10 MG 24 hr tablet Take 1 tablet by mouth 1 (one) time each day at the same time. No current facility-administered medications on file prior to visit. I have reviewed and reconciled the history and medication list with the patient today. No Known Allergies Social History Tobacco Use Smoking status: Former Types: Cigarettes Smokeless tobacco: Never Substance Use Topics Alcohol use: Not Currently Drug use: Never Family History Problem Relation Name Age of Onset Diabetes Mother Diverticulosis Father Diabetes Maternal Grandmother Hypertension Maternal Grandfather Diabetes Paternal Grandmother Past Medical History: Diagnosis Date Anemia Asthma (CMS/HCC) Cystitis Emphysema of lung (CMS/HCC) IBS (irritable bowel syndrome) Menorrhagia Pelvic pain Pneumonia due to COVID-19 virus 01/21/2020 Urinary frequency Past Surgical History: Procedure Laterality Date CHOLECYSTECTOMY 2006 COLONOSCOPY 01/11/2018 COLONOSCOPY 04/05/2024 Diverticulosis, Internal Hemorrhoids CT ANGIOGRAM HEART CORONARY 01/21/2020 CT ANGIOGRAM TAVR 01/21/2020 ENDOMETRIAL ABLATION 02/2021 and tubal ESOPHAGOGASTRODUODENOSCOPY 01/24/2007 HEMORRHOID SURGERY repair , possibe fissure TONGUE SURGERY 2011 removal left anterior tongue lesion Visit Vitals BP 128/88 Pulse 87 Ht 5' 6 Wt 241 lb SpO2 98% BMI 38.90 kg/m Smoking Status Former BSA 2.25 m Review of Systems Constitutional: Negative for chills and fever. Objective Physical Exam Constitutional: Appearance: Normal appearance. Cardiovascular: Rate and Rhythm: Normal rate and regular rhythm. Neurological: Mental Status: She is alert. Psychiatric: Mood and Affect: Mood normal. Behavior: Behavior normal. Assessment/Plan Problem List Items Addressed This Visit Obesity (BMI 30-39.9) - Primary Needs life style modification. Exercise Routinely Low Calorie Diet F/U in 4 weeks 3500 calorie deficit = 1lb weight loss Small portions TIming of meals Reduce Carbohydrate Intake High Protein Diet Relevant Medications Semaglutide-Weight Management (Wegovy) 0.25 MG/0.5ML solution auto-injector Other Relevant Orders TSH W/REFLEX TO FT4 Family history of diabetes mellitus Relevant Medications Semaglutide-Weight Management (Wegovy) 0.25 MG/0.5ML solution auto-injector Other fatigue Consider Sleep Apnea test Relevant Orders TSH W/REFLEX TO FT4 Other Visit Diagnoses Encounter for screening mammogram for malignant neoplasm of breast Relevant Orders Bilateral screening mammogram with tomosynthesis No follow-ups on file. documented in this encounter [facility] 04-05-[address] [facility] 04-05-[address] [facility] 03-04-2024 Evaluation note Authored March 04, 2024 9:40am 43-year-old female referred to the GI clinic for evaluation of colitis. Patient history of chronic constipation for years. In 06/2023 patient started to have diarrhea. She currently reports 4-6 loose/watery bowel movements a day. +pain in the left upper abdomen which usually resolves after having a bowel movement. CT abdomen/pelvis on 12/25/23 showed hepatic steatosis otherwise it was unremarkable. CRP is 2.6 however fecal calprotectin is normal, TSH celiac panel fecal elastase HIV and stool C. difficile were unremarkable FibroScan on 01/16/2024 showed LSM 5.8 consistent with no significant fibrosis and CAP 349 consistent with steatosis grade S3 Liver enzymes are elevated - Will get laboratory workup for infectious autoimmune or metabolic etiologies of liver diseases. - Will get stool culture and ova/parasite - Will arrange for a colonoscopy [facility] Work Phone: [phone]) 335-554409-23-2024 Evaluation note* Author [facility] Authored December 11, 2023 9:13am 43-year-old female referred to the GI clinic for evaluation of colitis. Patient history of chronic constipation for years. In 06/2023 patient started to have diarrhea. She currently reports 4-6 loose/watery bowel movements a day. +pain in the left upper abdomen which usually resolves after having a bowel movement. Patient had a CT/2023 follow-up PCP and she was prescribed antibiotics(unclear if it was for diverticulitis or colitis). Symptoms did not improve with antibiotics -Will arrange for CT abdomen/pelvis - Will get Labs including CBC with diff, TSH, ESR, CRP, fecal calprotectin HIV ab, Celiac panel, fecal elastase and stool infectious workup -Will arrange for colonoscopy [facility] Work Phone: [phone]) 288-303308-26-2024 History of Present illness Narrative* Mina Hernandez MD - 11/13/2023 2:12 PM EDTAssociated Problem(s): Palpitations Avoid Caffeine Check Holter/Event Monitor Discussed with patient sxs and sxs of IN D/W patient Valsava Maneuver and Cold * Mina Hernandez MD - 11/13/2023 2:00 PM EDT Images from the original note were not included. Subjective Patient ID: Candice De León is a 43 y.o. female who presents for Heart Problem. Pt had a pounding headache on her way to work Monday morning, her watch stated her heart rate was too high, then Monday the same thing stated her HR was 130 she did take her BP it was 101/79 then on monday she took it again it was 112/78 Pt states she really does not drink a lot of water. Pt stated she has not felt that way today Was driving to work on Monday And then [place] No vaping Did have Coke Heart Problem This is a new problem. The current episode started in the past 7 days. The problem occurs intermittently. Pertinent negatives include no chest pain. Nothing aggravates the symptoms. She has tried nothing for the symptoms. The treatment provided moderate relief. Current Outpatient Medications on File Prior to Visit Medication Sig Dispense Refill albuterol HFA 90 mcg/act inhaler Inhale 2 puffs every 6 (six) hours if needed for wheezing or shortness of breath. 18 g 5 cyanocobalamin (Vitamin B-12) 100 MCG tablet Take 1 tablet by mouth in the morning. esomeprazole (NexIUM) [address] capsule Take 1 capsule by mouth 1 (one) time each day at the same time. folic acid (Folvite) 1 MG tablet Take 1 tablet by mouth in the morning. loratadine-pseudoephedrine ER (Claritin-D 12-hour) 5-120 MG 12 hr tablet Take 1 tablet by mouth in the morning and 1 tablet before bedtime. Do not crush, chew, or split. . montelukast (Singulair) 10 MG tablet Take 1 tablet (10 mg) by mouth at bedtime 100 tablet 3 oxybutynin XL (Ditropan-XL) 10 MG 24 hr tablet Take 1 tablet by mouth 1 (one) time each day at the same time. [DISCONTINUED] Bcxjjqjfwdz-Dbmxxbajj-Wgzixc (Trelegy Ellipta) 100-62.5-25 MCG/ACT aerosol powder Inhale 1 puff 1 (one) time each day at the same time 1 each 11 No current facility-administered medications on file prior to visit. No Known Allergies Social History Tobacco Use Smoking status: Former Types: Cigarettes Smokeless tobacco: Never Substance Use Topics Alcohol use: Not Currently Drug use: Never Family History Problem Relation Name Age of Onset Diabetes Mother Diverticulosis Father Diabetes Maternal Grandmother Hypertension Maternal Grandfather Diabetes Paternal Grandmother Past Medical History: Diagnosis Date Anemia Asthma (CMS/HCC) Cystitis Emphysema of lung (CMS/HCC) IBS (irritable bowel syndrome) Menorrhagia Pelvic pain Pneumonia due to COVID-19 virus 01/21/2020 Urinary frequency Past Surgical History: Procedure Laterality Date CHOLECYSTECTOMY 2006 COLONOSCOPY 01/11/2018 CT ANGIOGRAM HEART CORONARY 01/21/2020 CT ANGIOGRAM TAVR 01/21/2020 ENDOMETRIAL ABLATION 02/2021 and tubal ESOPHAGOGASTRODUODENOSCOPY 01/24/2007 HEMORRHOID SURGERY repair , possibe fissure TONGUE SURGERY 2010 removal left anterior tongue lesion Visit Vitals BP 122/88 Pulse 82 Ht 5' 6 Wt 240 lb SpO2 96% BMI 38.74 kg/m Smoking Status Former BSA 2.25 m Review of Systems Cardiovascular: Negative for chest pain. Gastrointestinal: Negative for anal bleeding and blood in stool. Objective Physical Exam Constitutional: General: She is not in acute distress. Appearance: Normal appearance. She is obese. HENT: Head: Normocephalic. Cardiovascular: Rate and Rhythm: Normal rate and regular rhythm. Pulmonary: Effort: Pulmonary effort is normal. No respiratory distress. Breath sounds: Normal breath sounds. Neurological: General: No focal deficit present. Mental Status: She is alert and oriented to person, place, and time. Psychiatric: Mood and Affect: Mood normal. Assessment/Plan Problem List Items Addressed This Visit Uncomplicated severe persistent asthma (CMS/HCC) Relevant Medications Smfsooilcwc-Xgzwloszn-Gsfrpf (Trelegy Ellipta) 100-62.5-25 MCG/ACT aerosol powder Other Relevant Orders Comprehensive metabolic panel Cardiac event monitor Palpitations - Primary Avoid Caffeine Check Holter/Event Monitor Discussed with patient sxs and sxs of IN D/W patient Valsava Maneuver and Cold Relevant Orders CBC Comprehensive metabolic panel Cardiac event monitor No follow-ups on file. [id number] Hospital Discharge instructions Patient Education 11/03/2022 16:03:08 Urinary Tract Infection, Adult, Brtm-cn-Xruo Urinary Tract Infection, Adult A urinary tract infection (UTI) is an infection of any part of the urinary tract. The urinary tractincludes: The kidneys. The ureters. The bladder. The [...] Follow these instructions at home: Medicines Take bakt-mkc-yskrzeh and prescription medicines only as told by [...] a female. Use each tissue one time whenyou wipe. Drink enough fluid to keep your [...] provider. Document Revised: 10/16/2020 Document Reviewed: 10/16/2020 Evi Patient Education 2022 [employer] Follow Up Care 11/04/2021 13:30:04 With:DIANA LAZARO PA-C, URL Address: [address] [place] [address] [facility] [place] [address] When: Unknown Comments:JOY [facility] 02-15-2023 Hospital Discharge instructions Patient Education 05/04/2022 12:39:32 Overactive Bladder, [...] fried and sweet foods. General instructions Take ckau-qub-fmvdtvc and prescription medicines only as told by [...] 12/31/2009 Document Revised: 06/27/2019 Document Reviewed: 03/22/2018 Evi Patient Education 2019 [employer] Follow Up Care 05/03/2022 13:11:10 With:DIANA LAZARO PA-C, URL Address: [address] [place] [address] When: Unknown [facility] 01-08-2023 Evaluation note* Encounter Date Diagnosis Assessment Notes Treatment Notes Treatment Clinical Notes Mar, Paronychia of finger of right [...] no improvement in 2 to 3 days. [facility] Other 12-19-2022 Evaluation note* Encounter Date Diagnosis Assessment Notes Treatment Notes Treatment Clinical Notes Feb, Dysuria (ICD-10 - R30.0) Dysuria: adult home care material was printed Drink plenty fluids, get plenty of rest. Stop the Bactrim antibiotic. Take the Macrobid and Pyridium as prescribed until gone. Follow-up with your family physician if no improvement in 2 to 3 days. [facility] Other 11-03-2022 Hospital Discharge instructions Patient Education [...] 02/20/2013 Document Revised: 10/24/2018 Document Reviewed: 10/24/2018 Evi Patient Education 2020 [employer]. Follow Up Care 01/20/2022 10:45:04 With:TEJAS ZUNIGA, DIANA Aleman, URL Address: [address] [place] [address] When: Unknown [facility] 08-18-2022 Hospital Discharge instructions Patient [...] fried and sweet foods. General instructions Take kkng-hfn-czdpelo and prescription medicines only as told by [...] 12/31/2009 Document Revised: 06/27/2019 Document Reviewed: 03/22/2018 Evi Patient Education 2020 [employer] Follow Up Care 08/17/2021 11:39:26 With:TEJAS ZUNIGA, DIANA Aleman, URL Address: [address] [place] [address] When:1 year [facility] 05-31-2022 Hospital Discharge instructions Patient [...] fried and sweet foods. General instructions Take eydo-cay-arrwzcg and prescription medicines only as told by [...] 12/31/2009 Document Revised: 06/27/2019 Document Reviewed: 03/22/2018 Evi Patient Education 2020 [employer]. [facility] 12-20-2021 [place]The [place], [place] NAME: CANDICE DE LEÓN DATE OF : MEDICAL REC#: [id number] OBSERVATORY DIRECTOR: [id number] ADMIT DATE: 03/08/2021 09:26:00 DATA PROCESSING MECHANIC DATE: 03/08/2021 11:00 DICTATING PHYSICIAN: WILLIAM COELHO DICTATION DATE: 03/08/2021 11:00 OPERATIVE NOTE OPERATION DATE: 03-08-21 ANESTHETIC:General. SUPERVISOR CALIBRATION: BARBARA Darby PREOPERATIVE DIAGNOSIS: 1. Menorrhagia. 2. [...] correct x2. Electronically Authenticated and Edited by: William Coelho DO on 03/08/2021 12:16 PM EST [facility] Signed and Approved by: DR WILLIAM COELHO . 03/08/20[facility] App[facility]ments Appointment Date:10/14/2021 08:30:00 AM Scheduled Provider:DIANA LAZARO PA-C Location:[facility] Appointment Type:URO Office Visit [facility] Evaluation + Plan note Future Appointments Appointment Date:11/03/2022 01:00:00 PM Scheduled Provider:DIANA LAZARO PA-C Location:[facility] Appointment Type:URO Office Visit [facility] evaluation + Plan note Future Appointments Appointment Date:11/03/2022 01:00:00 PM Scheduled Provider:DIANA LAZARO PA-C Location:[facility] Appointment Type:URO Office Visit Diagnostic Tests Pending * [facility] Appointment Date:11/03/2022 01:00:00 PM Scheduled Provider:DIANA LAZARO PA-C Location:[facility] Appointment Type:URO Office Visit Diagnostic Tests Pending * [facility]rine [facility]ments Appointment Date:11/03/2022 03:15:00 PM Scheduled Provider:DIANA LAZARO PA-C Location:[facility] Appointment Type:URO Office Visit [facility] evaluation noteNo assessment information available [facility] Work Phone: evaluation note* Diagnosis Onset Date Resolution Status Abdominal pain acute Colitis acute Diarrhea acute [facility] Work Phone: Evaluation note* Diagnosis Palpitations- Primary Uncomplicated severe persistent asthma (CMS/HCC) documented in this encounter [facility]* Diagnosis Diverticulitis of large intestine with perforation and abscess without bleeding- Primary Morbid (severe) obesity due to excess calories (E66.01) Elevated blood pressure reading in office without diagnosis of hypertension Other chest pain Colitis- Primary Other and unspecified noninfectious gastroenteritis and colitis Elevated blood pressure reading in office without diagnosis of hypertension Morbid (severe) obesity due to excess calories (CMS/HCC) Palpitations- Primary Uncomplicated severe persistent asthma (CMS/HCC) Obesity (BMI 30-39.9)- Primary Encounter for screening mammogram for malignant neoplasm of breast Family history of diabetes mellitus Other fatigue documented in this encounter [facility] HealthcareEvaluation note* Diagnosis Diverticulitis of large intestine with perforation and abscess without bleeding- Primary Morbid (severe) obesity due to excess calories (E66.01) Elevated blood pressure reading in office without diagnosis of hypertension Other chest pain Colitis- Primary Other and unspecified noninfectious gastroenteritis and colitis Elevated blood pressure reading in office without diagnosis of hypertension Morbid (severe) obesity due to excess calories (CMS/HCC) Palpitations- Primary Uncomplicated severe persistent asthma (CMS/HCC) Obesity (BMI 30-39.9)- Primary Encounter for screening mammogram for malignant neoplasm of breast Family history of diabetes mellitus Other fatigue Morbid (severe) obesity due to excess calories (CMS/HCC)- Primary Frequency of urination Urinary frequency documented in this encounter [facility] HealthcareEvaluation note* Diagnosis Diverticulitis of large intestine with perforation and abscess without bleeding- Primary Morbid (severe) obesity due to excess calories (E66.01) Elevated blood pressure reading in office without diagnosis of hypertension Other chest pain Colitis- Primary Other and unspecified noninfectious gastroenteritis and colitis Elevated blood pressure reading in office without diagnosis of hypertension Morbid (severe) obesity due to excess calories (CMS/HCC) Palpitations- Primary Uncomplicated severe persistent asthma (CMS/HCC) Obesity (BMI 30-39.9)- Primary Encounter for screening mammogram for malignant neoplasm of breast Family history of diabetes mellitus Other fatigue Bleeding hemorrhoids- Primary Unspecified hemorrhoids with other complication Drug-induced constipation Other constipation documented in this encounter [facility] HealthcareEvaluation note* Diagnosis Diverticulitis of large intestine with perforation and abscess without bleeding- Primary Morbid (severe) obesity due to excess calories (E66.01) Elevated blood pressure reading in office without diagnosis of hypertension Other chest pain Colitis- Primary Other and unspecified noninfectious gastroenteritis and colitis Elevated blood pressure reading in office without diagnosis of hypertension Morbid (severe) obesity due to excess calories (CMS/HCC) Palpitations- Primary Uncomplicated severe persistent asthma (CMS/HCC) Obesity (BMI 30-39.9)- Primary Encounter for screening mammogram for malignant neoplasm of breast Family history of diabetes mellitus Other fatigue Well woman exam with routine gynecological exam Routine gynecological examination documented in this encounter [facility] Author Padma Torres [facility] Note Date/Time April 05, 2024 1 1:02am [facility] [address] [place] [address] Gastroenterology H&P Signed Patient: Candice De León MR#: [id number] : 1980 Acct:[id number] Age/Sex: 44 / F Adm Date: 5 Loc: Room: Type: [facility] Attending Dr: Padma Torres MD Copies to: MD Mina Roman MD~ Date of Service: 04/05/2024 HISTORY & PHYSICAL: Patient's history with special attention to the cardiovascular, pulmonary systems and the current problem was reviewed with the patient immediately prior to the procedure. Present medications and doses reviewed in the EMR. Allergies and pertinent laboratory tests were also reviewedat this time in the EMR. The physical examination, as below, was then performed. Indication, assessment and HPI: 44-year-old female here for colonoscopy for evaluation of diarrhea Family history of GI malignancy? No PHYSICAL EXAMINATION General appearance: NAD Skin: No jaundice Head: NC/AT Eyes: Anicteric Neck: Supple Lungs: Normal respiratory effort, no use of accessory muscles Abdomen: nondistended Neuro: Ox3. REVIEW OF SYSTEMS Constitutional: Denies malaise, fevers Cardiovascular: Denies chest pain, palpitations Respiratory: Denies shortness of breath, wheezing Gastrointestinal: As per HPI Genitourinary: Denies dysuria, polyuria Musculoskeletal: Denies joint swelling, joint stiffness Neurological: Denies confusion, numbness, tingling Endocrine: Denies fatigue Written informed consent obtained from the patient. Risks (including but not limited to perforation, infection, bloating, bleeding, need for emergent surgeryand loss of life), benefits and alternatives explained and questions answered. The patient verbalized understanding. Based on history patient is an appropriate candidate for the procedure. Padma Torres M.D. Documented By: Padma Torres MD 04/05/24 1101 Signed By: <Electronically signed by Padma Torres MD> 04/05/24 1102 [facility] Work Phone: Hisrihr general Narrative - Reported* Type Description Date Medical History asthma Surgical History cholecystectomy Surgical History ablasion Surgical History salpingectomy Hospitalization History see above [facility] Other Hospital course Narrative No data available for this section [facility] Hospital Discharge instructions No data available for this section [facility] No data available for this section [facility] Summary Purpose Family History No Family History Records Found Relationship Condition Age at Onset Recorded Date/T keny mother Diabetes mellitus Unknown grandparent Heart disease Unknown Relationship Condition Age at Onset Recorded Date/T keny mother Diabetes mellitus Unknown grandparent Heart disease Unknown Advance Directives No Advanced Directives Records Found Advance Directive Response Recorded Date/ Time Advance Directives No August 17 2 3:50pm Advance Directive Response Recorded Date/ Time Advance Directives No August 17 2 4:50pm Chief Complaint and Reason for Visit Chief Complaint Dysuria Chief Complaint Referred by archie Hernandez for colitis Reason for Visit Abdominal pain Colitis Diarrhea Chief Complaint Referred by archie Hernandez for colitis R10.9 K52.9 R19.7 Reason for Visit Abdominal pain Colitis Diarrhea Chief Complaint Referred by archie Hernandez nsult for colitis R10.9 K52.9 R19.7 r10.9 k52.9 r19.7 Reason for Visit Abdominal pain Colitis Diarrhea Chief Complaint Referred by archie Hernandezult for colitis R10.9 K52.9 R19.7 r10.9 k52.9 r19.7 K52.9 Reason for Visit Abdominal pain Colitis Diarrhea Chief Complaint Referred by archie Hernandezult for colitis R10.9 K52.9 R19.7 r10.9 k52.9 r19.7 K52.9 fatty liver Reason for Visit Abdominal pain Colitis Diarrhea Chief Complaint Admit Date fatty liver January 09, 2024 1 :02pm fatty liver January 11, 2024 1 :02pm 3 month follow up/Stool tests/blood work /CT March 04, 2024 8:57am r79.89 r10.9 r19.7 r74.8 k76.0 March 04, 2024 9:41am R19.7 - Diarrhea, unspecified February 172023 8:11am cough, chest congestion March 19, 2 024 11:51am abd pain/diarrhea April 05, 2024 8 :45am abd pain/diarrhea April 05, 2024 1 1:01am Reason for Visit Admit Date Abdominal pain March 04, 2024 8:57am Diarrhea March 04, 2024 8:57am Elevated liver enzymes March 04 8:57am Hepatic steatosis March 04, 2024 8:57am Bronchitis March 19, 2024 11:51am Viral URI with cough March 19, 2024 11:51am Reason for Referral Specialty Diagnoses / Procedures Referred By Contac t Referred To Contact Cardiology Diagnoses Uncomplicated severe persistent asthma (CMS/HCC) Palpitations Procedures Cardiac event monitor Mina Hernandez MD [address] [place] [address] Referral ID Status Reason Start Date Expiration Date V isits Requested Visits Authorized [id number] Pending Review 11/13/2023 05/11/2024 1 1 Additional Source Comments INFORMATION SOURCE (unrecogn ized section and content) DATE CREATED AUTHOR 07/18/2021 [facility] DATE CREATED AUTHOR AUTHOR'S ORGANIZ ATION 02/23/2022 [facility] DATE CREATED AUTHOR AUTHOR'S ORGANIZ ATION 06/25/2022 [facility] DATE CREATED AUTHOR AUTHOR'S ORGANIZ ATION 06/08/2023 [facility] DATE CREATED AUTHOR AUTHOR'S ORGANIZ ATION 04/17/2024 [facility] DATE CREATED AUTHOR AUTHOR'S ORGANIZ ATION 04/29/2024 [facility] DATE CREATED AUTHOR AUTHOR'S ORGANIZ ATION 08/19/2024 [facility] EPIC Care Team (unrecognized sect ion and content) Team Status: Active Member Role Status Hernan Hernandez MD Primary Care Provider Active Team Status: Inactive Member Role Status Hernan Hernandez MD Primary Care Provider Active S tart: January 09, 2024 End: January 09, 2024 Padma Torres MD Attending Provider Active Start: January 09, 2024 End: January 09, 2024 Team Status: Active Member Role Status Hernan Hernandez MD Primary Care Provider Active S tart: January 11, 2024 Padma Torres MD Attending Provider, Other Provider Active Start: January 11, 2024 Team Status: Inactive Member Role Status Hernan Hernandez MD Primary Care Provider Active S tart: March 04, 2024 End: March 04, 2024 Padma Torres MD Attending Provider Active Start: March 04, 2024 End: March 04, 2024 Team Status: Inactive Member Role Status Hernan Hernandez MD Primary Care Provider Active S tart: March 05, 2024 End: March 05, 2024 Padma Torres MD Attending Provider Active Start: March 05, 2024 End: March 05, 2024 Team Status: Inactive Member Role Status Hernan Hernandez MD Primary Care Provider Active S tart: March 19, 2024 End: March 19, 2024 Kari Denis APRN Attending Provider Active S tart: March 19, 2024 End: March 19, 2024 Team Status: Inactive Member Role Status Hernan Hernandez MD Primary Care Provider Active S tart: April 05, 2024 End: April 05, 2024 Padma Torres MD Attending Provider Active Start: April 05, 2024 End: April 05, 2024 Team Status: Active Member Role Status Hernan Hernandez MD Primary Care Provider Active S tart: April 05, 2024 Padma Torres MD Attending Provider, Other Provider Active Start: April 05, 2024 Team Status: Active Member Role Status Hernan Hernandez MD Primary Care Provider Active S tart: December 01, 2023 Dane Leblanc DO Attending Provider Active Sta rt: December 01, 2023 Team Status: Inactive Member Role Status Dates Mina Hernandez MD Primary Care Provider Active S tart: December 11, 2023 End: December 11, 2023 Padma Torres MD Attending Provider Active Start: December 11, 2023 End: December 11, 2023 Team Status: Inactive Member Role Status Dates Mina Hernandez MD Primary Care Provider Active S tart: December 16, 2023 End: December 16, 2023 Padma Torres MD Attending Provider Active Start: December 16, 2023 End: December 16, 2023 Team Status: Inactive Member Role Status Dates Mina Hernandez MD Primary Care Provider Active S tart: December 25, 2023 End: December 25, 2023 Padma Torres MD Attending Provider Active Start: December 25, 2023 End: December 25, 2023 Team Status: Inactive Member Role Status Dates MICHELLE RiveraC Attending Provider Active Certified Dietary Manager Relationship Specialty Start Date End Date Mina Hernandez MD [address] [facility] [address] [place] [address] PCP - General Family Medicine 09/05/22 Certified Dietary Manager Relationship Specialty Start Date End Date Mina Hernandez MD [address] [facility] [address] [place] [address] PCP - General Family Medicine 09/05/22 Certified Dietary Manager Relationship Specialty Start Date End Date Mina Hernandez MD [address] [facility] [address] [place] [address] PCP - General Family Medicine 09/05/22 Certified Dietary Manager Relationship Specialty Start Date End Date Mina Hernandez MD [address] [facility] [address] [place] [address] PCP - General Family Medicine 09/05/22 Certified Dietary Manager Relationship Specialty Start Date End Date Mina Hernandez MD [address] [facility] [address] [place] [address] PCP - General Family Medicine 09/05/22 Certified Dietary Manager Relationship Specialty Start Date End Date Mina Hernandez MD [address] [facility] [address] [place] [address] PCP - General Family Medicine 09/05/22 Certified Dietary Manager Relationship Specialty Start Date End Date Mina Hernandez MD [address] [facility] [address] [place] [address] PCP - General Family Medicine 09/05/22 Certified Dietary Manager Relationship Specialty Start Date End Date Mina Hernandez MD [address] [facility] [address] [place] [address] PCP - General Family Medicine 09/05/22 Certified Dietary Manager Relationship Specialty Start Date End Date Mina Hernandez MD [address] [facility] [address] [place] [address] PCP - General Family Medicine 09/05/22 Goals (unrecognized section and content) Goals may be documented in a n alternate section REASON FOR VISIT (unrecogniz ed section and content) Reason Comments Heart Problem Reason Comments Weight Loss Reason Comments Weight Check Reason Comments Gynecologic Exam FOR RECORDS PERTAINING TO PATIENTS WHO ARE [...] BE BASED ON THE PRIMARY CLINICAL RECORDS. [facility]. provides no warranty or guarantee of the accuracy or completeness of information in this document.
[2024-08-22 14:10] LABS: Age Gdln ACOG Testing Note (.); HPV Aptima Negative (Negative); IGP, Aptima HPV, rfx 16/18,45 Note (.)
== END 2024-08-19 15:18 | disposition home or self-care (01) ==
LOC: LAB 15:17
PROVIDERS: PCP Family Medicine; Visit Provider Obstetrics & Gynecology
DX: Z01.419 Encounter for gynecological examination (general) (routine) without abnormal findings (principal)
CPT/HCPCS: 87624; 88175

== ENCOUNTER 2024-09-13 07:26 | Outpatient (OUT) | payer OTHER, SELFPAY ==
--- OUTSIDE RECORDS SUMMARY | 2024-09-03 16:30 | XMS_ITS | Encounter Summary ---
Author Organization [facility] Address [address] [place] [address] Care Team Providers Care Nail Specialist Name Role Phone Brian Meraz MD Primary Care Provider [phone] Reason for Visit * Reason Comments Weight Check Encounter Details Date Type Department Care Team (Late st Contact Info) Description 09/03/2024 4:30 PM EDT Office Visit [facility] 112 [facility] 110 [place] [id number] Brian Meraz MD 112 [facility] 110 [place] [address] Morbid (severe) obesity due to excess calories (CMS-HCC) (Primary Dx); Mild persistent asthma with exacerbation (HCC); ETD (Eustachian tube dysfunction), right Social History Tobacco Use Types Packs/Day Years [...] Date Recorded Patient Health Questionnaire-2 Score 0 09/03/2024 Comments No Sex and Gender Information Value Date Recorded Sex Assigned at Not on file Legal Sex Female 7:05 PM EDT Gender Identity Not on file Sexual Orientation Not on file documented as of this encounter Last Filed Vital Signs Vital Sign Reading Time Taken Comments Blood Pressure 118/84 09/03/2024 4:33 PM EDT Pulse 88 09/03/2024 4:33 PM EDT Temperature - - Respiratory Rate - - Oxygen Saturation 96% 09/03/2024 4:33 PM EDT Inhaled Oxygen Concentration - - Weight 104 kg (230 lb) 09/03/2024 4:33 PM EDT Height 167.6 cm (5' 6 ) 09/03/2024 4:33 PM EDT Body Mass Index 37.12 09/03/2024 4:33 PM EDT documented in this encounter Functional Status * Over the past 2 weeks, how often have you been bothered by any of the following problems? Question Answer Date of Assessment Author Little interest or pleasure in doing things Not at all 09/03/2024 11:18 AM EDT Dulce Maria Lopez MA Feeling down, depressed, or hopeless Not at all 09/03/2024 11:18 AM EDT Dulce Maria Lopez MA Patient Health Questionnaire -2 Score 0 09/03/2024 11:18 AM EDT Dulce Maria Lopez MA documented as of this encounter Progress Notes * Brian Meraz MD - 09/03/2024 4:45 PM EDTAssociated Problem(s): Mild persistent asthma with exacerbation (HCC) Finish ATBx PRN albuterol in AM as needed Lungs were clear * Brian Meraz MD - 09/03/2024 4:45 PM EDTAssociated Problem(s): Morbid (severe) obesity due to excess calories ([facility]-HCC) Had good weight loss of 11 lbs Dose increased Watch for nausea Needs life style modification. Exercise Routinely Low Calorie Diet F/U in 3 months 3500 calorie deficit = 1lb weight loss Small portions TIming of meals Reduce Carbohydrate Intake High Protein Diet * Brian Meraz MD - 09/03/2024 4:44 PM EDTAssociated Problem(s): ETD (Eustachian tube dysfunction), right Get OTC Decongestant * Brian Meraz MD - 09/03/2024 4:30 PM EDT Images from the original note were not included. Subjective Patient ID: Candice Prakash is a 44 y.o. female who presents for Weight Check. Pt started weight loss medication on 04/28/24 Starting weight was 241lb Today weight is 230lb Pt is drinking lots of water, and is trying to exercise ,has not lately due to being sick Over the past 2 weeks, how often have you been bothered by any of the following problems? Little interest or pleasure in doing things: Not at all Feeling down, depressed, or hopeless: Not at all Patient Health Questionnaire-2 Score: 0 Current Outpatient Medications on File Prior to Visit Medication Sig Dispense Refill albuterol HFA 90 mcg/act inhaler Inhale 2 puffs every 6 (six) hours if needed for wheezing or shortness of breath. 18 g 5 benzonatate (Tessalon) 200 MG capsule Take 1 capsule (200 mg) by mouth 3 (three) times a day as needed for cough for up to 7 days Do not crush or chew. 21 capsule 0 cefuroxime (Ceftin) 500 MG tablet Take 1 tablet (500 mg) by mouth in the morning and 1 tablet (500 mg) before bedtime. Do all this for 10 days. 20 tablet 0 cyanocobalamin (Vitamin B-12) 100 MCG tablet Take 1 tablet by mouth in the morning. esomeprazole (NexIUM) [address] capsule Take 1 capsule by mouth 1 (one) time each day at the same time. Txkvhhvoqzx-Ewitbwuct-Vedgbj (Trelegy Ellipta) 100-62.5-25 MCG/ACT aerosol powder Inhale [...] MOUTH EVERYDAY AT BEDTIME 90 tablet 1 [] ondansetron (Zofran) 4 MG tablet Take 1 tablet (4 mg) by mouth every 8 (eight) hours if needed for nausea or vomiting for up to 7 days 20 tablet 0 oxybutynin XL (Ditropan-XL) 10 MG 24 hr tablet TAKE 1 TABLET (10 MG) BY MOUTH DAILY AT THE SAME TIME EACH DAY 90 tablet 1 [DISCONTINUED] Semaglutide-Weight Management (Wegovy) 1 MG/0.5ML solution auto- injector Inject 1 mgunder the skin 1 (one) time per week 3 mL 1 No current facility-administered medications on file prior [...] Past Medical History: Diagnosis Date Anemia Asthma (HCC) Cystitis Emphysema of lung (HCC) IBS (irritable bowel syndrome) Menorrhagia Pelvic pain Pneumonia due to COVID-19 virus 01/21/2020 Urinary frequency Past Surgical History: Procedure Laterality Date CHOLECYSTECTOMY 2006 COLONOSCOPY 01/11/2018 COLONOSCOPY 04/05/2024 Diverticulosis, Internal Hemorrhoids CT ANGIOGRAM HEART CORONARY 01/21/2020 CT ANGIOGRAM TAVR 01/21/2020 ENDOMETRIAL ABLATION 02/2021 and tubal ESOPHAGOGASTRODUODENOSCOPY 01/24/2007 HEMORRHOID SURGERY repair , possibe fissure TONGUE SURGERY 2010 removal left anterior tongue lesion Visit Vitals BP 118/84 Pulse 88 Ht 5' 6 Wt 230 lb LMP (LMP Unknown) SpO2 96% BMI 37.12 kg/m?? OB Status Ablation Smoking Status Former BSA 2.2 m?? Review of Systems Objective Physical Exam Constitutional: Appearance: Normal appearance. HENT: Head: Normocephalic and atraumatic. Right Ear: Tympanic membrane normal. Left Ear: Tympanic membrane normal. Neck: Vascular: No carotid bruit. Cardiovascular: Rate and Rhythm: Normal rate and regular rhythm. Pulmonary: Effort: Pulmonary effort is normal. Breath sounds: Normal breath sounds. Neurological: Mental Status: She is alert. Psychiatric: Mood and Affect: Mood normal. Behavior: Behavior normal. Assessment/Plan Problem List Items Addressed This Visit Morbid (severe) obesity due to excess calories (CMS-HCC) - Primary Had good weight loss of 11 lbs Dose increased Watch for nausea Needs life style modification. Exercise Routinely Low Calorie Diet F/U in 3 months 3500 calorie deficit = 1lb weight loss Small portions TIming of meals Reduce Carbohydrate Intake High Protein Diet Relevant Medications Semaglutide-Weight Management 1.7 MG/0.75ML solution auto-injector Mild persistent asthma with exacerbation (HCC) Finish ATBx PRN albuterol in AM as needed Lungs were clear ETD (Eustachian tube dysfunction), right Get OTC Decongestant Follow up in about 3 months (around 12/04/2024) for Recheck. documented in this encounter Plan of Treatment Upcoming Encounters Date Type Department Care Team (Late st Contact Info) Description 08/28/2025 8:30 AM EDT Office Visit [facility] [address] [facility] [place] [address] William Coelho, DO [address] [facility] [place] [address] documented as of this encounter Visit Diagnoses Diagnosis Morbid (severe) obesity due to excess calories (CMS-HCC)- Primary Mild persistent asthma with exacerbation (HCC) Unspecified asthma, with exacerbation ETD (Eustachian tube dysfunction), right documented in this encounter Care Teams Nail Specialist Relationship Specialty Start Date End Date Brian Meraz MD [address] [place] [address] PCP - General Family Medicine 09/05/22 documented as of this encounter
--- OUTSIDE RECORDS SUMMARY | 2024-09-09 15:20 | XMS_ITS | Encounter Summary ---
Author Organization [facility] Address [address] [place] [address] Care Team Providers Care Community Fundraiser Name Role Phone Brian Meraz MD Primary Care Provider [phone] Reason for Referral * Medications - Pending Review Specialty Diagnoses / Procedures Referred By Contac t Referred To Contact Diagnoses BV (bacterial vaginosis) Irene Solis PA [address] [facility] [place] [address] Phone: tel: fax: Referral ID Status Reason Start Date Expiration Date V isits Requested Visits Authorized [id number] Pending Review 1 1 Reason for Visit * Reason Comments Vaginitis/Bacterial Vaginosis Encounter Details Date Type Department Care Team (Late st Contact Info) Description 09/09/2024 3:20 PM EDT Office Visit [facility] [address] [place] [address] Irene Solis PA [address] [facility] [address] [place], [facility]11 BV (bacterial vaginosis); UTI symptoms; Urinary urgency Social History Tobacco Use Types Packs/Day Years [...] Sign Reading Time Taken Comments Blood Pressure 110/72 09/09/2024 3:26 PM EDT Pulse - - Temperature - - Respiratory Rate - - Oxygen Saturation - - Inhaled Oxygen Concentration - - Weight 103 kg (226 lb 12.8 oz) 09/09/2024 3:26 P M EDT Height - - Body Mass Index 36.61 09/03/2024 4:33 PM EDT documented in this encounter Progress Notes * CHARMAINE Damon - 09/09/2024 3:20 PM EDT Reason for Appointment: Patient ID: Candice Prakash is a 44 y.o. female who presents for Vaginitis/Bacterial Vaginosis Patient presents today for Bacterial vaginosis and urine frequency. MEDICATIONS Current Outpatient Medications Medication Instructions albuterol HFA 90 mcg/act inhaler 2 puffs, Inhalation, Every 6 hours PRN cyanocobalamin (Vitamin B-12) 100 MCG tablet 1 tablet, Daily esomeprazole (NexIUM) [address] capsule 1 capsule, Every 24 hours Pmoakmobpva-Tpnxrkpvh-Oqpzky (Trelegy Ellipta) 100-62.5-25 MCG/ACT aerosol powder 1 puff, Inhalation, Every 24 hours folic acid (Folvite) 1 MG tablet 1 tablet, Daily loratadine-pseudoephedrine ER (Claritin-D 12-hour) 5-120 MG 12 hr tablet 1 tablet, 2 times daily montelukast (SINGULAIR) 10 mg, Oral, Nightly oxybutynin XL (Ditropan-XL) 10 MG 24 hr tablet TAKE 1 TABLET (10 MG) BY MOUTH DAILY AT THE SAME TIME EACH DAY Semaglutide-Weight Management 1.7 mg, Subcutaneous, Weekly ALLERGIES No Known Allergies PROBLEMS Active Ambulatory Problems Diagnosis Date Noted Asthmatic bronchitis (HCC) 09/04/2022 Elevated liver function tests 09/04/2022 Fear of flying 09/04/2022 Iron deficiency anemia 09/04/2022 Loss of taste 09/04/2022 Menorrhagia with regular cycle 09/04/2022 Mixed hyperlipidemia 09/04/2022 Morbid (severe) obesity due to excess calories ([facility]-HCC) 09/04/2022 Seasonal allergic rhinitis 09/04/2022 Hx of oral surgery 2010 Uncomplicated severe persistent asthma (HCC) 07/04/2017 Marital relationship problem 11/24/2022 Adjustment disorder with anxious mood 11/29/2022 Abrasion of skin of left lower leg 12/02/2020 Constipation 12/28/2015 Gastroesophageal reflux disease 01/13/2020 Insomnia 06/21/2019 Lipoprotein deficiency disorder 12/28/2016 Mild intermittent asthma (HCC) 05/02/2016 Mild persistent asthma with exacerbation (HCC) 08/16/2018 Sinusitis 02/06/2018 Diverticulitis of large intestine with perforation and abscess without bleeding 07/20/2023 Elevated blood pressure reading in office without diagnosis of hypertension 07/20/2023 Other chest pain 07/20/2023 Colitis 08/07/2023 Palpitations 11/13/2023 Obesity (BMI 30-39.9) 04/25/2024 Family history of diabetes mellitus 04/25/2024 Other fatigue 04/25/2024 ETD (Eustachian tube dysfunction), right 09/03/2024 Resolved Ambulatory Problems Diagnosis Date Noted No [...] Negative. Musculoskeletal: Negative. Skin: Negative. Neurological: Negative. All other systems reviewed and are negative. Hematological: Negative. Endocrine: Negative. Allergic/Immunologic: Negative. OBJECTIVE Objective: Physical Exam Constitutional: Appearance: Normal appearance. She is well-developed and normal weight. HENT: Head: Normocephalic. Cardiovascular: Rate and Rhythm: Normal rate and regular rhythm. Pulses: Normal pulses. Pulmonary: Effort: Pulmonary effort is normal. Breath sounds: Normal breath sounds. Abdominal: General: Bowel sounds are normal. There is no distension. Palpations: Abdomen is soft. Tenderness: There is no abdominal tenderness. There is no guarding or rebound. Musculoskeletal: General: No swelling. Normal range of motion. Right lower leg: No edema. Left lower leg: No edema. Neurological: General: No focal deficit present. Mental Status: She is alert and oriented to person, place, and time. Skin: General: Skin is warm and dry. Psychiatric: Mood and Affect: Mood normal. Behavior: Behavior normal. Thought Content: Thought content normal. Judgment: Judgment normal. Vitals and nursing note reviewed. Exam conducted with a clam shucker present. Vitals: Estimated body mass index is 36.61 kg/m?? as calculated from the following: Height as of 09/03/24: 5' 6 . Weight as of this encounter: 226 lb 12.8 oz. BP: 110/72 No LMP recorded (lmp unknown). Patient has had an ablation. ASSESSMENT & PLAN ICD-10-CM 1. BV (bacterial vaginosis) N76.0 SURESWAB(R) ADVANCED VAGINITIS PLUS, TMA B96.89 CHLAMYDIA TRACHOMATIS (GENITO/STI) Neisseria gonorrhea DNA probe, direct 2. UTI symptoms R39.9 POCT urinalysis dipstick manually resulted Urine culture Patient presents today for Urine frequency and BV symptoms. Patient does have the pressure and discomfort. Patient does take medication after intercourse to prevent symptoms and we will send in medication for this and send Urine culture. Patient describes urgency with urination, we will send in pyridium as well as bactrim refill Documented by Mayte Tobias LPN on behalf of: CHARMAINE Damon documented in this encounter Plan of Treatment Upcoming Encounters Date Type Department Care Team (Late st Contact Info) Description 08/28/2025 8:30 AM EDT Office Visit [facility] [address] [facility] [place] [address] William Coelho, DO [address] [facility] [place] [address] Scheduled Orders Name Type Priority Associated Diagnoses Order Schedule SURESWAB(R) ADVANCED VAGINITIS PLUS, TMA Pathology and Cytology Routine BV (bacterial vaginosis) Ordered: 09/09/2024 CHLAMYDIA TRACHOMATIS (GENITO/STI) Lab Routine BV (bacterial vaginosis) Ordered: 09/09/2024 Neisseria gonorrhea DNA probe, direct Lab Routine BV (bacterial vaginosis) Ordered: 09/09/2024 Urine culture Microbiology Routine UTI symptoms Ordered: 09/09/2024 documented as of this encounter Procedures Procedure Name Priority Date/Time Associated Diagnosis Comments POCT URINALYSIS DIPSTICK Routine 09/09/2024 3:48 PM EDT UTI symptoms documented in this encounter Results * (ABNORMAL) POCT urinalysis dipstick manually resulted (09/09/2024 3:48 PM EDT) Color, UA Straw Clarity, UA Cloudy Glucose, UA Negative Negative - 2000(110) ++++ mg/dL Bilirubin, UA Negative Negative - 4(70) +++ mg/dL Ketones, UA Negative Negative - 160(16) ++++ mg/dL Spec Grav, UA 1.030 1 - 1.03 Blood, UA Positive Negative - 50 Bart/mcL Comment:small pH, UA 6.0 5 - 9 Protein, UA Negative Negative - 2000(20) ++++ mg/dL Urobilinogen, UA 0.2 0.2 - 12 mg/dL Leukocytes, UA Negative Negative - 500+++ Kyra/mcL Nitrite, UA Negative Negative - Positive Urine 09/09/2024 3:48 PM EDT Irene MONTANO POINT OF CARE TEST ENTER/EDIT OR DERABLES Final Result documented in this encounter Visit Diagnoses Diagnosis BV (bacterial vaginosis) Unspecified vaginitis and vulvovaginitis UTI symptoms Urinary urgency Urgency of urination documented in this encounter Care Teams Community Fundraiser Relationship Specialty Start Date End Date Brian Meraz MD [address] [address] PCP - General Family Medicine 09/05/22 documented as of this encounter
--- OUTSIDE RECORDS SUMMARY | 2024-09-13 07:28 | XMS_ITS | Encounter Summary ---
Author Organization [facility] Address [address] [place] [address] Care Team Providers Care Dean Of Admissions Name Role Phone Brian Hernandez MD Primary Care Provider [phone] Encounter Details Date Type Department Care Team (Late st Contact Info) Description 12/01/2023 Clinisync Result Encounter [facility] External Department Unsolicited Brian Hernandez MD [address] [facility] 110 [place] [address] Social History Tobacco Use Types Packs/Day Years [...] EDT Office Visit [facility] [address] [facility] [place] [address] William Coelho DO [address] [place] [address] documented as of this encounter Procedures Procedure Name Priority Date/Time Associated Diagnosis Comments HOLTER MONITOR 8 TO 15 DAYS 12/01/2023 11:21 AM EDT documented in this encounter Results * Holter monitor 8 to 15 days (12/01/2023 11:21 AM EDT) Anatomical Region Laterality Modality Other 12/01/2023 11:2 1 AM EDT Narrative 12/01/2023 6:38 PM EDT The [place] [id number] Cardiology Report Signed Patient: MAX PRAKASH MR#: [id number] : 1980 Acct:[id number] Age/Sex: 43 / F ADM Date: 11/21/23 Loc: CARD Attending Dr: BRIAN HERNANDEZ Ordering Physician: BRIAN HERNANDEZ Date of Service: 11/21/23 Procedure(s): CA holter monitor 7-15 days Accession Number(s): [id number] cc: BRIAN HERNANDEZ The [facility] Test Date: 2023-12-01 Pat Name: MAX PRAKASH Department: Room: - Gender: Female Fire Inspector: : 1980 Requested By: BRIAN HERNANDEZ Order Number: [id number] Reading MD: DANE BOB Interpretive Statements Predominant [...] Dane Bob D.O. Signed By: 12/01/23183712/01/231837 DD/ 20 TD/TT: Dictating Transcribing Machine Servicer: Procedure Note Radiology, Radiologist, - 12/01/2023 [place] [address] Cardiology Report Signed Patient: MAX PRAKASH EMR#: [id number] : 1980Acct:[id number] Age/Sex: 43 / FADM Date: 11/21/23 Loc: CARD Attending Dr: BRIAN HERNANDEZ Ordering Physician: BRIAN HERNANDEZ Date of Service: 11/21/23 Procedure(s): CA holter monitor 7-15 days Accession Number(s): [id number] cc: BRIAN HERNANDEZ The [facility] Test Date: 2023-12-01 Pat Name: MAX PRAKASH Department: Room: - Gender: Female Fire Inspector: : 1980 Requested By: BRIAN HERNANDEZ Order Number: [id number] Reading MD: DANE BOB Interpretive Statements Predominant [...] Bob D.O. Signed By:12/01/23183712/01/231837 DD/ 112 TD/TT: Dictating Transcribing Machine Servicer: Brian Hernandez MD [facility] CARDIAC SERVICES PROCEDURES F inal Result documented in this encounter Visit Diagnoses Not on filedocumented in this encounter Care Teams Dean Of Admissions Relationship Specialty Start Date End Date Brian Hernandez MD [address] [place] [id number] PCP - General Family Medicine 09/05/22 documented as of this encounter
--- OUTSIDE RECORDS SUMMARY | 2024-09-13 07:28 | XMS_ITS | Encounter Summary ---
Author Organization [facility] Address [address] [place] [address] Care Team Providers Care Yardage Control Operator Forming Name Role Phone Brian Meraz MD Primary Care Provider [phone] Encounter Details Date Type Department Care Team (Late Contact Info) Description 12/11/2023 Abstract [facility] [address] [facility] 110 [place] [id number] Brian Meraz MD [address] [facility] 110 [place] [address] Social History Tobacco Use Types Packs/Day Years [...] Department Care Team (Late Contact Info) Description 08/28/2025 8:30 AM EDT Office Visit [facility] OB [address] [place] [address] [place] [address] William Coelho [address] [place] [address] documented as of this encounter Visit Diagnoses Not on filedocumented in this encounter Care Teams Yardage Control Operator Forming Relationship Specialty Start Date End Date Brian Meraz MD 112 [facility] 110 [place] [address] PCP - General Family Medicine 09/05/22 documented as of this encounter
--- OUTSIDE RECORDS SUMMARY | 2024-09-13 07:28 | XMS_ITS | Clinical Summary ---
Author Organization [facility] Address [id number] [address] [place] [address] Care Team Providers Care Shell Press Operator Name Role Phone Brian Meraz MD Primary Care Provider [phone] Allergies No known active allergies Medications esomeprazole [...] Date Last Done Comments Depression Screening 1992 Tobacco Screening 1992 DTaP,Tdap and Td Vaccines (1 - Tdap) 1999 Pap Smear 2001 Adult BMI Screening 07/11/2023 07/10/2022 COVID-19 Vaccine (4 - 2023-2 5 season) 2023 02/08/2021, 06/12/2020, 05/15/2020 Influenza Vaccine 11/18/2024 01/20/2022, , 01/14/2021, Additional history exists Medical Devices Not on file Insurance [employer] Member Subscriber Plan / Payer (Ef fective 2016-Present) Name:Candice Prakash Relation to Subscriber:Self Name:Candice Prakash Payer ID:Not on file Type:Not on file Address: [place] [id number] Care Teams Shell Press Operator Relationship Specialty Start Date End Date [place] [address] [place] [address] PCP - General 12/28/16
--- OUTSIDE RECORDS SUMMARY | 2024-09-13 07:28 | XMS_ITS | Encounter Summary ---
Author Organization [facility] Address [address] [place] [address] Care Team Providers Care Patient Navigator Name Role Phone Brian Hernandez MD Primary Care Provider [phone] Brian Hernandez MD Unavailable Encounter Details Date Type Department Care Team (Late st Contact Info) Description 04/28/2023 Clinisync Result Encounter [facility] External Department Unsolicited William Coelho, DO [address] [place] [address] Social History Tobacco Use Types Packs/Day Years [...] EDT Office Visit [facility] [address] [employer] [place] [id number] William Coelho, DO [address] [facility] [place] [address] documented as of this encounter Procedures Procedure Name Priority Date/Time Associated Diagnosis Comments MM TOMOSYNTHESIS SCREENING BI 04/28/2023 11:14 AM EST documented in this encounter Results * MM TOMOSYNTHESIS SCREENING BI (04/28/2023 11:14 AM EST) Anatomical Region Laterality Modality Other 04/28/2023 11:1 4 AM EST Narrative 04/28/2023 11:14 AM EST The [address] [address] Mammography Report Signed Patient: Max Prakash MR#: [id number] : 1980 Acct:[id number] Age/Sex: 43 / F ADM Date: 04/28/23 Loc: MAMMO Attending Dr: William Coelho D.O. Ordering Physician: William Coelho D.O. Results: Date of Service: 04/28/23 Follow Up: Procedure(s): MM tomosynthesis screening BI Accession Number(s): [id number] cc: BRIAN HERNANDEZ ; William Coelho D.O. Patient Name: MAX PRAKASH MR#: [id number] : 1980 Exam Date: 04/28/2023 Ordering Doctor: [...] Treatments None Family Cancers None LOCATION: The [facility] BREAST COMPOSITION: Scattered areas fibroglandular density. FINDINGS: [...] Signed By: 04/28/23 1114 DD/ 1114 TD/TT: Ceramist: Procedure Note Radiology, Radiologist, MD - 05/24/2023 [place] [address] Mammography Report Signed Patient: Max Prakash EMR#: [id number] : 1980Acct:[id number] Age/Sex: 43 / FADM Date: 04/28/23 Loc: MAMMO Attending Dr: William Coelho D.O. Ordering Physician: William Coelho D.O.Results: Date of Service: 04/28/23Follow Up: Procedure(s): MM tomosynthesis screening BI Accession Number(s): [id number] cc: BRIAN HERNANDEZ ; William Coelho D.O. Patient Name: MAX PRAKASH MR#: [id number] : 1980 Exam Date: 04/28/2023 Ordering Doctor: [...] Treatments None Family Cancers None LOCATION: The [facility] BREAST COMPOSITION: Scattered areas fibroglandular density. FINDINGS: [...] M.D. Signed By:04/28/23 1114 DD/ 1114 TD/TT: Ceramist: us William Laquita DO [facility] Final Result documented in this encounter Visit Diagnoses Not on filedocumented in this encounter Care Teams Patient Navigator Relationship Specialty Start Date End Date Brian Hernandez MD 112 [facility] 110 [place] [address] PCP - General Family Medicine 09/05/22 Brian Hernandez MD 112 [facility] 110 [place] [address] PCP - Medical [place] [employer] 08/18/22 05/27/23 documented as of this encounter
--- OUTSIDE RECORDS SUMMARY | 2024-09-13 07:28 | XMS_ITS | Encounter Summary ---
Author Organization [facility] Address [address] [facility] [place] [address] Care Team Providers Care Hospice Volunteer Name Role Phone Brian Meraz MD Primary Care Provider [phone] Encounter Details Date Type Department Care Team (Late Contact Info) Description 08/04/2023 Orders Only [facility] [address] [place] [address] Mayte Tobias LPN [address] [facility] [place] [address] Social History Tobacco Use Types Packs/Day Years [...] 08/28/2025 8:30 AM EDT Office Visit [facility] OB [address] [address] William Coelho, DO [address] [place] [address] Dr Ferny Garza [place], [place] [phone] documented as of this encounter Procedures Procedure Name Priority Date/Time Associated Diagnosis Comments PAP SMEAR Routine 07/27/2023 12:00 AM EDT documented in this encounter Results * Pap Smear (07/27/2023 12:00 AM EDT) Swab Cervical swab / Unknown Laquita Nurse [facility] LAB CYTOLOGY ORDERABLES Final Result EXTERNAL LAB documented in this encounter Visit Diagnoses Not on filedocumented in this encounter Care Teams Hospice Volunteer Relationship Specialty Start Date End Date Brian Meraz MD 112 [facility] 110 [place] [address] PCP - General Family Medicine 09/05/22 documented as of this encounter
--- OUTSIDE RECORDS SUMMARY | 2024-09-13 07:28 | XMS_ITS | Encounter Summary ---
Author Organization [facility] Address [address] [place] [address] Care Team Providers Care Mechanical Drawing Teacher Name Role Phone Brian Meraz MD Primary Care Provider [phone] Encounter Details Date Type Department Care Team (Late Contact Info) Description 04/05/2024 Abstract [facility] [address] [facility] 110 [place] [phone] Brian Meraz MD [address] [facility] 110 [place] [address] Social History Tobacco Use Types Packs/Day Years [...] 08/28/2025 8:30 AM EDT Office Visit [facility] OB [address] [place] [address] [place] [address] William Coelho [address] [place] [address] documented as of this encounter Visit Diagnoses Not on filedocumented in this encounter Care Teams Mechanical Drawing Teacher Relationship Specialty Start Date End Date Brian Meraz MD 112 [facility] 110 [place] [address] PCP - General Family Medicine 09/05/22 documented as of this encounter
--- OUTSIDE RECORDS SUMMARY | 2024-09-13 07:28 | XMS_ITS | Encounter Summary ---
Author Organization [facility] Address [address] [place] [address] Care Team Providers Care Photographic Technician Name Role Phone Brian Meraz MD Primary Care Provider [phone] Encounter Details Date Type Department Care Team (Late Contact Info) Description 12/05/2023 Abstract [facility] [address] [facility] 110 [place] [phone] Brian Meraz MD [address] [facility] 110 [place] [address] Social History Tobacco Use Types Packs/Day Years [...] 08/28/2025 8:30 AM EDT Office Visit [facility] [address] [place] [address] [place] [address] William Coelho [address] [place] [address] documented as of this encounter Visit Diagnoses Not on filedocumented in this encounter Care Teams Photographic Technician Relationship Specialty Start Date End Date Brian Meraz MD 112 [facility] 110 [place] [address] PCP - General Family Medicine 09/05/22 documented as of this encounter
--- OUTSIDE RECORDS SUMMARY | 2024-09-13 07:28 | XMS_ITS | Encounter Summary ---
Author Organization [facility] Address [address] [place] [address] Care Team Providers Care Privacy Compliance Manager Name Role Phone Brian Meraz MD Primary Care Provider [phone] Encounter Details Date Type Department Care Team (Late Contact Info) Description 03/21/2024 Abstract [facility] [address] [facility] 110 [place] [phone] Brian Meraz MD [address] [place] 110 [place] [address] Social History Tobacco Use Types Packs/Day Years [...] 08/28/2025 8:30 AM EDT Office Visit [facility] OB [address] [place] [address] [place] [address] William Coelho [address] [place] [address] documented as of this encounter Visit Diagnoses Not on filedocumented in this encounter Care Teams Privacy Compliance Manager Relationship Specialty Start Date End Date Brian Meraz MD 112 [facility] 110 [place] [address] PCP - General Family Medicine 09/05/22 documented as of this encounter
--- OUTSIDE RECORDS SUMMARY | 2024-09-13 07:28 | XMS_ITS | Encounter Summary ---
Author Organization [facility] Address [address] [place] [address] Care Team Providers Care Theoretical Physicist Name Role Phone Brian Meraz MD Primary Care Provider [phone] Encounter Details Date Type Department Care Team (Late Contact Info) Description 04/05/2024 Abstract [facility] [address] [facility] 110 [place] [phone] Brian Meraz MD [address] [facility] 110 [place] [address] Social History Tobacco Use Types Packs/Day Years [...] 08/28/2025 8:30 AM EDT Office Visit [facility] OB [address] [place] [address] [place] [address] William Coelho [address] [place] [address] documented as of this encounter Visit Diagnoses Not on filedocumented in this encounter Care Teams Theoretical Physicist Relationship Specialty Start Date End Date Brian Meraz MD 112 [facility] 110 [place] [address] PCP - General Family Medicine 09/05/22 documented as of this encounter
--- OUTSIDE RECORDS SUMMARY | 2024-09-13 07:28 | XMS_ITS | Encounter Summary ---
Author Organization [facility] Address [address] [place] [address] Care Team Providers Care Clinical Research Management Associate Name Role Phone Brian Meraz MD Primary Care Provider [phone] Encounter Details Date Type Department Care Team (Late Contact Info) Description 04/05/2024 Orders Only [facility] [address] [facility] 110 [place] [address] Unallocated, Noms Provider, [address] [place] [address] Social History Tobacco Use Types Packs/Day Years [...] EDT Office Visit [facility] [address] [facility] [place] [address] William Coelho, DO [address] [facility] [place] [address] documented as of this encounter Procedures Procedure Name Priority Date/Time Associated Diagnosis Comments HCG, QL, URINE Routine 04/05/2024 12:08 PM EST documented in this encounter Results * , urine (04/05/2024 12:08 PM EST) Urine Urine specimen obtained by clean catch procedure / Unknown us Noms Provider Unallocated MD LAB URINE ORDERABLE S Final Result documented in this encounter Visit Diagnoses Not on filedocumented in this encounter Care Teams Clinical Research Management Associate Relationship Specialty Start Date End Date Brian Meraz MD 112 [facility] 110 [place] [address] PCP - General Family Medicine 09/05/22 documented as of this encounter
--- OUTSIDE RECORDS SUMMARY | 2024-09-13 07:28 | XMS_ITS | Encounter Summary ---
Author Organization [facility] Address [address] [place] [address] Care Team Providers Care Canoe Builder Name Role Phone Brian Meraz MD Primary Care Provider [phone] Encounter Details Date Type Department Care Team (Late Contact Info) Description 03/04/2024 Abstract [facility] [address] [facility] 110 [place] [phone] Brian Meraz MD [address] [facility] 110 [place] [address] Social History Tobacco Use Types Packs/Day Years [...] 08/28/2025 8:30 AM EDT Office Visit [facility] OB [address] [place] [address] [place] [address] William Coelho [address] [place] [address] documented as of this encounter Visit Diagnoses Not on filedocumented in this encounter Care Teams Canoe Builder Relationship Specialty Start Date End Date Brian Meraz MD 112 [facility] 110 [place] [address] PCP - General Family Medicine 09/05/22 documented as of this encounter
--- OUTSIDE RECORDS SUMMARY | 2024-09-13 07:28 | XMS_ITS | Encounter Summary ---
Author Organization [facility] Address [address] [place] [address] Care Team Providers Care Evidence Specialist Name Role Phone Brian Meraz MD Primary Care Provider [phone] Encounter Details Date Type Department Care Team (Late Contact Info) Description 11/15/2023 Abstract [facility] [address] [facility] 110 [place] [address] Brian Meraz MD [address] [facility] 110 [place] [address] Social History Tobacco Use Types Packs/Day Years [...] 08/28/2025 8:30 AM EDT Office Visit [facility] OB [address] [place] [address] [place] [address] William Coelho [address] [place] [address] documented as of this encounter Visit Diagnoses Not on filedocumented in this encounter Care Teams Evidence Specialist Relationship Specialty Start Date End Date Brian Meraz MD 112 [facility] 110 [place] [address] PCP - General Family Medicine 09/05/22 documented as of this encounter
--- OUTSIDE RECORDS SUMMARY | 2024-09-13 07:28 | XMS_ITS | Encounter Summary ---
Author Organization [facility] Address [address] [place] [address] Care Team Providers Care Review Manager Name Role Phone Brian Meraz MD Primary Care Provider [phone] Encounter Details Date Type Department Care Team (Late Contact Info) Description 12/05/2023 Abstract [facility] [address] [facility] 110 [place] [phone] Brian Meraz MD [address] [facility] 110 [place] [address] Social History Tobacco Use Types Packs/Day Years [...] 08/28/2025 8:30 AM EDT Office Visit [facility] OB [address] [place] [address] [place] [address] William Coelho [address] [place] [address] documented as of this encounter Visit Diagnoses Not on filedocumented in this encounter Care Teams Review Manager Relationship Specialty Start Date End Date Brian Meraz MD 112 [facility] 110 [place] [address] PCP - General Family Medicine 09/05/22 documented as of this encounter
--- OUTSIDE RECORDS SUMMARY | 2024-09-13 07:29 | XMS_ITS | Encounter Summary ---
Author Organization [facility] Address [address] [place] [address] Care Team Providers Care Cake Maker Name Role Phone Brian Meraz MD Primary Care Provider [phone] Encounter Details Date Type Department Care Team (Late Contact Info) Description 09/09/2024 External Result Encounter [facility] External Department Unsolicited Irene Solis PA [address] [place], [place] [phone] Social History Tobacco Use Types Packs/Day Years [...] EDT Office Visit [facility] OB [address] [place] [address] William Coelho, DO [address] [place] [address] Dr [place] [phone] documented as of this encounter Procedures Procedure Name Priority Date/Time Associated Diagnosis Comments URINARY TRACT INFECTION (HTRX) Routine 09/09/2024 3:42 PM EDT RECURRENT VAGINITIS (HTRX) Routine 09/09/2024 3:19 PM EDT documented in this encounter Results * URINARY TRACT INFECTION (HTRX) (09/09/2024 3:42 PM EDT) Pathologist [facility] ACINETOBACTER BAUMANII 0 19.961 - 24.689 ppm 09/10/2024 6:17 AM EDT [facility] ACINETOBACTER BAUMANII Not Detected 19.961 - 24.689 ppm 09/10/2024 6:17 AM EDT [facility] CITROBACTER FREUNDII 0 23.000 - 31.881 ppm 09/10/2024 6:17 AM EDT [facility] CITROBACTER FREUNDII Not Detected 23.000 - 31.881 ppm 09/10/2024 6:17 AM EDT [facility] ENTEROBACTER AEROGENES, CLOACAE 0 23.000 - 31.535 ppm 09/10/2024 6:17 AM EDT [facility] ENTEROBACTER AEROGENES, CLOACAE Not Detected 23.000 - 31.535 ppm 09/10/2024 6:17 AM EDT [facility] ENTEROCOCCUS FAECALIS, FAECIUM 0 26.000 - 31.575 ppm 09/10/2024 6:17 AM EDT [facility] ENTEROCOCCUS FAECALIS, FAECIUM Not Detected 26.000 - 31.575 ppm 09/10/2024 6:17 AM EDT [facility] ESCHERICHIA COLI 0 23.000 - 28.500 ppm 09/10/2024 6:17 AM EDT [facility] ESCHERICHIA COLI Not Detected 23.000 - 28.500 ppm 09/10/2024 6:17 AM EDT [facility] KLEBSIELLA PNEUMONIAE, OXYTOCA 0 23.000 - 30.500 ppm 09/10/2024 6:17 AM EDT [facility] KLEBSIELLA PNEUMONIAE, OXYTOCA Not Detected 23.000 - 30.500 ppm 09/10/2024 6:17 AM EDT [facility] MORGANELLA MORGANII 0 19.961 - 24.689 ppm 09/10/2024 6:17 AM EDT [facility] MORGANELLA MORGANII Not Detected 19.961 - 24.689 ppm 09/10/2024 6:17 AM EDT [facility] PROTEUS MIRABILIS, VULGARIS 0 23.000 - 28.500 ppm 09/10/2024 6:17 AM EDT [facility] PROTEUS MIRABILIS, VULGARIS Not Detected 23.000 - 28.500 ppm 09/10/2024 6:17 AM EDT [facility] PSEUDOMONAS AERUGINOSA 0 23.000 - 28.500 ppm 09/10/2024 6:17 AM EDT [facility] PSEUDOMONAS AERUGINOSA Not Detected 23.000 - 28.500 ppm 09/10/2024 6:17 AM EDT [facility] STAPHYLOCOCCUS AUREUS 0 26.000 - 30.902 ppm 09/10/2024 6:17 AM EDT [facility] STAPHYLOCOCCUS AUREUS Not Detected 26.000 - 30.902 ppm 09/10/2024 6:17 AM EDT [facility] STREPTOCOCCUS AGALACTIAE (GROUP B STREP) 0 26.000 - 32.222 ppm 09/10/2024 6:17 AM EDT [facility] STREPTOCOCCUS AGALACTIAE (GROUP B STREP) Not Detected 26.000 - 32.222 ppm 09/10/2024 6:17 AM EDT [facility] FEI ALBICANS, PARAPSILOSIS, TROPICALIS 0 19.961 - 30.770 ppm 09/10/2024 6:17 AM EDT [facility] FEI ALBICANS, PARAPSILOSIS, TROPICALIS Not Detected 19.961 - 30.770 ppm 09/10/2024 6:17 AM EDT [facility] FEI GLABRATA 0 23.000 - 32.138 ppm 09/10/2024 6:17 AM EDT [facility] FEI GLABRATA Not Detected 23.000 - 32.138 ppm 09/10/2024 6:17 AM EDT [facility] FEI KRUSEI 0 23.000 - 32.271 ppm 09/10/2024 6:17 AM EDT [facility] FEI KRUSEI Not Detected 23.000 - 32.271 ppm 09/10/2024 6:17 AM EDT [facility] SERRATIA MARCESCENS 0 23.000 - 31.204 ppm 09/10/2024 6:17 AM EDT [facility] SERRATIA MARCESCENS Not Detected 23.000 - 31.204 ppm 09/10/2024 6:17 AM EDT [facility] STREPTOCOCCUS PYOGENES (GROUP A STREP) 0 19.961 - 24.689 ppm 09/10/2024 6:17 AM EDT [facility] STREPTOCOCCUS PYOGENES (GROUP A STREP) Not Detected 19.961 - 24.689 ppm 09/10/2024 6:17 AM EDT [facility] STAPHYLOCOCCUS EPIDERMIDIS, HAEMOLYTICUS, LUGDUNENSIS, SAPROPHYTICUS (URINA 0 19.961 - 24.689 ppm 09/10/2024 6:17 AM EDT [facility] STAPHYLOCOCCUS EPIDERMIDIS, HAEMOLYTICUS, LUGDUNENSIS, SAPROPHYTICUS (URINA Not Detected 19.961 - 24.689 ppm 09/10/2024 6:17 AM EDT [facility] STAPHYLOCOCCUS EPIDERMIDIS, HAEMOLYTICUS, LUGDUNENSIS, SAPROPHYTICUS (URINA 0 19.961 - 24.689 ppm 09/10/2024 6:17 AM EDT [facility] STAPHYLOCOCCUS EPIDERMIDIS, HAEMOLYTICUS, LUGDUNENSIS, SAPROPHYTICUS (URINA Not Detected 19.961 - 24.689 ppm 09/10/2024 6:17 AM EDT [facility] Urine 09/09/2024 3:42 PM EDT 09/10/2024 1:25 AM EDT us Irene MONTANO LAB BLOOD ORDERABLES Final Resul t [facility] [address] [facility] [place] [address] * RECURRENT VAGINITIS (HTRX) (09/09/2024 3:19 PM EDT) [facility] ATOPOBIUM VAGINAE 0 19.961 - 24.689 ppm 09/10/2024 6:36 AM EDT [facility] ATOPOBIUM VAGINAE Not Detected 19.961 - 24.689 ppm 09/10/2024 6:36 AM EDT [facility] BVAB 2,3 (BACTERIAL VAGINOSIS ASSOCIATED BACTERIA 2, 3); MOBILUNCUS SPP 0 19.961 - 24.689 ppm 09/10/2024 6:36 AM EDT [facility] BVAB 2,3 (BACTERIAL VAGINOSIS ASSOCIATED BACTERIA 2, 3); MOBILUNCUS SPP Not Detected 19.961 - 24.689 ppm 09/10/2024 6:36 AM EDT [facility] FEI ALBICANS, PARAPSILOSIS, TROPICALIS 0 19.961 - 30.770 ppm 09/10/2024 6:36 AM EDT [facility] FEI ALBICANS, PARAPSILOSIS, TROPICALIS Not Detected 19.961 - 30.770 ppm 09/10/2024 6:36 AM EDT [facility] FEI GLABRATA 0 23.000 - 32.138 ppm 09/10/2024 6:36 AM EDT [facility] FEI GLABRATA Not Detected 23.000 - 32.138 ppm 09/10/2024 6:36 AM EDT [facility] FEI KRUSEI 0 23.000 - 32.271 ppm 09/10/2024 6:36 AM EDT [facility] FEI KRUSEI Not Detected 23.000 - 32.271 ppm 09/10/2024 6:36 AM EDT [facility] CHLAMYDIA TRACHOMATIS 0 23.000 - 31.467 ppm 09/10/2024 6:36 AM EDT [facility] CHLAMYDIA TRACHOMATIS Not Detected 23.000 - 31.467 ppm 09/10/2024 6:36 AM EDT [facility] GARDNERELLA VAGINALIS 0 19.961 - 24.689 ppm 09/10/2024 6:36 AM EDT [facility] GARDNERELLA VAGINALIS Not Detected 19.961 - 24.689 ppm 09/10/2024 6:36 AM EDT [facility] MEGASPHAERA (TYPES 1, 2) 0 19.961 - 24.689 ppm 09/10/2024 6:36 AM EDT [facility] MEGASPHAERA (TYPES 1, 2) Not Detected 19.961 - 24.689 ppm 09/10/2024 6:36 AM EDT [facility] NEISSERIA GONORRHOEAE 0 23.000 - 32.117 ppm 09/10/2024 6:36 AM EDT [facility] NEISSERIA GONORRHOEAE Not Detected 23.000 - 32.117 ppm 09/10/2024 6:36 AM EDT [facility] TRICHOMONAS VAGINALIS 0 23.000 - 32.119 ppm 09/10/2024 6:36 AM EDT [facility] TRICHOMONAS VAGINALIS Not Detected 23.000 - 32.119 ppm 09/10/2024 6:36 AM EDT [facility] MYCOPLASMA GENITALIUM 0 19.961 - 24.689 ppm 09/10/2024 6:36 AM EDT [facility] MYCOPLASMA GENITALIUM Not Detected 19.961 - 24.689 ppm 09/10/2024 6:36 AM EDT [facility] Tissue 09/09/2024 3:19 PM EDT 09/10/2024 1:25 AM EDT us Irene MONTANO LAB BLOOD ORDERABLES Final Resul t [facility] [address] [place] [address] documented in this encounter Visit Diagnoses Not on filedocumented in this encounter Care Teams Cake Maker Relationship Specialty Start Date End Date Brian Meraz MD 112 [facility] 110 [place] [address] PCP - General Family Medicine 09/05/22 documented as of this encounter
--- OUTSIDE RECORDS SUMMARY | 2024-09-13 07:29 | XMS_ITS | Encounter Summary ---
Author Organization [facility] tem Address [id number] [address] [place] [address] Care Team Providers Care Data Entry Representative Name Role Phone Brian Meraz MD Primary Care Provider [phone] Encounter Details Date Type Department Care Team (Late st Contact Info) Description 12/07/[address] [facility] [address] [place] [phone] Minna Anthony, CONNIE Social History Tobacco Use [...] on filedocumented in this encounter Care Teams Data Entry Representative Relationship Specialty Start Date End [place] [address] [place] [address] PCP - General 12/28/16 documented as of this encounter
--- OUTSIDE RECORDS SUMMARY | 2024-09-13 07:29 | XMS_ITS | Encounter Summary ---
Author Organization [facility] Address [address] [place] [address] Care Team Providers Care Sand Plant Attendant Name Role Phone Brian Meraz MD Primary Care Provider [phone] Encounter Details Date Type Department Care Team (Latest Contact Info) Description 09/03/2024 Travel Social History Tobacco Use Types Packs/Day Years [...] on file documented as of this encounter Functional Status * Over the [...] Lopez MA documented as of this encounter Plan of Treatment Upcoming Encounters Date Type Department Care Team (Late st Contact Info) Description 08/28/2025 8:30 AM EDT Office Visit [facility] [address] [facility] [place] [phone] William Coelho, [address] [place] [address] documented as of this encounter Visit Diagnoses Not on filedocumented in this encounter Care Teams Sand Plant Attendant Relationship Specialty Start Date End Date Brian Meraz MD 112 [facility] 110 [place] [address] PCP - General Family Medicine 09/05/22 documented as of this encounter
--- OUTSIDE RECORDS SUMMARY | 2024-09-13 07:29 | XMS_ITS | Encounter Summary ---
Author Organization [facility] tem Address [id number] [address] [place] [address] Care Team Providers Care Staining Machine Operator Name Role Phone Brian Meraz MD Primary Care Provider [phone] Encounter Details Date Type Department Care Team (Late st Contact Info) Description 12/29/2020 Telephone [facility] [address] [place] [phone] Minna Anthony, CONNIE Social History Tobacco Use [...] on filedocumented in this encounter Care Teams Staining Machine Operator Relationship Specialty Start Date End Date [place] [address] [place] [address] PCP - General 12/28/16 documented as of this encounter
--- OUTSIDE RECORDS SUMMARY | 2024-09-13 07:29 | XMS_ITS | Encounter Summary ---
Author Organization [facility] tem Address [id number] [address] [place] [address] Care Team Providers Care Laydown Machine Operator Name Role Phone Brian Meraz MD Primary Care Provider [phone] Encounter Details Date Type Department Care Team (Late st Contact Info) Description 12/21/2020 Telephone [facility] [address] [place] [phone] Minna Anthony, CONNIE Social History Tobacco Use [...] on filedocumented in this encounter Care Teams Laydown Machine Operator Relationship Specialty Start Date End Date [place] [address] [place] [address] PCP - General 12/28/16 documented as of this encounter
--- OUTSIDE RECORDS SUMMARY | 2024-09-13 07:29 | XMS_ITS | Encounter Summary ---
Author Organization [facility] Address [address] [place] [address] Care Team Providers Care Alcohol Law Enforcement Agent Name Role Phone Brian Meraz MD Primary Care Provider [phone] Brian Meraz MD Unavailable Encounter Details Date Type Department Care Team (Late st Contact Info) Description 10/06/2022 Orders Only [facility] CI [address] [facility] 110 [place] [address] A, Unknown Practice [address] [place], [place] [phone] Social History Tobacco Use Types Packs/Day Years [...] AM EDT Office Visit [facility] OB [address] [place] [address] [place] [address] William Coelho, [address] [place] [address] documented as of this encounter Procedures Procedure [...] on filedocumented in this encounter Care Teams Alcohol Law Enforcement Agent Relationship Specialty Start Date End Date Brian Meraz MD [address] [facility] 110 [place] [address] PCP - General Family Medicine 09/05/22 Brian Meraz MD [address] [facility] 110 [place] [address] PCP - Medical [place] [employer] 08/18/22 05/27/23 documented as of this encounter
--- OUTSIDE RECORDS SUMMARY | 2024-09-13 07:29 | XMS_ITS | Encounter Summary ---
Author Organization [facility] Address [address] [place] [address] Care Team Providers Care Marketing Operations Assistant Name Role Phone Brian Meraz MD Primary Care Provider [phone] Brian Meraz MD Unavailable Encounter Details Date Type Department Care Team (Late st Contact Info) Description 09/15/2022 Abstract [facility] [address] [facility] 110 [place] [phone] Brian Meraz MD 112 [facility] 110 [place] [address] Social History Tobacco Use Types Packs/Day Years [...] EDT Office Visit [facility] [address] [place] [phone] William Coelho, [address] [place] [address] documented as of this encounter Visit Diagnoses Not on filedocumented in this encounter Care Teams Marketing Operations Assistant Relationship Specialty Start Date End Date Brian Meraz MD [address] [place] [facility] 110 [place] [address] PCP - General Family Medicine 09/05/22 Brian Meraz MD [address] [place] [facility] [address] [place] [address] PCP - Medical [place] [employer] 08/18/22 05/27/23 documented as of this encounter
--- OUTSIDE RECORDS SUMMARY | 2024-09-13 07:29 | XMS_ITS | Encounter Summary ---
Author Organization [facility] Address [id number] [address] [place] [address] Care Team Providers Care Food Sales Clerk Name Role Phone Brian Meraz MD Primary Care Provider [phone] Encounter Details Date Type Department Care Team (Late st Contact Info) Description 05/06/[address] [facility] - Medical Oncology [address] [place] [address] Lisa Nielson Social History Tobacco [...] on filedocumented in this encounter Care Teams Food Sales Clerk Relationship Specialty Start Date [place] [address] PCP - General 12/28/16 documented as of this encounter
--- OUTSIDE RECORDS SUMMARY | 2024-09-13 07:29 | XMS_ITS | Encounter Summary ---
Author Organization [facility] Address [address] [place] [address] Care Team Providers Care Block Feeder Name Role Phone Brian Meraz MD Primary Care Provider [phone] Encounter Details Date Type Department Care Team (Late Contact Info) Description 04/29/2024 Abstract [facility] [address] [facility] 110 [place] [phone] Brian Meraz MD [address] [facility] 110 [place] [address] Social History Tobacco Use Types Packs/Day Years [...] 08/28/2025 8:30 AM EDT Office Visit [facility] [address] [place] [address] [place] [address] William Coelho [address] [place] [address] documented as of this encounter Visit Diagnoses Not on filedocumented in this encounter Care Teams Block Feeder Relationship Specialty Start Date End Date Brian Meraz MD 112 [facility] 110 [place] [address] PCP - General Family Medicine 09/05/22 documented as of this encounter
--- OUTSIDE RECORDS SUMMARY | 2024-09-13 07:29 | XMS_ITS | Encounter Summary ---
Author Organization [facility] Address [address] [place] [address] Care Team Providers Care Gas Brazer Name Role Phone Brian Hernandez MD Primary Care Provider [phone] Brian Hernandez MD Unavailable Encounter Details Date [...] 08/28/2025 8:30 AM EDT Office Visit [facility] OB [address] [place] [phone] William Coelho, DO [address] [place], [place] [id number] (work) documented as of this encounter Procedures Procedure Name Priority Date/Time Associated Diagnosis Comments MM TOMOSYNTHESIS SCREENING BI 04/28/2023 11:14 AM EST documented in this encounter Results * MM TOMOSYNTHESIS SCREENING BI (04/28/2023 11:14 AM EST) Anatomical Region Laterality Modality Other 04/28/2023 11:1 4 AM EST Narrative 04/28/2023 11:14 [place] [address] Mammography Report Signed Patient: Max Prakash MR#: [id number] : 1980 Acct:[id number] Age/Sex: 43 / F ADM Date: 04/28/23 Loc: MAMMO Attending Dr: William Coelho D.O. Ordering Physician: William Coelho D.O. Results: Date of Service: 04/28/23 Follow Up: Procedure(s): MM tomosynthesis screening BI Accession Number(s): [id number] cc: BRIAN HERNANDEZ ; William Coelho D.O. Patient Name: MAX PRAKASH MR#: [id number] : 1980 Exam Date: 04/28/2023 Ordering Doctor: [...] Treatments None Family Cancers None LOCATION: [facility] BREAST COMPOSITION: Scattered areas fibroglandular density. [...] Rojo M.D. Signed By: 04/28/23 1114 DD/ 13 TD/TT: Sports Marketing Specialist: Procedure Note Radiology, Radiologist, MD - 04/28/2023 [place] [address] Mammography Report Signed Patient: Max Prakash EMR#: [id number] : 1980Acct:[id number] Age/Sex: 43 / FADM Date: 04/28/23 Loc: MAMMO Attending Dr: William Coelho D.O. Ordering Physician: William Coelho D.O.Results: Date of Service: 04/28/23Follow Up: Procedure(s): MM tomosynthesis screening BI Accession Number(s): [id number] cc: BRIAN HERNANDEZ ; William Coelho D.O. Patient Name: MAX PRAKASH MR#: [id number] : 1980 Exam Date: 04/28/2023 Ordering Doctor: [...] Treatments None Family Cancers None LOCATION: [facility] BREAST COMPOSITION: Scattered areas fibroglandular density. [...] M.D. Signed By:04/28/23 1114 DD/ 1114 TD/TT: Sports Marketing Specialist: us Generic External Data Provider [facility] Final Result documented in this encounter Visit Diagnoses Not on filedocumented in this encounter Care Teams Gas Brazer Relationship Specialty Start Date End Date Brian Hernandez MD 112 [facility] 110 [place] [address] PCP - General Family Medicine 09/05/22 Brian Hernandez MD 112 [facility] [address] [place] [address] PCP - Medical [place] [employer] 08/18/22 05/27/23 documented as of this encounter
--- OUTSIDE RECORDS SUMMARY | 2024-09-13 07:29 | XMS_ITS | Encounter Summary ---
Author Organization [facility] Address [address] [place] [address] Care Team Providers Care Religion Teacher Name Role Phone Brian Meraz MD Primary Care Provider [phone] Brian Meraz MD Unavailable Encounter Details Date Type Department Care Team (Late st Contact Info) Description 01/27/2023 Abstract [facility] 112 [facility] 110 [place] [address] Brian Meraz MD 112 [facility] 110 [place] [address] Social History Tobacco Use Types Packs/Day Years [...] EDT Office Visit [facility] [address] [place] [address] William Coelho, [address] [place] [address] documented as of this encounter Visit Diagnoses Not on filedocumented in this encounter Care Teams Religion Teacher Relationship Specialty Start Date End Date Brian Meraz MD [address] [facility] 110 [place] [address] PCP - General Family Medicine 09/05/22 Brian Meraz MD [address] [facility] 110 [place] [address] PCP - Medical [place] [employer] 08/18/22 05/27/23 documented as of this encounter
--- OUTSIDE RECORDS SUMMARY | 2024-09-13 07:29 | XMS_ITS | Encounter Summary ---
Author Organization [facility] Address [address] [place] [address] Care Team Providers Care Cradle Placer Name Role Phone Brian Meraz MD Primary Care Provider [phone] Brian Meraz MD Unavailable Encounter Details Date Type Department Care Team (Late st Contact Info) Description 11/07/2022 Orders Only [facility] [address] [facility] 110 [place] [address] A, Unknown Practice [address] [place], [place] [phone] Social History Tobacco Use Types Packs/Day Years [...] AM EDT Office Visit [facility] [address] [place] [address] [place] [address] William Coelho, DO 102 [facility] [place] [address] documented as of this encounter Procedures Procedure Name Priority Date/Time Associated Diagnosis Comments SCANNED LABS Routine 11/03/2022 9:11 AM EDT documented in this encounter Results * SCANNED LABS (11/03/2022 9:11 AM EDT) us Unknown Practice A LAB CHG PERFORMABLES Final Re sult documented in this encounter Visit Diagnoses Not on filedocumented in this encounter Care Teams Cradle Placer Relationship Specialty Start Date End Date Brian Meraz MD [address] [facility] 110 [place] [address] PCP - General Family Medicine 09/05/22 Brian Meraz MD [address] [facility] 110 [place] [address] PCP - Medical [place] [employer] 08/18/22 05/27/23 documented as of this encounter
--- OUTSIDE RECORDS SUMMARY | 2024-09-13 07:29 | XMS_ITS | Encounter Summary ---
Author Organization [facility] Address [address] [place] [address] Care Team Providers Care Junior Php Developer Name Role Phone Brian Meraz MD Primary Care Provider [phone] Brian Meraz MD Unavailable Encounter Details Date Type Department Care Team (Late Contact Info) Description 09/08/2022 Abstract [facility] [address] [facility] 110 [place] [phone] Brian Meraz MD [address] [place] [facility] 110 [place], [place] [phone] Social History Tobacco Use Types Packs/Day Years [...] 08/28/2025 8:30 AM EDT Office Visit [facility] OB [address] [place] [address] William Coelho, [address] [facility] [place] [address] documented as of this encounter Visit Diagnoses Not on filedocumented in this encounter Care Teams Junior Php Developer Relationship Specialty Start Date End Date Brian Meraz MD [address] [place] [facility] 110 [place] [address] PCP - General Family Medicine 09/05/22 Brian Meraz MD [address] [place] [facility] 110 [place] [address] PCP - Medical [place] [employer] 08/18/22 05/27/23 documented as of this encounter
--- OUTSIDE RECORDS SUMMARY | 2024-09-13 07:29 | XMS_ITS | Encounter Summary ---
Author Organization [facility] Address [address] [place] [address] Care Team Providers Care Nut Former Name Role Phone Brian Meraz MD Primary Care Provider [phone] Encounter Details Date Type Department Care Team (Late st Contact Info) Description 09/02/2024 Orders Only [facility] [address] [place] [address] Mckenna Quintanilla LPN [address] [place] [phone] Social History Tobacco Use Types Packs/Day Years [...] EDT Office Visit [facility] 102 [facility] [address] William Coelho DO [address] [place], [place] [phone] documented as of this encounter Procedures Procedure Name Priority Date/Time Associated Diagnosis Comments PAP SMEAR Routine 08/19/2024 12:00 AM EDT documented in this encounter Results * Pap Smear (08/19/2024 12:00 AM EDT) Swab Cervical swab / Unknown us William Coelho DO LAB CYTOLOGY ORDERABLES Final Re sult EXTERNAL LAB documented in this encounter Visit Diagnoses Not on filedocumented in this encounter Care Teams Nut Former Relationship Specialty Start Date End Date Brian Meraz MD [address] [facility] 110 [place] [address] PCP - General Family Medicine 09/05/22 documented as of this encounter
--- OUTSIDE RECORDS SUMMARY | 2024-09-13 07:29 | XMS_ITS | Clinical Summary ---
Author Organization [facility] Address [address] [place] [address] Care Team Providers Care Fruit Culler Name Role Phone Brian Hernandez MD Primary Care Provider [phone] Allergies No known active allergies Medications esomeprazole (NexIUM) [address] capsule Take 1 capsule by mouth 1 (one) time each day at the same time. Active loratadine-pseu doephedrine ER (Claritin-D 12-hour) 5-120 MG 12 hr tablet Take 1 tablet by mouth in the morning and 1 tablet before bedtime. Do not crush, chew, or split. . Active cyanocobalamin (Vitamin B-12) 100 MCG tablet Take 1 tablet by mouth in the morning. Active folic acid (Folvite) 1 MG tablet Take 1 tablet by mouth in the morning. Active albuterol HFA 90 mcg/act inhalerIndicati ons:Wheezing,Mi ld persistent asthmatic bronchitis without complication (HCC) Inhale 2 puffs every 6 (six) hours if needed for wheezing or shortness of breath. 18 g 5 11/08/19 23 Active Fluticasone-Ume clidin-Vilant (Trelegy Ellipta) 100-62.5-25 MCG/ACT aerosol powderIndicatio ns:Uncomplicate d severe persistent asthma (HCC) Inhale 1 puff 1 (one) time each day at the same time 1 each 11/13/19 24 Active montelukast (Singulair) 10 MG tabletIndicatio ns:Mild intermittent asthma without complication (HCC) TAKE 1 TABLET BY MOUTH EVERYDAY AT BEDTIME 90 tablet 1 04/05/19 25 Active oxybutynin XL (Ditropan-XL) 10 MG 24 hr tabletIndicatio ns:Frequency of urination TAKE 1 TABLET (10 MG) BY MOUTH DAILY AT THE SAME TIME EACH DAY 90 tablet 1 05/24/19 25 Active Semaglutide-Duane ght Management 1.7 MG/0.75ML solution auto-injectorIn dications:Morbi d (severe) obesity due to excess calories (CMS-HCC) Inject 1.7 mg under the skin 1 (one) time per week 3 mL 09/04/19 25 025 Active sulfamethoxazol e-trimethoprim (Bactrim DS) 800-160 MG per tabletIndicatio ns:UTI symptoms,Urinar y urgency Take 1 tablet by mouth in the morning and 1 tablet before bedtime. Do all this for 10 days. As directed by physician. 20 tablet 1 09/10/19 25 025 Active Semaglutide-Duane ght Management 0.5 MG/0.5ML solution auto-injectorIn dications:Morbi d (severe) obesity due to excess calories (CMS-HCC) Inject 0.5 mg under the skin 1 (one) time per week 2 mL 07/16/19 25 025 Semaglutide-Duane ght Management (Wegovy) 1 MG/0.5ML solution auto-injectorIn dications:Morbi d (severe) obesity due to excess calories (CMS-HCC) Inject 1 mg under the skin 1 (one) time per week 3 mL 1 08/08/19 25 025 Discontinued( erapy completed) cefuroxime (Ceftin) 500 MG tabletIndicatio ns:Acute maxillary sinusitis, recurrence not specified Take 1 tablet (500 mg) by mouth in the morning and 1 tablet (500 mg) before bedtime. Do all this for 10 days. 20 tablet 08/27/19 25 025 Discontinued ondansetron (Zofran) 4 MG tabletIndicatio ns:Acute maxillary sinusitis, recurrence not specified Take 1 tablet (4 mg) by mouth every 8 (eight) hours if needed for nausea or vomiting for up to 7 days 20 tablet 08/27/19 25 025 Discontinued benzonatate (Tessalon) 200 MG capsuleIndicati ons:Acute cough Take 1 capsule (200 mg) by mouth 3 (three) times a day as needed for cough for up to 7 days Do not crush or chew. 21 capsule 08/29/19 025 Discontinued phenazopyridine (Pyridium) 100 MG tabletIndicatio ns:Urinary urgency Take 1 tablet (100 mg) by mouth 3 (three) times a day as needed for bladder spasms for up to 2 days 6 tablet 09/10/19 25 025 metroNIDAZOLE (Nuvessa) 1.3 % gelIndications: BV (bacterial vaginosis) Insert 1 each into the vagina 1 time for 1 dose 5 g 09/10/19 025 Active Problems Problem Noted Date Diagnosed Date ETD (Eustachian tube dysfunction), right 025 Assessment & Plan (09/03/2024 4:44 PM EDT): Get OTC Decongestant Obesity (BMI 30-39.9) 04/25/2024 Assessment & Plan [...] Discussed with patient sxs and sxs of ND D/W patient Valsava Maneuver and Cold Colitis [...] excess calories 0 09/04/2022 Assessment & Plan (09/03/2024 4:46 PM EDT): Had good weight loss of 11 lbs Dose increased Watch for nausea Needs life style modification. Exercise Routinely Low Calorie Diet F/U in 3 months 3500 calorie deficit = 1lb weight loss Small portions TIming of meals Reduce Carbohydrate Intake High Protein Diet Assessment & Plan (08/07/2023 3:58 PM EDT): GLP injections Assessment & Plan (07/20/2023 4:24 PM EDT): Weight loss and exercise Seasonal allergic rhinitis 09/04/2022 Abrasion of skin of left lower leg 12/02/2020 Gastroesophageal reflux disease 01/13/2020 Insomnia 06/21/2019 Mild persistent asthma with exacerbation 019 Assessment & Plan (09/03/2024 4:45 PM EDT): Finish ATBx PRN albuterol in AM as needed Lungs were clear Sinusitis 02/06/2018 Assessment & Plan (08/26/2024 11:29 AM EDT): Add Probiotic to help replenish the good bacteria that are destroyed by the Antibiotics Florastor Florajen Align or try Activia in Yogurt Probiotics reduce the risk of antibiotic induced diarrhea Uncomplicated severe persistent asthma 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 Mild intermittent asthma 05/02/2016 Constipation 12/28/2015 Hx of oral surgery 03/20/2010 Overview (09/04/2022): removal left anterior tongue lesion Encounters Date Type Department Care Team Description 09/09/2024 3:20 PM EDT Office Visit [facility] [address] [place] [address] [place] [address] Irene Solis PA BV (bacterial vaginosis); UTI symptoms; Urinary urgency 09/09/2024 External Result Encounter [facility] External Department Unsolicited Irene Solis PA 09/09/2024 Abstract [facility] [address] [facility] [address] [place] [address] Brian Hernandez MD 09/03/2024 4:30 PM EDT Office Visit [facility] [address] [facility] [address] [place] [address] Brian Hernandez MD Morbid (severe) obesity due to excess calories (CMS-HCC) (Primary Dx); Mild persistent asthma with exacerbation (HCC); ETD (Eustachian tube dysfunction), right 09/03/2024 Travel 09/02/2024 Orders Only [facility] [address] [facility] [place] [address] Mckenna Quintanilla LPN 08/28/2024 Telephone [facility] [address] [facility] [address] [place] [address] Brian Hernandez MD 08/26/2024 11:00 AM EDT Office Visit [facility] [address] [facility] [address] [place] [phone] Brian Hernandez MD Acute maxillary sinusitis, recurrence not specified (Primary Dx) 08/26/2024 Bamboo flowsheet [facility] [address] [facility] [address] [place] [address] Brian Hernandez MD 08/26/2024 Travel 08/19/2024 8:40 AM EDT Office Visit [facility] [address] [place] [address] William Coelho, Well woman exam with routine gynecological exam 08/19/2024 Clinisync Result Encounter [facility] External Department Unsolicited William Coelho, DO 08/19/2024 Bamboo flowsheet [facility] [address] [place] [address] William Coelho, DO 08/07/2024 Refill [facility] [address] [facility] [address] [place] [phone] Dulce Maria Lopez MA Morbid (severe) obesity due to excess calories ([facility]-HCC) 07/30/2024 4:30 PM EDT Office Visit [facility] [address] [facility] [address] [place] [address] Mi Rich, PA Bleeding hemorrhoids (Primary Dx); Drug-induced constipation 07/30/2024 Bamboo flowsheet [facility] [address] [facility] [address] [place] [address] Mi Rich PA 07/30/2024 Travel 07/15/2024 Refill [facility] [address] [facility] [address] [place] [address] Brian Hernandez MD Morbid (severe) obesity due to excess calories ([facility]-HCC) 06/17/2024 Refill [facility] [address] [facility] [address] [place] [address] Brian Hernandez MD Morbid (severe) obesity due to excess calories ([facility]-HCC) from Last 3 Months Immunizations Immunization Administration [...] Pressure 110/72 09/09/2024 3:26 PM EDT Pulse 88 09/03/2024 4:33 PM EDT Temperature 36.4 C (97.5 F) 08/26/2024 11:04 AM EDT Respiratory Rate 16 07/30/2024 4:34 PM EDT Oxygen Saturation 96% 09/03/2024 4:33 PM EDT Inhaled Oxygen Concentration - - Weight 103 kg (226 lb 12.8 oz) 09/09/2024 3:26 P M EDT Height 167.6 cm (5' 6 ) 09/03/2024 4:33 PM EDT Body Mass Index 36.61 09/03/2024 4:33 PM EDT Plan of Treatment Upcoming Encounters Date Type Department Care Team (Late st Contact Info) Description 08/28/2025 8:30 AM EDT Office Visit [facility] [address] [facility] [place] [address] William Coelho, DO [address] [facility] [address] [place], [place] [id number] Health Maintenance Due Date Last Done Comments Mammogram 04/28/2024 04/28/2023, 02/0 11/2023, 02/01/2022, Additional history exists Cervical Cancer Screening 01/13/2027 HPV/Cotest 01/13/2027 01/11/2021 Pap Smear 08/20/2027 08/19/2024, 07/27/2023, 12/19 Influenza Vaccine Completed 01/26/2024, , 01/20/2022, Additional history exists Procedures Procedure Name Priority Date/Time Associated Diagnosis Comments POCT URINALYSIS DIPSTICK Routine 09/09/2024 3:48 PM EDT UTI symptoms URINARY TRACT INFECTION (HTRX) Routine 09/09/2024 3:42 PM EDT RECURRENT VAGINITIS (HTRX) Routine 09/09/2024 3:19 PM EDT POCT URINALYSIS DIPSTICK Routine 08/19/2024 8:44 AM EDT Well woman exam with routine gynecological exam IGP,APTIMA HPV,AGE GDLN Routine 08/19/2024 8:33 AM EDT PAP SMEAR Routine 08/19/2024 12:00 AM EDT MM TOMOSYNTHESIS SCREENING BI 04/28/2023 11:14 AM EST THINPREP AND HPV Routine 01/11/2021 12:0 0 PM EDT from Last 3 Months or Most Recently Relevant to Health Maintenance Results * (ABNORMAL) POCT urinalysis dipstick manually resulted (09/09/2024 3:48 PM EDT) Only the most recent of2 resultswithin the time period is included. Color, UA Straw Clarity, UA Cloudy Glucose, [...] TEST ENTER/EDIT OR DERABLES Final Result * URINARY TRACT INFECTION (HTRX) (09/09/2024 3:42 PM EDT) ACINETOBACTER BAUMANII 0 19.961 - 24.689 ppm 09/10/2024 6:17 AM EDT [facility] ACINETOBACTER BAUMANII Not Detected 19.961 - 24.689 ppm 09/10/2024 6:17 AM EDT [facility] CITROBACTER FREUNDII 0 23.000 - 31.881 ppm 09/10/2024 6:17 AM EDT [facility] CITROBACTER FREUNDII Not Detected 23.000 - 31.881 ppm 09/10/2024 6:17 AM EDT [facility] ENTEROBACTER AEROGENES, CLOACAE 0 23.000 - 31.535 ppm 09/10/2024 6:17 AM EDT [facility] ENTEROBACTER AEROGENES, CLOACAE Not Detected 23.000 - 31.535 ppm 09/10/2024 6:17 AM EDT [facility] ENTEROCOCCUS FAECALIS, FAECIUM 0 26.000 - 31.575 ppm 09/10/2024 6:17 AM EDT [facility] ENTEROCOCCUS FAECALIS, FAECIUM Not Detected 26.000 - 31.575 ppm 09/10/2024 6:17 AM EDT [facility] ESCHERICHIA COLI 0 23.000 - 28.500 ppm 09/10/2024 6:17 AM EDT [facility] ESCHERICHIA COLI Not Detected 23.000 - 28.500 ppm 09/10/2024 6:17 AM EDT [facility] KLEBSIELLA PNEUMONIAE, OXYTOCA 0 23.000 - 30.500 ppm 09/10/2024 6:17 AM EDT [facility] KLEBSIELLA PNEUMONIAE, OXYTOCA Not Detected 23.000 - 30.500 ppm 09/10/2024 6:17 AM EDT [facility] MORGANELLA MORGANII 0 19.961 - 24.689 ppm 09/10/2024 6:17 AM EDT [facility] MORGANELLA MORGANII Not Detected 19.961 - 24.689 ppm 09/10/2024 6:17 AM EDT [facility] PROTEUS MIRABILIS, VULGARIS 0 23.000 - 28.500 ppm 09/10/2024 6:17 AM EDT [facility] PROTEUS MIRABILIS, VULGARIS Not Detected 23.000 - 28.500 ppm 09/10/2024 6:17 AM EDT [facility] PSEUDOMONAS AERUGINOSA 0 23.000 - 28.500 ppm 09/10/2024 6:17 AM EDT [facility] PSEUDOMONAS AERUGINOSA Not Detected 23.000 - 28.500 ppm 09/10/2024 6:17 AM EDT [facility] STAPHYLOCOCCUS AUREUS 0 26.000 - 30.902 ppm 09/10/2024 6:17 AM EDT [facility] STAPHYLOCOCCUS AUREUS Not Detected 26.000 - 30.902 ppm 09/10/2024 6:17 AM EDT [facility] STREPTOCOCCUS AGALACTIAE (GROUP B STREP) 0 26.000 - 32.222 ppm 09/10/2024 6:17 AM EDT [facility] STREPTOCOCCUS AGALACTIAE (GROUP B STREP) Not Detected 26.000 - 32.222 ppm 09/10/2024 6:17 AM EDT [facility] FEI ALBICANS, PARAPSILOSIS, TROPICALIS 0 19.961 - 30.770 ppm 09/10/2024 6:17 AM EDT [facility] FEI ALBICANS, PARAPSILOSIS, TROPICALIS Not Detected 19.961 - 30.770 ppm 09/10/2024 6:17 AM EDT [facility] EFI GLABRATA 0 23.000 - 32.138 ppm 09/10/2024 6:17 AM EDT [facility] FEI GLABRATA Not Detected 23.000 - 32.138 ppm 09/10/2024 6:17 AM EDT [facility] FEI KRUSEI 0 23.000 - 32.271 ppm 09/10/2024 6:17 AM EDT [facility] FEI KRUSEI Not Detected 23.000 - 32.271 ppm 09/10/2024 6:17 AM EDT [facility] SERRATIA MARCESCENS 0 23.000 - 31.204 ppm 09/10/2024 6:17 AM EDT [facility] SERRATIA MARCESCENS Not Detected 23.000 - 31.204 ppm 09/10/2024 6:17 AM EDT [facility] STREPTOCOCCUS PYOGENES (GROUP A STREP) 0 19.961 - 24.689 ppm 09/10/2024 6:17 AM EDT [facility] STREPTOCOCCUS PYOGENES (GROUP A STREP) Not Detected 19.961 - 24.689 ppm 09/10/2024 6:17 AM EDT [facility] STAPHYLOCOCCUS EPIDERMIDIS, HAEMOLYTICUS, LUGDUNENSIS, SAPROPHYTICUS (URINA 0 19.961 - 24.689 ppm 09/10/2024 6:17 AM EDT [facility] STAPHYLOCOCCUS EPIDERMIDIS, HAEMOLYTICUS, LUGDUNENSIS, SAPROPHYTICUS (URINA Not Detected 19.961 - 24.689 ppm 09/10/2024 6:17 AM EDT [facility] STAPHYLOCOCCUS EPIDERMIDIS, HAEMOLYTICUS, LUGDUNENSIS, SAPROPHYTICUS (URINA 0 19.961 - 24.689 ppm 09/10/2024 6:17 AM EDT [facility] STAPHYLOCOCCUS EPIDERMIDIS, HAEMOLYTICUS, LUGDUNENSIS, SAPROPHYTICUS (URINA Not Detected 19.961 - 24.689 ppm 09/10/2024 6:17 AM EDT [facility] Urine 09/09/2024 3:42 PM EDT 09/10/2024 1:25 AM EDT us Irene MONTANO LAB BLOOD ORDERABLES Final Resul t [facility] [address] [place] [address] * RECURRENT VAGINITIS (HTRX) (09/09/2024 3:19 PM EDT) [facility] ATOPOBIUM VAGINAE 0 19.961 - 24.689 ppm 09/10/2024 6:36 AM EDT [facility] ATOPOBIUM VAGINAE Not Detected 19.961 - 24.689 ppm 09/10/2024 6:36 AM EDT [facility] BVAB 2,3 (BACTERIAL VAGINOSIS ASSOCIATED BACTERIA 2, 3); MOBILUNCUS SPP 0 19.961 - 24.689 ppm 09/10/2024 6:36 AM EDT [facility] BVAB 2,3 (BACTERIAL VAGINOSIS ASSOCIATED BACTERIA 2, 3); MOBILUNCUS SPP Not Detected 19.961 - 24.689 ppm 09/10/2024 6:36 AM EDT [facility] FEI ALBICANS, PARAPSILOSIS, TROPICALIS 0 19.961 - 30.770 ppm 09/10/2024 6:36 AM EDT [facility] FEI ALBICANS, PARAPSILOSIS, TROPICALIS Not Detected 19.961 - 30.770 ppm 09/10/2024 6:36 AM EDT [facility] FEI GLABRATA 0 23.000 - 32.138 ppm 09/10/2024 6:36 AM EDT [facility] FEI GLABRATA Not Detected 23.000 - 32.138 ppm 09/10/2024 6:36 AM EDT [facility] FEI KRUSEI 0 23.000 - 32.271 ppm 09/10/2024 6:36 AM EDT [facility] FEI KRUSEI Not Detected 23.000 - 32.271 ppm 09/10/2024 6:36 AM EDT [facility] CHLAMYDIA TRACHOMATIS 0 23.000 - 31.467 ppm 09/10/2024 6:36 AM EDT [facility] CHLAMYDIA TRACHOMATIS Not Detected 23.000 - 31.467 ppm 09/10/2024 6:36 AM EDT [facility] GARDNERELLA VAGINALIS 0 19.961 - 24.689 ppm 09/10/2024 6:36 AM EDT [facility] GARDNERELLA VAGINALIS Not Detected 19.961 - 24.689 ppm 09/10/2024 6:36 AM EDT [facility] MEGASPHAERA (TYPES 1, 2) 0 19.961 - 24.689 ppm 09/10/2024 6:36 AM EDT [facility] MEGASPHAERA (TYPES 1, 2) Not Detected 19.961 - 24.689 ppm 09/10/2024 6:36 AM EDT [facility] NEISSERIA GONORRHOEAE 0 23.000 - 32.117 ppm 09/10/2024 6:36 AM EDT [facility] NEISSERIA GONORRHOEAE Not Detected 23.000 - 32.117 ppm 09/10/2024 6:36 AM EDT [facility] TRICHOMONAS VAGINALIS 0 23.000 - 32.119 ppm 09/10/2024 6:36 AM EDT [facility] TRICHOMONAS VAGINALIS Not Detected 23.000 - 32.119 ppm 09/10/2024 6:36 AM EDT [facility] MYCOPLASMA GENITALIUM 0 19.961 - 24.689 ppm 09/10/2024 6:36 AM EDT [facility] MYCOPLASMA GENITALIUM Not Detected 19.961 - 24.689 ppm 09/10/2024 6:36 AM EDT [facility] Tissue 09/09/2024 3:19 PM EDT 09/10/2024 1:25 AM EDT us Irene MONTANO LAB BLOOD ORDERABLES Final Resul t [facility] [address] [place] [address] * IGP,APTIMA HPV,AGE GDLN (08/19/2024 8:33 AM EDT) AGE GDLN ACOG TESTING Note . TB Comment: TESTS RESULT FLAG UNITS REF RANGE LAB Clinician Provided Cytology Information Source.............Cervix;Endocervix No. of containers..01 ThinPrep Vial Diane Willis... FLAG LEGEND: L-Low Normal,H-High Normal,LL-Alert Low,HH-Alert High <-Panic Low,>-Panic High,A-Abnormal,AA-Critical Abnormal Performed at: 01 =G [facility] [address] Shaista Lowe MD, IGP, APTIMA HPV, RFX 16/18,45 Note . [facility] Comment: TESTS RESULT FLAG UNITS REF RANGE LAB DIAGNOSIS: 02 NEGATIVE FOR INTRAEPITHELIAL LESION OR MALIGNANCY. Specimen adequacy: 02 Satisfactory for evaluation. Endocervical and/or squamous metaplastic cells (endocervical component) are present. Performed by: 02 Alice Richard, Manager [employer] (ASCP) . 02 Note: Note 03 The Pap smear is a screening test designed to aid in the detection of premalignant and malignant conditions of the uterine cervix. It is not a diagnostic procedure and should not be used as the sole means of detecting cervical cancer. Both false-positive and false-negative reports do occur. Test Methodology: Note 03 This liquid based ThinPrep(R) pap test was screened with the use of an image guided system. HPV Genotype Reflex Note 02 Criteria not met, HPV Genotype not performed. FLAG LEGEND: L-Low Normal,H-High Normal,LL-Alert Low,HH-Alert High <-Panic Low,>-Panic High,A-Abnormal,AA-Critical Abnormal Performed at: 02 [facility] [address] [place] [address] Mazin Bundy MD, [address] [address] Shaista Lowe MD, HPV APTIMA Negative Negative [facility] Comment: This nucleic acid amplification test detects fourteen high- risk HPV types (16,18,31,33,35,39,45,51,52,56,58,59,66,68) without differentiation. Performed at: =G - [facility] [address] [id number] Plant Nursery Worker: Shaista Lowe MD, Phone: [phone] Performed at: [facility] [id number] [place], [place] [id number] Plant Nursery Worker: Mazin Bundy MD, Phone: [phone] 08/19/2024 8:33 AM EDT 08/19/2024 3:19 PM EDT Narrative [facility] - 08/22/2024 2:10 PM EDT BRUSH-SPATULA CERVIX ENDOCERVIX us Generic External Data Provider LAB BLOOD ORDERAB LES Final Result [facility] TB * Pap Smear (08/19/2024 12:00 AM EDT) Swab Cervical swab / Unknown us William Coelho DO LAB CYTOLOGY ORDERABLES Final Re sult EXTERNAL LAB * MM TOMOSYNTHESIS SCREENING BI (04/28/2023 11:14 AM EST) Anatomical Region Laterality Modality Other 04/28/2023 11:1 4 AM EST Narrative 04/28/2023 11:14 [place] [address] Mammography Report Signed Patient: Candice De León MR#: [id number] : 1980 Acct:[id number] Age/Sex: 43 / F ADM Date: 04/28/23 Loc: MAMMO Attending Dr: William Coelho D.O. Ordering Physician: William Coelho D.O. Results: Date of Service: 04/28/23 Follow Up: Procedure(s): MM tomosynthesis screening BI Accession Number(s): [id number] cc: BRIAN HERNANDEZ ; William Coelho D.O. Patient Name: CANDICE DE LEÓN MR#: [id number] : 1980 Exam Date: 04/28/2023 Ordering Doctor: [...] Treatments None Family Cancers None LOCATION: [facility] BREAST COMPOSITION: Scattered areas fibroglandular density. FINDINGS: [...] Signed By: 04/28/23 1114 DD/ 13 TD/TT: Flap Curer: Procedure Note Radiology, Radiologist, MD - 04/28/2023 [place] [address] Mammography Report Signed Patient: Candice De León EMR#: [id number] : 1980Acct:[id number] Age/Sex: 43 / FADM Date: 04/28/23 Loc: MAMMO Attending Dr: William Coelho D.O. Ordering Physician: William Coelho D.O.Results: Date of Service: 04/28/23Follow Up: Procedure(s): MM tomosynthesis screening BI Accession Number(s): [id number] cc: BRIAN HERNANDEZ ; William Coelho D.O. Patient Name: CANDICE DE LEÓN MR#: [id number] : 1980 Exam Date: 04/28/2023 Ordering Doctor: [...] Treatments None Family Cancers None LOCATION: [facility] BREAST COMPOSITION: Scattered areas fibroglandular density. FINDINGS: [...] M.D. Signed By:04/28/23 1114 DD/ 1114 TD/TT: Flap Curer: us Generic External Data Provider [facility] Final Result * THINPREP AND HPV (01/11/2021 12:00 PM EDT) PAP RESULTS Negative [facility] HPV Negative [facility] 01/11/2021 12:0 0 PM EDT us Brian Hernandez MD [facility] Final Result [facility] from Last 3 Months or Most Recently Relevant to Health Maintenance Insurance [facility] Care Teams Fruit Culler Relationship Specialty Start Date End Date Brian Hernandez MD [address] [place] [address] [address] [place] [address] PCP - General Family Medicine 09/05/22
--- OUTSIDE RECORDS SUMMARY | 2024-09-13 07:29 | XMS_ITS | Encounter Summary ---
Author Organization [facility] Address [id number] [address] [place] [address] Care Team Providers Care Grain I Farmworker Name Role Phone Brian Meraz MD Primary Care Provider [phone] Encounter Details Date Type Department Care Team (Late st Contact Info) Description 12/15/2020 Telephone [facility] [address] [place] [phone] Minna Anthony, CONNIE Social History Tobacco Use [...] on filedocumented in this encounter Care Teams Grain I Farmworker Relationship Specialty Start Date End Date [place] [address] [place] [address] PCP - General 12/28/16 documented as of this encounter
--- OUTSIDE RECORDS SUMMARY | 2024-09-13 07:29 | XMS_ITS | CCD ---
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 Name Role Phone MINA HERNANDEZ Primary Care Physician LAQUITA, DR OCHOA Admitting Unavailable LAQUITA, DR [...] Unavailable DAVID, DR ENRIQUEZ Primary Care Unavailable [place], DR MARGIE Mcgee Consulting Unavailable LAQUITA, DR [...] Unavailable MD Mina Hernandez Primary Care Provider MD Padma Torres Attending Provider [phone] Mina Hernandez MD Primary Care Provider Mina Hernandez MD Primary Care Provider [phone] Padma Torres MD Attending Provider [phone] NON STAFF Primary Care Unavailable Mara Arias Admitting Unavailable Mara Arias Attending Unavailable Asaad, Imad Attending Unavailable Asaad, Imad Admitting Unavailable David, Rugghassan M Primary Care Unavailable Asaad, Imad Attending Unavailable Asaad, Imad Admitting Unavailable [place], Rugen M Primary Care Unavailable Asaad, Imad Attending Unavailable Asaad, Imad Admitting Unavailable David, Rugen M Primary Care Unavailable [place], Rugen M Primary Care Unavailable Asaad, Imad Attending Unavailable Asaad, Imad Admitting Unavailable David, Rugen M Primary Care Unavailable Asaad, Imad Attending Unavailable Asaad, Imad Admitting Unavailable David, Rugen M Primary Care Unavailable Asaad, Imad Admitting Unavailable Asaad, Imad Attending Unavailable Asaad, Imad Admitting Unavailable [place], Rugen M Primary Care Unavailable Asaad, Imad Attending Unavailable DAVID, MINA M Attending Unavailable DAVIDMINA Christy M Attending Unavailable MI ST Attending Unavailable WILLIAM COELHO Attending Unavailable DAVID, MINA M Attending Unavailable DAVID, MINA M Attending Unavailable IRENE BERMUDEZ Attending Unavailable DAVID, RUGEN M Attending Unavailable Allergies Allergy Classification Reported Allergen(s) Allergy Type Date of Onset Reaction(s) Facility (1 source) No Known Medication Allergies; Translations: [No Known Medication Allergies] Propensity to adverse reactions (disorder) [facility] Repository Medications Current Medications Medication Drug Class(es) Dates Sig (Normalized) Sig (Original) [id number] 200 actuat albuterol 0.09 mg/actuat metered dose [...] , 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) Inhale [...] day(s), # 14 cap(s), Refills(s) 0, Pharmacy: [facility] #[id number], 163, cm, 11/03/22 15:33:00 EDT, Height/Length Dosing, 101.2, kg, 11/03/22 15:33:00 EDT, Weight Dosing Start Date: 11/03/22 Stop Date: 11/10/22 Status: Ordered take 1 capsule by [facility] every eight hours Cephalexin 500 MG 1 capsule Orally three times a day 03/24/2022 Active ciprofloxacin 250 mg oral tablet (2 sources) Quinolone Antimicrobial Start: 01-20-2022 End: 01-27-2022 take 1 tablet by mouth twice daily Cipro 250 mg Tab 250 mg = 1 tab(s), Oral, BID, X 7 day(s), # 14 tab(s), Refills(s) 0, Pharmacy: [facility] #[id number], 163, cm, 01/20/22 13:31:00 EDT, Height/Length Dosing, [...] 08/17/21 Status: Ordered take 1 capsule by [facility] once daily esomeprazole (NexIUM) [address] capsule Take 1 capsule by mouth 1 (one) time each day at the same time. Active Gxonvcqbxvj-Kclsjccwy-Plejcy er (20 sources) Anticholinergic, Corticosteroid, beta2-Adrenergic Agonist Start: 12-11-2023 Kephwpokpmz-Gehynvgda-Quslpc er (Trelegy Ellipta) 100-62.5-25 mcg blister with device Active 1 INH INHALATION Daily December 10, 2023 11:00pm Start: 12-11-2023 Fluticasone-Um eclidin-Vilanter (Trelegy Ellipta) 100-62.5-25 mcg blister with device Active 1 INH INHALATION Daily December 11, 2023 12:00am Start: 05-08-2023 End: 11-13-2023 take 1 puff(s) by inhalation once daily Xdnrglsxwyw-Mbneulpcc-Xisuqv (Trelegy Ellipta) 100-62.5-25 MCG/ACT aerosol powder Indications: Uncomplicated severe persistent asthma (HCC) Inhale 1 puff 1 (one) time each day at the same time 1 each 11/13/2023 Active Trelegy Ellipta 100-62.5-25 MCG/ACT [...] sulfate 120 mg extended release oral tablet (20 sources) alpha-Adrenergic Agonist take 1 tablet by [...] MCG PO Daily December 10, 2023 11:00pm metroNIDAZOLE 0.013 mg/mg vaginal gel (2 sources) Nitroimidazole Antimicrobial Start: 09-09-2024 End: 09-09-2024 metroNIDAZOLE (Nuvessa) 1.3 % gel Indications: BV (bacterial vaginosis) Insert 1 each into the vagina 1 time for 1 dose 5 g 09/09/2024 09/09/2024 Active montelukast 10 mg oral tablet (20 sources) Leukotriene Receptor Antagonist Start: 03-04-2024 take 1 tablet by mouth once daily at bedtime montelukast (Singulair) 10 MG tablet Indications: Mild intermittent asthma without complication (HCC) TAKE 1 [...] day(s), # 90 tab(s), Refills(s) 3, Pharmacy: [facility], 163, cm, 08/17/21 10:59:00 EDT, Height/Length Dosing, 100.3, kg, 08/17/21 10:59:00 EDT, Weight Dosing Start Date: 10/25/21 Stop Date: 10/20/22 Status: Ordered Start: 09-16-2021 take 1 tablet by ángela once daily oxybutynin 10 mg ER Tab 10 mg = 1 tab(s), Oral, Daily, # 30 tab(s), Refills(s) 0, Pharmacy: [facility], 163, cm, 08/17/21 10:59:00 EDT, Height/Length Dosing, 100.3, kg, 08/17/21 10:59:00 EDT, Weight Dosing Start Date: 09/16/21 Status: Ordered Start: 08-17-2021 End: 09-16-2021 take 1 tablet by mouth once daily oxybutynin 5 mg ER Tab 5 mg = 1 tab(s), Oral, Daily, X 30 day(s), # 30 tab(s), Refills(s) 0, Pharmacy: [facility], 163, cm, 08/17/21 10:59:00 EDT, Height/Length Dosing, 100.3, kg, 08/17/21 10:59:00 EDT, Weight Dosing Start Date: 08/17/21 Stop Date: 09/16/21 Status: Ordered End: 05-21-2024 take 1 tablet by mouth once daily oxybutynin XL (Ditropan-XL) 10 MG 24 hr tablet Take 1 tablet by mouth 1 (one) time each day at the same time. 05/21/2024 Discontinued (Reorder) phenazopyridine hydrochloride 100 mg oral tablet (3 sources) Start: 09-09-2024 End: 09-11-2024 take 1 tablet by mouth three times daily as needed for muscle spasms phenazopyridine (Pyridium) 100 MG tablet Indications: Urinary urgency Take 1 tablet (100 mg) by mouth 3 (three) times a day as needed for bladder spasms for up to 2 days 6 tablet 09/09/2024 09/11/2024 Active Probiotic + Colostrum (2 sources) Start: 11-03-2022 Probiotic + Co lostrum Oral, Daily Start Date: 11/03/22 Status: Ordered Semaglutide-Weight Management 0.5 MG/0.5ML solution auto-injector (5 [...] per week 2 mL 05/21/2024 06/20/2024 Active Semaglutide-Weight Management 1.7 MG/0.75ML solution auto-injector (5 sources) Start: 09-03-2024 End: 10-03-2024 inject 1.7 mg by subcutaneous injection every week Semaglutide-Weight Management 1.7 MG/0.75ML solution auto-injector Indications: Morbid (severe) obesity due to excess calories (CMS-HCC) Inject 1.7 mg under the skin 1 (one) time per week 3 mL 09/03/2024 10/03/2024 Active sulfamethoxazole 800 mg / trimethoprim 160 mg oral tablet (5 sources) Dihydrofolate Reductase Inhibitor Antibacterial, Sulfonamide Antimicrobial Start: 09-09-2024 End: 09-19-2024 take 1 tablet by mouth once in the morning, then take 1 tablet by mouth once at bedtime sulfamethoxazole-tri methoprim (Bactrim DS) 800-160 MG per tablet Indications: UTI symptoms , Urinary urgency Take 1 tablet by mouth in the morning and 1 tablet before bedtime. Do all this for 10 days. As directed by physician. 20 tablet 1 09/09/2024 09/19/2024 Active Start: 11-03-2022 Bactrim 400 mg -80 mg Tab 80 mg, Oral, As Directed, 30 tab(s), Refill(s) 3, Take 1 tab after sexual intercourse to prevent infections., [facility] #[id number], 163, cm, 11/03/22 15:33:00 EDT, Height/Length Dosing, 101.2, kg, 11/03/22 15:33:00 EDT, Weight Dosing Start Date: 11/03/22 Status: Ordered Trelegy Ellipta (9 sources) Start: 08-17-2021 Trelegy Ellipt a Inhalation, Daily, Refills(s) 0 Start Date: 08/17/21 Status: Ordered vitamin B12 (20 sources) Vitamin B12 Start: 11-03-[address] art Date: 11/03/22 Status: Ordered take 1 tablet by mouth in the mo rning cyanocobalamin (Vitamin B-12) 100 MCG tablet Take 1 tablet by mouth in the morning. Active Completed/Discontinued Medications Medication Drug Class(es) Dates Sig (Normalized) Sig (Original) benzonatate 200 mg oral capsule (4 sources) Non-narcotic Antitussive Start: End: 5 take 1 capsule by mouth three times daily as needed for cough benzonatate (Tessalon) 200 MG capsule Indications: Acute cough Take 1 capsule (200 mg) by mouth 3 (three) times a day as needed for cough for up to 7 days Do not crush or chew. 21 capsule 08/28/2024 09/09/2024 Discontinued cefuroxime 500 mg oral tablet (6 sources) Cephalosporin Antibacterial Start: 5 End: 5 take 1 tablet by mouth in the morning cefuroxime (Ceftin) 500 MG tablet Indications: Acute maxillary sinusitis, recurrence not specified Take 1 tablet (500 mg) by mouth in the morning and 1 tablet (500 mg) before bedtime. Do all this for 10 days. 20 tablet 08/26/2024 09/09/2024 Discontinued methylPREDNISolone 4 mg oral tablet (1 source) Corticosteroid Start: End: take 1 tablet by mouth once Methylprednisolone (Medrol (Rod)) 4 mg tablets,dose pack Discontinued 0 PO per package directions March 19, 2024 12:00am March 26, 2024 10:46am PO PER PKG DIR ondansetron 4 mg oral tablet (4 sources) Serotonin-3 Receptor Antagonist Start: End: take 1 tablet by mouth every eight hours for nausea ondansetron (Zofran) 4 MG tablet Indications: Acute maxillary sinusitis, recurrence not specified Take 1 tablet (4 mg) by mouth every 8 (eight) hours if needed for nausea or vomiting for up to 7 days 20 tablet 08/26/2024 09/09/2024 Discontinued Semaglutide-Weight Management (Wegovy) 0.25 MG/0.5ML solution auto-injector (4 sources) Start: End: inject 0.25 mg by subcutaneous injection [...] per week 2 mL 04/25/2024 05/25/2024 Active Semaglutide-Weight Management (Wegovy) 1 MG/0.5ML solution auto-injector (9 sources) Start: 08-07-2024 End: 09-03-2024 inject 1 mg by subcutaneous injection every week Semaglutide-Weight Management (Wegovy) 1 MG/0.5ML solution auto-injector Indications: Morbid (severe) obesity due to excess calories (CMS-HCC) Inject 1 mg under the skin 1 (one) time per week 3 mL 1 08/07/2024 09/03/2024 Discontinued (Therapy completed) Start: 08-07-2024 inject 1 mg by subcu taneous injection every week Semaglutide-Weight Management (Wegovy) 1 MG/0.5ML solution auto-injector Indications: Morbid (severe) obesity due to excess calories (CMS/HCC) Inject 1 mg under the skin 1 (one) time per week 3 mL 1 08/07/2024 Active Problems Active Problems Problem Classification Problem Date Documented Da te Episodic/Chronic Adjustment disorders (20 sources) Adjustment disorder with anxious mood; Translations: [Adjustment disorder with anxiety] Onset: 3 11-29-2022 Chronic Anxiety disorders (20 sources) Fear of flying; Translations: [Fear of [...] Anemia 08-17-2021 Episodic Disorders of lipid metabolism (20 sources) Mixed hyperlipidemia; Translations: [Mixed hyperlipidemia] Onset: 3 09-04-2022 Chronic Diverticulosis and diverticulitis (20 sources) Diverticulitis of large intestine; Translations: [Diverticulitis of large intestine with perforation and abscess without bleeding] Onset: 4 07-20-2023 Chronic Esophageal disorders (20 sources) Gastroesophageal reflux disease; Translations: [Gastro-esophageal reflux disease without esophagitis] Onset: 0 02-22-2023 Chronic Genitourinary symptoms and ill-defined conditions (14 sources) Mixed incontinence; Translations: [Incontinence] Onset: 2 Chronic Genitourinary symptoms and ill-defined conditions (20 sources) Sensation as if bladder still full; Translations: [Feeling of incomplete bladder emptying] Onset: 2 Episodic Hemorrhoids (2 sources) Bleeding hemorrhoids; Translations: [Unspecified hemorrhoids] 07-30-2024 Episodic Immunizations and screening for infectious disease (1 source) Encounter for screening for human papillomavirus (HPV); Translations: [ENC SCREENING HUMAN PAPILLOMAVIRUS] Onset: 2 Episodic Inflammatory diseases of female pelvic organs (4 sources) Bacterial vaginosis; Translations: [Acute vaginitis] 09-09-2024 Episodic Menstrual disorders (20 sources) Excessive and frequent menstruation with regular cycle; Translations: [Dysmenorrhea, unspecified] Onset: 1 Chronic Other diseases of bladder and urethra (5 sources) Detrusor overactivity; Translations: [Overactive bladder] Onset: 2 Chronic Other diseases of bladder and urethra (9 sources) Overactive bladder 08-17-2021 Chronic Other gastrointestinal disorders (6 sources) Diarrhea; Translations: [Diarrhea, unspecified] 12-11-2023 Episodic Other gastrointestinal disorders (2 sources) [...] of other serum enzymes] 03-04-2024 Episodic Other nutritional; endocrine; and metabolic disorders (20 sources) Obesity caused by energy imbalance; Translations: [Morbid (severe) obesity due to excess calories] Onset: 3 07-20-2023 Chronic Other nutritional; endocrine; and metabolic disorders (20 sources) Lipoprotein deficiency disorder; Translations: [Lipoprotein deficiency] Onset: 7 02-22-2023 Chronic Other nutritional; endocrine; and metabolic disorders (20 sources) Body mass index 30+ - obesity; Translations: [Obesity, unspecified] Onset: 5 04-25-2024 Chronic Other upper respiratory disease (20 sources) Seasonal allergic rhinitis; Translations: [Other seasonal allergic rhinitis] Onset: 3 09-04-2022 Chronic Other upper respiratory infections (20 sources) Sinusitis; Translations: [Chronic sinusitis, unspecified] Onset: 8 02-22-2023 Chronic Other upper respiratory infections (4 sources) Viral upper respiratory tract infection; Translations: [Acute upper respiratory infection, unspecified] 03-19-2024 Episodic Otitis media and related conditions (7 sources) Dysfunction of right eustachian tube; Translations: [Unspecified Eustachian tube disorder, right ear] Onset: 5 09-03-2024 Episodic Skin and subcutaneous tissue infections (1 [...] [Abdominal pain] Onset: 03-16-2021 Episodic Administrative/social admission (20 sources) Marital problems; Translations: [Problems in relationship with spouse or partner] Onset: 11-24-2022 11-24-2022 Episodic Cardiac dysrhythmias (20 sources) Palpitations; Translations: [Palpitations] Onset: 11-13-2023 11-13-2023 Episodic Deficiency and other anemia (4 sources) Iron deficiency anemia, unspecified; Translations: [IRON DEFICIENCY ANEMIA UNSPECIFIED] Onset: 08-13-2021 Episodic Deficiency and other anemia (20 sources) Iron deficiency anemia; Translations: [Iron deficiency anemia, unspecified] Onset: 09-04-2022 09-04-2022 Episodic Malaise and fatigue (20 sources) Fatigue; Translations: [Other fatigue] Onset: 04-25-2024 04-25-2024 Episodic Noninfectious gastroenteritis (20 sources) Colitis; Translations: [Noninfective gastroenteritis and colitis, unspecified] Onset: 08-07-2023 12-11-2023 Episodic Nonspecific chest pain (20 sources) Chest pain; Translations: [Other chest pain] Onset: 07-20-2023 07-20-2023 Episodic Other circulatory disease (20 sources) Elevated blood-pressure reading without diagnosis of hypertension; Translations: [Elevated blood-pressure reading, without diagnosis of hypertension] Onset: 07-20-2023 07-20-2023 Episodic Other female genital disorders (1 source) Hypertrophy of uterus; Translations: [HYPERTROPHY OF UTERUS] Onset: 03-16-2021 Episodic Other gastrointestinal disorders (7 sources) Diarrhea, unspecified; Translations: [Diarrhea] Onset: 03-05-2024 12-11-2023 Episodic Other gastrointestinal disorders (20 sources) Constipation; Translations: [Constipation, unspecified] Onset: 12-28-2015 02-22-2023 Episodic Other liver diseases (2 sources) Abnormal levels of other serum enzymes; Translations: [Other nonspecific abnormal serum enzyme levels] Onset: 03-05-2024 03-04-2024 Episodic Other nervous system disorders (20 sources) Loss of taste; Translations: [Parageusia] Onset: 09-04-2022 09-04-2022 Episodic Other screening for suspected conditions (not mental disorders or infectious disease) (20 sources) Encounter for screening mammogram for malignant neoplasm of breast; Translations: [Encounter for screening for malignant neoplasm of cervix] Onset: 01-13-2022 Episodic Residual codes; unclassified (20 sources) History of surgical procedure on mouth; Translations: [Other specified postprocedural states] Onset: 03-20-2010 09-04-2022 Episodic Residual codes; unclassified (20 sources) Insomnia; Translations: [Insomnia, unspecified] Onset: 06-21-2019 02-22-2023 Episodic Residual codes; unclassified (20 sources) Family history of diabetes mellitus; Translations: [Family history of diabetes mellitus] Onset: 04-25-2024 04-25-2024 Episodic Superficial injury; contusion (20 sources) Abrasion, left lower leg, initial encounter; Translations: [Abrasion or friction burn of hip, thigh, leg, and ankle, without mention of infection] Onset: 12-02-2020 02-22-2023 Episodic Unclassified (6 sources) Cholecystectomy planned; Translations: [Cholecystectomy planned] 12-11-2023 Results Test Name Value Interpretation Reference Range Facility No Panel Informationon 09-10 STAPHYLOCOCCUS EPIDERMIDIS, HAEMOLYTICUS, LUGDUNENSIS, SAPROPHYTICUS (URINA 0 [facility] STAPHYLOCOCCUS EPIDERMIDIS, HAEMOLYTICUS, LUGDUNENSIS, SAPROPHYTICUS (URINA Not detected [facility] URINARY TRACT INFECTION (HTR X)on 09-10-2024 ACINETOBACTER BAUMANII 0 NO [facility] ACINETOBACTER BAUMANII Not detected [facility] FEI ALBICANS, PARAPSILOSIS, TROPICALIS 0 [facility] FEI ALBICANS, PARAPSILOSIS, TROPICALIS Not detected [facility] FEI GLABRATA 0 [facility] FEI GLABRATA Not detected [facility] FEI KRUSEI 0 [facility] FEI KRUSEI Not detected [facility] CITROBACTER FREUNDII 0 [facility] CITROBACTER FREUNDII Not detected NO [facility] ENTEROBACTER AEROGENES, CLOACAE 0 [facility] ENTEROBACTER AEROGENES, CLOACAE Not detected [facility] ENTEROCOCCUS FAECALIS, FAECIUM 0 [facility] ENTEROCOCCUS FAECALIS, FAECIUM Not detected [facility] ESCHERICHIA COLI 0 [facility] ESCHERICHIA COLI Not detected [facility] KLEBSIELLA PNEUMONIAE, OXYTOCA 0 [facility] KLEBSIELLA PNEUMONIAE, OXYTOCA Not detected [facility] MORGANELLA MORGANII 0 [facility] MORGANELLA MORGANII Not detected [facility] PROTEUS MIRABILIS, VULGARIS 0 [facility] PROTEUS MIRABILIS, VULGARIS Not detected [facility] PSEUDOMONAS AERUGINOSA 0 NO [facility] PSEUDOMONAS AERUGINOSA Not detected [facility] SERRATIA MARCESCENS 0 [facility] SERRATIA MARCESCENS Not detected [facility] STAPHYLOCOCCUS AUREUS 0 [facility] STAPHYLOCOCCUS AUREUS Not detected [facility] STREPTOCOCCUS AGALACTIAE (GROUP B STREP) 0 [facility] STREPTOCOCCUS AGALACTIAE (GROUP B STREP) Not detected [facility] STREPTOCOCCUS PYOGENES (GROUP A STREP) 0 [facility] STREPTOCOCCUS PYOGENES (GROUP A STREP) Not detected [facility] Urinalysis macro (dipstick) panel (U)on 09-09-2024 Bilirubin, UA Negative Negative - 4(70) +++ mg/dL [facility] Blood, UA Positive Negative - 50 Bart/mcL [facility] Comment on above: small Clarity, UA Cloudy [facility] Color, UA Straw [facility] Glucose, UA Negative Negative - 1999(110) ++++ mg/dL [facility] Interpretation and review of laboratory results Abnormal [facility] Ketones, UA Negative Negative - 160(16) ++++ mg/dL [facility] Leukocytes, UA Negative Negative - 500+++ Kyra/mcL [facility] Nitrite, UA Negative Negative - Positive [facility] pH, UA 6 5 - 9 [facility] Protein, UA Negative Negative - 1999(20) ++++ mg/dL [facility] Spec Grav, UA 1.03 1 - 1.03 [facility] Urobilinogen, UA 0.2 0.2 - 12 mg/dL [facility] Urine Cultureon 09-06-2024 Bacteria identified Cx Nom (U) <10,000 colonies/ml mixed bacterial skin contaminants including mixed gram negative bacilli - 2 Days PERFORMED BY: [facility] [address] [place] [address] PATHOLOGIST PULLER OVER RAISA Pablo [facility] Comment on above: Performed By: #### C UU ####[facility] [address] [place] [address] [facility] IGP,APTIMA HPV,AGE GDLNon AGE GDLN ACOG TESTING Note . [facility] Comment on above: TESTS RESULT FLAG UN ITS REF RANGE LAB Clinician Provided Cytology Information Source.............Cervix;Endocervix No. of containers..01 ThinPrep Vial Age Algo ACOG Alba... FLAG LEGEND: L-Low Normal,H-High Normal,LL-Alert Low,HH-Alert High <-Panic Low,>-Panic High,A-Abnormal,AA-Critical Abnormal Performed at: 01 =[address] [address] Shaista Lowe MD, HPV APTIMA Negative Negative [facility] Comment on above: This nucleic acid am plification test detects fourteen high- risk HPV types (16,18,31,33,35,39,45,51,52,56,58,59,66,68) without differentiation. Performed at: = - [facility] [id number] Biztalk Developer: Shaista Lowe MD, Phone: [phone] Performed at: [facility] [address] [place] [id number] [employer]iz[employer] Developer: Mazin Bundy MD, Phone: [phone] IGP, APTIMA HPV, RFX 16/18,45 Note . [facility] Comment on above: TESTS RESULT FLAG UN ITS REF RANGE LAB DIAGNOSIS: 02 NEGATIVE FOR INTRAEPITHELIAL LESION OR MALIGNANCY. Specimen adequacy: 02 Satisfactory for evaluation. Endocervical and/or squamous metaplastic cells (endocervical component) are present. Performed by: 02 Alice Richard Glove Former ([facility]) . 02 Note: Note 03 The Pap [...] <-Panic Low,>-Panic High,A-Abnormal,AA-Critical Abnormal Performed at: 02 [facility] [address] [place] [address] Mazin Bundy MD, 03 WB [facility] [address] [address] Shaista Lowe MD, BRUSH-SPATULA CERVIX ENDOCERVIX [facility] Urinalysis macro (dipstick) panel (U)on 08-19-2024 Bilirubin, UA Positive Negative - 4(70) +++ mg/dL [facility] Comment on above: smalll Blood, UA Positive Negative - 50 Bart/mcL [facility] Comment on above: small Clarity, UA Clear [facility] Color, UA Yellow [facility] Glucose, UA Negative Negative - 2000(110) ++++ mg/dL [facility] Interpretation and review of laboratory results Abnormal [facility] Ketones, UA Positive Negative - 160(16) ++++ mg/dL [facility] Comment on above: trace Leukocytes, UA Trace Negative - 500+++ Kyra/mcL [facility] Nitrite, UA Negative Negative - Positive [facility] pH, UA 5.5 5 - 9 [facility] Protein, UA Positive Negative - 2000(20) ++++ mg/dL [facility] Comment on above: 30 Spec Grav, UA 1.03 1 - 1.03 [facility] Urobilinogen, UA 0.2 0.2 - 12 mg/dL [facility] TSH W/REFLEX TO FT4on 2024 TSH W/REFLEX TO FT4 1.44 mIU/L Normal [facility] Comment on above: Result Comment: Refe peter Range > or = 20 Years 0.40-4.50 Ranges First trimester 0.26-2.66 Second trimester 0.55-2.73 Third trimester 0.43-2.91 Performed By: #### 3 [id number] #### [facility] [address], [address] [place] [address] Gas Well Pumper: Hermilo Choudhury MD HCG ( test) Dora vergara Ql (U)Ordered By: Padma Torres on 04-05-2024 HCG ( test) Ql (U) Urine human chorionic gonadotropin (hCG) detection by immunoassay [facility] HCG,Urineon 04-05-2024 Beta HCG ( test) Ql (U) Negative Normal [facility] Comment on above: Result Comment: PERF ORMED BY: [place] [address] PATHOLOGIST PULLER OVER ESTEFANÍA LANIER M.D. Performed By: #### U HCG #### [address] Mauricio 04-05-2024 L - -------- Specimen: [id number] Received: 04/05/24 Status: AGUSTIN Mcgraw Num: [id number] Spec Type: Surgical Subm Dr: Padma Torres MD Tissues: A Colon Biopsy (RANDOM BX R/O MICRO COLITIS) Procedures: HE/2, Gross/Micro L4 -------- Age/ Patient Sex Location Account Attending Physician -------- Candice De León 44/F [id number] Padma Torres MD -------- SPEC NUM: [id number] RECD: 04/05/24 STATUS: AGUSTIN MIRZARonny NUM: [id number] OMI: 04/05/24-[address] [facility] [address]: Padma Torres MD ENTERED: 04/05/[address] [facility] [address]: JESSICA TYPE: Surgical DEPT: S ENTERED BY: [id number] RECV BY: [id number] ORDERED: HE/2, Gross/Micro L4 ORDERED: HE/2, Gross/Micro [...] submitted in a single cassette. (1, ns, [id number]) CPT Codes 24696 -------- -------- Specimen: [id number] Received: 04/05/24 Status: AGUSTIN Mirzaronny Num: [id number] Spec Type: Surgical Subm Dr: Padma Torres MD Tissues: A Colon Biopsy (RANDOM BX R/O MICRO COLITIS) Procedures: Karlee UPTON/Jeri L4 -------- Patient: Candice De León [id number] (Continued) -------- Signed (signature on file) Aziza Segura MD 04/08/24 [address] [place] [facility] COVID Cepheidon 03-19-2024 SARS-CoV-2 (COVID-19) RNA NIDIA+probe Ql (Unsp spec) COVID Cepheid [facility] - Microbiology an d Antimicrobial susceptibilityon 03-19-2024 SARS-CoV-2 (COVID-19) RNA NIDIA+probe Ql (Unsp spec) Negative [facility] No Panel InformationOrdered By: Kari Arandab on 03-19-2024 Quick Strep (POC) [facility] No Panel Informationon 03-19 POC Influenza A (PCR) Negative [facility] POC Influenza B (PCR) Negative [facility] Campy coli+jejuni BD MaxOrde red By: Imad Asaad on 03-05-2024 C. coli+jejuni tuf gene NIDIA+probe Ql (Stl) Campy coli+jejuni BD Max Negative [facility] Comment on above: Campylobacter test i ncludes C. jejuni and C. coli. Cryptosporidium parv+homin B D MaxOrdered By: Imad Asaad on 03-05-2024 C. parvum+hominis DNA NIDIA+probe Ql (Stl) Cryptosporidium parv+homin BD Max Negative [facility] Comment on above: Cryptosporidium test includes C. hominis and C. parvum. Entamoeba histolytica BD Max Ordered By: Imad Asaad on 03-05-2024 E. histolytica DNA NIDIA+probe Ql (Stl) Entamoeba histolytica BD Max Negative [facility] Comment on above: Testing performed by RT-PCR Giardia andrews BD MaxOrdered By : Imad Asaad on 03-05-2024 G. lamblia DNA NIDIA+probe Ql (Stl) Giardia andrews BD Max Negative [facility] Ova and Parasite Panelon Cryptosporidium (C.hominis+par Negative Normal Negative [facility] Comment on above: Result Comment: Cryp tosporidium test includes C. hominis and C. parvum. Performed By: #### E NT BACT PANEL, OVP ####[facility] [address] [place] [address] [facility] Entamoeba histolytica Negative Normal Negative [facility] Comment on above: Result Comment: Test ing performed by RT-PCR PERFORMED BY: [facility] [address] [place] [address] PATHOLOGIST PULLER OVER ESTEFANÍA LANIER M.D. Performed By: #### E NT BACT PANEL, OVP ####[place] [address] [place] [address] [facility] Giardia lamblia Negative Normal Negative [facility] Comment on above: Performed By: #### E NT BACT PANEL, OVP ####[address] [address] [facility] Salmonellosis BD MaxOrdered By: Imad Asaad on 03-05-2024 Salmonella sp spaO gene NIDIA+probe Ql (Stl) Salmonella sp spaO gene [Presence] in Stool by NIDIA with probe detection Negative [facility] Comment on above: Testing performed by RT-PCR Shigella Tox 1+2 BD MaxOrder ed By: Imad Asaad on 03-05-2024 E. coli stx1+stx2 genes NIDIA+probe Ql (Stl) Escherichia coli Stx1 and Stx2 toxin stx1+stx2 genes [Presence] in Stool by NIDIA with Negative [facility] Shigellosis BD MaxOrdered By : Imad Asaad on 03-05-2024 Shigella species+EIEC invasion plasmid antigen H ipaH gene NIDIA+probe Ql (Stl) Shigella species+EIEC invasion plasmid antigen H ipaH gene [Presence] in Stool by NIDIA Negative [facility] Comment on above: Shigella sp. test in cludes Shigella species and Enteroinvasive E. coli (EIEC). Stool Bacterial Panelon 02-17 Campylobacter Negative Normal Negative [facility] Comment on above: Result Comment: Camp ylobacter test includes C. jejuni and C. coli. Performed By: #### E NT BACT PANEL, OVP ####[place] [id number] [facility] Salmonella Species Negative Normal Negative [facility] Comment on above: Result Comment: Test ing performed by RT-PCR PERFORMED BY: [facility] [address] [facility] [id number] PATHOLOGIST PULLER OVER ESTEFANÍA LANIER M.D. Performed By: #### E NT BACT PANEL, OVP ####[facility] Shiga Toxin (E coli O157+oth) Negative Normal Negative [facility] Comment on above: Performed By: #### E NT BACT PANEL, OVP ####[facility] Shigella Species Negative Normal Negative [facility] Comment on above: Result Comment: Shig lizette sp. test includes Shigella species and Enteroinvasive E. coli (EIEC). Performed By: #### E NT BACT PANEL, OVP ####[facility] Hep C Ab wRfx to Qnt PCRon 1 05-05-2023 Hepatitis C Virus Antibody Non-Reactive Normal Non Reactive [facility] Comment on above: Performed By: #### H CV RX PCR, HAABT, HBSAB, HBCAB, HBSAG #### [facility] , Interpretation Hepatitis C Comment Normal . [facility] Comment on above: Result Comment: Not infected with HCV unless early or acute infection is suspected (which may be delayed in an immunocompromised individual), or other evidence exists to indicate HCV infection. Performed By: #### H CV RX PCR, HAABT, HBSAB, HBCAB, HBSAG #### [facility] , Hepatitis A Antibody Totalon 03-04-2024 Hepatitis A Antibody Total Negative Normal Negative [facility] Comment on above: Result Comment: Comm ent: The HAV total antibody assay detects both IgG and IgM but does not differentiate between them. A negative result suggests susceptibility to infection. A positive result could be due to vaccination, previously resolved infection or active infection. Testing for HAV IgM should be performed if active HAV infection is suspected. [facility] offers profiles that will automatically reflex positive HAV total antibody results to IgM (e.g., panel #[id number] HAV Antibody w/ Rfx). Performed at: [address] [id number] [employer] Developer: Jose Turcios PhD, Phone: [phone] Performed By: #### H CV RX PCR, HAABT, HBSAB, HBCAB, HBSAG ####[facility] , Hepatitis A virus Ab [Presen ce] in Serum by ImmunoassayOrdered By: Padma Torres on 03-04-2024 HAV Ab IA Ql (S) Hepatitis A virus Ab [Presence] in Serum by Immunoassay Negative [facility] Comment on above: Comment: The HAV tot [...] HAVtotal antibody results to IgM (e.g., panel #[id number] HAVAntibody w/ Rfx).Performed at: [facility] [employer] [id number] Director: Jose Turcios PhD, Phone: [phone] Hepatitis B Core Antibodyon 03-04-2024 Hepatitis B Core Antibody Negative Normal Negative [facility] Comment on above: Performed By: #### H CV RX PCR, HAABT, HBSAB, HBCAB, HBSAG ####[facility] , Hepatitis B Surface Antibody on 03-04-2024 Hepatitis B Surface Antibody Equivocal Normal . [facility] Comment on above: Result Comment: Non Reactive: Not immune to HBV infection. Equivocal: Unable to determine if anti-HBs is present at levels consistent with immunity. Reactive: Anti-HBs concentration detected at greater than 10 mIU/mL. Individual is considered to be immune to infection with HBV. Verified by repeat analysis Performed at: [facility] [employer] [id number] [employer] Developer: Jose Turcios PhD, Phone: [phone] Performed By: #### H CV RX PCR, HAABT, HBSAB, HBCAB, HBSAG ####[facility] , Hepatitis B Surface Antigeno n 03-04-2024 HBsAg Screen Negative Normal Negative [facility] Comment on above: Result Comment: PERF ORMED BY: [facility] [address] [place] [address] PATHOLOGIST PULLER OVER ESTEFANÍA LANIER M.D. Performed By: #### H CV RX PCR, HAABT, HBSAB, HBCAB, HBSAG ####[facility] , Hepatitis B virus core antib alexa assayOrdered By: Imrhoit Torres on 03-04-2024 Hepatitis B Core Total Antibody Negative Negative [facility] Hepatitis C virus IgG Ab [Pr esence] in Serum or Plasma by ImmunoassayOrdered By: Imad Asaad on 03-04-2024 HCV IgG IA Ql Hepatitis C virus Ig G Ab [Presence] in Serum or Plasma by Immunoassay Non Reactive [facility] No Panel InformationOrdered By: Imrohit Torres on 03-04-2024 Hepatitis C Interpretation Comment . [facility] Comment on above: Not infected with HC V unless early or acute infection issuspected (which may be delayed in an immunocompromisedindividual), or other evidence exists to indicate HCVinfection. Serum hepatitis B virus surf ja antibody detectionOrdered By: Imad Hollisad on 03-04-2024 HBV surface Ab Ql (S) Hepatitis B virus surface Ab [Presence] in Serum . [facility] Comment on above: Non Reactive: Not im mune to HBV infection. Equivocal: Unable to determine if anti-HBs is present at levels consistent with immunity. Reactive: Anti-HBs concentration detected at greater than 10 mIU/mL. Individual is considered to be immune to infection with HBV.Verified by repeat analysisPerformed at: [facility] [address] [id number] Director: Jose Turcios PhD, Phone: [phone] Serum or plasma hepatitis B virus surface antigen detection by immunoassayOrdered By: Imrohit Torres on 03-04-2024 HBV surface Ag IA Ql Hepatitis B virus surface Ag [Presence] in Serum or Plasma by Immunoassay Negative [facility] CT abdomen pelvis w conon CT abdomen pelvis w con [facility] [address] [address] [address] Scan Report Signed Patient: Candice De León MR#: [id number] 5 : 1980 Acct:[id number] Age/Sex: 43 / F ADM Date: 12/25/23 Loc: CT Room: Type: [facility] Attending Dr: Padma Torres MD Copies to: [...] Conor Schulte M.D.12/25/2023 10:37 PM Dictation Location: [place] [address] Transcribed By: [facility] 12/25/232236 Dictated By: Conor Schulte II, MD 12/25/232229 Signed By: 12/25/232236 Normal [facility] Calprotectin [Mass/mass] in StoolOrdered By: Padma Torres on 12-16-2023 Calprotectin (Stl) [Mass/Mass] 105 ug/g 0-120 [facility] Comment on above: Concentration Interp retation Follow-Up< 5 - 50 ug/g Normal None>50 -120 ug/g Borderline Re-evaluate in 4-6 weeks >120 ug/g Abnormal Repeat as clinically indicatedPerformed at: - [facility]coJe[facility] [id number] [place], [place] [id number] Director: Kathleen Ayon MD, Phone: [phone] Calprotectin, Fecalon 2023 Calprotectin, Fecal 105 Normal 0-120 [facility] Comment on above: Result Comment: Conc entration Interpretation Follow-Up < 5 - 50 ug/g Normal None >50 -120 ug/g Borderline Re-evaluate in 4-6 weeks >120 ug/g Abnormal Repeat as clinically indicated Performed at: [facility] [address] [place], [place] [id number] [employer] Developer: Kathleen Ayon MD, Phone: [phone] PERFORMED BY: [facility] [address] [facility] [address] PATHOLOGIST PULLER OVER WILLAM HERNANDEZ M.D. Performed By: #### C ALPROTECT, ELASTASE STOOL ####[facility] ,#### CDT ####[facility] [place] [address] [facility] Clostridioides difficile tox in B tcdB gene [Presence] in Stool by NIDIA with probe deteOrdered By: Padma Torres on 12-16-2023 C. difficile toxin B tcdB gene NIDIA+probe Ql (Stl) Negative Negative [facility] Comment on above: Testing performed by RT-PCR Clostridium Difficileon 11-19 Clostridium Difficile Negative Normal Negative [facility] Comment on above: Result Comment: Test ing performed by RT-PCR PERFORMED BY: [facility] [address] [place] [address] PATHOLOGIST PULLER OVER WILLAM HERNANDEZ M.D. Performed By: #### C ALPROTECT, ELASTASE STOOL ####[facility] ,#### CDT ####[address] Elastase.pancreatic [Mass/ma ss] in StoolOrdered By: Padma Torres on 12-16-2023 Elastase.pancreatic (Stl) [Mass/Mass] >800 >200 [facility] Comment on above: Result Units: ug Jessica st./g Severe Pancreatic Insufficiency: <100 Moderate Pancreatic Insufficiency: 100 - 200 Normal: >200Performed at: - [facility] [id number] Director: Kathleen Ayon MD, Phone: [phone] Pancreatic Elastase, Stoolon 12-16-2023 Pancreatic Elastase, Stool >800 Normal >200 [facility] Comment on above: Result Comment: Resu lt Units: ug Elast./g Severe Pancreatic Insufficiency: <100 Moderate Pancreatic Insufficiency: 100 - 200 Normal: >200 Performed at: [facility] - [facility] [id number] [employer] Developer: Kathleen Ayon MD, Phone: [phone] PERFORMED BY: [place] [address] PATHOLOGIST PULLER OVER WILLAM HERNANDEZ M.D. Performed By: #### C ALPROTECT, ELASTASE STOOL ####[facility] ,#### CDT ####[address] Alanine aminotransferase [En zymatic activity/volume] in Serum or PlasmaOrdered By: Padma Torres on 12-11-2023 ALT [Catalytic activity/Vol] 65 U/L [facility] 7-52 [facility] Comment on above: Performed By: #### E SR, CMP, CRP, TSH3 #### [facility] [address] [place] [address] #### CELIAC, HIV SCREEN #### [facility] , Albumin [Mass/volume] in Ser um or Plasma by Bromocresol green (BCG) dye binding methoOrdered By: Padma Torres on 12-11-2023 Albumin BCG dye [Mass/Vol] 4.0 g/dL 3.5-5.7 [facility] Alkaline phosphatase [Enzyma tic activity/volume] in Serum or PlasmaOrdered By: Imad Asaad on 12-11-2023 ALP [Catalytic activity/Vol] 66 U/L Normal 34-104 [facility] Comment on above: Performed By: #### E SR, CMP, CRP, TSH3 #### [place] [address] [place] #### CELIAC, HIV SCREEN #### [facility] , Aspartate aminotransferase [ Enzymatic activity/volume] in Serum or PlasmaOrdered By: Imad Asaad on 12-11-2023 AST [Catalytic activity/Vol] 42 U/L High 13-39 [facility] Comment on above: Performed By: #### E SR, CMP, CRP, TSH3 #### [place] [address] [place] #### CELIAC, HIV SCREEN #### [facility] , Bilirubin.total [Mass/volume ] in Serum or PlasmaOrdered By: Imad Asaad on 12-11-2023 Bilirubin [Mass/Vol] 0.6 mg/dL Normal 0.3-1.0 [facility] Comment on above: Performed By: #### E SR, CMP, CRP, TSH3 #### [place] [address] [place] #### CELIAC, HIV SCREEN #### [facility] , C reactive protein [Mass/vol ume] in Serum or PlasmaOrdered By: Imad Asaad on 12-11-2023 CRP [Mass/Vol] 2.6 mg/dL High 0.0-0.5 [facility] C-Reactive Proteinon 024 C-Reactive Protein 2.6 mg/dL High 0.0-0.5 [facility] Comment on above: Performed By: #### E SR, CMP, CRP, TSH3 #### [place] [address] [place] #### CELIAC, HIV SCREEN #### [facility] , Calcium [Mass/volume] in Ser um or PlasmaOrdered By: Imad Asaad on 12-11-2023 Calcium [Mass/Vol] 9.2 mg/dL Normal 8.6-10.3 [facility] Comment on above: Performed By: #### E SR, CMP, CRP, TSH3 #### [facility] [address] [place] [address] [place] #### CELIAC, HIV SCREEN #### [facility] , Carbon dioxide, total [Moles /volume] in Serum or PlasmaOrdered By: Imad Asaad on 12-11-2023 CO2 [Moles/Vol] 30.9 mmol/L Normal 21.0-31.0 [facility] Comment on above: Performed By: #### E SR, CMP, CRP, TSH3 #### [address] #### CELIAC, HIV SCREEN #### [facility] , Celiacon 12-11-2023 Deamidated Gliadin Abs, IgA 6 Normal 0-19 [facility] Comment on above: Result Comment: Nega tive 0 - 19 Weak Positive 20 - 30 Moderate to Strong Positive >30 Performed By: #### E SR, CMP, CRP, TSH3 #### [address] #### CELIAC, HIV SCREEN #### [facility] , Deamidated Gliadin Abs, IgG 4 Normal 0-19 [facility] Comment on above: Result Comment: Nega tive 0 - 19 Weak Positive 20 - 30 Moderate to Strong Positive >30 Performed By: #### E SR, CMP, CRP, TSH3 #### [facility] [address] [place] [address] [place] #### CELIAC, HIV SCREEN #### [facility] , Endomysial Antibody IgA Negative Normal Negative [facility] Comment on above: Performed By: #### E SR, CMP, CRP, TSH3 #### [address] #### CELIAC, HIV SCREEN #### [facility] , Immunoglobulin A, Qn, Serum 187 mg/dL Normal 87-352 [facility] Comment on above: Result Comment: Perf ormed at: - [facility] [address] [id number] [employer]iztalk Developer: Jose Turcios PhD, Phone: [phone] Performed By: #### E SR, CMP, CRP, TSH3 #### [address] #### CELIAC, HIV SCREEN #### [facility] , T-Transglutaminase (tTG) IgA <2 Normal 0-3 [facility] Comment on above: Result Comment: Nega tive 0 - 3 Weak Positive 4 - 10 Positive >10 Tissue Transglutaminase (tTG) has been identified as the endomysial antigen. Studies have demonstr- ated that endomysial IgA antibodies have over 99% specificity for gluten sensitive enteropathy. Performed By: #### E SR, CMP, CRP, TSH3 #### [place] [address] [place] #### CELIAC, HIV SCREEN #### [facility] , T-Transglutaminase (tTG) IgG 5 Normal 0-5 [facility] Comment on above: Result Comment: Nega tive 0 - 5 Weak Positive 6 - 9 Positive >9 Performed By: #### E SR, CMP, CRP, TSH3 #### [address] #### CELIAC, HIV SCREEN #### [facility] , Chloride [Moles/volume] in S radha or PlasmaOrdered By: Padma Torres on 12-11-2023 Chloride [Moles/Vol] 104 mmol/L Normal 98-107 [facility] Comment on above: Performed By: #### E SR, CMP, CRP, TSH3 #### [address] #### CELIAC, HIV SCREEN #### [facility] , Comprehensive Metabolic Pane mauricio 12-11-2023 Albumin [Mass/Vol] 4.0 g/dL Normal 3.5-5.7 [facility] Comment on above: Performed By: #### E SR, CMP, CRP, TSH3 #### [address] #### CELIAC, HIV SCREEN #### [facility] , GFR/1.73 sq M.predicted MDRD (S/P/Bld) [Vol rate/Area] mL/min/{1.73_m2} Normal [facility] Comment on above: Performed By: #### E SR, CMP, CRP, TSH3 #### [address] #### CELIAC, HIV SCREEN #### [facility] , Creatinine [Mass/volume] in Serum or PlasmaOrdered By: Padma Torres on 12-11-2023 Creatinine [Mass/Vol] 0.70 mg/dL Normal 0.60-1.20 [facility] Comment on above: Performed By: #### E SR, CMP, CRP, TSH3 #### [address] #### CELIAC, HIV SCREEN #### [facility] , Erythrocyte Sedimentation Ra kristy 12-11-2023 ESR (Bld) [Velocity] 17 mm/h Normal 0-19 [facility] Comment on above: Result Comment: PERF ORMED BY: [place] [address] PATHOLOGIST PULLER OVER WILLAM HERNANDEZ M.D. Performed By: #### E SR, CMP, CRP, TSH3 #### [address] #### CELIAC, HIV SCREEN #### [facility] , Erythrocyte sedimentation ra te by Photometric methodOrdered By: Imrohit Torres on 12-11-2023 ESR Photometric method (Bld) [Velocity] 17 mm/hr 0-19 [facility] Glucose [Mass/volume] in Ser um or PlasmaOrdered By: Imad Asaad on 12-11-2023 Glucose [Mass/Vol] 104 mg/dL High 70-100 [facility] Comment on above: ADA recommended refe rence rangeRandom Glucose Reference Range is dependent on time and content of last meal. Glucose of more than 200 mg/dL in a nonstressed, ambulatory subject supports the diagnosis of Diabetes Mellitus. Result Comment: [place] om Glucose Reference Range is dependent on time and content of last meal. Glucose of more than 200 mg/dL in a nonstressed, ambulatory subject supports the diagnosis of Diabetes Mellitus. ADA recommended reference range Performed By: #### E SR, CMP, CRP, TSH3 #### [facility] [address] [place] [address] #### CELIAC, HIV SCREEN #### [facility] , HIV 1/O/2 Antigen/Antibodyon 12-11-2023 HIV Screen 4th Generation Non-Reactive Normal Non Reactive [facility] Comment on above: Result Comment: HIV- 1/HIV-2 antibodies and HIV-1 p24 antigen were NOT detected. There is no laboratory evidence of HIV infection. HIV Negative Performed at: - [facility] [id number] [employer]iztalk Developer: Jose Turcios PhD, Phone: [phone] PERFORMED BY: [place] [address] PATHOLOGIST PULLER OVER WILLAM HERNANDEZ M.D. Performed By: #### E SR, CMP, CRP, TSH3 #### [place] [address] [place] #### CELIAC, HIV SCREEN #### [facility] , HIV 1 and HIV-2 antibody ass ay with HIV-1 p24 antigen detectionOrdered By: Imad Asaad on 12-11-2023 HIV 1+2 Ab+HIV1 p24 Ag IA Ql Non-Reactive Non Reactive [facility] Comment on above: HIV-1/HIV-2 antibodi es and HIV-1 p24 antigen were NOTdetected. There is no laboratory evidence of HIV infection.HIV NegativePerformed at: CB - [facility] [address] [id number] Director: Jose Turcios PhD, Phone: [phone] IgA [Mass/volume] in Serum o r PlasmaOrdered By: Imrohit Torres on 12-11-2023 IgA [Mass/Vol] 187 mg/dL 87-352 [facility] Comment on above: Performed at: CB [facility] [address] [id number] Director: Jose Turcios PhD, Phone: [phone] No Panel InformationOrdered By: Padma Torres on 12-11-2023 Endomysial IgA Antibody Negative Negative [facility] Estimated GFR (CKD-EPI) > 60.0 mL/Min [facility] Creatinine Clearance (Chem N/A [facility] Potassium [Moles/volume] in Serum or PlasmaOrdered By: Imrohit Torres on 12-11-2023 Potassium [Moles/Vol] 4.5 mmol/L Normal 3.5-5.1 [facility] Comment on above: Performed By: #### E SR, CMP, CRP, TSH3 #### [facility] [address] [place] [address] #### CELIAC, HIV SCREEN #### [facility] , Protein [Mass/volume] in Ser um or PlasmaOrdered By: Padma Torres on 12-11-2023 Protein [Mass/Vol] 6.9 g/dL Normal 6.4-8.9 [facility] Comment on above: Performed By: #### E SR, CMP, CRP, TSH3 #### [facility] [address] [place] [address] [place] #### CELIAC, HIV SCREEN #### [facility] , Serum gliadin peptide IgA an tibody assay (units/volume)Ordered By: Padma Torres on 12-11-2023 Gliadin peptide IgA Qn (S) 6 units 0-19 [facility] Comment on above: Negative 0 - 19 Weak Positive 20 - 30 Moderate to Strong Positive >30 Serum gliadin peptide IgG an tibody assay (units/volume)Ordered By: Imad Asarohit on 12-11-2023 Gliadin peptide IgG Qn (S) 4 units 0-19 [facility] Comment on above: Negative 0 - 19 Weak Positive 20 - 30 Moderate to Strong Positive >30 Serum globulin measurement b y calculation (mass/volume)Ordered By: Imad Asaad on 12-11-2023 Globulin (S) [Mass/Vol] 2.9 g/dL Normal [facility] Comment on above: Performed By: #### E SR, CMP, CRP, TSH3 #### [facility] [address] [place] [address] #### CELIAC, HIV SCREEN #### [facility] , Serum or plasma albumin/glob ulin mass ratioOrdered By: Imad Asaad on 12-11-2023 Albumin/Globulin [Mass ratio] 1.4 {ratio} Normal [facility] Comment on above: Performed By: #### E SR, CMP, CRP, TSH3 #### [facility] [facility] [address] [place] [address] [place] #### CELIAC, HIV SCREEN #### [facility] , Serum or plasma anion gap de terminationOrdered By: Imad Asaad on 12-11-2023 Anion gap [Moles/Vol] 8.6 mmol/L Normal 6.0-15.0 [facility] Comment on above: Performed By: #### E SR, CMP, CRP, TSH3 #### [facility] [address] [place] [address] [place] #### CELIAC, HIV SCREEN #### [facility] , Serum tissue transglutaminas e (tTG) IgA antibody assay (units/volume)Ordered By: Imad Asaad on 12-11-2023 tTG IgA Qn (S) <2 U/mL 0-3 [facility] Comment on above: Negative 0 - 3 Weak Positive 4 - 10 Positive >10 Tissue Transglutaminase (tTG) has been identified as the endomysial antigen. Studies have demonstr- ated that endomysial IgA antibodies have over 99% specificity for gluten sensitive enteropathy. Serum tissue transglutaminas e (tTG) IgG antibody assay (units/volume)Ordered By: Padma Torres on 12-11-2023 tTG IgG Qn (S) 5 U/mL 0-5 [facility] Comment on above: Negative 0 - 5 Weak Positive 6 - 9 Positive >9 Sodium [Moles/volume] in Ser um or PlasmaOrdered By: Imrohit Torres on 12-11-2023 Sodium [Moles/Vol] 139 mmol/L Normal 136-145 [facility] Comment on above: Performed By: #### E SR, CMP, CRP, TSH3 #### [facility] [address] [place] [address] #### CELIAC, HIV SCREEN #### [facility] , Thyrotropin [Units/volume] i n Serum or PlasmaOrdered By: Padma Torres on 12-11-2023 TSH Qn 2.10 m[IU]/L Normal 0.45-5.33 [facility] Comment on above: Result Comment: PERF ORMED BY: [place] [address] PATHOLOGIST PULLER OVER WILLAM HERANNDEZ M.D. Performed By: #### E SR, CMP, CRP, TSH3 #### [facility] [address] [place] [address] #### CELIAC, HIV SCREEN #### [facility] , Urea nitrogen [Mass/volume] in Serum or PlasmaOrdered By: Imad Asaorhit on 12-11-2023 Urea nitrogen [Mass/Vol] 13 mg/dL Normal 7-25 [facility] Comment on above: Performed By: #### E SR, CMP, CRP, TSH3 #### [facility] [address] [place] [address] #### CELIAC, HIV SCREEN #### [facility] , ALL CBC WITH AUTO DIFFon BASOPHILS ABSOLUTE AUTO 0.1 [facility] Basophils/100 WBC (Bld) 0.9 % 0.2 - 2.0 % [facility] Eosinophils/100 WBC (Bld) 4.3 % 0.9 - 7.0 % [facility] Erythrocyte distribution width (RBC) [Ratio] 12.3 % 11.0 - 15.0 % [facility] Hematocrit (Bld) [Volume fraction] 43.1 % 36.0 - 48.0 % [facility] Hemoglobin (Bld) [Mass/Vol] 14.1 g/dL 12.0 - 16.0 g/dL [facility] IMMATURE GRANULOCYTES ABS AUTO 0.03 [facility] Immature granulocytes/100 WBC (Bld) 0.4 % 0.0 - 0.5 % [facility] Interpretation and review of laboratory results Abnormal [facility] LYMPHOCYTES ABSOLUTE AUTO 2.8 [facility] Lymphocytes/100 WBC (Bld) 37.0 % 20.5 - 60.0 % [facility] MCH (RBC) [Entitic mass] 32.8 pg 26.7 - 34.0 pg [facility] MCHC (RBC) [Mass/Vol] 32.7 g/dL 29.9 - 35.2 g/dL [facility] MCV (RBC) [Entitic vol] 100.2 fL High 81.0 - 99.0 fL [facility] MONOCYTES ABSOLUTE AUTO 0.5 [facility] Monocytes/100 WBC (Bld) 7.1 % 1.7 - 12.0 % [facility] NEUTROPHILS ABSOLUTE AUTO 3.8 [facility] Neutrophils/100 WBC (Bld) 50.3 % 43.0 - 75.0 % [facility] Platelet mean volume (Bld) [Entitic vol] 9.0 fL Low 9.5 - 13.5 fL [facility] TBH EO # 0.3 [facility]H PLT 266 [facility] TB RBC 4.30 [facility]H WBC 7.5 [facility] Ambulatory Visit Summaryon 0 06-07-2023 Ambulatory Visit Summary CANDICE DE LEÓN :1980 Visit Date:06/07/2023 Ambulatory Visit Instructions Your Diagnosis UTI symptoms Your Care Team Attending Physician - DIANA LAZARO PA-C Primary Care Physician - MINA HERNANDEZ MD This Is Your Medications List [...] for choosing us for your care. Normal [facility] C Urineon 11-07-2022 Bacteria identified Cx [...] R1: This test was performed at: [facility], [address] [place] [address], [address] , , [facility] Comment on above: Performed By: #### 2 [id number] #### [facility] [address] [place] [address] Ambulatory Visit Summaryon 0 11-03-2022 Ambulatory Visit Summary CANDICE DE LEÓN :1980 Visit Date:11/03/2022 Ambulatory Visit Instructions Your Diagnosis Recurrent UTI UTI symptoms OAB (overactive bladder) Mixed incontinence Feeling of incomplete bladder emptying Tests Performed Urnls Dip Stick Auto w/o Microscopy POC 09520 Your Care Team Attending Physician - DIANA LAZARO PA-C Primary Care Physician - MINA HERNANDEZ MD This Is Your Medications List [...] LAZARO PA-C, URL When: Where: [address] [place] [address] You Need to Complete the Following Urine Culture, Urine Random, Routine collect, Collected, 11/03/22, Order for future visit, Nurse collect, Recurrent UTI Invalid Interpretation Code OAB (overactive bladder) [facility] Patient Educationon 11-04-19 Patient Education Obstetrics [...] these instructions at home: Medicines ? Take [id number] and prescription medicines only as told by [...] provider. Document Revised: 10/16/2020 Document Reviewed: 10/16/2020 [employer] SL Patient Education ? 2022 [employer]. [facility] Urology Office/Clinic Noteon 11-03-2022 Urology Office/Clinic Note Chief Complaint 6 month follow up [facility] Staff Candice is a 42 y.o. female [...] continues taking Oxybutynin 10 mg ER QD. Nenzel med was working well. Stopped for over [...] Contact Information TEJAS ZUNIGA, DIANA Aleman, URL [address] [place] [address] Additional Instructions: PRN Patient Education Urinary Tract Infection, Adult, [id number] IWinnie, personally scribed for Diana Lazaro PA-C on [...] inactivated 1 (more content not included)... Normal [facility] Comment on above: Result Comment: Elec [...] R1: This test was performed at: [facility], [address] [place] [address], [facility] , [place], [facility] Comment on above: Performed By: #### 2 [id number] #### [facility] [address] [place] [address] Ambulatory Visit Summaryon 0 10-03-2022 Ambulatory Visit Summary SARTHAKCANDICE :1980 Visit Date:10/03/2022 Ambulatory Visit Instructions Your Care Team Attending Physician - ASHWIN MURPHY, Mian Darenll Primary Care Physician - DAVID MURPHY, MINA Anderson This Is Your Medications List esomeprazole (Nexium) fluticasone/umeclidin ium/vilanterol (Trelegy Ellipta) loratadine (Claritin) montelukast (Singulair) oxybutynin (oxybutynin 10 mg ER Tab) Procedures Performed Cholecystectomy, Colonoscopy, Partial hysterectomy. What to do next Scheduled Follow-Up Appointments 2022 3:15 PM EDT With: DIANA LAZARO PA-C Where: [facility] Normal [facility] Urinalysis - AUTOMATEDon Appearance (U) cloudy RRsat Other Bilirubin Ql (U) Negative [employer] Other Color (U) yellow [employer] Other Glucose Ql (U) Negative RRsat Other Hemoglobin Ql (U) trace-intact [employer] Other Ketones Ql (U) Negative RRsat Other Leukocyte esterase Test strip Ql (U) Negative [employer] Other Nitrite Ql (U) Negative [employer]sat Other pH (U) 5.5 [pH] [employer] Other Protein Ql (U) Negative RRsat Other Specific gravity (U) [Rel density] >1.030 [employer] Other Urobilinogen (U) [Mass/Vol] 0.2 mg/dL [employer] Other Urinalysis - AUTOMATED No rt Glance Other Urine Cultureon 03-07-2022 Bacteria identified Cx Nom (U) [employer] Other MG MAMM SCREEN 3D DARYL CADon 02-01-2022 MG MAMM SCREEN 3D DARYL CAD Patient: CANDICE DE LEÓN Exam Date: 02/01/2022 : 1980 Gender:F Ordering : DR WILLIAM COELHO . Admission #: [id number] Family : Order #: [id number] CLICK HERE TO VIEW EXAM RADIOLOGY REPORT PROCEDURE: MAMMOGRAM SCREENING 3D BILATERAL CAD COMPARISON: MG MAMM SCREEN 3D DARYL CAD, 01/21/2021. INDICATIONS: Screening mammography Calculator Name NCI Breast Cancer Risk Assessment Tool 5 Year Breast Cancer Risk 0.40% Lifetime Breast Cancer Risk 6.90% Personal Breast Cancer No Personal Ovarian Cancer No Treatments None Family Cancers None LOCATION: [facility] BREAST COMPOSITION: Scattered areas fibroglandular [...] Deluna MD on 02/01/2022 at 13:54 Normal [facility] US PELVIS AND TRANSVAGon US PELVIS [...] by: MARGIE DELUNA Date: 2022-02-01 11:27 Normal [facility] PAP ACOG PANEL 2: 30 to 65on 01-21-2022 . . Normal [facility] Comment on above: Result Comment: Perf ormed at: WB Performed By: #### 4 [id number] #### [facility] [address] [place] [address] Dr. Raul Cullen Age Gdln ACOG Testing 30-65 Normal [facility] Comment on above: Performed By: #### 4 [id number] #### [facility] [address] [place] [address] Dr. Raul Cullen DIAGNOSIS: Comment Normal [facility] Comment on above: Result Comment: NEGA TIVE FOR INTRAEPITHELIAL LESION OR MALIGNANCY. Performed at: WB Performed By: #### 4 [id number] #### [facility] [address] [place] [address] Dr. Raul Cullen HPV Aptima Negative Normal Negative [facility] Comment on above: Result Comment: This nucleic acid amplification test detects fourteen high-risk HPV types (16,18,31,33,35,39,45,51,52,56,58,59,66,68) without differentiation. Performed at: =G Performed By: #### 4 [id number] #### [facility] [address] [place] [address] Dr. Raul Cullen HPV Genotype Reflex Comment Normal [facility] Comment on above: Result Comment: Crit eria not met, HPV Genotype not performed. Performed at: WB Performed By: #### 4 [id number] #### [facility] [address] [place] [address] Dr. Raul Cullen Methodology: Comment Normal [facility] Comment on above: Result Comment: This liquid based ThinPrep(R) pap test was screened with the use of an image guided system. Performed at: WB Performed By: #### 4 [id number] #### [facility] [address] [place] [address] Dr. Raul Cullen Note: Comment Normal [facility] Comment on above: Result Comment: The Pap smear is a screening test designed to aid in the detection of premalignant and malignant conditions of the uterine cervix. It is not a diagnostic procedure and should not be used as the sole means of detecting cervical cancer. Both false-positive and false-negative reports do occur. . Performed at: WB Performed By: #### 4 [id number] #### [facility] [address] [place] [address] Dr. Raul Cullen Performed by: Comment Normal [facility] Comment on above: Result Comment: Cecy Terry, Environmental Air Specialist Performed at: WB Performed By: #### 4 [id number] #### [facility] [address] [place] [address] Dr. Raul Cullen Specimen adequacy: Comment Normal [facility] Comment on above: Result Comment: Sati sfactory for evaluation. Endocervical and/or squamous metaplastic cells (endocervical component) are present. Performed at: WB Performed By: #### 4 [id number] #### [facility] [address] [place], [place] [address] Dr. Raul Cullen [facility] Standardon 12-23-2021 eGFR Non AA >60 Invalid Interpretation Code [facility] Comment on above: Performed By: #### 1 [id number], 2155951, [id number], 0281292, 8273305, 9272985, 3391112 #### [facility] (DEFAULT) [address] [place] [address] eGFR AA >60 Invalid Interpretation Code [facility] Comment on above: Result Comment: Production Intern girish Kidney disease could be indicated at eGFRs of less than 60 ml/min/1.73m2. Kidney Failure is indicated at less than 15 ml/min/1.73m2 Performed By: #### 1 [id number], 3462610, [id number], 1213703, 3777058, 1290704, 5481819 #### [facility] (DEFAULT) [address] [place] [address] 44566 Albumin [Mass/Vol] 4.4 g/dL Normal 3.5-5.0 [facility] Comment on above: Performed By: #### 1 [id number], 8816882, [id number], 0744859, 2442096, 0214335, 2116961 #### [facility] (DEFAULT) [address] [place] [address] Albumin/Globulin [Mass ratio] 1.2 {ratio} Low 1.4-2.6 [facility] Comment on above: Performed By: #### 1 [id number], 5398561, [id number], 8856742, 5201458, 1553896, 6347066 #### [facility] (DEFAULT) [address] [place] [address]608 Alk Phos 69 IU/L Normal 32-91 [facility] Comment on above: Performed By: #### 1 [id number], 8686072, 0177551884, 8006954, 1070180, 2557013, 0112551 #### [facility] (DEFAULT) [address] [place] [address] ALT [Catalytic activity/Vol] 72.0 U/L High 14.0-54.0 [facility] Comment on above: Performed By: #### 1 [id number], 9003115, 3034604568, 3367400, 7013269, 8753469, 0508997 #### [facility] (DEFAULT) [address] [place] [address] Anion gap [Moles/Vol] 12.0 mmol/L Normal 5.0-19.0 [facility] Comment on above: Performed By: #### 1 [id number], 2234225, 6834621633, 0228136, 6921573, 3801658, 1323902 #### [facility] (DEFAULT) [address] [place] [address] AST [Catalytic activity/Vol] 50 U/L High 15-41 [facility] Comment on above: Performed By: #### 1 [id number], 9365761, 8199239097, 9283617, 5138529, 3271561, 5258965 #### [facility] (DEFAULT) [address] [place] [address] 35467 Bili Total 0.8 mg/dL Normal 0.3-1.2 [facility] Comment on above: Performed By: #### 1 [id number], 8342531, 3902432593, 8132756, 9691556, 1829198, 7079223 #### [facility] (DEFAULT) [address] [place] [address]798 Calcium [Mass/Vol] 9.7 mg/dL Normal 8.9-10.3 [facility] Comment on above: Performed By: #### 1 [id number], 4378002, 6454708169, 4245157, 8704184, 9328460, 9730241 #### [facility] (DEFAULT) [address] [place] [address] 60761 Chloride [Moles/Vol] 98 mmol/L Low 101-111 [facility] Comment on above: Performed By: #### 1 [id number], 8880699, 6748631880, 3146069, 2473781, 1066047, 8021325 #### [facility] (DEFAULT) [address] [place] [address] 99909 CO2 [Moles/Vol] 29 mmol/L Normal 21-32 [facility] Comment on above: Performed By: #### 1 109385546, 5582841, 2461457849, 4100474, 4123134, 7614449, 1140046 #### [facility] (DEFAULT) [address] [place] [address] 24984 Creatinine [Mass/Vol] 0.87 mg/dL Normal 0.60-1.30 [facility] Comment on above: Performed By: #### 1 [id number], 9318059, 4129192265, 0985992, 4172701, 0482572, 1095186 #### [facility] (DEFAULT) [address] [place] [address]644 Globulin (S) [Mass/Vol] 3.6 g/dL Normal 1.5-4.3 [facility] Comment on above: Performed By: #### 1 [id number], 6333543, 0456384188, 1629744, 9953069, 8500704, 8009913 #### [facility] (DEFAULT) [address] [place] [address] 90286 Glucose [Mass/Vol] 94.0 mg/dL Normal 74.0-118.0 [facility] Comment on above: Performed By: #### 1 460263958, 5886276, 1063255053, 8814946, 3331539, 2004419, 6280837 #### [facility] (DEFAULT) [address] [place] [address]9318 Osmolality 270 mOsm/L Invalid Interpretation Code [facility] Comment on above: Performed By: #### 1 [id number], 0486699, 3772553034, 3867203, 2342598, 2625385, 0486077 #### [facility] (DEFAULT) [address] [place] [address] 60868 Potassium [Moles/Vol] 4.1 mmol/L Normal 3.6-5.1 [facility] Comment on above: Performed By: #### 1 [id number], 4424004, 4690078458, 4806821, 2246082, 7506263, 6080939 #### [facility] (DEFAULT) [address] [place] [address] 01039 Protein [Mass/Vol] 8.0 g/dL Normal 6.5-8.1 [facility] Comment on above: Performed By: #### 1 424886954, 9175737, 4978512855, 1011115, 9254594, 6066049, 7800124 #### [facility] (DEFAULT) [address] [place] [address] 43924 Sodium [Moles/Vol] 135.0 mmol/L Low 136.0-144.0 [facility] Comment on above: Performed By: #### 1 568069253, 7531723, 4920576256, 7731241, 6345855, 0121962, 3755123 #### [facility] (DEFAULT) [address] [place] [address] 87196 Urea nitrogen [Mass/Vol] 13 mg/dL Normal 8-26 [facility] Comment on above: Performed By: #### 1 [id number], 6493887, 4895548170, 6710595, 7381845, 1666759, 3254315 #### [facility] (DEFAULT) [address] [place] [address] 29444 Urea nitrogen/Creatinine [Mass ratio] 15.0 mg/mg Normal 4.6-16.2 [facility] Comment on above: Performed By: #### 1 [id number], 1555211, 8449979498, 6563714, 6763762, 7072331, 0745705 #### [facility] (DEFAULT) [address] [place] [address] 39009 GGTon 12-23-2021 Gamma glutamyl transferase [Catalytic activity/Vol] 29.0 U/L Normal 7.0-50.0 [facility] Comment on above: Performed By: #### 1 [id number], 2193199, 3400409652, 2159218, 0594422, 5253699, 9098133 #### [facility] (DEFAULT) [address] [place] [address] 74253 Iron Levelon 12-23-2021 Iron [Mass/Vol] 124.0 ug/dL Normal 28.0-170.0 [facility] Comment on above: Performed By: #### 1 312381146, 4995052, 3923029839, 0857539, 8390246, 7298894, 1686120 #### [facility] (DEFAULT) [address] [place] [address] 41060 LDHon 12-23-2021 LDH 173.0 IU/L Normal 98.0-192.0 [facility] Comment on above: Performed By: #### 1 402435755, 3350900, 8636429226, 8674456, 1552006, 8462141, 0933510 #### [facility] (DEFAULT) [address] [place] [address] 91003 Lipid Panel Standardon 12-23 Cholesterol [Mass/Vol] 202.0 mg/dL High 66.0-200.0 [facility] Comment on above: Result Comment: Eva rable - Less than 200 mg/dL Borderline high risk - 200-239 mg/dL High risk - 240 mg/dL and over. Performed By: #### 1 907358799, 4257909, 1920965139, 5915302, 5724038, 4936110, 3323336 #### [facility] (DEFAULT) [address] [place] [address] 55924 Cholesterol in HDL [Mass/Vol] 40 mg/dL Normal 40-71 [facility] Comment on above: Result Comment: High risk - <40 mg/dL. Performed By: #### 1 [id number], 3054795, 8669911860, 8167953, 5577747, 3095887, 5405107 #### [facility] (DEFAULT) [address] [place] [address] 74811 Cholesterol in LDL [Mass/Vol] 131 mg/dL High 1-100 [facility] Comment on above: Result Comment: Opti mal - Less than 100 mg/dL Borderline high risk - 130-159 mg/dL High risk - 160-189 mg/dL. Performed By: #### 1 [id number], 3816154, 9194225412, 7276891, 4376318, 8679917, 2008196 #### [facility] (DEFAULT) [address] [place] [address] 55341 Cholesterol.total/Nicole sterol in HDL [Mass ratio] 5.1 {ratio} High 0.0-4.5 [facility] Comment on above: Performed By: #### 1 [id number], 9347760, 0987791132, 7004052, 1951822, 2799359, 0696573 #### [facility] (DEFAULT) [address] [place] [address] 67473 Triglyceride [Mass/Vol] 156.0 mg/dL High 0.0-150.0 [facility] Comment on above: Performed By: #### 1 572756609, 4799658, 3495439651, 1522151, 2963874, 2622753, 1017703 #### [facility] (DEFAULT) [address] [place] [address] 32054 VLDL. 31 mg/dL Normal 5-40 [facility] Comment on above: Performed By: #### 1 [id number], 4082676, 1520131438, 8141764, 0822778, 3921301, 1861340 #### [facility] (DEFAULT) [address] [place] [address] 57175 Phoson 12-23-2021 Phosphate [Mass/Vol] 4.0 mg/dL Normal 2.5-4.6 [facility] Comment on above: Performed By: #### 1 138923582, 4850410, 5975855111, 0048772, 0864629, 9032271, 0092747 #### [facility] (DEFAULT) [address] [place] [address] 92043 Uric Acidon 12-23-2021 Urate [Mass/Vol] 6.5 mg/dL Normal 2.6-8.0 [facility] Comment on above: Performed By: #### 1 [id number], 3393564, 6490318163, 1851862, 0998276, 4786915, 7514213 #### [facility] (DEFAULT) [address] [place] [address] CBC AUTO DIFFon 08-13-2021 BASO # 0.1 103/ul Normal 0.0-0.1 [facility] Comment on above: Performed By: #### C BC #### [facility] [address] [place] [address] Dr. Raul Cullen Basophils/100 WBC (Bld) 0.6 % Normal 0.2-2.0 [facility] Comment on above: Performed By: #### C BC #### [facility] [address] [place] [address] Dr. Raul Cullen EO # 0.2 103/ul Normal 0.0-0.7 [facility] Comment on above: Performed By: #### C BC #### [facility] [address] [place] [address] Dr. Raul Cullen Eosinophils/100 WBC (Bld) 1.8 % Normal 0.9-7.0 [facility] Comment on above: Performed By: #### C BC #### [facility] [address] [place] [address] Dr. Raul Cullen Erythrocyte distribution width (RBC) [Ratio] 14.9 % Normal 11.0-15.0 [facility] Comment on above: Performed By: #### C BC #### [facility] [address] [place] [address] Dr. Raul Cullen Hematocrit (Bld) [Volume fraction] 45.6 % Normal 36.0-48.0 [facility] Comment on above: Performed By: #### C BC #### [facility] [address] [place] [address] Dr. Raul Cullen Hemoglobin (Bld) [Mass/Vol] 14.2 g/dL Normal 12.0-16.0 [facility] Comment on above: Performed By: #### C BC #### [facility] [address] [place] [address] Dr. Raul Cullen IG # 0.04 10e3/ul Critically high 0.00-0.[address] [facility] Comment on above: Performed By: #### C BC #### [facility] [address] [place] [address] Dr. Raul Cullen IG % 0.4 % Normal 0.0-0.5 [facility] Comment on above: Performed By: #### C BC #### [facility] [address] [place] [address] Dr. Raul Cullen LYMPH # 3.1 103/ul Normal 1.2-3.8 [facility] Comment on above: Performed By: #### C BC #### [facility] [address] [place] [address] Dr. Raul Cullen Lymphocytes/100 WBC (Bld) 33.4 % Normal 20.5-60.0 [facility] Comment on above: Performed By: #### C BC #### [facility] [address] [place] [address] Dr. Raul Cullen MANUAL DIFF REQ NO Normal [facility] Comment on above: Performed By: #### C BC #### [facility] [address] [place] [address] Dr. Raul Cullen MCH (RBC) [Entitic mass] 31.1 pg Normal 26.7-34.0 [facility] Comment on above: Performed By: #### C BC #### [facility] [address] [place] [address] Dr. Raul Cullen MCHC (RBC) [Mass/Vol] 31.1 g/dL Normal 29.9-35.2 [facility] Comment on above: Performed By: #### C BC #### [facility] [address] [place] [address] Dr. Raul Cullen MCV (RBC) [Entitic vol] 99.8 fL Critically high 81.0-99 .0 [facility] Comment on above: Performed By: #### C BC #### [facility] [address] [place] [address] Dr. Raul Cullen MONO # 0.5 103/ul Normal 0.3-0.8 [facility] Comment on above: Performed By: #### C BC #### [facility] [address] [place] [address] Dr. Raul Cullen Monocytes/100 WBC (Bld) 5.5 % Normal 1.7-12.0 [facility] Comment on above: Performed By: #### C BC #### [facility] [address] [place] [address] Dr. Raul Cullen NEUT # 5.4 103/ul Normal 1.4-6.5 [facility] Comment on above: Performed By: #### C BC #### [facility] [address] [place] [address] Dr. Raul Cullen Neutrophils/100 WBC (Bld) 58.3 % Normal 43.0-75.0 [facility] Comment on above: Performed By: #### C BC #### [facility] [address] [place] [address] Dr. Raul Cullen Platelet mean volume (Bld) [Entitic vol] 8.7 fL Critically low 9.5-13.5 [facility] Comment on above: Performed By: #### C BC #### [facility] [address] [place] [address] Dr. Raul Cullen PLT 316 103/ul Normal 150-450 [facility] Comment on above: Performed By: #### C BC #### [facility] [address] [place] [address] Dr. Raul Cullen RBC 4.57 106/ul Normal 4.20-5.40 [facility] Comment on above: Performed By: #### C BC #### [facility] [address] [place] [address] Dr. Raul Cullen WBC 9.3 103/ul Normal 4.0-11.0 [facility] Comment on above: Performed By: #### C BC #### [facility] [address] [place] [address] Dr. Raul Cullen IRON AND TIBCon 08-13-2021 % SATURATION 26.0 % Normal [facility] Comment on above: Performed By: #### F ETIBC #### [facility] [address] [place], [place] [address] Dr. Raul Cullen Iron [Mass/Vol] 82.0 ug/dL Normal 50.0-170.0 [facility] Comment on above: Performed By: #### F ETIBC #### [facility] [address] [place], [place] [address] Dr. Raul Cullen TIBC DIRECT 315.0 ug/dL Normal 250.0-450.0 [facility] Comment on above: Performed By: #### F ETIBC #### [facility] [address] [place] [address] [address] Raul Cullen Q - CULTURE,URINE,ROUTINEon 07-13-2021 CULTURE, URINE, ROUTINE SEE NOTE Normal [facility] [place] [facility] Comment on above: Order Comment: [facility] performed at: [facility], [address] [place] [address], [address] [place] [address], [id number], Tow Truck Dispatcher: Hermilo Choudhury MD [facility] Collection Date/Time: [id number] [facility] Results Received Date/Time: [facility] Reported Date/Time: Result Comment: CULT URE, URINE, ROUTINE Micro Number: [id number] Test Status: Final Specimen Source: Urine Specimen Quality: Adequate Result: Mixed genital naomi isolated. These superficial bacteria are not indicative of a urinary tract infection. No further organism identification is warranted on this specimen. If clinically indicated, recollect clean-catch, mid-stream urine and transfer immediately to Urine Culture Transport Tube. Performed By: #### [id number] #### [facility] [address] [place] [address] CBC AUTO DIFFon 04-26-2021 BASO # 0.0 103/ul Normal 0.0-0.1 [facility] Comment on above: Performed By: #### C BC #### [facility] [address] [place], [place] [address] Dr. Raul Cullen Basophils/100 WBC (Bld) 0.4 % Normal 0.2-2.0 [facility] Comment on above: Performed By: #### C BC #### [facility] [address] [place] [address] Dr. Raul Cullen EO # 0.3 103/ul Normal 0.0-0.7 [facility] Comment on above: Performed By: #### C BC #### [facility] [address] [place] [address] Dr. Raul Cullen Eosinophils/100 WBC (Bld) 2.4 % Normal 0.9-7.0 [facility] Comment on above: Performed By: #### C BC #### [facility] [address] [place] [address] Dr. Raul Cullen Erythrocyte distribution width (RBC) [Ratio] 20.3 % Critically high 11.0-15.0 [facility] Comment on above: Result Comment: anis o 3+ Performed By: #### C BC #### [facility] [address] [place] [address] Dr. Raul Cullen Hematocrit (Bld) [Volume fraction] 31.4 % Critically low 36.0-48.0 [facility] Comment on above: Performed By: #### C BC #### [facility] [address] [place] [address] Dr. Raul Cullen Hemoglobin (Bld) [Mass/Vol] 8.3 g/dL Critically low 12.0-16.0 [facility] Comment on above: Performed By: #### C BC #### [facility] [address] [place] [address] Dr. Raul Cullen IG # 0.05 10e3/ul Critically high 0.00-0.[address] [facility] Comment on above: Performed By: #### C BC #### [facility] [address] [place] [address] Dr. Raul Cullen IG % 0.5 % Normal 0.0-0.5 [facility] Comment on above: Performed By: #### C BC #### [facility] [address] [place] [address] Dr. Raul Cullen LYMPH # 3.4 103/ul Normal 1.2-3.8 [facility] Comment on above: Performed By: #### C BC #### [facility] [address] [place] [address] Dr. Raul Cullen Lymphocytes/100 WBC (Bld) 32.8 % Normal 20.5-60.0 [facility] Comment on above: Performed By: #### C BC #### [facility] [address] [place] [address] Dr. Raul Cullen MANUAL DIFF REQ NO Normal [facility] Comment on above: Performed By: #### C BC #### [facility] [address] [place] [address] Dr. Raul Cullen MCH (RBC) [Entitic mass] 19.4 pg Critically low 26.7-34.0 [facility] Comment on above: Performed By: #### C BC #### [facility] [address] [place] [address] Dr. Raul Cullen MCHC (RBC) [Mass/Vol] 26.4 g/dL Critically low 29.9-35.2 [facility] Comment on above: Result Comment: hypo chromia 3+ Performed By: #### C BC #### [facility] [address] [place] [address] Dr. Raul Cullen MCV (RBC) [Entitic vol] 73.5 fL Critically low 81.0-99. 0 [facility] Comment on above: Performed By: #### C BC #### [facility] [address] [place] [address] Dr. Raul Cullen MONO # 0.7 103/ul Normal 0.3-0.8 [facility] Comment on above: Performed By: #### C BC #### [facility] [address] [place] [address] Dr. Raul Cullen Monocytes/100 WBC (Bld) 7.0 % Normal 1.7-12.0 [facility] Comment on above: Performed By: #### C BC #### [facility] [address] [place] [address] Dr. Raul Cullen NEUT # 6.0 103/ul Normal 1.4-6.5 [facility] Comment on above: Performed By: #### C BC #### [facility] [address] [place] [address] [address] Raul Cullen Neutrophils/100 WBC (Bld) 56.9 % Normal 43.0-75.0 [facility] Comment on above: Performed By: #### C BC #### [facility] [address] [place] [address] [address] Raul Cullen Platelet mean volume (Bld) [Entitic vol] 8.3 fL Critically low 9.5-13.5 [facility] Comment on above: Performed By: #### C BC #### [facility] [address] [place] [address] [address] Raul Cullen PLT 452 103/ul Critically high 150-450 [facility] Comment on above: Performed By: #### C BC #### [facility] [address] [place] [address] Dr. Raul Cullen RBC 4.27 106/ul Normal 4.20-5.40 [facility] Comment on above: Performed By: #### C BC #### [facility] [address] [place] [address] Dr. Raul Cullen WBC 10.5 103/ul Normal 4.0-11.0 [facility] Comment on above: Performed By: #### C BC #### [facility] [address] [place] [address] Dr. Raul Cullen CBC AUTO DIFFon 03-08-2021 BASO # 0.1 103/ul Normal 0.0-0.1 [facility] Comment on above: Performed By: #### C BC #### [facility] [address] [place] [address] Dr. Raul Cullen Basophils/100 WBC (Bld) 0.6 % Normal 0.2-2.0 [facility] Comment on above: Performed By: #### C BC #### [facility] [address] [place] [address] Dr. Raul Cullen EO # 0.2 103/ul Normal 0.0-0.7 [facility] Comment on above: Performed By: #### C BC #### [facility] [address] [place] [address] [address] Raul Cullen Eosinophils/100 WBC (Bld) 2.6 % Normal 0.9-7.0 [facility] Comment on above: Performed By: #### C BC #### [facility] [address] [place] [address] Dr. Raul Cullen Erythrocyte distribution width (RBC) [Ratio] 18.9 % Critically high 11.0-15.0 [facility] Comment on above: Performed By: #### C BC #### [facility] [address] [place] [address] Dr. Raul Cullen Hematocrit (Bld) [Volume fraction] 29.4 % Critically low 36.0-48.0 [facility] Comment on above: Performed By: #### C BC #### [facility] [address] [place] [address] Dr. Raul Cullen Hemoglobin (Bld) [Mass/Vol] 7.5 g/dL Critically low 12.0-16.0 [facility] Comment on above: Performed By: #### C BC #### [facility] [address] [place] [address] Dr. Raul Cullen IG # 0.06 10e3/ul Critically high 0.00-0.[address] [facility] Comment on above: Performed By: #### C BC #### [facility] [address] [place] [address] Dr. Raul Cullen IG % 0.7 % Critically high 0.0-0.5 [facility] Comment on above: Performed By: #### C BC #### [facility] [address] [place] [address] Dr. Raul Cullen LYMPH # 2.8 103/ul Normal 1.2-3.8 [facility] Comment on above: Performed By: #### C BC #### [facility] [address] [place] [address] Dr. Raul Cullen Lymphocytes/100 WBC (Bld) 31.9 % Normal 20.5-60.0 [facility] Comment on above: Performed By: #### C BC #### [facility] [address] [place] [address] Dr. Raul Cullen MANUAL DIFF REQ NO Normal [facility] Comment on above: Performed By: #### C BC #### [facility] [address] [place] [address] Dr. Raul Cullen MCH (RBC) [Entitic mass] 18.3 pg Critically low 26.7-34.0 [facility] Comment on above: Result Comment: 3+ H ypochromia 1+ Microcytosis 1+ Anisocytosis Performed By: #### C BC #### [facility] [address] [place] [address] Dr. Raul Cullen MCHC (RBC) [Mass/Vol] 25.5 g/dL Critically low 29.9-35.2 [facility] Comment on above: Performed By: #### C BC #### [facility] [address] [place] [address] Dr. Raul Cullen MCV (RBC) [Entitic vol] 71.7 fL Critically low 81.0-99. 0 [facility] Comment on above: Performed By: #### C BC #### [facility] [address] [place] [address] Dr. Raul Cullen MONO # 0.7 103/ul Normal 0.3-0.8 [facility] Comment on above: Performed By: #### C BC #### [facility] [address] [place] [address] Dr. Raul Cullen Monocytes/100 WBC (Bld) 8.4 % Normal 1.7-12.0 [facility] Comment on above: Performed By: #### C BC #### [facility] [address] [place] [address] Dr. Raul Cullen NEUT # 4.9 103/ul Normal 1.4-6.5 [facility] Comment on above: Performed By: #### C BC #### [facility] [address] [place] [address] Dr. Raul Cullen Neutrophils/100 WBC (Bld) 55.8 % Normal 43.0-75.0 [facility] Comment on above: Performed By: #### C BC #### [facility] [address] [place] [address] [address] Raul Cullen Platelet mean volume (Bld) [Entitic vol] 7.9 fL Critically low 9.5-13.5 [facility] Comment on above: Performed By: #### C BC #### [facility] [address] [place] [address] [address] Raul Cullen PLT 501 103/ul Critically high 150-450 [facility] Comment on above: Performed By: #### C BC #### [facility] [address] [place] [address] [address] Raul Cullen RBC 4.10 106/ul Critically low 4.20-5.40 [facility] Comment on above: Performed By: #### C BC #### [facility] [address] [place] [address] Dr. Raul Cullen WBC 8.8 103/ul Normal 4.0-11.0 [facility] Comment on above: Performed By: #### C BC #### [facility] [address] [place] [address] Dr. Raul Cullen PREG QUANT HCGon 03-08-2021 HCG QUANT <1 Normal [facility] Comment on above: Performed By: #### P REGQNT #### [facility] [address] [place] [address] Dr. Raul Cullen HCG RANGE SEE BELOW Normal [facility] Comment on above: Result Comment: 5-50 0-1 WEEK 40-300 1-2 WEEKS 100-1,000 2-3 WEEKS 500-6,000 3-4 WEEKS 5,000-200,000 1-2 MONTHS 10,000-100,000 2-3 MONTHS 3,000-50,000 2ND TRIMESTER 1,000-50,000 3RD TRIMESTER Performed By: #### P REGQNT #### [facility] [address] [place] [address] Dr. Raul Cullen Covid-19 PCR ([facility])on 02-17 SARS-CoV-2 (COVID-19) RNA NIDIA+probe Ql (Unsp spec) Not detected Normal NOT DETECTED [facility] Comment on above: Result Comment: This test is not yet approved or cleared by the [place] FDA. When there are no FDA-approved or cleared tests available, and other criteria are met, FDA can make tests available under an emergency access mechanism called an Emergency Use Authorization (EUA). The EUA for this test is supported by the [employer] Worker of Health and Human Service's (HHS's) declaration [...] consistent with SARS-CoV-2. Performed By: #### C [facility] #### [facility] [address] [place] [address] Dr. Raul Cullen Vital Signs Date Time Vital Sign Value Performing Clinician Facility 09-09-2024 15:26-0400 Body mass index (BMI) [Ratio] 36.61 kg/m2 Irene MONTANO Work Phone: [facility] 09-09-2024 15:26-0400 Body weight 102.88 kg Irene MONTANO Work Phone: [facility] 09-09-2024 15:26-0400 Diastolic blood pressure 72 mm[Hg] Irene MONTANO Work Phone: [facility] 09-09-2024 15:26-0400 Systolic blood pressure 110 mm[Hg] Irene MONTANO Work Phone: [facility] 09-03-2024 16:33-0400 Body height 167.6 cm Mina Hernandez MD Work Phone: [facility] 09-03-2024 16:33-0400 Body mass index (BMI) [Ratio] 37.12 kg/m2 Mina Hernandez MD Work Phone: [facility] 09-03-2024 16:33-0400 Body weight 104.33 kg Mina Hernandez MD Work Phone: [facility] 09-03-2024 16:33-0400 Diastolic blood pressure 84 mm[Hg] Mina Hernandez MD Work Phone: [facility] 09-03-2024 16:33-0400 Heart rate 88 /min Mina Hernandez MD Work Phone: [facility] 09-03-2024 16:33-0400 SaO2% (BldA) [Mass fraction] 96 % Mina Hernandez MD Work Phone: [facility] 09-03-2024 16:33-0400 Systolic blood pressure 118 mm[Hg] Mina Hernandez MD Work Phone: [facility] 08-26-2024 11:04-0400 Body height 167.6 cm Mina Hernandez MD Work Phone: [facility] 08-26-2024 11:04-0400 Body mass index (BMI) [Ratio] 37.28 kg/m2 Mina Hernandez MD Work Phone: [facility] 08-26-2024 11:04-0400 Body temperature 97.5 [degF] Mina Hernandez MD Work Phone: [facility] 08-26-2024 11:04-0400 Body weight 104.78 kg Mina Hernandez MD Work Phone: [facility] 08-26-2024 11:04-0400 Diastolic blood pressure 82 mm[Hg] Mina Hernandez MD Work Phone: [facility] 08-26-2024 11:04-0400 Heart rate 85 /min Mina Hernandez MD Work Phone: [facility] 08-26-2024 11:04-0400 SaO2% (BldA) [Mass fraction] 97 % Mina Hernandez MD Work Phone: [facility] 08-26-2024 11:04-0400 Systolic blood pressure 118 mm[Hg] Mina Hernandez MD Work Phone: [facility] 08-19-2024 08:41-0400 Body mass index (BMI) [Ratio] 37.12 kg/m2 William Laquita DO Work Phone: [facility] 08-19-2024 08:41-0400 Body weight 104.33 kg William Laquita DO Work Phone: [facility] 08-19-2024 08:41-0400 Diastolic blood pressure 74 mm[Hg] William Laquita DO Work Phone: [facility] 08-19-2024 08:41-0400 Systolic blood pressure 126 mm[Hg] William Laquita DO Work Phone: [facility] 07-30-2024 16:34-0400 Body height 167.6 cm Mi Hemmer PA Work Phone: [facility] 07-30-2024 16:34-0400 Body mass index (BMI) [Ratio] 37.67 kg/m2 Mi Hemmer PA Work Phone: [facility] 07-30-2024 16:34-0400 Body weight 105.87 kg Mi Hemmer PA Work Phone: [facility] 07-30-2024 16:34-0400 Diastolic blood pressure 82 mm[Hg] Mi Hemmer PA Work Phone: [facility] 07-30-2024 16:34-0400 Heart rate 94 /min Mi Hemmer PA Work Phone: [facility] 07-30-2024 16:34-0400 Respiratory rate 16 /min Mi Hemmer PA Work Phone: [facility] 07-30-2024 16:34-0400 SaO2% (BldA) [Mass fraction] 95 % Mi Hemmer PA Work Phone: [facility] 07-30-2024 16:34-0400 Systolic blood pressure 124 mm[Hg] Mi Hemmer PA Work Phone: [facility] 05-21-2024 16:04-0500 Body height 167.6 cm Mina Hernandez MD Work Phone: [facility] 05-21-2024 16:04-0500 Body mass index (BMI) [Ratio] 38.41 kg/m2 Mina Hernandez MD Work Phone: [facility] 05-21-2024 16:04-0500 Body weight 107.96 kg Mina Hernandez MD Work Phone: [facility] 05-21-2024 16:04-0500 Diastolic blood pressure 88 mm[Hg] Mina Hernandez MD Work Phone: [facility] 05-21-2024 16:04-0500 Heart rate 73 /min Mina Hernandez MD Work Phone: [facility] 05-21-2024 16:04-0500 SaO2% (BldA) [Mass fraction] 94 % Mina Hernandez MD Work Phone: [facility] 05-21-2024 16:04-0500 Systolic blood pressure 118 mm[Hg] Mina Hernandez MD Work Phone: [facility] 04-25-2024 15:11-0500 Body height 167.6 cm Mina Hernandez MD Work Phone: [facility] 04-25-2024 15:11-0500 Body mass index (BMI) [Ratio] 38.9 kg/m2 Mina Hernandez MD Work Phone: [facility] 04-25-2024 15:11-0500 Body weight 109.32 kg Mina Hernandez MD Work Phone: [facility] 04-25-2024 15:11-0500 Diastolic blood pressure 88 mm[Hg] Mina Hernandez MD Work Phone: [facility] 04-25-2024 15:11-0500 Heart rate 87 /min Mina Hernadnez MD Work Phone: [facility] 04-25-2024 15:11-0500 SaO2% (BldA) [Mass fraction] 98 % Mina Hernandez MD Work Phone: [facility] 04-25-2024 15:11-0500 Systolic blood pressure 128 mm[Hg] Mina Hernandez MD Work Phone: [facility] 04-05-2024 11:55-0500 Diastolic blood pressure 79 mm[Hg] Mina Hernandez MD Work Phone: [facility] 04-05-2024 11:55-0500 Heart rate 78 /min Mina Hernandez MD Work Phone: [facility] 04-05-2024 11:55-0500 Respiratory rate 16 /min Mina Hernandez MD Work Phone: [facility] 04-05-2024 11:55-0500 SaO2% (BldA) [Mass fraction] 97 % Mina Hernandez MD Work Phone: [facility] 04-05-2024 11:55-0500 Systolic blood pressure 123 mm[Hg] Mina Hernandez MD Work Phone: [facility] 04-05-2024 10:13-0500 Body height 162.56 cm Mina Hernandez MD Work Phone: [facility] 04-05-2024 10:13-0500 Body weight 104.77 kg Mina Hernandez MD Work Phone: [facility] 03-19-2024 12:27-0500 Body height 162.56 cm Mina Hernandez MD Work Phone: [facility] 03-19-2024 12:27-0500 Body mass index (BMI) [Ratio] 40.8 kg/m2 Mina Hernandez MD Work Phone: [facility] 03-19-2024 12:27-0500 Body temperature 97.1 [degF] Mina Hernandez MD Work Phone: [facility] 03-19-2024 12:27-0500 Body weight 108.12 kg Mina Hernandez MD Work Phone: [facility] 03-19-2024 12:27-0500 Diastolic blood pressure 79 mm[Hg] Mina Hernandez MD Work Phone: [facility] 03-19-2024 12:27-0500 Heart rate 74 /min Mina Hernandez MD Work Phone: [facility] 03-19-2024 12:27-0500 Respiratory rate 16 /min Mina Hernandez MD Work Phone: [facility] 03-19-2024 12:27-0500 SaO2% (BldA) [Mass fraction] 97 % Mina Hernandez MD Work Phone: [facility] 03-19-2024 12:27-0500 Systolic blood pressure 131 mm[Hg] Mina Hernandez MD Work Phone: [facility] 03-04-2024 08:59-0500 Body height 162.56 cm Mina Hernandez MD Work Phone: [facility] 03-04-2024 08:59-0500 Body mass index (BMI) [Ratio] 43.2 kg/m2 Mina Hernandez MD Work Phone: [facility] 03-04-2024 08:59-0500 Body weight 114.3 kg Mina Hernandez MD Work Phone: [facility] 03-04-2024 08:59-0500 Diastolic blood pressure 86 mm[Hg] Mina Hernandez MD Work Phone: [facility] 03-04-2024 08:59-0500 Heart rate 99 /min Mina Hernandez MD Work Phone: [facility] 03-04-2024 08:59-0500 Systolic blood pressure 137 mm[Hg] Mina Hernandez MD Work Phone: [facility] 12-11-2023 08:42-0400 Body height 162.56 cm [facility] 12-11-2023 08:42-0400 Body mass index (BMI) [Ratio] 41.7 kg/m2 [facility] 12-11-2023 08:42-0400 Body weight 110.22 kg [facility] 12-11-2023 08:42-0400 Diastolic blood pressure 72 mm[Hg] [facility] 12-11-2023 08:42-0400 Heart rate 68 /min [facility] 12-11-2023 08:42-0400 Systolic blood pressure 148 mm[Hg] [facility] 11-13-2023 14:04-0400 Body height 167.6 cm Mina Hernandez MD Work Phone: [facility] 11-13-2023 14:04-0400 Body mass index (BMI) [Ratio] 38.74 kg/m2 Mina Hernandez MD Work Phone: [facility] 11-13-2023 14:04-0400 Body weight 108.86 kg Mina Hernandez MD Work Phone: [facility] 11-13-2023 14:04-0400 Diastolic blood pressure 88 mm[Hg] Mina Hernandez MD Work Phone: [facility] 11-13-2023 14:04-0400 Heart rate 82 /min Mina Hernandez MD Work Phone: [facility] 11-13-2023 14:04-0400 SaO2% (BldA) [Mass fraction] 96 % Mina Hernandez MD Work Phone: [facility] 11-13-2023 14:04-0400 Systolic blood pressure 122 mm[Hg] Mina Hernandez MD Work Phone: [facility] 11-03-2022 15:27-0400 Diastolic blood pressure 87 mm[Hg] DIANA LAZARO [facility] 11-03-2022 15:27-0400 Heart rate 65 /min DIANA LAZARO [facility] 11-03-2022 15:27-0400 Systolic blood pressure 142 mm[Hg] DIANA TEJAS [facility] 05-04-2022 14:12-0500 Blood Pressure Location DIANA TEJAS [facility] 05-04-2022 14:12-0500 Diastolic blood pressure 72 mm[Hg] DIANA TEJAS [facility] 05-04-2022 14:12-0500 Heart rate 68 /min DIANA TEJAS [facility] 05-04-2022 14:12-0500 Respiratory rate 16 /min DIANA TEJAS [facility] 05-04-2022 14:12-0500 Systolic blood pressure 134 mm[Hg] DIANA TEJAS [facility] 03-27-2022 10:15-0500 Body height 162.56 cm Ifrah Haley Other [employer] Other 03-27-2022 10:15-0500 Body mass index (BMI) [Ratio] 36.73 kg/m2 Ifrah De Leon Other [employer] Other 03-27-2022 10:15-0500 Body temperature 98.4 [degF] Ifrah Haley Other [employer] Other 03-27-2022 10:15-0500 Body weight 97.07 kg Ifrah Haley Other [employer] Other 03-27-2022 10:15-0500 Diastolic blood pressure 86 mm[Hg] Ifrah De Leon Other [employer] Other 03-27-2022 10:15-0500 Respiratory rate 16 /min Ifrah Haley Other [employer] Other 03-27-2022 10:15-0500 SaO2% (BldA) [Mass fraction] 97 % Ifrah Haley Other [employer] Other 03-27-2022 10:15-0500 Systolic blood pressure 134 mm[Hg] Ifrah Haley Other [employer] Other 03-07-2022 14:35-0500 Body height 162.56 cm Ifrah Haley Other [employer] Other 03-07-2022 14:35-0500 Body mass index (BMI) [Ratio] 36.39 kg/m2 Ifrah Haley Other [employer] Other 03-07-2022 14:35-0500 Body temperature 98 [degF] Ifrah Haley Other [employer] Other 03-07-2022 14:35-0500 Body weight 96.16 kg Ifrah Haley Other [employer] Other 03-07-2022 14:35-0500 Diastolic blood pressure 79 mm[Hg] Firah Haley Other [employer] Other 03-07-2022 14:35-0500 Respiratory rate 16 /min Ifrah Haley Other [employer] Other 03-07-2022 14:35-0500 SaO2% (BldA) [Mass fraction] 100 % Ifrah Haley Other [employer] Other 03-07-2022 14:35-0500 Systolic blood pressure 125 mm[Hg] Irfah De Leon Other [facility] [employer] Other 01-20-2022 13:29-0400 Blood Pressure Location DIANA TEJAS [facility] 01-20-2022 13:29-0400 Diastolic blood pressure 67 mm[Hg] DIANA TEJAS [facility] 01-20-2022 13:29-0400 Heart rate 78 /min DIANA TEJAS [facility] 01-20-2022 13:29-0400 Respiratory rate 16 /min DIANA TEJAS [facility] 01-20-2022 13:29-0400 Systolic blood pressure 131 mm[Hg] DIANA TEJAS [facility] 11-04-2021 13:22-0400 Blood Pressure Location DIANA TEJAS [facility] 11-04-2021 13:22-0400 Diastolic blood pressure 89 mm[Hg] DIANA TEJAS [facility] 11-04-2021 13:22-0400 Heart rate 81 /min DIANA TEJAS [facility] 11-04-2021 13:22-0400 Respiratory rate 16 /min DIANA TEJAS [facility] 11-04-2021 13:22-0400 Systolic blood pressure 137 mm[Hg] DIANA LAZARO [facility] 08-17-2021 10:57-0400 Blood Pressure Location DIANA LAZARO [facility] 08-17-2021 10:57-0400 Diastolic blood pressure 100 mm[Hg] DIANA LAZARO [facility] 08-17-2021 10:57-0400 Heart rate 83 /min DIANA LAZARO [facility] 08-17-2021 10:57-0400 Systolic blood pressure 149 mm[Hg] DIANA LAZARO [facility] Encounters Encounter Date Encounter Type Care Provider Facility Start: 09-09-2024 End: 09-09-2024 Office outpatient visit 15 minutes Irene MONTANO Work Phone: [facility] Comment on above: BV (bacterial vagino sis); UTI symptoms; Urinary urgency Start: 09-09-2024 End: 09-09-2024 ambulatory IRENE BERMUDEZ Not Available Start: 09-09-2024 End: 09-10-2024 External Result Encounter Irene MONTANO Work Phone: [facility] Unsolicited Start: 09-09-2024 End: 09-10-2024 External Result Encounter Irene MONTANO Work Phone: [facility] Unsolicited Start: 09-06-2024 End: 09-06-2024 ambulatory NON STAFF Facility:[facility] Start: 09-03-2024 End: 09-03-2024 Office outpatient visit 25 minutes Mina Hernandez MD Work Phone: [facility] Comment on above: Morbid (severe) obes ity due to excess calories (CMS-HCC) (Primary Dx); Mild persistent asthma with exacerbation (HCC); ETD (Eustachian tube dysfunction), right Start: 09-03-2024 End: 09-03-2024 ambulatory MINA Anderson DAVID Not Available Start: 08-26-2024 End: 08-26-2024 Bamboo flowsheet Mina Hernandez MD Work Phone: [facility] Start: 08-26-2024 End: 08-26-2024 Bamboo flowsheet Mina Hernandez MD Work Phone: [facility] Start: 08-26-2024 End: 08-26-2024 Office outpatient visit 25 minutes Mina Hernandez MD Work Phone: [facility] Comment on above: Acute maxillary sinu sitis, recurrence not specified (Primary Dx) Start: 08-26-2024 End: 08-26-2024 ambulatory MINA Anderson DAVID Not Available Start: 08-19-2024 End: 08-19-2024 Bamboo flowsheet William Laquita DO Work Phone: [facility] Start: 08-19-2024 End: 08-22-2024 Bamboo flowsheet William Laquita DO Work Phone: [facility] Start: 08-19-2024 End: 08-22-2024 Clinisync Result Encounter William Laquita DO Work Phone: [facility] Unsolicited Start: 08-19-2024 End: 08-19-2024 Patient encounter procedure William Laquita DO Work Phone: [facility] Start: 08-19-2024 End: 08-19-2024 Periodic preventive med est patient 40-64yrs William Laquita DO Work Phone: [facility] Comment on above: Well woman exam with routine gynecological exam Start: 08-19-2024 End: 08-19-2024 ambulatory WILLIAM COELHO Not Available Start: 07-30-2024 End: 07-30-2024 Office outpatient visit [address] Work Phone: [facility] Comment on [...] of urination Start: 05-21-2024 End: 05-21-2024 ambulatory MINA HERNANDEZ Not Available Start: 04-25-2024 End: 04-25-2024 Office outpatient visit 25 minutes Mina Hernandez MD Work Phone: [facility] Comment on above: Obesity (BMI 30-39.9 ) (Primary Dx); Encounter for screening mammogram for malignant neoplasm of breast; Family history of diabetes mellitus; Other fatigue Start: 04-25-2024 End: 04-25-2024 ambulatory MINA HERNANDEZ Not Available Start: 04-25-2024 End: 04-25-2024 Bamboo flowsnikhil Hernandez MD Work Phone: [facility] Start: 04-25-2024 End: 04-25-2024 Emerald Hernandez MD Work Phone: [facility] Start: 04-05-2024 Non-patient / Non-visit Mina Hernandez MD Work Phone: [facility] Work Phone: Start: 04-05-2024 End: 04-05-2024 Admission to same day surgery center Mina Hernandez MD Work Phone: [facility] Work Phone: Start: 04-05-2024 End: 04-05-2024 ambulatory Mina Hernandez MD Work Phone: [facility] Work Phone: Start: 03-19-2024 End: 03-19-2024 Patient encounter procedure Mina Hernandez MD Work Phone: [facility] [place] Work Phone: Start: 03-05-2024 End: 03-05-2024 Patient encounter procedure Mina Hernandez MD Work Phone: [facility] [place] Work Phone: Start: 03-05-2024 End: 03-05-2024 ambulatory Imad Asaad Facility:[facility] Start: 03-04-2024 End: 03-04-2024 ambulatory Imad Asaad Facility:[facility] Start: 03-04-2024 End: 03-04-2024 Patient encounter procedure Mina Hernandez MD Work Phone: [facility] [place] Work Phone: Start: 01-11-2024 Non-patient / Non-visit Mina Hernandez MD Work Phone: [facility] Physician [facility] Work Phone: Start: 01-09-2024 End: 01-09-2024 Patient encounter procedure MD Mina Hernandez Work Phone: [facility] Work Phone: Start: 01-09-2024 End: 01-09-2024 ambulatory MD Mina Hernandez Work Phone: [facility] Work Phone: Start: 12-25-2023 End: 12-25-2023 Patient encounter procedure MD Mina Hernandez Work Phone: [facility] [place] Work Phone: Start: 12-25-2023 End: 12-25-2023 ambulatory MD Mina Hernandez Work Phone: [facility] Work Phone: Start: 12-16-2023 End: 12-16-2023 Patient encounter procedure MD Mina Hernandez Work Phone: [facility] [place] Work Phone: Start: 12-16-2023 End: 12-16-2023 ambulatory MD Mina Hernandez Work Phone: [facility] Work Phone: Start: 12-11-2023 End: 12-11-2023 ambulatory MD Mina Hernandez Work Phone: [facility] Work Phone: Start: 12-11-2023 End: 12-11-2023 Patient encounter procedure [facility] Work Phone: Start: 12-01-2023 Non-patient / Non-visit MD Tabby Hernandez Work Phone: [facility] Physician [facility] Work Phone: Start: 11-21-2023 End: [...] Start: 06-07-2023 End: 06-08-2023 ambulatory DIANA LAZARO Facility:[facility] Start: 06-07-2023 End: 06-07-2023 Patient encounter procedure DIANA LAZARO [facility] Start: 11-03-2022 End: 11-04-2022 ambulatory DIANA LAZARO [facility] Start: 11-03-2022 End: 11-03-2022 Patient encounter procedure DIANA ALZARO [facility] Start: 10-04-2022 End: 10-05-2022 ambulatory DIANA LAZARO [facility] Start: 10-03-2022 End: 10-04-2022 ambulatory Mian CHRISTOPHER Facility:[facility] Start: 10-03-2022 End: 10-03-2022 Patient encounter procedure Mian CHRISTOPHER [facility] Start: 05-04-2022 End: 05-04-2022 Lab Drop off DIANA LAZARO [facility] Start: 05-04-2022 End: 05-04-2022 Patient encounter procedure DIANA LAZARO [facility] Start: 03-27-2022 End: 03-27-2022 ambulatory Ifrah De Leon Other [facility] [employer] Other Start: 03-27-2022 Office outpatient vi sit 15 minutes Ifrahjessica De Leon [facility] [place] Start: 03-07-2022 Office outpatient ne w 30 minutes Ifrahjessica De Leon [facility] [place] Start: 03-07-2022 End: 03-07-2022 ambulatory SCREEN TACKER-C Ifrah De Leon Work Phone: [facility] Work Phone: Start: 03-07-2022 End: 03-07-2022 Departed Referred SCREEN TACKER-C Ifrah De Leon Work Phone: [facility] [place] Start: 02-01-2022 End: 02-02-[address] WILLIAM COELHO Facility:[facility] Start: 01-20-2022 End: 01-20-2022 Lab Drop off DAINA LAZARO [facility] Start: 01-20-2022 End: 01-20-2022 Patient encounter procedure DIANA LAZARO [facility] Start: 01-13-2022 End: 01-13-[address] WILLIAM COELHO Facility:[facility] Start: 12-23-2021 End: 12-24-2021 ambulatory MINA HERNANDEZ [facility] Start: 11-04-2021 End: 11-04-2021 Patient encounter procedure DIANA LAZARO [facility] Start: 08-17-2021 End: 08-17-2021 Patient encounter procedure DIANA LAZARO [facility] Start: 08-13-2021 End: 08-14-[address] MINA HERNANDEZ Facility:[facility] Start: 04-26-2021 End: 04-27-[address] WILLIAM COELHO Facility:[facility] Start: 03-19-[address] WILLIAM COELHO Facility :[facility] Start: 03-09-2021 Encounter for preprocedural laboratory examination DR WILLIAM COELHO [facility] Start: 03-08-2021 End: 03-08-[address] WILLIAM COELHO Facility:[facility] Start: 03-04-2021 End: 03-05-[address] WILLIAM COELHO Facility:[facility] Start: 03-04-2021 End: 03-05-2021 Encounter for preprocedural laboratory examination DR WILLIAM COELHO Facility:[facility] Start: 03-01-2021 Encounter for other preprocedural examination DR WILLIAM COELHO [facility] Start: 02-24-2021 End: 02-25-[address] WILLIAM COELHO Facility:[facility] Start: 02-24-2021 End: 02-25-2021 Encounter for other preprocedural examination DR WILLIAM COELHO Facility:[facility] Procedures Date Procedure Procedure Detail Performing Clinician Start: 09-09-2024 Urnls dip stick/tabl et rgnt non-auto w/o micrscp Irene MONTANO Work Phone: Start: 09-09-2024 URINARY TRACT INFECT ION (HTRX) Irene MONTANO Work Phone: Start: 08-19-2024 Urnls dip stick/tabl et rgnt non-auto w/o micrscp William Coelho DO Work Phone: Start: 08-19-2024 IGP,APTIMA HPV,AGE GDLN Generic External Data Provider Start: 08-19-2024 Microscopic observat ion [Identifier] in Cervix by Cyto stain Mina Hernandez MD Work Phone: Start: 04-05-2024 Colonoscopy Mina Hernandez [...] Mina Hernandez MD Work Phone: Cholecystectomy DIANA LYNN Colonoscopy DIANA LAZARO Partial hysterectomy SIOBHAN LAZARO Plan of Treatment Date Care Activity Detail Author Start: 08-20-2027 Screening for malign ant neoplasm of cervix Pap Smear [facility] Start: 01-13-2027 Screening for malign ant neoplasm of cervix [facility] Start: 07-26-2026 Screening for malign ant neoplasm of cervix Pap Smear [facility] Start: 08-28-2025 End: 08-28-2025 Patient encounter procedure 08/28/2025 8:30 AM EDT Office Visit [facility] [address] [place] [address] William Coelho DO [address] [place] [address] [facility] Start: 09-03-2024 End: 09-03-2024 Patient encounter procedure 09/03/2024 4:30 PM EDT Office Visit [facility] [address] [place] [address] Mina Hernandez MD [address] [place] [address] [facility] Start: 08-26-2024 End: 08-26-2024 Patient encounter procedure 08/26/2024 11:00 AM EDT Office Visit [facility] [address] [place] [address] Mina Hernandez MD [address] [place] [address] Arrived [facility] Comment on above: Arrived Start: 08-19-2024 End: 08-19-2024 Patient encounter procedure [facility] Comment on above: Arrived Start: 08-15-2024 End: 08-15-2024 Patient encounter procedure 08/15/2024 3:30 PM EDT Office Visit [facility] [address] [facility] [address] [place] [address] Mina Hernandez MD [address] [facility] [address] [place] [address] [facility] Start: 08-05-2024 End: 08-05-2024 Patient encounter procedure 08/05/2024 8:30 AM EDT Office Visit [facility] [address] [place] [address] William Coelho DO [address] [address] [facility] Start: 07-30-2024 End: 07-30-2024 Patient encounter procedure 07/30/2024 4:30 PM EDT Office Visit [facility] [address] [place] [address] [address] [place] [address] Arrived [facility] Comment on above: Arrived Start: 04-28-2024 Screening for malign ant neoplasm of breast Mammogram [facility] Start: 04-25-2024 End: 04-25-2024 Patient encounter procedure 04/25/2024 3:00 PM EST Office Visit [facility] [address] [facility] [address] [place] [id number] Mina Hernandez MD [address] [facility] [address] [place] [address] Arrived [facility] Comment on above: Arrived Start: 04-25-2024 End: 06-23-2025 DBT Breast - bilateral screening Bilateral screening mammogram with tomosynthesis Imaging Routine Encounter for screening mammogram for malignant neoplasm of breast Expected: 04/25/2024 (Approximate), Expires: 06/23/2025 [facility] Work Phone: Comment on above: Expected: 04/25/2024 (Approximate), Expires: 06/23/2025 Start: 04-25-2024 End: 04-25-2025 TSH W/REFLEX TO FT4 TSH W/REFLEX TO FT4 Lab Routine Obesity (BMI 30-39.9) Other fatigue Expected: 04/25/2024 (Approximate), Expires: 04/25/2025 [facility] Comment on above: Expected: 04/25/2024 (Approximate), Expires: 04/25/2025 Start: 04-05-2024 [facility] Start: 12-16-2023 [facility] Start: 12-11-2023 [facility] Start: 11-19-2023 Influenza vaccination Influenza Vacc ine (#1) [facility] Start: 11-13-2023 End: 11-12-2025 Cardiac event monitor Cardiac event monitor Cardiac Services Routine Uncomplicated severe persistent asthma (CMS/HCC) Palpitations Expected: 11/13/2023 (Approximate), Expires: 11/12/2025 [facility] Comment on above: Expected: 11/13/2023 (Approximate), Expires: 11/12/2025 Start: 11-13-2023 End: 11-12-2024 CBC panel - Blood by Automated count CBC Lab Routine Palpitations Expected: 11/13/2023 (Approximate), Expires: 11/12/2024 [facility] Work Phone: Comment on above: Expected: 11/13/2023 (Approximate), Expires: 11/12/2024 Start: 11-13-2023 End: 11-12-2024 Comprehensive metabolic 2000 panel - Serum or Plasma Comprehensive metabolic panel Lab Routine Uncomplicated severe persistent asthma (CMS/HCC) Palpitations Expected: 11/13/2023 (Approximate), Expires: 11/12/2024 [facility] Comment on above: Expected: 11/13/2023 (Approximate), Expires: 11/12/2024 Start: 11-13-2023 End: 11-13-2023 Patient encounter procedure 11/13/2023 2:00 PM EDT Office Visit [facility] [address] [facility] [address] [place] [address] Mina Hernandez MD [address] [facility] [address] [place] [address] Arrived [facility] Comment on above: Arrived Bacteria identified in Urine by Culture [facility] Bacteria identified in Urine by Culture Urine culture Microbiology Routine UTI symptoms Ordered: 09/09/2024 [facility] Comment on above: Ordered: 09/09/2024 CHLAMYDIA TRACHOMATI S (GENITO/STI) CHLAMYDIA TRACHOMATIS (GENITO/STI) Lab Routine BV (bacterial vaginosis) Ordered: 09/09/2024 [facility] Comment on above: Ordered: 09/09/2024 Comprehensive metabo lic 2000 panel - Serum or Plasma [facility] CT Abdomen and Pelvi s WO and W contrast IV [facility] Elastase.pancreatic [Mass/mass] in Stool [facility] Elastase.pancreatic [Mass/mass] in Stool [facility] Endomysial antibody IgA level [facility] Gliadin peptide IgA Ab [Units/volume] in Serum [facility] Gliadin peptide IgG Ab [Units/volume] in Serum [facility] HIV 1+2 Ab+HIV1 p24 Ag [Presence] in Serum or Plasma by Immunoassay [facility] IgA [Mass/volume] in Serum or Plasma [facility] Neisseria gonorrhoea e DNA [Presence] in Unspecified specimen by NIDIA with probe detection Neisseria gonorrhea DNA probe, direct Lab Routine BV (bacterial vaginosis) Ordered: 09/09/2024 [facility] Comment on above: Ordered: 09/09/2024 Patient Education Hemorrhoids ED Diverticulosis Know your Meds [facility] Work Phone: SURESWAB(R) ADVANCED VAGINITIS PLUS, TMA SURESWAB(R) ADVANCED VAGINITIS PLUS, TMA Pathology and Cytology Routine BV (bacterial vaginosis) Ordered: 09/09/2024 [facility] Work Phone: Comment on above: Ordered: 09/09/2024 THIN PREP TIS PAP AN D HR HPV DNA THIN PREP TIS PAP AND HR HPV DNA Pathology and Cytology Routine Well woman exam with routine gynecological exam Ordered: 08/19/2024 [facility] Work Phone: Comment on above: Ordered: 08/19/2024 Tissue transglutamin ase IgA Ab [Units/volume] in Serum [facility] Tissue transglutamin ase IgG Ab [Units/volume] in Serum [facility] Immunizations Immunization Date Immunization Notes Care Provider [facility] 01-26-2024 Seasonal, trivalent, recombinant, injectable influenza vaccine, preservative free Mina Hernandez MD Work Phone: [facility] 01-26-2023 influenza, seasonal, injectable Mina Hernandez MD Work Phone: [facility] 01-26-2023 influenza virus vaccine, unspecified formulation Mina Hernandez MD Work Phone: [facility] 01-20-2022 influenza virus vaccine, unspecified formulation DIANA LAZARO [facility] 01-20-2022 Influenza, injectabl e, Madin [place] Canine Kidney, preservative free, quadrivalent Mina Hernandez MD Work Phone: [facility] 02-08-2021 SARS-CoV-2 (COVID-19 ) mRNA-[id number] vaccine DIANA LAZARO [facility] 01-18-2021 SARS-CoV-2 (COVID-19 ) mRNA-1273 vaccine DIANA TEJAS [facility] 01-14-2021 influenza virus vaccine, unspecified formulation DIANA TEJAS [facility] 01-14-2021 influenza, injectabl e, quadrivalent, contains preservative Mina Hernandez MD Work Phone: [facility] 06-12-2020 SARS-CoV-2 (COVID-19 ) mRNA-1273 vaccine DIANA TEJAS [facility] Comment on above: Result Comment: 2022: [id number] 05-18-2020 SARS-CoV-2 (COVID-19 ) mRNA-1273 vaccine DIANA TEJAS [facility] 05-15-2020 SARS-CoV-2 (COVID-19 ) mRNA-1273 vaccine DIANA TEJAS [facility] Comment on above: Result Comment: 2022: [id number] 04-20-2020 SARS-CoV-2 (COVID-19 ) mRNA-1273 vaccine DIANA TEJAS [facility] 04-15-2019 influenza virus vaccine, unspecified formulation DIANA TEJAS [facility] 04-15-2019 Influenza, injectabl e, Madin [place] Canine Kidney, preservative free, quadrivalent Mina Hernandez MD Work Phone: [facility] 01-30-2018 influenza virus vaccine, unspecified formulation DIANA TEJAS [facility] 01-30-2018 Influenza, injectabl e, Madin [place] Canine Kidney, preservative free, quadrivalent Mina Hernandez MD Work Phone: [facility] 12-15-2016 influenza virus vaccine, unspecified formulation DIANA TEJAS [facility] 12-15-2016 seasonal influenza, intradermal, preservative free Mina Hernandez MD Work Phone: [facility] 12-06-2016 influenza virus vaccine, unspecified formulation DIANA LAZARO [facility] 12-06-2016 influenza, seasonal, injectable Mina Hernandez MD Work Phone: [facility] 12-28-2015 influenza virus vaccine, unspecified formulation DIANA LAZARO [facility] 12-28-2015 influenza, injectabl e, quadrivalent, contains preservative Mina Hernandez MD Work Phone: [facility] 02-18-2015 influenza virus vaccine, unspecified formulation DIANA LAZARO [facility] 02-18-2015 influenza, seasonal, injectable, preservative free Mina Hernandez MD [facility] Phone[facility] Payers Date Payer Category Payer Unknown [id number] 2022 Private Health Insurance [id number] 2022 Unknown [id number] 2022 Unknown [id number] 1980 Unknown [id number] 2.16.84 0.1.067316.3.579.2.593 1980 Unknown [id number] 2.16.84 0.1.364358.3.579.2.593 1980 Unknown [id number] 2.16.84 0.1.181451.3.579.2.593 1980 Unknown [id number] 2.16.84 0.1.156004.3.579.2.593 1980 Unknown [id number] 2.16.84 0.1.780474.3.579.2.593 1980 Unknown [id number] 2.16.84 0.1.268783.3.579.2.593 1980 Unknown [id number] 2.16.84 0.1.236668.3.579.2.593 1980 Unknown [id number] 2.16.84 0.1.103971.3.579.2.593 1980 Unknown [id number] 2.16.8 40.1.195150.3.579.2.727 1980 Unknown [id number] 2.16.8 40.1.083454.3.579.2.727 1980 Unknown [id number] 2.16.8 40.1.099676.3.579.2.727 1980 Unknown [id number] 2.16.8 40.1.746224.3.579.2.727 1980 Unknown [id number] 2.16.8 40.1.749215.3.579.2.727 1980 Unknown [id number] 2.16.8 40.1.972452.3.579.2.1259 1980 Unknown [id number] 2.16.8 40.1.480513.3.579.2.1259 1980 Unknown [id number] 2.16.8 40.1.349221.3.579.2.1259 1980 Unknown [id number] 2.16.84 0.1.091160.3.579.2.1259 1980 Unknown [id number] 2.16.84 0.1.383847.3.579.2.1259 1980 Unknown [id number] 2.16.84 0.1.988407.3.579.2.1259 1980 Unknown [id number] 2.16.84 0.1.106914.3.579.2.1259 1980 Unknown [id number] 2.16.84 0.1.452195.3.579.2.1259 1959 Self-pay 1959 Unknown [id number] Unknown [id number] 2.16.8 40.1.328903.3.579.2.531 Unknown [id number] 2.16.8 40.1.420734.3.579.2.531 Unknown [id number] 2.16.8 40.1.205654.3.579.2.531 Unknown [id number] 2.16.8 [id number] Unknown [id number] Unknown [id number] Unknown [id number] [id number] [id number] Unknown [id number] [id number] Social History Date Type Detail Facility Start: 08-17-2021 End: 04-05-2024 Tobacco smoking status Never smoked tobacco (finding) [facility] Tobacco smoking status Never [facility] [place] Start: 09-05-2022 End: 09-03-2024 Sex Assigned At Female [facility] [place] Start: 1980 Sex Assigned At Female [facility] Start: 09-14-2022 Tobacco smoking stat [facility] Ex-smoker [facility] History of tobacco use Current smoker [facility] History of tobacco use Cigarette Sm[facility] Start: 09-14-2022 Tobacco use and exposure Smokeless tobacco non-user [facility] Start: 08-07-2023 End: 09-09-2024 Alcoholic beverage intake Ex-drinker (finding) [facility] Start: 09-05-2022 End: 09-03-2024 History of Social function [facility] How [...] [facility] Start: 04-05-2024 Sex Female (finding) [facility] Goals Date Patient Goal Desired Activity /State Functional Status Date Assessment Result Facility 09-03-2024 Patient Health Quest ionnaire 2 item (PHQ-2) [Reported] [facility] 08-26-2024 Patient Health Quest ionnaire 2 item (PHQ-2) [Reported] [facility] 11-03-2022 Functional Status N/A [facility] 05-04-2022 Functional Status N/A [facility] 01-20-2022 Functional Status N/A [facility] 11-04-2021 N/A [facility] Clinical Notes 03-08-2021 to 09-09-2024 CHARMAINE Damon - 09/09/2024 3:20 PM Carolyn Hernandez MD - 09/03/2024 4:45 PM Carolyn Hernandez MD - 09/03/2024 4:45 PM Carolyn Hernandez MD - 09/03/2024 4:44 PM EDT Note Date & Type Note Facility 09-09-2024 History of Presen t illness Narrative Reason [...] DR capsule 1 capsule, Every 24 hours Nsixcbmitqn-Eewcjzrpe-Vtjjbp (Trelegy Ellipta) 100-62.5-25 MCG/ACT aerosol powder 1 [...] Morbid (severe) obesity due to excess calories ([facility]) 09/04/2022 Seasonal allergic rhinitis 09/04/2022 Hx of [...] nursing note reviewed. Exam conducted with a construction plant operator present. Vitals: Estimated body mass index is 36.61 kg/m as calculated from the following: Height [...] of: CHARMAINE Damon documented in this encounter [facility] 09-03-2024 History of Presen t illness Narrative Associated Problem(s): Mild persistent asthma with exacerbation (HCC) Finish ATBx PRN albuterol in AM as needed Lungs were clear Associated Problem(s): Morbid (severe) obesity due to excess calories ([facility]) Had good weight loss of 11 lbs Dose increased Watch for nausea Needs life style modification. Exercise Routinely Low Calorie Diet F/U in 3 months 3500 calorie deficit = 1lb weight loss Small portions TIming of meals Reduce Carbohydrate Intake High Protein Diet Associated Problem(s): ETD (Eustachian tube dysfunction), right Get OTC Decongestant Images from the original note were not [...] time each day at the same time. Iavxwoczpmh-Tdmbdqdpu-Bpylsa (Trelegy Ellipta) 100-62.5-25 MCG/ACT aerosol powder Inhale [...] [DISCONTINUED] Semaglutide-Weight Management (Wegovy) 1 MG/0.5ML solution auto-injector Inject 1 mg under the skin 1 [...] LMP (LMP Unknown) SpO2 96% BMI 37.12 kg/m OB Status Ablation Smoking Status Former BSA 2.2 m Review of Systems Objective Physical Exam Constitutional: [...] Morbid (severe) obesity due to excess calories ([facility]) - Primary Had good weight loss of 11 lbs Dose increased Watch for nausea Needs life style modification. Exercise Routinely Low Calorie Diet F/U in 3 months 3500 calorie deficit = 1lb weight loss Small portions TIming of meals Reduce Carbohydrate Intake High Protein Diet Relevant Medications Semaglutide-Weight Management 1.7 MG/0.75ML solution auto-injector Mild persistent asthma with exacerbation ([facility]) Finish ATBx PRN albuterol in AM as needed Lungs were clear ETD (Eustachian tube dysfunction), right Get OTC Decongestant Follow up in about 3 months (around 12/04/2024) for Recheck. documented in this encounter [facility] 08-26-2024 History of Presen t illness Narrative Associated Problem(s): Sinusitis Add Probiotic to help replenish the good bacteria that are destroyed by the Antibiotics Florastor Florajen Align or try Activia in Yogurt Probiotics reduce the risk of antibiotic induced diarrhea Images from the original note were not included. Subjective Patient ID: Candice De León is a 44 y.o. female who presents for URI. Started with her throat hurting ,drainage phlegm green, coughing, headaches, sinus pressure, chills, nauseated not really wanting to eat , fatigued Flonase and allergy meds URI This is a new problem. The current episode started in the past 7 days. The problem has been unchanged. There has been no fever. Associated symptoms include congestion, coughing, headaches, nausea, sinus pain and a sore throat. Pertinent negatives include no ear pain or plugged ear sensation. She has tried nothing for the symptoms. The treatment provided no relief. Current Outpatient Medications on File Prior [...] time each day at the same time. Kvxgsaalkrq-Soztujydq-Yyusqz (Trelegy Ellipta) 100-62.5-25 MCG/ACT aerosol powder Inhale [...] EACH DAY 90 tablet 1 Semaglutide-Weight Management (Wegovy) 1 MG/0.5ML solution auto-injector Inject 1 mg under the skin 1 [...] left anterior tongue lesion Visit Vitals BP 118/82 Pulse 85 Temp 97.5 F Ht 5' 6 Wt 231 lb LMP (LMP Unknown) SpO2 97% BMI 37.28 kg/m OB Status Ablation Smoking Status Former BSA 2.21 m Review of Systems HENT: Positive for congestion, sinus pain and sore throat. Negative for ear pain. Respiratory: Positive for cough. Gastrointestinal: Positive for nausea. Neurological: Positive for headaches. Objective Physical Exam Constitutional: General: She is not in acute distress. Appearance: Normal appearance. HENT: Head: Normocephalic. Nose: Right Turbinates: Enlarged and pale. Left Turbinates: Enlarged and pale. Right Sinus: Maxillary sinus tenderness and frontal sinus tenderness present. Left Sinus: Maxillary sinus tenderness and frontal sinus tenderness present. Comments: Percussion Dullness on cheeks, and right Frontal Cardiovascular: Rate and Rhythm: Normal rate and regular rhythm. Pulmonary: Effort: Pulmonary effort is normal. No respiratory distress. Breath sounds: Normal breath sounds. Neurological: General: No focal deficit present. Mental Status: She is alert and oriented to person, place, and time. Psychiatric: Mood and Affect: Mood normal. Assessment/Plan Problem List Items Addressed This Visit Sinusitis - Primary Add Probiotic to help replenish the good bacteria that are destroyed by the Antibiotics Florastor Florajen Align or try Activia in Yogurt Probiotics reduce the risk of antibiotic induced diarrhea Relevant Medications cefuroxime (Ceftin) 500 MG tablet No follow-ups on file. documented in this encounter [facility] 08-19-2024 History of Presen t illness Narrative [...] capsule 1 capsule, Oral, Every 24 hours Gvmdokdiicl-Egibllfkv-Umdtkk (Trelegy Ellipta) 100-62.5-25 MCG/ACT aerosol powder 1 [...] Ambulatory Problems Diagnosis Date Noted Asthmatic bronchitis ([facility]) 09/04/2022 Elevated liver function tests 09/04/2022 Fear of flying ([facility]) 09/04/2022 Iron deficiency anemia 09/04/2022 Loss of taste 09/04/2022 Menorrhagia with regular cycle 09/04/2022 Mixed hyperlipidemia ([facility]) 09/04/2022 Morbid (severe) obesity due to excess calories ([facility]) 09/04/2022 Seasonal allergic rhinitis 09/04/2022 Hx of oral surgery 2010 Uncomplicated severe persistent asthma ([facility]) 07/04/2017 Marital relationship problem 11/24/2022 Adjustment disorder with anxious mood ([facility]) 11/29/2022 Abrasion of skin of left lower leg 12/02/2020 Constipation 12/28/2015 Gastroesophageal reflux disease 01/13/2020 Insomnia 06/21/2019 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 Exam conducted with a construction plant operator present. Vitals: Estimated body mass index is [...] William Coelho DO documented in this encounter [facility] 07-30-2024 History of Presen t illness Narrative [...] constipated since she has been on the Wegovy shots. She did take miralax yesterday. Current [...] time each day at the same time. Lfwqzezjdak-Rzmlnflts-Wzhwfn (Trelegy Ellipta) 100-62.5-25 MCG/ACT aerosol powder Inhale [...] Past Surgical History: Procedure Laterality Date CHOLECYSTECTOMY 2005 COLONOSCOPY 01/11/2018 COLONOSCOPY 04/05/2024 Diverticulosis, Internal Hemorrhoids [...] Appointment As Scheduled. documented in this encounter [facility] 05-21-2024 History of Presen t illness Narrative [...] will need a refill on this to [facility] Current Outpatient Medications on File Prior to [...] time each day at the same time. Epxtnodqnoj-Zhhmhvojj-Pjmodo (Trelegy Ellipta) 100-62.5-25 MCG/ACT aerosol powder Inhale [...] Past Surgical History: Procedure Laterality Date CHOLECYSTECTOMY 2005 COLONOSCOPY 01/11/2018 COLONOSCOPY 04/05/2024 Diverticulosis, Internal Hemorrhoids [...] 08/21/2024) for Recheck. documented in this encounter [facility] 04-25-2024 History of Presen t illness Narrative [...] time each day at the same time. Rzbzjrostqq-Nhznafvtq-Kpxxrb (Trelegy Ellipta) 100-62.5-25 MCG/ACT aerosol powder Inhale [...] follow-ups on file. documented in this encounter [facility] 04-05-2024 Procedure note [facility] 04-05-2024 History and physical note [facility] 03-04-2024 Evaluation note Authored March 04, 2024 [...] ova/parasite - Will arrange for a colonoscopy [facility] Work Phone: 1(195) 337-724909-23-2024 Evaluation note* Author Padma Torres [facility] Authored December 11, 2023 9:13am 43-year-old female [...] stool infectious workup -Will arrange for colonoscopy [facility] Work Phone: 1(498) 705-832308-26-2024 History of Present illness Narrative* Mina Hernandez MD - 11/13/2023 2:12 PM EDTAssociated Problem(s): Palpitations Avoid Caffeine Check Holter/Event Monitor Discussed with patient sxs and sxs of [place] D/W patient Valsava Maneuver and Cold * [...] each day at the same time. [DISCONTINUED] Tdfpeoocbbg-Tsdmjujcv-Mhfeom (Trelegy Ellipta) 100-62.5-25 MCG/ACT aerosol powder Inhale 1 puff 1 (one) time each day at the same time 1 each No current facility-administered medications on file prior [...] Past Surgical History: Procedure Laterality Date CHOLECYSTECTOMY 2005 COLONOSCOPY 01/11/2018 CT ANGIOGRAM HEART CORONARY 01/21/2020 [...] Uncomplicated severe persistent asthma (CMS/HCC) Relevant Medications Pqjiakygdcx-Vzrntchtz-Tonmph (Trelegy Ellipta) 100-62.5-25 MCG/ACT aerosol powder Other Relevant Orders Comprehensive metabolic panel Cardiac event monitor Palpitations - Primary Avoid Caffeine Check Holter/Event Monitor Discussed with patient sxs and sxs of [place] D/W patient Valsava Maneuver and Cold Relevant Orders CBC Comprehensive metabolic panel Cardiac event monitor No follow-ups on file. [id number] Discharge instructions Patient Education 11/03/2022 16:03:08 Urinary Tract Infection, Adult, Uctb-du-Utlm Urinary Tract Infection, Adult A urinary tract [...] Follow these instructions at home: Medicines Take mtfc-azy-yqzibuk and prescription medicines only as told by [...] provider. Document Revised: 10/16/2020 Document Reviewed: 10/16/2020 [employer]il[employer] SL Patient Education 2022 [employer]. Follow Up Care 11/04/2021 13:30:04 With:DIANA LAZARO PA-C, URL Address: [address] [place] [address] When: Unknown Comments:PRN [facility] 02-15-2023 Hospital Discharge instructions Patient Education 05/04/2022 [...] fried and sweet foods. General instructions Take aspj-vgy-hwrflgv and prescription medicines only as told by [...] 12/31/2009 Document Revised: 06/27/2019 Document Reviewed: 03/22/2018 [employer] Patient Education 2020 [employer]. Follow Up Care 05/03/2022 13:11:10 With:DIANA LAZARO PA-C, URL Address: [address] [place], [place] [address] [place] [address] When: Unknown [facility] 01-08-2023 Evaluation note* Encounter Date Diagnosis Assessment [...] no improvement in 2 to 3 days. [employer] Other 12-19-2022 Evaluation note* Encounter Date Diagnosis Assessment Notes Treatment Notes Treatment Clinical Notes Feb, Dysuria (ICD-10 - R30.0) Dysuria: adult home care material was printed Drink plenty fluids, get plenty of rest. Stop the Bactrim antibiotic. Take the Macrobid and Pyridium as prescribed until gone. Follow-up with your family physician if no improvement in 2 to 3 days. [employer] Other 11-03-2022 Hospital Discharge instructions Patient Education [...] 02/20/2013 Document Revised: 10/24/2018 Document Reviewed: 10/24/2018 [employer] Patient Education 2020 [employer]. Follow Up Care 01/20/2022 10:45:04 With:TEJAS ZUNIGA, DIANA Aleman, URL Address: [address] [place] [address] When: Unknown [facility] 08-18-2022 Hospital Discharge instructions Patient [...] fried and sweet foods. General instructions Take omxx-gmu-vchfbpe and prescription medicines only as told by [...] 12/31/2009 Document Revised: 06/27/2019 Document Reviewed: 03/22/2018 [employer] SL Patient Education 2020 [employer]. Follow Up Care 08/17/2021 11:39:26 With:TEJAS ZUNIGA, DIANA Aleman, URL Address: [address] [place] [address] When:1 year [facility] 05-31-2022 Hospital Discharge instructions Patient [...] fried and sweet foods. General instructions Take ngkx-ggd-mlasnte and prescription medicines only as told by [...] 12/31/2009 Document Revised: 06/27/2019 Document Reviewed: 03/22/2018 [employer] Patient Education 2020 [employer]. [facility] 12-20-2021 NoteThe [place], [place] NAME: CANDICE DE LEÓN DATE OF : MEDICAL REC#: [id number] MANAGER BILLING: CASS [place] ADMIT DATE: 03/08/2021 09:26:00 COTTON BUYER DATE: 03/08/2021 11:00 DICTATING PHYSICIAN: WILLIAM COELHO DICTATION DATE: 03/08/2021 11:00 OPERATIVE NOTE OPERATION DATE: 03-08-21 ANESTHETIC:General. DUMPER BULK SYSTEM: BARBARA Darby PREOPERATIVE DIAGNOSIS: 1. Menorrhagia. 2. [...] sounds. The patient was gently sounded using [employer] Rental[employer] dilators and the hysteroscope was passed through [...] William Coelho DO on 03/08/2021 12:16 PM [facility] Signed and Approved by: DR WILLIAM COELHO . 03/08/2021 12:16:00[facility] App[facility]ments Appointment Date:10/14/2021 08:30:00 AM Scheduled Provider:DIANA LAZARO PA-C Location:[facility] Appointment Type:URO Office Visit [facility] Evaluation + Plan note Future Appointments Appointment Date:11/03/2022 01:00:00 PM Scheduled Provider:DIANA LAZARO PA-C Location:[facility] Appointment Type:URO Office Visit [facility] Evaluation + Plan note Future Appointments Appointment Date:11/03/2022 01:00:00 PM Scheduled Provider:DIANA LAZARO PA-C Location:[facility] Appointment Type:URO Office Visit Diagnostic Tests Pending * Urine [facility] Future Appointments Appointment Date:11/03/2022 01:00:00 PM Scheduled Provider:DIANA LAZARO PA-C Location:[facility] Appointment Type:URO Office Visit Diagnostic Tests Pending * Urine Culture [facility]04/22 [facility] Future Appointments Appointment Date:11/03/2022 03:15:00 PM Scheduled Provider:DIANA LAZARO PA-C [facility] App[facility] Type:URO Office Visit [facility] Evaluation noteNo assessment information available [facility] Work Phone: Evaluposll note* Diagnosis Onset Date Resolution Status Abdominal pain acute Colitis acute Diarrhea acute [facility] Work Phone: Evaluation note* Diagnosis Palpitations- Primary Uncomplicated severe persistent asthma (CMS/HCC) [facility]* Diagnosis Diverticulitis of large intestine [...] mellitus Other fatigue documented in this encounter [facility] Healthcare[facility]* Diagnosis Diverticulitis of large intestine [...] urination Urinary frequency documented in this encounter [facility] Healthcare[facility] note* Diagnosis Diverticulitis of large intestine [...] constipation Other constipation documented [facility]* Diagnosis Diverticulitis of large intestine [...] Routine gynecological examination documented [facility]* Diagnosis Diverticulitis of large intestine [...] Family history of diabetes mellitus Other fatigue Acute maxillary sinusitis, recurrence not specified- Primary documented [facility] encounter [facility]* Diagnosis Diverticulitis of large intestine with perforation and abscess without bleeding- Primary Morbid (severe) obesity due to excess calories (E66.01) Elevated blood pressure reading in office without diagnosis of hypertension Other chest pain Colitis- Primary Other and unspecified noninfectious gastroenteritis and colitis Elevated blood pressure reading in office without diagnosis of hypertension Morbid (severe) obesity due to excess calories (CMS-HCC) Palpitations- Primary Uncomplicated severe persistent asthma (HCC) Obesity (BMI 30-39.9)- Primary Encounter for screening mammogram for malignant neoplasm of breast Family history of diabetes mellitus Other fatigue Acute maxillary sinusitis, recurrence not specified- Primary Morbid (severe) obesity due to excess calories (CMS-HCC)- Primary Mild persistent asthma with exacerbation (HCC) Unspecified asthma, with exacerbation ETD (Eustachian tube dysfunction), right [facility] Diagnosis Diverticulitis of large intestine with perforation and abscess without bleeding- Primary Morbid (severe) obesity due to excess calories (E66.01) Elevated blood pressure reading in office without diagnosis of hypertension Other chest pain Colitis- Primary Other and unspecified noninfectious gastroenteritis and colitis Elevated blood pressure reading in office without diagnosis of hypertension Morbid (severe) obesity due to excess calories (CMS-HCC) Palpitations- Primary Uncomplicated severe persistent asthma (HCC) Obesity (BMI 30-39.9)- Primary Encounter for screening mammogram for malignant neoplasm of breast Family history of diabetes mellitus Other fatigue Acute maxillary sinusitis, recurrence not specified- Primary Morbid (severe) obesity due to excess calories (CMS-HCC)- Primary Mild persistent asthma with exacerbation (HCC) Unspecified asthma, with exacerbation ETD (Eustachian tube dysfunction), right BV (bacterial vaginosis) Unspecified vaginitis and vulvovaginitis UTI symptoms Urinary urgency Urgency of urination [facility] Author Padma Torres [facility] Note Date/Time April 05, 2024 1 1:02am [facility] [address] [place] [address] Gastroenterology H&P Signed Patient: Candice De León MR#: [id number] : 1980 Acct:[id number] Age/Sex: 44 / F Adm Date: 5 Loc: Room: Type: [facility] Attending Dr: Padma Torres MD Copies to: [...] 04/05/24 1102 [facility] Work Phone: History general Narrative - Reported* Type Description Date Medical History asthma Surgical History cholecystectomy Surgical History ablasion Surgical History salpingectomy Hospitalization History see above [employer] Other Hospital course Narrative No data available for this section [facility] Hospital Discharge instructions No data available for this section [facility] No data available for this section [facility] Summary Purpose Family History No Family [...] pain Colitis Diarrhea Chief Complaint Referred by arcihe Hernandez nsult for colitis R10.9 K52.9 R19.7 Reason for [...] Referral Specialty Diagnoses / Procedures Referred By Jackson rojas Referred To Contact Cardiology Diagnoses Uncomplicated severe persistent asthma (CMS/HCC) Palpitations Procedures Cardiac event monitor Mina Hernandez MD [address] [address] Referral ID Status Reason Start Date Expiration Date V isits Requested Visits Authorized [id number] Pending Review 11/13/2023 05/11/2024 1 1 Additional Source Comments INFORMATION SOURCE (unrecogn ized section and content) DATE CREATED AUTHOR 07/18/2021 [facility] dical Specialist DATE CREATED AUTHOR AUTHOR'S ORGANIZ ATION 02/23/2022 [facility] DATE CREATED AUTHOR AUTHOR'S ORGANIZ ATION 06/25/2022 [facility] DATE CREATED AUTHOR AUTHOR'S ORGANIZ ATION 06/08/2023 [facility] DATE CREATED AUTHOR AUTHOR'S ORGANIZ ATION 04/29/2024 [facility] DATE CREATED AUTHOR AUTHOR'S ORGANIZ ATION 09/09/2024 [facility] DATE CREATED AUTHOR AUTHOR'S ORGANIZ ATION 09/10/2024 [facility] dical Specialists EPIC Care Team (unrecognized sect ion and content) Team Status: Active Member Role Status Dates Mina Hernandez MD Primary Care Provider Active Team Status: Inactive Member Role Status Dates [...] 2023 Team Status: Inactive Member Role Status Hernan Hernandez MD Primary Care Provider Active S tart: December 11, 2023 End: December 11, 2023 Padma Torres MD Attending Provider Active Start: December 11, 2023 End: December 11, 2023 Team Status: Inactive Member Role Status Hernan Hernandez MD Primary Care Provider Active S tart: December 16, 2023 End: December 16, 2023 Padma Torres MD Attending Provider Active Start: December 16, 2023 End: December 16, 2023 Team Status: Inactive Member Role Status Hernan Hernandez MD Primary Care Provider Active S tart: December 25, 2023 End: December 25, 2023 Padma Torres MD Attending Provider Active Start: December 25, 2023 End: December 25, 2023 Team Status: Inactive Member Role Status Dates JASVIR Rivera Attending Provider Active Ointment Mill Tender Relationship Specialty Start Date End Date Mina Hernandez MD [address] [address] PCP - General Family Medicine 09/05/22 [employer]intment Mill Tender Relationship Specialty Start Date End Date Mnia Hernandez MD [address] [facility] [address] [place] [address] PCP - General Family Medicine 09/05/22 Ointment Mill Tender Relationship Specialty Start Date End Date Mina Hernandez MD [address] [place] [address] [place] [address] PCP - General Family Medicine 09/05/22 Ointment Mill Tender Relationship Specialty Start Date End Date Mina Hernandez MD [address] [place] [address] PCP - General Family Medicine 09/05/22 Ointment Mill Tender Relationship Specialty Start Date End Date Mina Hernandez MD [address] [place] [address] PCP - General Family Medicine 09/05/22 Ointment Mill Tender Relationship Specialty Start Date End Date Mina Hernandez MD [address] [facility] [address] [place] [address] PCP - General Family Medicine 09/05/22 Ointment Mill Tender Relationship Specialty Start Date End Date Mina Hernandez MD [address] [facility] [address] [place] [address] PCP - General [facility] Medicine 09/05/22 Ointment Mill Tender Relationship Specialty Start Date End Date Mina Hernandez MD [address] [facility] [address] [place] [address] PCP - General Family Medicine 09/05/22 Ointment Mill Tender Relationship Specialty Start Date End Date Mina Hernandez MD [address] [place] [address] PCP - General Family Medicine 09/05/22 Ointment Mill Tender Relationship Specialty Start Date End Date Mina Hernandez MD [address] [place] [address] PCP - General Family Medicine 09/05/22 Ointment Mill Tender Relationship Specialty Start Date End Date Mina Hernandez MD [address] [facility] [address] [place] [address] PCP - General Family Medicine 09/05/22 Ointment Mill Tender Relationship Specialty Start Date End Date Mina Hernandez MD [address] [facility] [address] [place] [address] PCP - General Family Medicine 09/05/22 Ointment Mill Tender Relationship Specialty Start Date End Date Mina Henrandez MD [address] [facility] [address] [place] [address] PCP - General Family [facility] 09/05/22 Ointment Mill Tender Relationship Specialty Start Date End Date Mina Hernandez MD [address] [facility] [address] [place] [address] PCP - General Family Medicine 09/05/22 Goals (unrecognized section and content) Goals may be documented in a n alternate section REASON FOR VISIT (unrecogniz ed section and content) Reason Comments Heart Problem Reason Comments Weight Loss Reason Comments Weight Check Reason Comments Gynecologic Exam Reason Comments URI Reason Comments Vaginitis/Bacterial Vaginosis FOR RECORDS PERTAINING TO PATIENTS WHO ARE [...] BE BASED ON THE PRIMARY CLINICAL RECORDS. [facility]. provides no warranty or guarantee of the accuracy or completeness of information in this document.
--- OUTSIDE RECORDS SUMMARY | 2024-09-13 07:29 | XMS_ITS | Encounter Summary ---
Author Organization [facility] Address [address] [place] [address] Care Team Providers Care Bpo Specialist Name Role Phone Brian Meraz MD Primary Care Provider [phone] Encounter Details Date Type Department Care Team (Late Contact Info) Description 09/09/2024 Abstract [facility] [address] [facility] [address] [place] [id number] Brian Meraz MD [address] [facility] [address] [place] [address] Social History Tobacco Use Types Packs/Day Years [...] Office Visit [facility] [address] [place] [phone] William Coelho, DO [address] [facility] [place] [address] documented as of this encounter Visit Diagnoses Not on filedocumented in this encounter Care Teams Bpo Specialist Relationship Specialty Start Date End Date Brian Meraz MD [address] [facility] [address] [place] [address] PCP - General Family Medicine 09/05/22 documented as of this encounter
--- OUTSIDE RECORDS SUMMARY | 2024-09-13 07:29 | XMS_ITS | Encounter Summary ---
Author Organization [facility] Address [address] [place] [address] Care Team Providers Care Art Professor Name Role Phone Brian Meraz MD Primary Care Provider [phone] Brian Meraz MD Unavailable Encounter Details Date Type Department Care Team (Late st Contact Info) Description 11/08/2022 Orders Only [facility] [address] [facility] [address] [place] [address] A, Unknown Practice [address] [place], [place] [id number] Social History Tobacco Use Types Packs/Day Years [...] AM EDT Office Visit [facility] [address] [place] [address] [place] [address] William Coelho, DO [address] [facility] [place] [address] documented as of this encounter Procedures Procedure Name Priority Date/Time Associated Diagnosis Comments SCANNED LABS Routine 11/03/2022 7:56 AM EDT documented in this encounter Results * SCANNED LABS (11/03/2022 7:56 AM EDT) us Unknown Practice A LAB CHG PERFORMABLES Final Re sult documented in this encounter Visit Diagnoses Not on filedocumented in this encounter Care Teams Art Professor Relationship Specialty Start Date End Date Brian Meraz MD [address] [facility] [address] [place] [address] PCP - General Family Medicine 09/05/22 Brian Meraz MD [address] [facility] [address] [place] [address] PCP - Medical [place] [employer] 08/18/22 05/27/23 documented as of this encounter
--- NOTE | 2024-09-13 07:50 | MM_ITS ---
Patient Name: MAX DE LEÓN MR#: [id number] : 1980 Exam Date: 09/13/2024 Ordering Doctor: DR MINA HERNANDEZ M.D. RADIOLOGY REPORT PROCEDURE: MM TOMOSYNTHESIS SCREENING BI COMPARISON: MM TOMOSYNTHESIS SCREENING BI, 04/28/2023. MG MAMM SCREEN 3D DARYL CAD, 02/01/2022. MG MAMM SCREEN 3D DARYL CAD, 01/21/2021. INDICATIONS: Screening Calculator Name NCI Breast Cancer Risk Assessment Tool 5 Year Breast Cancer Risk 0.50% Lifetime Breast Cancer Risk 6.70% Personal Breast Cancer No Personal Ovarian Cancer No Treatments None Family Cancers None LOCATION: [facility] BREAST COMPOSITION: There are scattered areas of fibroglandular density. FINDINGS: DIAGNOSTIC CATEGORY 1--NEGATIVE. RIGHT BREAST: No significant suspicious finding. LEFT BREAST: No significant suspicious finding. RECOMMENDATIONS: ROUTINE MAMMOGRAM AND CLINICAL EVALUATION IN 12 MONTHS. PLEASE NOTE: A NORMAL MAMMOGRAM DOES NOT EXCLUDE THE POSSIBILITY OF BREAST CANCER. A CLINICALLY SUSPICIOUS PALPABLE LUMP SHOULD BE BIOPSIED. Dictated by: Dipesh Bonilla DO on 09/13/2024 at 14:02 Approved by: Dipesh Bonilla DO on 09/13/2024 at 14:04
== END 2024-09-13 07:27 | disposition home or self-care (01) ==
LOC: MAMMO 07:26
PROVIDERS: PCP Family Medicine; Visit Provider Family Medicine
DX: Z12.31 Encounter for screening mammogram for malignant neoplasm of breast (principal)
CPT/HCPCS: 77063; 77067